=== PATIENT | female | born 1970 | race Caucasian/White ===

== ENCOUNTER 2016-08-11 22:02 | Emergency (ER) | payer OTHER ==
[~2016-08-11] VITALS: Ht 167.6 cm; Wt 86.3 kg
[~2016-08-11 22:02] MED LIST: CLON1TAB3 PO; OXYC1TAB PO; PRAM0.129 PO
[2016-08-11 22:07] VITALS: BP 92/61; PULSE 124; TEMP 36.9; O2SAT 96; Ht 167.6 cm; Wt 86.3 kg
[2016-08-11] MEDS ORDERED: PROCHLORPERAZINE 5 MG/ML 2 ML VIAL IV STA (22:31)
[2016-08-11] MEDS ORDERED: KETOROLAC TROMETHAMINE 30 MG/ML VIAL IV STA (22:31)
[2016-08-11] MEDS ORDERED: DiphenhydrAMINE HCL 50 MG/ML VIAL IV STA (22:31)
[2016-08-11] MEDS ORDERED: SODIUM CHLORIDE 0.9% 1000ML 1,000 ML IV ONE (22:45)
[2016-08-11 23:01] LABS: BASO % 0.5 %; BASO ABS # 0.04 K/uL (0-0.2); COMPLETE YES; EOS % 0.8 %; HEMATOCRIT 40.9 % (37-47); IG% 0.1 %; LYMPH % 35.7 %; LYMPH ABS # 2.84 K/uL (1.2-3.4); MEAN CELL VOLUME 92.3 fL (80-100); MEAN CORPUSCULAR HEMOGLOBIN 30.9 pg (25-34); MEAN CORPUSCULAR HGB CONC 33.5 g/dl (32-36); MEAN PLATELET VOLUME 10.6 fL (7.4-10.4); MONO % 9.3 %; NEUT % 53.6 %; PLATELET COUNT 338 K/uL (130-400); RED BLOOD COUNT 4.43 M/uL (4.2-5.4); WHITE BLOOD COUNT 7.96 K/uL (4.8-10.8)
[2016-08-11 23:16] LABS: BUN/CREATININE RATIO 7.9 (10-20); CALCIUM 8.8 mg/dl (8.5-10.1); CREATININE 0.76 mg/dl (0.60-1.20); POTASSIUM 3.4 mmol/L (3.5-5.1)
[2016-08-11 23:19] LABS: ALB/GLOB RATIO 1.1 (0.9-2)
[2016-08-11] MEDS ORDERED: OXYC1TAB3 PO (23:43)
--- NOTE | 2016-08-12 01:39 | EMERGENCY ROOM VISIT NOTE ---
History First contact with patient: 22:22 Chief Complaint: WEAKNESS Stated Complaint: MIGRAINE,NO SLEEP FOR 3 DAYS,WEAKNESS,NAUSEA Nursing Triage Summary: Patient presents with a c/c of inability to sleep that started Monday. Patient has a hsitory of this in the past and calls her psychiatrist, who triples her trazadone dose to 150 mg and this usually works. It has not worked this event. Patient also reports that she has a headache, no relief with fiorcet or motrin. Patient reports increased anxiety and depression over hte last week or so, with no known cause. Patient is oriented and awake, appears in minimal distress. She is slightly withdrawn on exam. History of Present Illness The patient is a 46 year old female who presents to the Emergency Room with complaints of headache and difficulty sleeping for the past 3-4 days. The patient has long-standing histories of both migraines and insomnia. The patient recently increased her trazodone dose the past 2 days, and this did not significantly relieve her symptoms. She states that her headache is primarily frontal and did not have relief with Fioricet and Motrin. The patient does have a history of anxiety and depression. She is not suicidal or homicidal and does not wish to speak with a psychiatrist. This is not the worst headache of her life. She feels that if she could get some sleep and some relief from her headache she will be doing very well. She rates her current discomfort an 8/ 10. No recent illness or fever. No neck pain or chest pain. The headache is typical to previous, and previous imaging has been normal. Review of Systems More than 10 systems were reviewed and otherwise negative with the exception of history of present illness. Past Medical/Surgical History Medical Problems: (1) Abdominal pain (2) Altered mental status (3) Altered mental status (4) Chronic back pain (5) Dizziness (6) Gastric Bypass (7) Hypotension (8) Hypotension (9) Hypotension (10) Insomnia (11) Kidney stone (12) Migraine (13) Narcotic drug use (14) Sleep deprivation (15) Sleep deprivation (16) UTI Family History Cancer Diabetes mellitus FHx: gallbladder disease Heart disease Hypertension Kidney disease Kidney stones Lung disease Social History Smoking Status: Never Smoker Alcohol Use: none Drug Use: none Marital Status: Housing Status: lives alone Occupation Status: disabled Current/Historical Medications Scheduled Amitriptyline Hcl (Elavil), 100 MG PO HS Tdblwovbfp-Adgkxqhxhhgxh-Jiecs (Fioricet), 1 CAP PO UD Clonazepam (Klonopin), 1 MG PO HS Duloxetine Hcl (Cymbalta), 60 MG PO DAILY Pramipexole (Mirapex), 75 MG PO HS Thyroid ([place] Thyroid), 180 MG PO DAILY Trazodone HCl (Trazodone HCl), 150 MG PO HS Scheduled PRN Cyclobenzaprine Hcl (Flexeril), 10 MG PO TID PRN for Muscle Spasms Oxycodone Ir (Roxicodone Ir), 1-2 TAB PO [id number] PRN for Severe Pain Promethazine Hcl (Phenergan), 25 MG PO BID PRN for Nausea Allergies Coded Allergies: Dihydroergotamine (Verified Allergy, Severe, PALPATATIONS-SWEATS, 08/11/16) Almotriptan (Verified Allergy, Unknown, 08/11/16) Frovatriptan (Verified Allergy, Unknown, 08/11/16) Pregabalin (Verified Allergy, Unknown, flu like feelings, 08/11/16) Sumatriptan (Verified Allergy, Unknown, 08/11/16) Topiramate (Verified Adverse Reaction, Unknown, flu like symptom, 08/11/16) pt/gmg Physical Exam Vital Signs Date Time Temp Pulse Resp B/P Pulse Ox O2 Delivery O2 Flow Rate FiO2 08/11/16 22:07 36.9 124 20 92/61 96 Room Air Physical Exam VITALS: Vitals are noted on the nurse's note and reviewed by myself. Vital signs stable. GENERAL: Well-developed, well-nourished, white female, who is in no acute distress and resting comfortably. Patient is cooperative with the examination. HEAD: Normocephalic atraumatic. NECK: Supple without nuchal rigidity. No lymphadenopathy. No thyromegaly. Cervical spine is nontender. HEART: Regular rate and rhythm without murmurs gallops or rubs. LUNGS: Clear to auscultation bilaterally without wheezes, rales or rhonchi. No retractions or accessory muscle use. ABDOMEN: Positive normal bowel sounds x 4. Soft, nontender, without masses or organomegaly. No guarding or rebound tenderness. MUSCULOSKELETAL: No muscle atrophy, erythema, or edema noted. Full range of motion without joint tenderness in all extremities. NEURO: Patient was alert and oriented to person place and time. CN II through XII grossly intact. No focal neurological deficits Medical Decision & Procedures Laboratory Results 08/11/16 22:40 Red Blood Count 4.43, Mean Corpuscular Volume 92.3, Mean Corpuscular Hemoglobin 30.9, Mean Corpuscular Hemoglobin Concent 33.5, Mean Platelet Volume 10.6, Neutrophils (%) (Auto) 53.6, Lymphocytes (%) (Auto) 35.7, Monocytes (%) (Auto) 9.3, Eosinophils (%) (Auto) 0.8, Basophils (%) (Auto) 0.5, Neutrophils # (Auto) 4.27, Lymphocytes # (Auto) 2.84, Monocytes # (Auto) 0.74, Eosinophils # (Auto) 0.06, Basophils # (Auto) 0.04 08/11/16 22:40 Test 08/11/16 22:40 08/11/16 23:50 White Blood Count 7.96 K/uL (4.8-10.8) Red Blood Count 4.43 M/uL (4.2-5.4) Hemoglobin 13.7 g/dL (12.0-16.0) Hematocrit 40.9 % (37-47) Mean Corpuscular Volume 92.3 fL (80-100) Mean Corpuscular Hemoglobin 30.9 pg (25-34) Mean Corpuscular Hemoglobin Concent 33.5 g/dl (32-36) Platelet Count 338 K/uL (130-400) Mean Platelet Volume 10.6 fL (7.4-10.4) Neutrophils (%) (Auto) 53.6 % Lymphocytes (%) (Auto) 35.7 % Monocytes (%) (Auto) 9.3 % Eosinophils (%) (Auto) 0.8 % Basophils (%) (Auto) 0.5 % Neutrophils # (Auto) 4.27 K/uL (1.4-6.5) Lymphocytes # (Auto) 2.84 K/uL (1.2-3.4) Monocytes # (Auto) 0.74 K/uL (0.11-0.59) Eosinophils # (Auto) 0.06 K/uL (0-0.5) Basophils # (Auto) 0.04 K/uL (0-0.2) RDW Standard Deviation 45.4 fL (36.4-46.3) RDW Coefficient of Variation 13.5 % (11.5-14.5) Immature Granulocyte % (Auto) 0.1 % Immature Granulocyte # (Auto) 0.01 K/uL (0.00-0.02) Anion Gap 9.0 mmol/L (3-11) Est Creatinine Clear Calc Drug Dose 100.1 ml/min Estimated GFR () 107.5 Estimated GFR (Non- 92.8 BUN/Creatinine Ratio 7.9 (10-20) Calcium Level 8.8 mg/dl (8.5-10.1) Total Bilirubin 0.3 mg/dl (0.2-1) Aspartate Amino Transf (AST/SGOT) 16 U/L (15-37) Alanine Aminotransferase (ALT/SGPT) 24 U/L (12-78) Alkaline Phosphatase 118 U/L (45-117) Total Protein 7.1 gm/dl (6.4-8.2) Albumin 3.7 gm/dl (3.4-5.0) Globulin 3.4 gm/dl (2.5-4.0) Albumin/Globulin Ratio 1.1 (0.9-2) Bedside Glucose 130 mg/dl (70-90) Medications Administered Medications (Trade) Dose Ordered Sig/[facility] Route Start Time Stop Time Status Last Admin Dose Admin Diphenhydramine HCl (Benadryl Inj) 50 mg NOW STAT IV 08/11/16 22:31 08/11/16 22:33 DC 08/11/16 22:46 50 MG Prochlorperazine Edisylate 10 mg 10 mg NOW STAT IV 08/11/16 22:31 08/11/16 22:33 DC 08/11/16 22:46 10 MG Sodium Chloride (Nss 1000ml) 1,000 ml @ 999 mls/hr Q1H1M ONCE IV 08/11/16 22:45 08/11/16 23:45 DC 08/11/16 22:46 999 MLS/HR Ketorolac Tromethamine (Toradol Inj) 30 mg NOW STAT IV 08/11/16 22:31 08/11/16 22:33 DC 08/11/16 22:45 30 MG ED Course Physical exam and history were performed. Nursing notes and EMR were reviewed. Patient appears to have difficulty sleeping and a migraine headache that have been ongoing for the past several days. The patient does not appear in significant distress on examination. This is not the worst headache of her life. She is without signs of meningitis or encephalitis. IV access was established and labs were obtained. The patient was hydrated with 1 L normal saline and given 30 mg IV Toradol, 10 mg IV Compazine, 50 mg IV Benadryl. The patient's blood work is as above and was reviewed. She does not have a significant elevated white blood cell count, anemia, bandemia, or significant electrolyte imbalance. She initially had some low blood sugar here, and was given orange juice. Rechecked bed side glucose was 130. The patient was monitored for some time here in the department, and was found to be sleeping quite comfortably on final reevaluation. I discussed the patient 's labs with her, and overall feel that she is stable for discharge home. The patient is to follow with her primary care physician in the next few days for a recheck of her condition. She was otherwise invited back to the ER with any new , worsening, or concerning symptoms. She was easily plan of care and voiced understanding. She was discharged home via taxi. The chart was completed utilizing [employer] Speech Voice Recognition Software. Grammatical errors, random word insertions, pronoun errors, and incomplete sentences are an occasional consequence of this system due to software limitations, ambient noise, and hardware issues. Any formal questions or concerns about the content, text, or information contained within the body of this dictation should be directly addressed to the provider for clarification. . Medical Decision The differential diagnosis includes, but is not limited to: acute intracranial bleed, meningitis, encephalitis, mass or mass effect, sinusitis, infection, tumor, headache, temporal arteritis and carbon monoxide exposure, and migraine. Impression Primary Impression: Migraine headache Additional Impression: Sleep deprivation Departure Information Referrals Don Espinosa Jr,D.O. (PCP) Patient Instructions My [facility] Problem Qualifiers Primary Impression: Migraine headache Migraine type: without aura
[2016-12-07] MEDS ORDERED: CLON2TAB PO (00:46)
[2016-12-07] MEDS ORDERED: RISP4TAB2 PO (00:49)
[2016-12-07] MEDS ORDERED: AMT50 PO (00:54)
[2016-12-07] MEDS ORDERED: DULO60CA44 PO (14:12)
[2016-12-07] MEDS ORDERED: PROM25TA9 PO (22:35)
[2016-12-07] MEDS ORDERED: CYCL10TA6 PO (23:46)
[2016-12-09] MEDS ORDERED: OXYC-609 PO (00:49)
[2016-12-09] MEDS ORDERED: MRP5 PO (00:49)
[2016-12-09] MEDS ORDERED: OXY/15 PO (00:49)
[2016-12-09] MEDS ORDERED: EST5 PO (00:52)
[2016-12-09] MEDS ORDERED: ERGO1CAP41 PO (00:52)
== END 2016-08-12 00:24 | disposition home or self-care (01) ==
LOC: C.EDB 22:03
DX: G43.909 Migraine, unspecified, not intractable, without status migrainosus (principal); Z72.820 Sleep deprivation; F32.9 Major depressive disorder, single episode, unspecified; F41.9 Anxiety disorder, unspecified; G47.00 Insomnia, unspecified; Z79.899 Other long term (current) drug therapy; Z83.3 Family history of diabetes mellitus; Z82.49 Family history of ischemic heart disease and other diseases of the circulatory system; Z84.1 Family history of disorders of kidney and ureter

== ENCOUNTER 2016-08-14 19:47 | Emergency (ER) | payer OTHER ==
[~2016-08-14] VITALS: Ht 167.6 cm; Wt 86.2 kg
[~2016-08-14 19:47] MED LIST changes: -OXYC1TAB PO; +OXYC1TAB3 PO
[2016-08-14 19:54] VITALS: Ht 167.6 cm; Wt 86.2 kg
[2016-08-14] MEDS ORDERED: PROCHLORPERAZINE 5 MG/ML 2 ML VIAL IM STA (20:16)
[2016-08-14] MEDS ORDERED: KETOROLAC TROMETHAMINE 60 MG/2 ML VIAL IM STA (20:16)
[2016-08-14] MEDS ORDERED: MoRPHine SULFATE 10 MG/ML CARP/VIAL IM STA (20:16)
--- NOTE | 2016-08-14 20:21 | EMERGENCY ROOM VISIT NOTE ---
ED Visit Note First contact with patient: 20:03 CHIEF COMPLAINT: Migraine headache HISTORY OF PRESENT ILLNESS: This 46-year-old female patient presented to the emergency department ambulatory with a gradual onset of a severe generalized headache that started 1 week ago. The patient states that she was seen here for the migraine last week. She states that she did have some relief when she left here, but her migraine returned the next day. The patient states the migraine is similar to their typical migraines. There has been associated photophobia, phonophobia, nausea and vomiting. The patient denies fever or chills recently, and there is no weakness or numbness of the extremities. There is no difficulty with speech or vision. No trauma to the head and no neck pain. The pain is severe, constant, and it is slowly increasing in severity. The patient rates the pain as throbbing and 8/10. The patient has taken Fioricet without relief. This is not the worst headache of the life and is similar to previous migraines. Previous imaging studies of the brain have been normal. The patient sees Dr. Tyler for her migraines and takes Cymbalta daily. REVIEW OF SYSTEMS: A review of systems was performed with positives and pertinent negatives listed in the history of present illness. All other systems were reviewed and are negative. ALLERGIES: See EMR MEDICATIONS: See med list PMH: Migraines, cholecystectomy, endometriosis, kidney stones, fibromyalgia, osteoarthritis SOCIAL HISTORY: The patient lives locally with her family. Nonsmoker, denies alcohol use. PHYSICAL EXAM: Vital Signs: Reviewed Nurse's notes, vital signs stable. GENERAL : This is a 46-year-old female, who appears in pain, but non toxic in appearance and in no acute distress. MENTAL STATUS: Alert, oriented, and coherent. HEENT: Normocephalic. PERRLA. EOMI. Nares patent without nuchal rigidity. Tympanic membranes pearly keys without erythema or effusion bilaterally. Mucous membranes moist. NECK: Supple, no nuchal rigidity, nontender, no lymphadenopathy. HEART: Regular rhythm and normal rate without murmurs, ectopy, gallops, or rubs. LUNGS: Clear to auscultation bilaterally without wheezes, rales or rhonchi. No dullness to percussion. No accessory muscle use. No retractions. SKIN: Normal. NEUROLOGICAL: Pupils are round, equal and react to light. The optic fundi are normal and the discs are flat. The patient moves all extremities well and the gait is normal. EMERGENCY DEPARTMENT COURSE: I examined the patient. The patient is on a no narcotic prescription treatment plan, as she does receive regular narcotic prescriptions from her primary care provider. The patient has been seen here before for migraines and she states that her symptoms today are similar to previous episodes. The patient was given 10 mg morphine IM, 10 mg Compazine IM , and 60 mg Toradol IM. The differential diagnosis includes acute intracranial bleed, meningitis, encephalitis, mass or mass effect, sinusitis, infection, tumor, headache, temporal arteritis and carbon monoxide exposure, and migraine. The patient was independently evaluated by Dr. Gastelum, ED attending physician, who agreed with my assessment and treatment plan. The patient was discharged home in stable condition in a taxi. DIAGNOSIS: Migraine headache Problem List Medical Problems: (1) Abdominal pain Status: Resolved (2) Altered mental status Status: Resolved (3) Altered mental status Status: Resolved (4) Chronic back pain Status: Chronic (5) Dizziness Status: Resolved (6) Gastric Bypass Status: Resolved (7) Hypotension Status: Resolved (8) Hypotension Status: Resolved (9) Hypotension Status: Resolved (10) Insomnia Status: Resolved (11) Kidney stone Status: Resolved (12) Migraine Status: Chronic (13) Narcotic drug use Status: Chronic (14) Sleep deprivation Status: Resolved (15) Sleep deprivation Status: Resolved (16) UTI Status: Chronic Current/Historical Medications Scheduled Amitriptyline Hcl (Elavil), 100 MG PO HS Qrmrvocbrh-Hnidobnjznzfs-Lqqlk (Fioricet), 1 CAP PO UD Clonazepam (Klonopin), 1 MG PO HS Duloxetine Hcl (Cymbalta), 60 MG PO DAILY Pramipexole (Mirapex), 75 MG PO HS Thyroid ([place] Thyroid), 180 MG PO DAILY Trazodone HCl (Trazodone HCl), 150 MG PO HS Scheduled PRN Cyclobenzaprine Hcl (Flexeril), 10 MG PO TID PRN for Muscle Spasms Oxycodone Ir (Roxicodone Ir), 1-2 TAB PO [id number] PRN for Severe Pain Promethazine Hcl (Phenergan), 25 MG PO BID PRN for Nausea Allergies Coded Allergies: Dihydroergotamine (Verified Allergy, Severe, PALPATATIONS-SWEATS, 08/11/16) Almotriptan (Verified Allergy, Unknown, 08/11/16) Frovatriptan (Verified Allergy, Unknown, 08/11/16) Pregabalin (Verified Allergy, Unknown, flu like feelings, 08/11/16) Sumatriptan (Verified Allergy, Unknown, 08/11/16) Topiramate (Verified Adverse Reaction, Unknown, flu like symptom, 08/11/16) pt/gmg Vital Signs Date Time Temp Pulse Resp B/P Pulse Ox O2 Delivery O2 Flow Rate FiO2 08/14/16 20:56 36.7 81 16 131/58 98 08/14/16 20:53 81 16 131/58 98 Room Air 08/14/16 19:54 36.7 86 16 139/55 98 Room Air Medications Administered Medications (Trade) Dose Ordered Sig/[facility] Route Start Time Stop Time Status Last Admin Dose Admin Morphine Sulfate (MoRPHine SULFATE INJ) 10 mg NOW STAT IM 08/14/16 20:16 08/14/16 20:18 DC 08/14/16 20:33 10 MG Prochlorperazine Edisylate (Compazine Inj) 10 mg NOW STAT IM 08/14/16 20:16 08/14/16 20:18 DC 08/14/16 20:32 10 MG Ketorolac Tromethamine (Toradol Inj) 60 mg NOW STAT IM 08/14/16 20:16 08/14/16 20:18 DC 08/14/16 20:33 60 MG Departure Information Impression Primary Impression: Migraine Dispostion Home / Self-Care Condition GOOD Referrals Don Espinosa Jr,D.O. (PCP) Patient Instructions My [facility] Additional Instructions You have been treated in the Emergency Department for a Headache. You have received pain medicine in the emergency department which impairs your ability to operate a vehicle. It is illegal for you to drive after receiving these medicines. You should schedule a follow-up appointment with your Primary Care Provider or established Neurologist for further evaluation and treatment of your Headache. Return to the Emergency Department if your current symptoms worsen despite treatment course outlined above, or if you develop any of the following symptoms : intractable pain despite aforementioned treatment course, visual disturbances , loss of vision, unilateral weakness or facial drooping, slurring of speech, loss of coordination, or loss of consciousness. Problem Qualifiers Primary Impression: Migraine Migraine type: unspecified Status migrainosus presence: without status migrainosus Intractability: not intractable Qualified Codes: G43.909 - Migraine, unspecified, not intractable, without status migrainosus
--- NOTE | 2016-08-14 20:47 | EMERGENCY ROOM VISIT NOTE ---
ED Visit Note First contact with patient: 20:03 Staff note: I have reviewed the Patients chart and have discussed this case with my PA. I generally agree with the ED note and findings.
[2016-08-14 20:56] VITALS: BP 131/58; PULSE 81; TEMP 36.7; O2SAT 98
[2016-12-07] MEDS ORDERED: CLON2TAB PO (00:46)
[2016-12-07] MEDS ORDERED: RISP4TAB2 PO (00:49)
[2016-12-07] MEDS ORDERED: AMT50 PO (00:54)
[2016-12-07] MEDS ORDERED: DULO60CA44 PO (14:12)
[2016-12-07] MEDS ORDERED: PROM25TA9 PO (22:35)
[2016-12-07] MEDS ORDERED: CYCL10TA6 PO (23:46)
[2016-12-09] MEDS ORDERED: OXYC-609 PO (00:49)
[2016-12-09] MEDS ORDERED: MRP5 PO (00:49)
[2016-12-09] MEDS ORDERED: OXY/15 PO (00:49)
[2016-12-09] MEDS ORDERED: EST5 PO (00:52)
[2016-12-09] MEDS ORDERED: ERGO1CAP41 PO (00:52)
== END 2016-08-14 21:20 | disposition home or self-care (01) ==
LOC: C.EDB 19:48 → C.EDD 21:20
DX: G43.909 Migraine, unspecified, not intractable, without status migrainosus (principal); M54.9 Dorsalgia, unspecified; G89.29 Other chronic pain; F19.90 Other psychoactive substance use, unspecified, uncomplicated; Z87.442 Personal history of urinary calculi; M19.90 Unspecified osteoarthritis, unspecified site; M79.7 Fibromyalgia; N39.0 Urinary tract infection, site not specified; Z79.899 Other long term (current) drug therapy

== ENCOUNTER → 2016-08-19 | Outpatient (CLI) | payer OTHER ==
[~2016-08-19] MED LIST changes: +AMT/50 PO; +AMT50 PO; +BUTA1CAP17 PO; +CLON2TAB PO; +CLON2TAB3 PO; +CYCL10TA6 PO; +CYCL10TA7 PO; +CYM60 PO; +DSY/150 PO; +DULO60CA44 PO; +ERGO1CAP41 PO; +EST5 PO; +METO1TAB55 PO; +MRP5 PO; +ONDA4TAB10 SL; +OXY/15 PO; +OXYC-609 PO; +PROM25TA16 PO; +PROM25TA9 PO; +RISP1TAB68 PO; +RISP4TAB2 PO; +RISP4TAB8 PO; +THYR180T PO
[2016-08-19 09:37] LABS: BASO % 0.3 %; BASO ABS # 0.02 K/uL (0-0.2); COMPLETE YES; EOS % 1.7 %; HEMATOCRIT 44.1 % (37-47); IG% 0.1 %; LYMPH % 23.7 %; LYMPH ABS # 1.64 K/uL (1.2-3.4); MEAN CELL VOLUME 91.5 fL (80-100); MEAN CORPUSCULAR HEMOGLOBIN 30.7 pg (25-34); MEAN CORPUSCULAR HGB CONC 33.6 g/dl (32-36); MEAN PLATELET VOLUME 10.4 fL (7.4-10.4); MONO % 4.6 %; NEUT % 69.6 %; PLATELET COUNT 358 K/uL (130-400); RED BLOOD COUNT 4.82 M/uL (4.2-5.4); WHITE BLOOD COUNT 6.92 K/uL (4.8-10.8)
[2016-08-19 09:51] LABS: ALT/SGPT 33 U/L (12-78); AST/SGOT 29 U/L (15-37); BLOOD UREA NITROGEN 9 mg/dl (7-18); BUN/CREATININE RATIO 13.1 (10-20); C-REACTIVE PROTEIN < 0.29 mg/dl (0-0.29); CARBON DIOXIDE 24 mmol/L (21-32); CHLORIDE 104 mmol/L (98-107); CREATININE 0.72 mg/dl (0.60-1.20); GLUCOSE 62 mg/dl (70-99); POTASSIUM 3.2 mmol/L (3.5-5.1); SODIUM 139 mmol/L (136-145)
--- NOTE | 2016-08-19 09:55 | DIAGNOSTIC IMAGING REPORT ---
L-SPINE MIN 4 VIEWS ROUTINE CLINICAL HISTORY: Low back pain. Degenerative disc disease. COMPARISON: None FINDINGS: There is grade I anterolisthesis of L5 on S1 due to bilateral L5 pars defects. There is marked disc space narrowing and osteophytosis at the L5-S1 level. Otherwise, mild multilevel degenerative disc disease is present. There is no fracture or suspicious lesion. Cholecystectomy clips are noted. IMPRESSION: 1. Grade I anterolisthesis of L5 on S1 due to bilateral L5 pars defects. 2. Marked disc space narrowing with osteophytosis at L5-S1. Otherwise, mild multilevel degenerative changes of the lumbar spine. 3. No acute fracture. Electronically signed by: Alan Whitt M.D. 08/19/2016 9:53 AM Dictated Date/Time: 08/19/2016 9:51 AM
[2016-08-19 09:56] LABS: ALKALINE PHOSPHATASE 145 U/L (45-117); FERRITIN 44.3 ng/ml (8.0-388.0); RHEUMATOID FACTOR < 10.0 U/mL (0-15)
[2016-08-19 10:05] LABS: CHOLESTEROL/HDL RATIO 1.7; THYROID STIMULATING HORMONE 1.1 uIu/ml (0.300-4.500)
--- NOTE | 2016-08-19 10:06 | DIAGNOSTIC IMAGING REPORT ---
SI JOINTS 3 OR MORE VIEWS CLINICAL HISTORY: Sacroiliac pain. Low back pain. COMPARISON STUDY: None. FINDINGS: Degenerative disc disease at L5-S1. The sacrum is intact. Bilateral sacroiliac joints are within normal limits. No erosions identified. IMPRESSION: Unremarkable bilateral sacroiliac joints. Electronically signed by: Marky Patel M.D. 08/19/2016 10:05 AM Dictated Date/Time: 08/19/2016 10:04 AM
[2016-08-19 10:10] LABS: BENZODIAZEPINE, URINE NEG (NEG); COCAINE,URINE NEG (NEG); PHENCYCLIDINE, URINE NEG (NEG)
[2016-08-19 12:18] LABS: LYME DISEASE AB IGG NEG (NEG); LYME DISEASE AB IGM NEG (NEG)
--- NOTE | 2016-08-23 11:46 | CODING QUERY MEDICAL NECESSITY ---
SUPPORTING DIAGNOSIS NEEDED Dr. Espinosa, A supporting diagnosis is required for the test/procedure performed on this patient in order for us to be reimbursed by the patient's insurance. Please provide a supporting diagnosis for the following test/procedure listed below next to the test name along with your signature. *If there is no additional diagnosis for this patient that would support the following test/procedure please document that below next to the test/procedure. Test(s)/Procedure(s) that require a supporting diagnosis: * ([id number]) URINE DRUG SCREEN DIAGNOSIS: * ([id number]) HLA B-27 DIAGNOSIS: DATE OF SERVICE: 08/19/16 Provider Signature: Date: Thank you Naveed Gilmore [facility] Information Management Once completed, please kindly fax back to [phone] For questions please call [phone]
[2016-08-23 15:28] LABS: HLA-B27** TC 528X NEGATIVE (NEGATIVE)
== END | disposition home or self-care (01) ==
LOC: C.LAB 08:08
DX: M19.90 Unspecified osteoarthritis, unspecified site (principal); E61.1 Iron deficiency; E55.9 Vitamin D deficiency, unspecified; E53.8 Deficiency of other specified B group vitamins; F32.89 Other specified depressive episodes

== ENCOUNTER 2016-09-16 17:43 | Emergency (ER) | payer OTHER ==
[~2016-09-16] VITALS: Ht 167.6 cm; Wt 83.5 kg
[~2016-09-16 17:43] MED LIST changes: -AMT/50 PO; -AMT50 PO; -BUTA1CAP17 PO; -CLON2TAB PO; -CLON2TAB3 PO; -CYCL10TA6 PO; -CYCL10TA7 PO; -CYM60 PO; -DSY/150 PO; -DULO60CA44 PO; -ERGO1CAP41 PO; -EST5 PO; -METO1TAB55 PO; -MRP5 PO; -ONDA4TAB10 SL; -OXY/15 PO; -OXYC-609 PO; -PROM25TA16 PO; -PROM25TA9 PO; -RISP1TAB68 PO; -RISP4TAB2 PO; -RISP4TAB8 PO; -THYR180T PO
[2016-09-16 17:46] VITALS: TEMP 36.9; Ht 167.6 cm; Wt 83.5 kg
[2016-09-16] MEDS ORDERED: RISP1TAB68 PO (18:06)
[2016-09-16] MEDS ORDERED: DiphenhydrAMINE HCL 50 MG/ML VIAL IV STA (18:21)
[2016-09-16] MEDS ORDERED: SODIUM CHLORIDE 0.9% 1000ML 1,000 ML IV STA (18:21)
[2016-09-16] MEDS ORDERED: PROCHLORPERAZINE 5 MG/ML 2 ML VIAL IV STA (18:21)
[2016-09-16 18:35] LABS: BASO % 0.3 %; BASO ABS # 0.02 K/uL (0-0.2); COMPLETE YES; HEMATOCRIT 40.2 % (37-47); IG% 0.1 %; LYMPH % 25.5 %; LYMPH ABS # 1.87 K/uL (1.2-3.4); MEAN CELL VOLUME 91.4 fL (80-100); MEAN CORPUSCULAR HEMOGLOBIN 30.5 pg (25-34); MEAN CORPUSCULAR HGB CONC 33.3 g/dl (32-36); MEAN PLATELET VOLUME 11.1 fL (7.4-10.4); MONO % 8.9 %; NEUT % 65.2 %; PLATELET COUNT 327 K/uL (130-400); WHITE BLOOD COUNT 7.34 K/uL (4.8-10.8)
[2016-09-16 18:41] LABS: BUN/CREATININE RATIO 11.7 (10-20); CALCIUM 8.6 mg/dl (8.5-10.1); CREATININE 0.7 mg/dl (0.60-1.20); POTASSIUM 3.8 mmol/L (3.5-5.1)
[2016-09-16 18:44] LABS: INR 0.9 (0.9-1.1); PROTHROMBIN TIME (PATIENT) 9.9 SECONDS (9.0-12.0)
[2016-09-16] MEDS ORDERED: OPTIRAY 320 IV PRN (18:45)
--- NOTE | 2016-09-16 19:21 | DIAGNOSTIC IMAGING REPORT ---
ADDENDUM . correlation made with an MRA dated 09/21/2012. 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 This may be secondary to changes/patient motion, and resolution. There is no evidence for an enlarging aneurysm. If present, they again are stable. Electronically signed by: Logan Johnson M.D. 09/16/2016 7:41 PM Dictated Date/Time: 09/16/2016 7:38 PM ORIGINAL REPORT HEAD CTA HISTORY: Headache mental status change TECHNIQUE: Multiaxial CT images of the head were performed both before and after the intravenous administration of contrast to evaluate the major cerebral vessels. Maximum intensity projection images were also obtained. COMPARISON: 04/11/2015 FINDINGS: There is no mass, hematoma, midline shift, or acute infarct. Visualized intracranial internal carotid arteries, distal vertebral arteries, and basilar artery are widely patent. There is no significant stenosis, occlusion, or aneurysm seen within the bilateral ACAs, MCAs, or talent development consultant. IMPRESSION: No significant stenosis, occlusion, or aneurysm within the [place]. No acute process of the brain Electronically signed by: Logan Johnson M.D. 09/16/2016 7:19 PM Dictated Date/Time: 09/16/2016 7:17 PM
[2016-09-16 19:45] VITALS: BP 132/81; PULSE 96; O2SAT 97
--- NOTE | 2016-09-16 22:48 | EMERGENCY ROOM VISIT NOTE ---
History Report prepared by Shaylee: Mann Aceves Under the Supervision of: Dr. Bay Manzo M.D. First contact with patient: 18:06 Chief Complaint: HEADACHE Stated Complaint: MIGRAINE,SENY BY URGENT CARE History of Present Illness The patient is a 46 year old female who presents to the Emergency Room with complaints of a persistent headache that started three nights ago. The headache is located behind the left eye. The headache is rated 7/10 in severity is described as an aching sensation. The patient has a history of migraines. Her migraines are normally behind the right eye, sharp in nature, and more severe. She is also less photophobic than she typically is with migraines. The patient notes that the left eye has been straining for a while. She experienced intermittent vomiting every day starting three nights ago but did not vomit yet today. The patient also has complaints of generalized weakness and notes that her blood pressure has been erratic for the past several weeks. She does state that she has a history of dysautonomia. She experiences intermittent difficulty focusing her vision bilaterally and is scheduled to see an Nuclear Unit Operator. She has had bilateral leg tingling that started three days ago. She denies any focal numbness or weakness in her extremities. She denies fevers or double vision. The patient was referred to the ED by [employer] [facility] today. She follows up with Dr. Tyler in Neurology and Dr. Espinosa for primary care. She was diagnosed with bilateral internal carotid aneurysms, worse on the right, and has not had any interventions. She is followed at [facility]. Source of History: patient Onset: three nights ago Position: head (left) Symptom Intensity: 7/10 Quality: ache Timing: other (persistent) Associated Symptoms: + nausea, + vomiting, + weakness (generalized), No fevers, No numbness Review of Systems See HPI for pertinent positives & negatives. A total of 10 systems reviewed and were otherwise negative. Past Medical & Surgical Medical Problems: (1) Abdominal pain (2) Altered mental status (3) Altered mental status (4) Chronic back pain (5) Dizziness (6) Gastric Bypass (7) Hypotension (8) Hypotension (9) Hypotension (10) Insomnia (11) Kidney stone (12) Migraine (13) Narcotic drug use (14) Sleep deprivation (15) Sleep deprivation (16) UTI Family History Cancer Diabetes mellitus FHx: gallbladder disease Heart disease Hypertension Kidney disease Kidney stones Lung disease Social History Smoking Status: Never Smoker Alcohol Use: none Drug Use: none Marital Status: Housing Status: lives alone Occupation Status: disabled Current/Historical Medications Scheduled Amitriptyline Hcl (Elavil), 150 MG PO HS Sepptdhkyy-Qmvudvzrghbdq-Rplrw (Fioricet), 1 CAP PO UD Clonazepam (Klonopin), 1 MG PO HS Duloxetine Hcl (Cymbalta), 60 MG PO DAILY Pramipexole (Mirapex), 0.25 MG PO HS Thyroid ([place] Thyroid), 180 MG PO DAILY Trazodone HCl (Trazodone HCl), 150 MG PO HS Scheduled PRN Cyclobenzaprine Hcl (Flexeril), 10 MG PO TID PRN for Muscle Spasms Oxycodone Ir (Roxicodone Ir), 1-2 TAB PO [id number] PRN for Severe Pain Promethazine Hcl (Phenergan), 25 MG PO BID PRN for Nausea Risperidone (Risperdal), 1 MG PO DAILY PRN for Sleep Allergies Coded Allergies: Dihydroergotamine (Verified Allergy, Severe, PALPATATIONS-SWEATS, 09/16/16) Almotriptan (Verified Allergy, Unknown, 09/16/16) Frovatriptan (Verified Allergy, Unknown, 09/16/16) Pregabalin (Verified Allergy, Unknown, flu like feelings, 09/16/16) Sumatriptan (Verified Allergy, Unknown, 09/16/16) Topiramate (Verified Adverse Reaction, Unknown, flu like symptom, 09/16/16) pt/gmg Physical Exam Vital Signs Date Time Temp Pulse Resp B/P Pulse Ox O2 Delivery O2 Flow Rate FiO2 09/16/16 19:45 96 18 132/81 97 09/16/16 17:46 36.9 115 18 165/76 97 Room Air Physical Exam Constitutional: Vital signs reviewed. Eyes: Pupils are equal round reactive to light. Conjunctiva are noninjected. ENT: Pharynx is clear without erythema or exudate. Mucous membranes are moist. Neck supple without meningeal signs. Respiratory: Clear to auscultation bilaterally. Breath sounds are equal bilaterally. Cardiovascular: Regular rate and rhythm. No rubs or gallops. GI: Soft, nondistended and nontender. Bowel sounds are present. Musculoskeletal: No peripheral edema. No lower extremity tenderness. Integumentary: No cyanosis. Neurological: The patient is awake and alert. Cranial nerves II-XII are intact. Motor is 5 out of 5 all extremities. Sensation is intact to light touch all extremities. Normal speech. No pronator drift. Visual epstein intact bilaterally by confrontation. Psychiatric: Normal affect. Medical Decision & Procedures ER Provider Diagnostic Interpretation: CT results as stated below per my review and radiologist interpretation. HEAD CTA HISTORY: Headache mental status change TECHNIQUE: Multiaxial CT images of the head were performed both before and after the intravenous administration of contrast to evaluate the major cerebral vessels. Maximum intensity projection images were also obtained. COMPARISON: 04/11/2015 FINDINGS: There is no mass, hematoma, midline shift, or acute infarct. Visualized intracranial internal carotid arteries, distal vertebral arteries, and basilar artery are widely patent. There is no significant stenosis, occlusion, or aneurysm seen within the bilateral ACAs, MCAs, or tractor engine mechanic. IMPRESSION: No significant stenosis, occlusion, or aneurysm within the [place]. No acute process of the brain Electronically signed by: Logan Johnson M.D. 09/16/2016 7:19 PM Dictated Date/Time: 09/16/2016 7:17 PM Laboratory Results 09/16/16 18:05 Red Blood Count 4.40, Mean Corpuscular Volume 91.4, Mean Corpuscular Hemoglobin 30.5, Mean Corpuscular Hemoglobin Concent 33.3, Mean Platelet Volume 11.1, Neutrophils (%) (Auto) 65.2, Lymphocytes (%) (Auto) 25.5, Monocytes (%) (Auto) 8.9, Eosinophils (%) (Auto) 0.0, Basophils (%) (Auto) 0.3, Neutrophils # (Auto) 4.79, Lymphocytes # (Auto) 1.87, Monocytes # (Auto) 0.65, Eosinophils # (Auto) 0.00, Basophils # (Auto) 0.02 09/16/16 18:05 Test 09/16/16 18:05 White Blood Count 7.34 K/uL (4.8-10.8) Red Blood Count 4.40 M/uL (4.2-5.4) Hemoglobin 13.4 g/dL (12.0-16.0) Hematocrit 40.2 % (37-47) Mean Corpuscular Volume 91.4 fL (80-100) Mean Corpuscular Hemoglobin 30.5 pg (25-34) Mean Corpuscular Hemoglobin Concent 33.3 g/dl (32-36) Platelet Count 327 K/uL (130-400) Mean Platelet Volume 11.1 fL (7.4-10.4) Neutrophils (%) (Auto) 65.2 % Lymphocytes (%) (Auto) 25.5 % Monocytes (%) (Auto) 8.9 % Eosinophils (%) (Auto) 0.0 % Basophils (%) (Auto) 0.3 % Neutrophils # (Auto) 4.79 K/uL (1.4-6.5) Lymphocytes # (Auto) 1.87 K/uL (1.2-3.4) Monocytes # (Auto) 0.65 K/uL (0.11-0.59) Eosinophils # (Auto) 0.00 K/uL (0-0.5) Basophils # (Auto) 0.02 K/uL (0-0.2) RDW Standard Deviation 44.5 fL (36.4-46.3) RDW Coefficient of Variation 13.3 % (11.5-14.5) Immature Granulocyte % (Auto) 0.1 % Immature Granulocyte # (Auto) 0.01 K/uL (0.00-0.02) Prothrombin Time 9.9 SECONDS (9.0-12.0) Prothromb Time International Ratio 0.9 (0.9-1.1) Activated Partial Thromboplast Time 25.9 SECONDS (21.0-31.0) Partial Thromboplastin Ratio 1.0 Anion Gap 5.0 mmol/L (3-11) Est Creatinine Clear Calc Drug Dose 107.0 ml/min Estimated GFR () 118.7 Estimated GFR (Non- 102.5 BUN/Creatinine Ratio 11.7 (10-20) Calcium Level 8.6 mg/dl (8.5-10.1) Laboratory results as reviewed by me. Medications Administered Medications (Trade) Dose Ordered Sig/[facility] Route Start Time Stop Time Status Last Admin Dose Admin Sodium Chloride (Nss 1000ml) 1,000 ml @ 999 mls/hr Q1H1M STAT IV 09/16/16 18:21 09/16/16 19:21 DC 09/16/16 18:48 999 MLS/HR Prochlorperazine Edisylate (Compazine Inj) 10 mg NOW STAT IV 09/16/16 18:21 09/16/16 18:24 DC 09/16/16 18:47 10 MG Diphenhydramine HCl (Benadryl Inj) 50 mg NOW STAT IV 09/16/16 18:21 09/16/16 18:24 DC 09/16/16 18:47 50 MG ED Course 180: The patient was evaluated in room B9. A complete history and physical exam was performed. 1820: Benadryl 50 mg IV, Compazine 10 mg IV, NSS 1000 ml @ 999 mls/hr. 1934: Headache is improved. She is much less sensitive to light now. Discussed test results with her. I recommended an LP to rule out SAH given we were unable to do an MRA. She understands my concerns and the risks of undiagnosed SAH, including and disability. She refuses the LP. She states that she has had them in the past and had a severe spinal headache afterwards requiring two blood patches. Medical Decision This is a 46-year-old female with a history of migraines presenting with a headache. Differential diagnosis includes migraine headache, tension headache, intracranial hemorrhage, subarachnoid hemorrhage, aneurysm, intracranial mass. I did perform a limited focused review of portions of the patient's old chart on the electronic medical record. The patient had an unremarkable CT Head on 2014. She also had a stable 3 mm aneurysm in the right internal carotid artery. She has another aneurysm on the left internal carotid. I did evaluate the patient as noted above. The patient is presenting with a headache. She states it is somewhat similar to her prior migraines but she normally gets migraines on the right side of her head and states that it is not as severe as a typical migraine. She does, however, state that she occasionally gets migraines on the left side. The headache also feels achy rather than sharp. The headache was gradual in onset. It is not the worst headache of her life and less severe than her typical migraines. She has no neurologic deficits. She is afebrile. IV access was established. I did treat her with IV Compazine, Benadryl and normal saline. I did order and review the patient's blood work as noted in the electronic medical record. Her white blood cell count is not elevated. Labs are unremarkable. I did wish to do an MRI/MRA of the brain but the patient states that she has such severe claustrophobia she may have assaulted attack the last time she tried to have an open one. She feels that she needs general anesthesia for an MRI. Because of this, I did order a CT angiogram of the brain with and without contrast. I did review the images myself as well as the radiology report as described above. There is no evidence of bleed. No evidence of aneurysm. I did reassess patient. The patient states she is feeling better. Her headache is significantly improved. I did discuss the test results with the patient. I did recommend lumbar puncture to rule out subarachnoid hemorrhage given her prior history of aneurysm. I did have a long discussion with her regarding subarachnoid hemorrhage and the potential risks of missed diagnosis including and permanent disability. She, however, declined a lumbar puncture as she had significant post spinal headache with her last one. She did feel well enough for discharge and will follow up closely with her doctor. She was given return instructions as outlined below. Impression Primary Impression: Headache Additional Impression: H/O aneurysm Scribe Attestation The scribe's documentation has been prepared under my direct and personally reviewed by me in its entirety. I confirm that the note above accurately reflects all work, treatment, procedures, and medical decision making performed by me. Departure Information Dispostion Home / Self-Care Referrals Don Espinosa Jr,D.O. (PCP) Forms HOME CARE DOCUMENTATION FORM, IMPORTANT VISIT INFORMATION Patient Instructions My [facility] Additional Instructions You are declining lumbar puncture and therefore we are not able to completely rule out a bleed to your brain. You have been examined and treated today on an emergency basis only. This is not a substitute for, or an effort to provide, complete comprehensive medical care. It is impossible to recognize and treat all injuries or illnesses in a single emergency department visit. It is therefore important that you follow up closely with your physician. Call as soon as possible for an appointment. Return for worsening symptoms or if you develop fever, numbness or weakness on one side of your body, difficulties with your speech or walking, or any other concerning symptoms. Problem Qualifiers Primary Impression: Headache Headache type: unspecified Headache chronicity pattern: acute headache Intractability: not intractable Qualified Codes: R51 - Headache
[2016-12-07] MEDS ORDERED: CLON2TAB PO (00:46)
[2016-12-07] MEDS ORDERED: RISP4TAB2 PO (00:49)
[2016-12-07] MEDS ORDERED: AMT50 PO (00:54)
[2016-12-07] MEDS ORDERED: DULO60CA44 PO (14:12)
[2016-12-07] MEDS ORDERED: PROM25TA9 PO (22:35)
[2016-12-07] MEDS ORDERED: CYCL10TA6 PO (23:46)
[2016-12-09] MEDS ORDERED: OXY/15 PO (00:49)
[2016-12-09] MEDS ORDERED: OXYC-609 PO (00:49)
[2016-12-09] MEDS ORDERED: MRP5 PO (00:49)
[2016-12-09] MEDS ORDERED: ERGO1CAP41 PO (00:52)
[2016-12-09] MEDS ORDERED: EST5 PO (00:52)
== END 2016-09-16 19:51 | disposition home or self-care (01) ==
LOC: C.EDB 17:44
DX: R51 Headache (principal); Z86.79 Personal history of other diseases of the circulatory system; Z98.84 Bariatric surgery status; Z80.9 Family history of malignant neoplasm, unspecified; Z83.3 Family history of diabetes mellitus; Z82.49 Family history of ischemic heart disease and other diseases of the circulatory system; Z83.6 Family history of other diseases of the respiratory system

== ENCOUNTER 2016-10-10 21:57 | Emergency (ER) | payer OTHER ==
[~2016-10-10] VITALS: Ht 167.6 cm; Wt 85.3 kg
[~2016-10-10 21:57] MED LIST changes: +RISP1TAB68 PO
[2016-10-10 22:04] VITALS: TEMP 36.8; Ht 167.6 cm; Wt 85.3 kg
[2016-10-10] MEDS ORDERED: PROCHLORPERAZINE 5 MG/ML 2 ML VIAL IM STA (22:23)
[2016-10-10] MEDS ORDERED: MoRPHine SULFATE 10 MG/ML CARP/VIAL IM STA (22:23)
[2016-10-10] MEDS ORDERED: KETOROLAC TROMETHAMINE 60 MG/2 ML VIAL IM STA (22:23)
--- NOTE | 2016-10-10 22:29 | EMERGENCY ROOM VISIT NOTE ---
History First contact with patient: 22:14 Chief Complaint: HEADACHE Stated Complaint: MIGRAINE,NAUSEA,PAIN History of Present Illness The patient is a 46 year old female who presents to the Emergency Room with complaints of a gradual onset of a severe generalized headache that started 2 days ago. The patient states that she was seen here for the migraine in the past. The patient states the migraine is similar to their typical migraines. There has been associated photophobia, phonophobia, nausea and vomiting. The patient denies fever or chills recently, and there is no weakness or numbness of the extremities. There is no difficulty with speech or vision. No trauma to the head and no neck pain. The pain is severe, constant, and it is slowly increasing in severity. The patient rates the pain as throbbing and 8/10. The patient has taken Fioricet without relief. This is not the worst headache of the life and is similar to previous migraines. Previous imaging studies of the brain have been normal. The patient sees Dr. Tyler for her migraines and takes Cymbalta daily. Review of Systems See HPI for pertinent positives & negatives. A total of 10 systems reviewed and were otherwise negative. Past Medical/Surgical History Medical Problems: (1) Abdominal pain (2) Altered mental status (3) Altered mental status (4) Chronic back pain (5) Dizziness (6) Gastric Bypass (7) Hypotension (8) Hypotension (9) Hypotension (10) Insomnia (11) Kidney stone (12) Migraine (13) Narcotic drug use (14) Sleep deprivation (15) Sleep deprivation (16) UTI Family History Cancer Diabetes mellitus FHx: gallbladder disease Heart disease Hypertension Kidney disease Kidney stones Lung disease Social History Smoking Status: Never Smoker Alcohol Use: none Drug Use: none Marital Status: Housing Status: lives alone Occupation Status: disabled Current/Historical Medications Scheduled Amitriptyline Hcl (Elavil), 150 MG PO HS Ihcneiexto-Ozksspfauowxe-Hltvc (Fioricet), 1 CAP PO UD Clonazepam (Klonopin), 1 MG PO HS Duloxetine Hcl (Cymbalta), 60 MG PO DAILY Pramipexole (Mirapex), 0.25 MG PO HS Thyroid ([place] Thyroid), 180 MG PO DAILY Trazodone HCl (Trazodone HCl), 150 MG PO HS Scheduled PRN Cyclobenzaprine Hcl (Flexeril), 10 MG PO TID PRN for Muscle Spasms Oxycodone Ir (Roxicodone Ir), 1-2 TAB PO [id number] PRN for Severe Pain Promethazine Hcl (Phenergan), 25 MG PO BID PRN for Nausea Risperidone (Risperdal), 1 MG PO DAILY PRN for Sleep Allergies Coded Allergies: Dihydroergotamine (Verified Allergy, Severe, PALPATATIONS-SWEATS, 09/16/16) Almotriptan (Verified Allergy, Unknown, 09/16/16) Frovatriptan (Verified Allergy, Unknown, 09/16/16) Pregabalin (Verified Allergy, Unknown, flu like feelings, 09/16/16) Sumatriptan (Verified Allergy, Unknown, 09/16/16) Topiramate (Verified Adverse Reaction, Unknown, flu like symptom, 09/16/16) pt/gmg Physical Exam Vital Signs Date Time Temp Pulse Resp B/P Pulse Ox O2 Delivery O2 Flow Rate FiO2 10/10/16 22:04 36.8 118 19 123/84 96 Room Air Physical Exam VITALS: Vitals are noted on the nurse's note and reviewed by myself. Vital signs stable. GENERAL: Pleasant female, in no acute distress, nondiaphoretic, well-developed well-nourished. SKIN: The skin was without rashes, erythema, edema, or bruising. There is no tenting of the skin. Capillary reflex less than 2 seconds. HEAD: Normocephalic atraumatic. EARS: External auditory canals clear, tympanic membranes pearly keys without erythema or effusion bilaterally. EYES: Pupils equal round and reactive to light and accommodation. Conjunctivae without injection, sclerae without icterus. Extraocular movements intact. NOSE: Patent, turbinates without inflammation or discharge. No sinus tenderness. MOUTH: Mucous membranes moist. Pharynx without erythema or exudate. Uvula midline. Airway patent. Tongue does not deviate. NECK: Supple without nuchal rigidity. No lymphadenopathy. No thyromegaly. Cervical spine is nontender. No JVD. HEART: Regular rate and rhythm without murmurs gallops or rubs. LUNGS: Clear to auscultation bilaterally without wheezes, rales or rhonchi. No dullness to percussion. No retractions or accessory muscle use. ABDOMEN: Positive bowel sounds x 4. Normal tympanic percussion. Soft, nontender, without masses or organomegaly. Paiz sign negative. No guarding or rebound tenderness. MUSCULOSKELETAL: No muscle atrophy, erythema, or edema noted. NEURO: Patient was alert and oriented to person place and time. Normal sensation to light and sharp touch. No focal neurological deficits. Cranial nerves II through XII grossly intact. No pronator drift. Cerebellar exam intact Medical Decision & Procedures ED Course Prior records/ancillary studies reviewed. Triage Nursing notes reviewed. The patient's history was concerning for headache. Differential diagnosis: Etiologies such as migraine headache, meningitis, sinusitis, CO exposure, ICH, SAH, infection, tumor, headache, sinus thrombosis, arterial dissection, as well as others were entertained. Physical examination findings: As above. Non-focal. ER treatment provided: morphine Compazine, Toradol On reassessment the patient felt better. Diagnostics interpreted by me: Deferred This appears to be consistent with migraine. Patient has a long-standing history of migraines and symptoms feel similar. She is neurovascularly and neurologically intact. She is well-known to this ER. She felt much better and requested to leave. She is discharged home with her son driving. She sees Dr. Tyler as well as to follow up in a few days or here in the ER sooner for severe pain, numbness, tingling, worsening signs or symptoms or as needed. By the evaluation outlined above emergent etiologies such as meningitis, sinusitis, CO exposure, ICH, SAH, infection, temporal arteritis, tumor, sinus thrombosis, arterial dissection, as well as others were deemed relatively unlikely. The pt informed about the findings as listed above. All questions were answered and pleased with the treatment. Return instructions were outlined and the patient was discharged in stable condition. Case reviewed with my attending Referral: The patient was referred back to their primary care physician for follow-up in 2 to 3 days for a recheck of the current condition. Medical Decision As above Impression Primary Impression: Migraine Departure Information Dispostion Home / Self-Care Condition GOOD Referrals Don Espinosa Jr,D.O. (PCP) Forms HOME CARE DOCUMENTATION FORM, IMPORTANT VISIT INFORMATION Patient Instructions Headaches Migraines and Cluster, My [facility] Additional Instructions DO NOT drive, drink alcohol, operate machinery, or perform dangerous activities today. You were given medications in the ER that can affect your ability to safely function or operate a vehicle. Rest today in a quiet, peaceful, dark environment and get a full 8-10 hrs of sleep tonight. Avoid loud noises, smoke/smoking, alcohol, bright lights, stress, or physical exertion today to minimize the chance the headache may return. Continue current medications. Acetaminophen(Tylenol) may be used for fever or pain. Use 1000mg every six hours as needed. Avoid using more than 3000mg in a 24 hour period. Return to the ER for passing out, worsening headache, vision problems, neck stiffness/pain, fevers, vomiting, worsening of your condition, or as needed. Follow up with your primary physician and/or a neurologist in 2-3 days for a recheck of your current condition. Problem Qualifiers Primary Impression: Migraine Migraine type: without aura Status migrainosus presence: without status migrainosus Intractability: not intractable Qualified Codes: G43.009 - Migraine without aura, not intractable, without status migrainosus
--- NOTE | 2016-10-10 22:37 | EMERGENCY ROOM VISIT NOTE ---
ED Visit Note First contact with patient: 22:14 I have seen and examined this patient with Sue Overton and generally agree with the treatment plan as discussed. Problem List Medical Problems: (1) Abdominal pain Status: Resolved (2) Altered mental status Status: Resolved (3) Altered mental status Status: Resolved (4) Chronic back pain Status: Chronic (5) Dizziness Status: Resolved (6) Gastric Bypass Status: Resolved (7) Hypotension Status: Resolved (8) Hypotension Status: Resolved (9) Hypotension Status: Resolved (10) Insomnia Status: Resolved (11) Kidney stone Status: Resolved (12) Migraine Status: Chronic (13) Narcotic drug use Status: Chronic (14) Sleep deprivation Status: Resolved (15) Sleep deprivation Status: Resolved (16) UTI Status: Chronic Current/Historical Medications Scheduled Amitriptyline Hcl (Elavil), 150 MG PO HS Dyeskcsfdg-Wfyrilotcbwgf-Mgwne (Fioricet), 1 CAP PO UD Clonazepam (Klonopin), 1 MG PO HS Duloxetine Hcl (Cymbalta), 60 MG PO DAILY Pramipexole (Mirapex), 0.25 MG PO HS Thyroid ([place] Thyroid), 180 MG PO DAILY Trazodone HCl (Trazodone HCl), 150 MG PO HS Scheduled PRN Cyclobenzaprine Hcl (Flexeril), 10 MG PO TID PRN for Muscle Spasms Oxycodone Ir (Roxicodone Ir), 1-2 TAB PO [id number] PRN for Severe Pain Promethazine Hcl (Phenergan), 25 MG PO BID PRN for Nausea Risperidone (Risperdal), 1 MG PO DAILY PRN for Sleep Allergies Coded Allergies: Dihydroergotamine (Verified Allergy, Severe, PALPATATIONS-SWEATS, 09/16/16) Almotriptan (Verified Allergy, Unknown, 09/16/16) Frovatriptan (Verified Allergy, Unknown, 09/16/16) Pregabalin (Verified Allergy, Unknown, flu like feelings, 09/16/16) Sumatriptan (Verified Allergy, Unknown, 09/16/16) Topiramate (Verified Adverse Reaction, Unknown, flu like symptom, 09/16/16) pt/gmg Vital Signs Date Time Temp Pulse Resp B/P Pulse Ox O2 Delivery O2 Flow Rate FiO2 10/10/16 22:04 36.8 118 19 123/84 96 Room Air Departure Information Impression Primary Impression: Migraine Dispostion Home / Self-Care Condition GOOD Referrals Don Espinosa Jr,D.O. (PCP) Forms HOME CARE DOCUMENTATION FORM, IMPORTANT VISIT INFORMATION Patient Instructions Headaches Migraines and Cluster, My [facility] Additional Instructions DO NOT drive, drink alcohol, operate machinery, or perform dangerous activities today. You were given medications in the ER that can affect your ability to safely function or operate a vehicle. Rest today in a quiet, peaceful, dark environment and get a full 8-10 hrs of sleep tonight. Avoid loud noises, smoke/smoking, alcohol, bright lights, stress, or physical exertion today to minimize the chance the headache may return. Continue current medications. Acetaminophen(Tylenol) may be used for fever or pain. Use 1000mg every six hours as needed. Avoid using more than 3000mg in a 24 hour period. Return to the ER for passing out, worsening headache, vision problems, neck stiffness/pain, fevers, vomiting, worsening of your condition, or as needed. Follow up with your primary physician and/or a neurologist in 2-3 days for a recheck of your current condition. Problem Qualifiers Primary Impression: Migraine Migraine type: without aura Status migrainosus presence: without status migrainosus Intractability: not intractable Qualified Codes: G43.009 - Migraine without aura, not intractable, without status migrainosus
[2016-10-10 23:01] VITALS: BP 122/73; PULSE 76; O2SAT 99
[2016-12-07] MEDS ORDERED: CLON2TAB PO (00:46)
[2016-12-07] MEDS ORDERED: RISP4TAB2 PO (00:49)
[2016-12-07] MEDS ORDERED: AMT50 PO (00:54)
[2016-12-07] MEDS ORDERED: DULO60CA44 PO (14:12)
[2016-12-07] MEDS ORDERED: PROM25TA9 PO (22:35)
[2016-12-07] MEDS ORDERED: CYCL10TA6 PO (23:46)
[2016-12-09] MEDS ORDERED: OXY/15 PO (00:49)
[2016-12-09] MEDS ORDERED: MRP5 PO (00:49)
[2016-12-09] MEDS ORDERED: OXYC-609 PO (00:49)
[2016-12-09] MEDS ORDERED: ERGO500011 PO (00:52)
[2016-12-09] MEDS ORDERED: EST5 PO (00:52)
== END 2016-10-10 23:01 | disposition home or self-care (01) ==
LOC: C.EDB 21:57 → C.EDC 23:01
DX: G43.009 Migraine without aura, not intractable, without status migrainosus (principal); Z95.1 Presence of aortocoronary bypass graft; Z87.442 Personal history of urinary calculi; Z87.440 Personal history of urinary (tract) infections; Z80.9 Family history of malignant neoplasm, unspecified; Z83.3 Family history of diabetes mellitus; Z82.49 Family history of ischemic heart disease and other diseases of the circulatory system; Z79.899 Other long term (current) drug therapy

== ENCOUNTER 2016-10-23 00:35 | Emergency (ER) | payer OTHER ==
[~2016-10-23] VITALS: Ht 167.6 cm; Wt 83.2 kg
[2016-10-23 00:45] VITALS: BP 108/72; PULSE 108; TEMP 36.6; Ht 167.6 cm; Wt 83.2 kg
[2016-10-23] MEDS ORDERED: MoRPHine SULFATE 10 MG/ML CARP/VIAL IM STA (01:05)
[2016-10-23] MEDS ORDERED: PROCHLORPERAZINE 5 MG/ML 2 ML VIAL IM STA (01:05)
[2016-10-23] MEDS ORDERED: KETOROLAC TROMETHAMINE 60 MG/2 ML VIAL IM STA (01:05)
--- NOTE | 2016-10-23 01:37 | EMERGENCY ROOM VISIT NOTE ---
ED Visit Note First contact with patient: 00:51 CHIEF COMPLAINT: Migraine headache HISTORY OF PRESENT ILLNESS: This 46-year-old female patient presented to the emergency department ambulatory with a gradual onset of a severe generalized headache that started yesterday. The patient states the migraine is similar to their typical migraines. There has been associated photophobia, phonophobia, nausea and vomiting. The patient denies fever or chills recently, and there is no weakness or numbness of the extremities. There is no difficulty with speech or vision. No recent trauma to the head and no neck pain. The pain is severe, constant, and it is slowly increasing in severity. The patient rates the pain as throbbing and 7/10. The patient has taken Excedrin, ibuprofen, Phenergan and Fioricet without relief. The patient was seen at [facility] yesterday and given Toradol with only mild relief of her headache. This is not the worst headache of the life and is similar to previous migraines. Previous imaging studies of the brain have been normal. She sees Dr. Tyler and states that she does have a follow-up appointment scheduled in one week. REVIEW OF SYSTEMS: A review of systems was performed with positives and pertinent negatives listed in the history of present illness. All other systems were reviewed and are negative. ALLERGIES: See EMR MEDICATIONS: See med list PMH: See problem list SOCIAL HISTORY: Patient lives locally with family. Nonsmoker, denies alcohol use. PHYSICAL EXAM: Vital Signs: Reviewed Nurse's notes, vital signs stable. GENERAL : This is a 46-year-old female, who appears in pain, but non toxic in appearance and in no acute distress. MENTAL STATUS: Alert, oriented, and coherent. HEENT: Normocephalic. PERRLA. EOMI. Nares patent without nuchal rigidity. Tympanic membranes pearly keys without erythema or effusion bilaterally. Mucous membranes moist. NECK: Supple, no nuchal rigidity, nontender, no lymphadenopathy. HEART: Regular rhythm and normal rate without murmurs, ectopy, gallops, or rubs. LUNGS: Clear to auscultation bilaterally without wheezes, rales or rhonchi. No dullness to percussion. No accessory muscle use. No retractions. SKIN: Normal. NEUROLOGICAL: Pupils are round, equal and react to light. The optic fundi are normal and the discs are flat. The patient moves all extremities well and the gait is normal. EMERGENCY DEPARTMENT COURSE: I examined the patient. The patient is on a 2 narcotic injection per month treatment plan for their migraines. The patient was given 10 mg morphine IM, 10 mg Compazine IM, and 60 mg Toradol IM per their usual protocol. The differential diagnosis includes acute intracranial bleed, meningitis, encephalitis, mass or mass effect, sinusitis, infection, tumor, headache, temporal arteritis and carbon monoxide exposure, and migraine. The patient was discharged home in stable condition with a friend driving. The patient was independently evaluated by Dr. Barahona, ED attending physician, who agreed with my assessment and treatment plan. DIAGNOSIS: Migraine headache Problem List Medical Problems: (1) Abdominal pain Status: Resolved (2) Altered mental status Status: Resolved (3) Altered mental status Status: Resolved (4) Chronic back pain Status: Chronic (5) Dizziness Status: Resolved (6) Gastric Bypass Status: Resolved (7) Hypotension Status: Resolved (8) Hypotension Status: Resolved (9) Hypotension Status: Resolved (10) Insomnia Status: Resolved (11) Kidney stone Status: Resolved (12) Migraine Status: Chronic (13) Narcotic drug use Status: Chronic (14) Sleep deprivation Status: Resolved (15) Sleep deprivation Status: Resolved (16) UTI Status: Chronic Current/Historical Medications Scheduled Amitriptyline Hcl (Elavil), 150 MG PO HS Zyillqgqdo-Lokzcpstseajf-Xlpez (Fioricet), 1 CAP PO UD Clonazepam (Klonopin), 1 MG PO HS Duloxetine Hcl (Cymbalta), 60 MG PO DAILY Pramipexole (Mirapex), 0.25 MG PO HS Thyroid ([place] Thyroid), 180 MG PO DAILY Trazodone HCl (Trazodone HCl), 150 MG PO HS Scheduled PRN Cyclobenzaprine Hcl (Flexeril), 10 MG PO TID PRN for Muscle Spasms Oxycodone Ir (Roxicodone Ir), 1-2 TAB PO [id number] PRN for Severe Pain Promethazine Hcl (Phenergan), 25 MG PO BID PRN for Nausea Risperidone (Risperdal), 1 MG PO DAILY PRN for Sleep Allergies Coded Allergies: Dihydroergotamine (Verified Allergy, Severe, PALPATATIONS-SWEATS, 09/16/16) Almotriptan (Verified Allergy, Unknown, 09/16/16) Frovatriptan (Verified Allergy, Unknown, 09/16/16) Pregabalin (Verified Allergy, Unknown, flu like feelings, 09/16/16) Sumatriptan (Verified Allergy, Unknown, 09/16/16) Topiramate (Verified Adverse Reaction, Unknown, flu like symptom, 09/16/16) pt/gmg Vital Signs Date Time Temp Pulse Resp B/P Pulse Ox O2 Delivery O2 Flow Rate FiO2 10/23/16 00:45 36.6 108 18 108/72 96 Room Air Medications Administered Medications (Trade) Dose Ordered Sig/[facility] Route Start Time Stop Time Status Last Admin Dose Admin Morphine Sulfate (MoRPHine SULFATE INJ) 10 mg NOW STAT IM 10/23/16 01:05 10/23/16 01:06 DC 10/23/16 01:21 10 MG Prochlorperazine Edisylate (Compazine Inj) 10 mg NOW STAT IM 10/23/16 01:05 10/23/16 01:06 DC 10/23/16 01:21 10 MG Ketorolac Tromethamine (Toradol Inj) 60 mg NOW STAT IM 10/23/16 01:05 10/23/16 01:06 DC 10/23/16 01:21 60 MG Departure Information Impression Primary Impression: Migraine Dispostion Home / Self-Care Condition GOOD Referrals Dno Espinosa,Jr,D.O. (PCP) Patient Instructions My [facility] [address] Additional Instructions You have been treated in the Emergency Department for a Headache. You have received pain medicine in the emergency department which impairs your ability to operate a vehicle. It is illegal for you to drive after receiving these medicines. You should schedule a follow-up appointment with your Primary Care Provider or established Neurologist for further evaluation and treatment of your Headache. Return to the Emergency Department if your current symptoms worsen despite treatment course outlined above, or if you develop any of the following symptoms : intractable pain despite aforementioned treatment course, visual disturbances , loss of vision, unilateral weakness or facial drooping, slurring of speech, loss of coordination, or loss of consciousness. Problem Qualifiers Primary Impression: Migraine Migraine type: unspecified Status migrainosus presence: without status migrainosus Intractability: not intractable Qualified Codes: G43.909 - Migraine, unspecified, not intractable, without status migrainosus
--- NOTE | 2016-10-23 01:38 | EMERGENCY ROOM VISIT NOTE ---
ED Visit Note First contact with patient: 00:51 I saw this patient in conjunction with Caty Call PA-C. I agree with her decision making and treatment plan.
[2016-10-23 01:40] VITALS: O2SAT 97
[2016-12-07] MEDS ORDERED: CLON2TAB PO (00:46)
[2016-12-07] MEDS ORDERED: RISP4TAB2 PO (00:49)
[2016-12-07] MEDS ORDERED: AMT50 PO (00:54)
[2016-12-07] MEDS ORDERED: DULO60CA44 PO (14:12)
[2016-12-07] MEDS ORDERED: PROM25TA9 PO (22:35)
[2016-12-07] MEDS ORDERED: CYCL10TA6 PO (23:46)
[2016-12-09] MEDS ORDERED: OXYC-609 PO (00:49)
[2016-12-09] MEDS ORDERED: OXY/15 PO (00:49)
[2016-12-09] MEDS ORDERED: MRP5 PO (00:49)
[2016-12-09] MEDS ORDERED: EST5 PO (00:52)
[2016-12-09] MEDS ORDERED: ERGO500011 PO (00:52)
== END 2016-10-23 01:40 | disposition home or self-care (01) ==
LOC: C.EDB 00:36 → C.EDC 01:40
DX: G43.909 Migraine, unspecified, not intractable, without status migrainosus (principal); G89.29 Other chronic pain; Z98.84 Bariatric surgery status; Z87.440 Personal history of urinary (tract) infections; Z87.442 Personal history of urinary calculi; Z79.899 Other long term (current) drug therapy; Z88.8 Allergy status to other drugs, medicaments and biological substances

== ENCOUNTER → 2016-11-14 | Outpatient (CLI) | payer OTHER ==
[~2016-11-14] MED LIST changes: +AMT/50 PO; +AMT50 PO; +BUTA1CAP17 PO; +CLON2TAB PO; +CLON2TAB3 PO; +CYCL10TA6 PO; +CYCL10TA7 PO; +CYM60 PO; +DSY/150 PO; +DULO60CA44 PO; +ERGO500011 PO; +EST5 PO; +METO1TAB55 PO; +MRP5 PO; +ONDA4TAB10 SL; +OXY/15 PO; +OXYC-609 PO; +PROM25TA16 PO; +PROM25TA9 PO; +RISP4TAB2 PO; +RISP4TAB8 PO; +THYR180T PO
[2016-11-14 13:20] LABS: FERRITIN 180.3 ng/ml (8.0-388.0)
--- NOTE | 2016-11-18 12:57 | CODING QUERY MEDICAL NECESSITY ---
CQSUPPORTING DIAGNOSIS NEEDED A supporting diagnosis is required for the test/procedure performed on this patient in order for us to be reimbursed by the patient's insurance. Please provide a supporting diagnosis for the following test/procedure listed below next to the test name along with your signature. *If there is no additional diagnosis for this patient that would support the following test/procedure please document that below next to the test/procedure. Test(s)/Procedure(s) that require a supporting diagnosis: DOS VITAMIN B12 Provider Signature: Date: Thank you Ginette Brown [facility] Information Management Once completed, please kindly fax back to [phone] For questions please call [phone]
== END | disposition home or self-care (01) ==
LOC: C.LAB 11:43
DX: E61.1 Iron deficiency (principal); E55.9 Vitamin D deficiency, unspecified; E53.8 Deficiency of other specified B group vitamins

== ENCOUNTER 2016-12-02 23:23 | Emergency (ER) | payer OTHER ==
[~2016-12-02] VITALS: Ht 167.6 cm; Wt 86.8 kg
[~2016-12-02 23:23] MED LIST changes: -AMT/50 PO; -AMT50 PO; -BUTA1CAP17 PO; -CLON2TAB PO; -CLON2TAB3 PO; -CYCL10TA6 PO; -CYCL10TA7 PO; -CYM60 PO; -DSY/150 PO; -DULO60CA44 PO; -ERGO500011 PO; -EST5 PO; -METO1TAB55 PO; -MRP5 PO; -ONDA4TAB10 SL; -OXY/15 PO; -OXYC-609 PO; -PROM25TA16 PO; -PROM25TA9 PO; -RISP4TAB2 PO; -RISP4TAB8 PO; -THYR180T PO
[2016-12-02 23:28] VITALS: TEMP 36.5; Ht 167.6 cm; Wt 86.8 kg
[2016-12-03] MEDS ORDERED: DiphenhydrAMINE HCL 50 MG/ML VIAL IM STA (00:07)
[2016-12-03] MEDS ORDERED: PROCHLORPERAZINE 5 MG/ML 2 ML VIAL IM STA (00:07)
[2016-12-03 00:50] VITALS: BP 113/74; PULSE 75; O2SAT 97
--- NOTE | 2016-12-03 02:04 | EMERGENCY ROOM VISIT NOTE ---
History Report prepared by Shaylee: Esme Carrillo Under the Supervision of: Dr. Bay Manzo M.D. First contact with patient: 00:00 Chief Complaint: HEADACHE Stated Complaint: MIGRAINE History of Present Illness The patient is a 46 year old female who presents to the Emergency Room with complaints of persistent headache starting at 1700 today. She has a history of migraines and her current headache is like her typical migraine. The pain is on the right side of her head and behind her eye. She describes her pain as stabbing. The pain is worsened by light and sound. She took Toradol, Fioricet, Excedrin, and magnesium to no significant relief. She reports nausea. She denies any fever, vomiting, numbness, or weakness. She denies any fall or injury to her head. She is drowsy because she is tired. She is in good health otherwise. Source of History: patient Onset: 1700 Position: head Quality: ache Timing: other (persistent) Modifying Factors (Worsening): other (light, sound) Associated Symptoms: + nausea, No fevers, No vomiting, No weakness, No numbness Review of Systems See HPI for pertinent positives & negatives. A total of 10 systems reviewed and were otherwise negative. Past Medical & Surgical Medical Problems: (1) Abdominal pain (2) Altered mental status (3) Altered mental status (4) Chronic back pain (5) Dizziness (6) Gastric Bypass (7) Hypotension (8) Hypotension (9) Hypotension (10) Insomnia (11) Kidney stone (12) Migraine (13) Narcotic drug use (14) Sleep deprivation (15) Sleep deprivation (16) UTI Family History Cancer Diabetes mellitus FHx: gallbladder disease Heart disease Hypertension Kidney disease Kidney stones Lung disease Social History Smoking Status: Never Smoker Alcohol Use: none Drug Use: none Marital Status: Housing Status: lives alone Occupation Status: disabled Current/Historical Medications Scheduled Amitriptyline Hcl (Elavil), 150 MG PO HS Clonazepam (Klonopin), 2 MG PO HS Duloxetine Hcl (Cymbalta), 60 MG PO DAILY Ergocalciferol (Vitamin D 03394 Unit), 50,000 UNIT PO WK Estradiol (Estradiol), 0.5 MG PO DAILY Pramipexole Dihydrochloride (Pramipexole Dihydrochlori), 1-2 TABS PO HS Risperidone (Risperdal), 4 MG PO HS Thyroid ([place] Thyroid), 180 MG PO DAILY Scheduled PRN Azuukjxmlx-Wyqowcgucnajw-Ycxgn (Fioricet), 1 CAP PO UD PRN for Migraine Cyclobenzaprine Hcl (Flexeril), 10 MG PO TID PRN for Muscle Spasms Oxycodone HCl (Oxycodone HCl), 5 MG PO DAILY PRN for Severe Pain Oxycodone Hcl (Oxycodone Hcl), 0.5-1 TAB PO Q4 PRN for Severe Pain Promethazine Hcl (Phenergan), 25 MG PO BID PRN for Nausea Trazodone HCl (Trazodone HCl), 150 MG PO HS PRN for Sleep Allergies Coded Allergies: Dihydroergotamine (Verified Allergy, Severe, PALPATATIONS-SWEATS, 09/16/16) Almotriptan (Verified Allergy, Unknown, 09/16/16) Frovatriptan (Verified Allergy, Unknown, 09/16/16) Pregabalin (Verified Allergy, Unknown, flu like feelings, 09/16/16) Sumatriptan (Verified Allergy, Unknown, 09/16/16) Topiramate (Verified Adverse Reaction, Unknown, flu like symptom, 09/16/16) pt/gmg Physical Exam Vital Signs Date Time Temp Pulse Resp B/P (MAP) Pulse Ox O2 Delivery O2 Flow Rate FiO2 12/03/16 00:50 75 16 113/74 97 12/02/16 23:28 36.5 98 18 114/77 95 Room Air Physical Exam Constitutional: Vital signs reviewed. Eyes: Pupils are equal round reactive to light. Conjunctiva are noninjected. ENT: Pharynx is clear without erythema or exudate. Mucous membranes are moist. Neck supple without meningeal signs. Respiratory: Clear to auscultation bilaterally. Breath sounds are equal bilaterally. Cardiovascular: Regular rate and rhythm. No rubs or gallops. GI: Soft, nondistended and nontender. Bowel sounds are present. Musculoskeletal: No peripheral edema. No lower extremity tenderness. Integumentary: No cyanosis. Neurological: The patient is awake and alert. Cranial nerves II-XII are intact. Motor is 5 out of 5 all extremities. Sensation is intact to light touch all extremities. Normal speech. No pronator drift. Psychiatric: Normal affect. Medical Decision & Procedures Medications Administered Medications (Trade) Dose Ordered Sig/Kaiser Route Start Time Stop Time Status Last Admin Dose Admin Prochlorperazine Edisylate (Compazine Inj) 10 mg NOW STAT IM 12/03/16 00:07 12/03/16 00:09 DC 12/03/16 00:18 10 MG Diphenhydramine HCl (Benadryl Inj) 50 mg ONE STAT IM 12/03/16 00:07 12/03/16 00:09 DC 12/03/16 00:18 50 MG ED Course 0003: The patient was evaluated in room C11B. A complete history and physical exam was performed. 0007: Benadryl Inj 50 mg IM, Compazine Inj 10 mg IM. 0038: I reevaluated the patient. She is feeling better. She would like to go home and sleep. I discussed the results and treatment plan with her. She verbalized understanding and agreement. She will be discharged home. Medical Decision This is a 46-year-old female presents with a migraine headache. I did perform a limited focused review of portions of the patient's old chart on the electronic medical record. The patient was here October 23 for migraine. Medication Reconciliation: I attest that I have personally reviewed the patient' s current medication list. Blood Pressure Screening: Patient was found to have normal blood pressure on screening and does not require follow-up. I did evaluate the patient as noted above. The patient is here frequently for migraine headaches. She is presenting today with a headache consistent with her prior migraines. She is neurologically intact and afebrile. I have no reason to suspect an acute hemorrhage or meningitis. I did treat the patient with IM Benadryl and Compazine. I did reassess the patient. She did state she felt better and wished to go home so she can go to sleep. She was advised follow with her neurologist and regular physician. She was discharged in good condition and given return instructions as outlined below. Impression Primary Impression: Migraine without aura Scribe Attestation The scribe's documentation has been prepared under my direct and personally reviewed by me in its entirety. I confirm that the note above accurately reflects all work, treatment, procedures, and medical decision making performed by me. Departure Information Dispostion Home / Self-Care Referrals Don Espinosa Jr,D.O. (PCP) Forms HOME CARE DOCUMENTATION FORM, IMPORTANT VISIT INFORMATION Patient Instructions ED Headache Migraine, My [facility] Additional Instructions You have been examined and treated today on an emergency basis only. This is not a substitute for, or an effort to provide, complete comprehensive medical care. It is impossible to recognize and treat all injuries or illnesses in a single emergency department visit. It is therefore important that you follow up closely with your physician. Call as soon as possible for an appointment. Return for worsening symptoms or if you develop fever, numbness or weakness on one side of your body, difficulties with your speech or walking, or any other concerning symptoms. Problem Qualifiers Primary Impression: Migraine without aura Status migrainosus presence: without status migrainosus Intractability: not intractable Qualified Codes: G43.009 - Migraine without aura, not intractable , without status migrainosus
[2016-12-07] MEDS ORDERED: CLON2TAB PO (00:46)
[2016-12-07] MEDS ORDERED: RISP4TAB2 PO (00:49)
[2016-12-07] MEDS ORDERED: AMT50 PO (00:54)
[2016-12-07] MEDS ORDERED: DULO60CA44 PO (14:12)
[2016-12-07] MEDS ORDERED: PROM25TA9 PO (22:35)
[2016-12-07] MEDS ORDERED: CYCL10TA6 PO (23:46)
[2016-12-09] MEDS ORDERED: OXYC-609 PO (00:49)
[2016-12-09] MEDS ORDERED: MRP5 PO (00:49)
[2016-12-09] MEDS ORDERED: OXY/15 PO (00:49)
[2016-12-09] MEDS ORDERED: EST5 PO (00:52)
[2016-12-09] MEDS ORDERED: ERGO500011 PO (00:52)
== END 2016-12-03 00:50 | disposition home or self-care (01) ==
LOC: C.EDB 23:23 → C.EDC 12-03 00:50
DX: G43.909 Migraine, unspecified, not intractable, without status migrainosus (principal); Z98.84 Bariatric surgery status; Z79.899 Other long term (current) drug therapy; R11.0 Nausea

== ENCOUNTER 2016-12-09 00:53 | Emergency (ER) | payer OTHER ==
[~2016-12-09] VITALS: Ht 167.6 cm; Wt 82.2 kg
[~2016-12-09 00:53] MED LIST changes: +AMT50 PO; -CLON1TAB3 PO; +CLON2TAB PO; +CYCL10TA6 PO; +DULO60CA44 PO; +ERGO500011 PO; +EST5 PO; +MRP5 PO; +OXY/15 PO; +OXYC-609 PO; -OXYC1TAB3 PO; -PRAM0.129 PO; +PROM25TA9 PO; -RISP1TAB68 PO; +RISP4TAB2 PO
[2016-12-09 00:59] VITALS: TEMP 36.6; Ht 167.6 cm; Wt 82.2 kg
[2016-12-09] MEDS ORDERED: ONDANSETRON 4MG OD TAB PO ONE (01:30)
--- NOTE | 2016-12-09 03:17 | EMERGENCY ROOM VISIT NOTE ---
History Report prepared by Isabellibmanuela: Catracho Bill Under the Supervision of: Dr. Levy Tenorio D.O. First contact with patient: 01:20 Chief Complaint: HEAD INJURY (MINOR) Stated Complaint: CONCUSSION SEEMS WORSE TODAY,VOMITING,NECK PAIN History of Present Illness The patient is a 46 year old female who presents to the Emergency Room with complaints of constant head pain beginning yesterday. She was seen in the ED yesterday for similar symptoms and was diagnosed with a concussion. She was prescribed Phenergan. The patient states that she began vomiting today as well. She states that the pain in her head has worsened and she also complains of neck pain. Nothing has improved her symptoms. Source of History: patient Onset: Yesterday Position: head Timing: constant Modifying Factors (Relieving): other (none) Associated Symptoms: + neck pain, + vomiting Review of Systems See HPI for pertinent positives and negatives. A total of ten systems were reviewed and were otherwise negative. Past Medical & Surgical Medical Problems: (1) Abdominal pain (2) Altered mental status (3) Altered mental status (4) Chronic back pain (5) Dizziness (6) Gastric Bypass (7) Hypotension (8) Hypotension (9) Hypotension (10) Insomnia (11) Kidney stone (12) Migraine (13) Narcotic drug use (14) Sleep deprivation (15) Sleep deprivation (16) UTI Family History Cancer Diabetes mellitus FHx: gallbladder disease Heart disease Hypertension Kidney disease Kidney stones Lung disease Social History Smoking Status: Never Smoker Alcohol Use: none Drug Use: none Marital Status: Housing Status: lives alone Occupation Status: disabled Current/Historical Medications Scheduled Amitriptyline Hcl (Elavil), 150 MG PO HS Clonazepam (Klonopin), 2 MG PO HS Duloxetine Hcl (Cymbalta), 60 MG PO DAILY Ergocalciferol (Vitamin D 12680 Unit), 50,000 UNIT PO WK Estradiol (Estradiol), 0.5 MG PO DAILY Pramipexole Dihydrochloride (Pramipexole Dihydrochlori), 1-2 TABS PO HS Risperidone (Risperdal), 4 MG PO HS Thyroid ([place] Thyroid), 180 MG PO DAILY Scheduled PRN Ihjmqkskqg-Ozoqlztlbsevt-Qowpc (Fioricet), 1 CAP PO UD PRN for Migraine Cyclobenzaprine Hcl (Flexeril), 10 MG PO TID PRN for Muscle Spasms Oxycodone HCl (Oxycodone HCl), 5 MG PO DAILY PRN for Severe Pain Oxycodone Hcl (Oxycodone Hcl), 0.5-1 TAB PO Q4 PRN for Severe Pain Promethazine Hcl (Phenergan), 25 MG PO BID PRN for Nausea Trazodone HCl (Trazodone HCl), 150 MG PO HS PRN for Sleep Allergies Coded Allergies: Dihydroergotamine (Verified Allergy, Severe, PALPATATIONS-SWEATS, 09/16/16) Almotriptan (Verified Allergy, Unknown, 09/16/16) Frovatriptan (Verified Allergy, Unknown, 09/16/16) Pregabalin (Verified Allergy, Unknown, flu like feelings, 09/16/16) Sumatriptan (Verified Allergy, Unknown, 09/16/16) Topiramate (Verified Adverse Reaction, Unknown, flu like symptom, 09/16/16) pt/gmg Physical Exam Vital Signs Date Time Temp Pulse Resp B/P (MAP) Pulse Ox O2 Delivery O2 Flow Rate FiO2 12/09/16 02:15 72 18 103/61 98 Room Air 12/09/16 00:59 36.6 107 20 101/69 96 Room Air Physical Exam GENERAL: Awake, alert, well-appearing, in no distress HENT: Normocephalic, atraumatic. Oropharynx unremarkable. EYES: Normal conjunctiva. Sclera non-icteric. NECK: Supple. No nuchal rigidity. FROM. No JVD. Mild right sided perispinal tenderness. RESPIRATORY: Clear to auscultation. CARDIAC: Regular rate, normal rhythm. Extremities warm and well perfused. Pulses equal. ABDOMEN: Soft, non-distended. No tenderness to palpation. No rebound or guarding. No masses. RECTAL: Deferred. MUSCULOSKELETAL: Chest examination reveals no tenderness. The back is symmetrical on inspection without obvious abnormality. There is no CVA tenderness to palpation. No joint edema. LOWER EXTREMITIES: Calves are equal size bilaterally and non-tender. No edema. No discoloration. NEURO: Normal sensorium. No sensory or motor deficits noted. GCS 15. Speech is slow. SKIN: No rash or jaundice noted. Medical Decision & Procedures ER Provider Diagnostic Interpretation: CT results per statrad and my review. CT HEAD: Comparison with head CT dated 04/11/15. No ICH, mass effect, or edema. No evidence of acute cortical stroke. No midline shift or hydrocephalus. Visualized sinuses and mastoid air cells are clear. No acute calvarial fracture. CT C-SPINE: Multilevel spine degenerative changes. No acute or healing fracture or malalignment. No critical central canal stenosis or apical pneumothorax. Medications Administered Medications (Trade) Dose Ordered Sig/[facility] Route Start Time Stop Time Status Last Admin Dose Admin Ondansetron HCl (Zofran Odt) 4 mg ONE ONCE PO 12/09/16 01:30 12/09/16 01:31 DC 12/09/16 01:38 4 MG ED Course 0121: The patient was evaluated in room A11B. A complete history and physical exam was performed. 0130: Ordered Zofran Odt 4 mg PO. 0320: I reevaluated the patient. Discussed results and discharge instructions: she verbalized understanding and agreement. The patient is ready for discharge. Medical Decision Differential diagnoses include but are not limited to; concussion, ICH, cervical spine injury, and post-concussion syndrome. Repeat examination the patient at 3:22 AM resting no distress GCS of 15 nonfocal neurologically. I discussed the evaluation with the patient has suspect that she has a normal CT brain and normal CT cervical spine that she is experiencing postconcussion syndrome. Impression Primary Impression: Post concussive syndrome Scribe Attestation The scribe's documentation has been prepared under my direction and personally reviewed by me in its entirety. I confirm that the note above accurately reflects all work, treatment, procedures, and medical decision making performed by me. Departure Information Dispostion Home / Self-Care Referrals Don Espinosa Jr,D.O. (PCP) Patient Instructions ED Concussion, My [facility]
[2016-12-09 03:36] VITALS: BP 109/83; PULSE 81; O2SAT 97
--- NOTE | 2016-12-09 07:31 | DIAGNOSTIC IMAGING REPORT ---
CT OF THE HEAD WITHOUT CONTRAST CLINICAL HISTORY: Concussion. Worsening symptoms. COMPARISON STUDY: Head CT T. December 07 2016. TECHNIQUE: Helical axial images of the head were obtained without IV contrast. Automated exposure control was utilized for the study. FINDINGS: No acute intracranial hemorrhage, midline shift or mass effect is present. Ventricular system is normal. Basilar cisterns are patent. There are no extra-axial collections. There is a cavum septum pellucidum. There are no findings to suggest acute dural sinus thrombosis or acute territorial infarct. There is no calvarial fracture. IMPRESSION: 1. No acute intracranial findings. 2. No calvarial fracture. Electronically signed by: Alan Whitt M.D. 12/09/2016 7:30 AM Dictated Date/Time: 12/09/2016 7:28 AM
--- NOTE | 2016-12-09 07:33 | DIAGNOSTIC IMAGING REPORT ---
CT SCAN OF THE CERVICAL SPINE CLINICAL HISTORY: Fall several days ago. Neck pain. COMPARISON STUDY: Radiographs of the cervical spine dated 07/27/2015. TECHNIQUE: CT scan of the cervical spine is performed from the skull base to the upper thoracic spine. Images are reviewed in the axial, sagittal, and coronal planes. IV contrast was not administered for this examination. CT DOSE: 987.97 mGy.cm FINDINGS: Skeletal structures: The skeletal structures are well mineralized. There is no evidence of fracture or subluxation involving the cervical spine. Vertebral body height and alignment are maintained. There is straightening of the cervical lordosis with reversal centered at C2-C3. The odontoid process and lateral masses are intact. The atlantoaxial articulation is preserved noting productive degenerative change. The spinous processes appear intact. Anterior osteophytes are seen from C3 through T1. There is mild multilevel cervical spondylosis. Uncovertebral and facet arthropathy are seen at several levels. Intervertebral discs: There is moderate degenerative disc space narrowing seen at C4-C5, C5-C6, and C6-C7. The remaining disc spaces appear maintained. Central canal: Posterior disc osteophyte complexes at C4-C5, C5-C6, and C6-C7 likely contribute to acquired compromise of the central canal. Soft tissues: The prevertebral and paraspinous soft tissues are within normal limits. Calvarium: The visualized calvarium at the skull base appears intact. Brain parenchyma: Partially visualized brain parenchyma the skull base is within normal limits. Sinuses and mastoids: There is mild mucosal thickening in the right sphenoid sinus. The remaining visualized paranasal sinuses are clear. The mastoid air cells are well pneumatized. Lung apices: Clear as visualized. IMPRESSION: 1. There is no evidence of fracture or subluxation involving the cervical spine. 2. Mild multilevel cervical spondylosis, similar in appearance to the 07/27/2015 radiographic study. Electronically signed by: Jero Mejía M.D. 12/09/2016 7:32 AM Dictated Date/Time: 12/09/2016 7:28 AM
[2016-12-09] MEDS ORDERED: AMT/50 PO (21:02)
[2016-12-09] MEDS ORDERED: RISP4TAB8 PO (21:02)
[2016-12-09] MEDS ORDERED: CYM60 PO (21:02)
[2016-12-09] MEDS ORDERED: CLON2TAB3 PO (21:02)
[2016-12-09] MEDS ORDERED: PROM25TA16 PO (21:06)
[2016-12-09] MEDS ORDERED: CYCL10TA7 PO (21:07)
[2016-12-09] MEDS ORDERED: ONDA4TAB10 SL (21:42)
[2016-12-09] MEDS ORDERED: METO1TAB55 PO (21:42)
[2016-12-09] MEDS ORDERED: BUTA1CAP17 PO (22:06)
[2016-12-09] MEDS ORDERED: THYR180T PO (23:17)
[2016-12-09] MEDS ORDERED: DSY/150 PO (23:45)
== END 2016-12-09 03:33 | disposition home or self-care (01) ==
LOC: C.EDB 00:56 → C.EDA 03:33
DX: F07.81 Postconcussional syndrome (principal); G89.29 Other chronic pain; M54.9 Dorsalgia, unspecified; Z98.84 Bariatric surgery status; I95.9 Hypotension, unspecified; G47.00 Insomnia, unspecified; Z83.3 Family history of diabetes mellitus; Z82.49 Family history of ischemic heart disease and other diseases of the circulatory system; Z84.1 Family history of disorders of kidney and ureter; S06.0X0A Concussion without loss of consciousness, initial encounter; X58.XXXA Exposure to other specified factors, initial encounter; Z87.440 Personal history of urinary (tract) infections

== ENCOUNTER 2016-12-09 20:36 | Emergency (ER) | payer OTHER ==
[~2016-12-09] VITALS: Ht 167.6 cm; Wt 83.5 kg
[2016-12-09 20:44] VITALS: BP 118/73; PULSE 95; TEMP 36.8; O2SAT 96; Ht 167.6 cm; Wt 83.5 kg
[2016-12-09] MEDS ORDERED: CYM60 PO (21:02)
[2016-12-09] MEDS ORDERED: RISP4TAB8 PO (21:02)
[2016-12-09] MEDS ORDERED: AMT/50 PO (21:02)
[2016-12-09] MEDS ORDERED: CLON2TAB3 PO (21:02)
[2016-12-09] MEDS ORDERED: PROM25TA16 PO (21:06)
[2016-12-09] MEDS ORDERED: CYCL10TA7 PO (21:07)
[2016-12-09] MEDS ORDERED: METOCLOPRAMIDE HCL 10 MG TAB PO STA (21:38)
[2016-12-09] MEDS ORDERED: ACETAMINOPHEN 500 MG TAB PO STA (21:38)
[2016-12-09] MEDS ORDERED: METO1TAB55 PO (21:42)
[2016-12-09] MEDS ORDERED: ONDA4TAB10 SL (21:42)
[2016-12-09] MEDS ORDERED: EMPTY 8 DRAM VIAL ONE (21:46)
--- NOTE | 2016-12-09 21:46 | EMERGENCY ROOM VISIT NOTE ---
ED Visit Note First contact with patient: 21:20 Patient seen by me last night for postconcussion symptoms. Patient returns today with similar. Patient was seen by the physician automobile mechanic assistant I agree with the evaluation and plan for disposition. Patient is nonfocal and smiling when I have spoken to the patient at bedside Problem List Medical Problems: (1) Abdominal pain Status: Resolved (2) Altered mental status Status: Resolved (3) Altered mental status Status: Resolved (4) Chronic back pain Status: Chronic (5) Dizziness Status: Resolved (6) Gastric Bypass Status: Resolved (7) Hypotension Status: Resolved (8) Hypotension Status: Resolved (9) Hypotension Status: Resolved (10) Insomnia Status: Resolved (11) Kidney stone Status: Resolved (12) Migraine Status: Chronic (13) Narcotic drug use Status: Chronic (14) Sleep deprivation Status: Resolved (15) Sleep deprivation Status: Resolved (16) UTI Status: Chronic Current/Historical Medications Scheduled Amitriptyline HCl (Amitriptyline HCl), 150 MG PO HS Clonazepam (Klonopin), 2 MG PO HS Duloxetine HCl (Duloxetine HCl), 60 MG PO DAILY Ergocalciferol (Vitamin D 26232 Unit), 50,000 INTER.UNIT PO WK Estradiol (Estradiol), 0.5 MG PO DAILY Metoclopramide Hcl (Reglan), 10 MG PO Q6 Ondasetron Odt (Zofran Odt), 4 MG SL Q6H Pramipexole Dihydrochloride (Pramipexole Dihydrochlori), 0.5-1 MG PO HS Risperidone (Risperdal), 4 MG PO HS Thyroid ([place] Thyroid), 180 MG PO DAILY Scheduled PRN Fzceuhkhrq-Xcvavjlpesjdo-Opvrd (Fioricet), 1 CAP PO DAILY PRN for Migraine Cyclobenzaprine HCl (Cyclobenzaprine HCl), 10 MG PO TID PRN for Muscle Spasm Oxycodone HCl (Oxycodone HCl), 5 MG PO DAILY PRN for Severe Pain Oxycodone Hcl (Oxycodone Hcl), 7.5-15 MG PO Q4H PRN for Severe Pain Promethazine HCl (Promethazine HCl), 25 MG PO BID PRN for Nausea or Vomiting Trazodone HCl (Trazodone HCl), 150 MG PO HS PRN for Sleep Allergies Coded Allergies: Dihydroergotamine (Verified Allergy, Severe, PALPATATIONS-SWEATS, 09/16/16) Almotriptan (Verified Allergy, Unknown, 09/16/16) Frovatriptan (Verified Allergy, Unknown, 09/16/16) Pregabalin (Verified Allergy, Unknown, flu like feelings, 09/16/16) Sumatriptan (Verified Allergy, Unknown, 09/16/16) Topiramate (Verified Adverse Reaction, Unknown, flu like symptom, 09/16/16) pt/gmg Vital Signs Date Time Temp Pulse Resp B/P (MAP) Pulse Ox O2 Delivery O2 Flow Rate FiO2 12/09/16 20:44 36.8 95 18 118/73 96 Room Air Departure Information Impression Primary Impression: Concussion Prescriptions Ondasetron Odt (ZOFRAN ODT) 4 Mg Tab 4 MG SL Q6H, #10 TAB Prov: Haily Overton .SUSHMA 12/09/16 Metoclopramide Hcl (REGLAN) 10 Mg Tab 10 MG PO Q6, #10 TAB Prov: Haily Overton .SUSHMA 12/09/16 Forms HOME CARE DOCUMENTATION FORM, IMPORTANT VISIT INFORMATION Patient Instructions Concussion [place], Concussion [place], [facility] Additional Instructions DO NOT drive, drink alcohol, operate machinery, or perform dangerous activities today. You were given medications in the ER that can affect your ability to safely function or operate a vehicle. Light activity. No strenuous activity until symptoms resolve. If you began to get a headache then stop your activity and did not resume until symptom-free. Read head injury handout and return for any symptoms. Tylenol 1000 mg as needed for pain (Maximum 3000 mg Tylenol in 24 hr period). Avoid alcohol and contact sports/activities for one week and follow up with family doctor prior to returning to these activities if still symptomatic. Ice and elevate head. Reglan(metoclopramide) tablets 10mg: Take one every six hours as needed for nausea. Avoid alcohol, operating machinery or dangerous equipment, working on ladders or roofs, DRIVING, or situations where being under the influence may be dangerous. Zofran(odansetron) tablets 4mg: Take one and allow it to dissolve in your mouth every four to six hours as needed for nausea or vomiting. If your symptoms persist more than a week then follow up with the concussion clinic. Call [phone]. Return to ER sooner for headache, fevers, confusion, worsening signs or symptoms or as needed.
[2016-12-09] MEDS ORDERED: BUTA1CAP17 PO (22:06)
[2016-12-09] MEDS ORDERED: THYR180T PO (23:17)
[2016-12-09] MEDS ORDERED: DSY/150 PO (23:45)
--- NOTE | 2016-12-10 04:13 | EMERGENCY ROOM VISIT NOTE ---
History First contact with patient: 21:20 Chief Complaint: HEAD INJURY (MINOR) Stated Complaint: DEHYDRATION, POST CONCUSSION SYN,WEAK,VOMITING History of Present Illness The patient is a 46 year old female who presents to the Emergency Room with complaints of ongoing headache with nausea for the past 3 days after head injury. Patient states she was doing a lot of activity day with cleaning and walking the dog. She started to become symptomatic then. She tried the Phenergan with no relief of symptoms. Patient denies new headache injury, neck pain, chest pain, dyspnea, loss of vision, tinnitus, vomiting, diarrhea, fever, chills, cold symptoms. Headache currently 4 out of 10 throughout the head. Movement makes it worse nothing makes it better. No numbness or weakness. Review of Systems See HPI for pertinent positives & negatives. A total of 10 systems reviewed and were otherwise negative. Past Medical/Surgical History Medical Problems: (1) Abdominal pain (2) Altered mental status (3) Altered mental status (4) Chronic back pain (5) Dizziness (6) Gastric Bypass (7) Hypotension (8) Hypotension (9) Hypotension (10) Insomnia (11) Kidney stone (12) Migraine (13) Narcotic drug use (14) Sleep deprivation (15) Sleep deprivation (16) UTI Family History Cancer Diabetes mellitus FHx: gallbladder disease Heart disease Hypertension Kidney disease Kidney stones Lung disease Social History Smoking Status: Never Smoker Alcohol Use: none Drug Use: none Marital Status: Housing Status: lives alone Occupation Status: disabled Current/Historical Medications Scheduled Amitriptyline HCl (Amitriptyline HCl), 150 MG PO HS Clonazepam (Klonopin), 2 MG PO HS Duloxetine HCl (Duloxetine HCl), 60 MG PO DAILY Ergocalciferol (Vitamin D 74382 Unit), 50,000 INTER.UNIT PO WK Estradiol (Estradiol), 0.5 MG PO DAILY Metoclopramide Hcl (Reglan), 10 MG PO Q6 Ondasetron Odt (Zofran Odt), 4 MG SL Q6H Pramipexole Dihydrochloride (Pramipexole Dihydrochlori), 0.5-1 MG PO HS Risperidone (Risperdal), 4 MG PO HS Thyroid ([place] Thyroid), 180 MG PO DAILY Scheduled PRN Vlpihzywtr-Udoclprqyseio-Gazbd (Fioricet), 1 CAP PO DAILY PRN for Migraine Cyclobenzaprine HCl (Cyclobenzaprine HCl), 10 MG PO TID PRN for Muscle Spasm Oxycodone HCl (Oxycodone HCl), 5 MG PO DAILY PRN for Severe Pain Oxycodone Hcl (Oxycodone Hcl), 7.5-15 MG PO Q4H PRN for Severe Pain Promethazine HCl (Promethazine HCl), 25 MG PO BID PRN for Nausea or Vomiting Trazodone HCl (Trazodone HCl), 150 MG PO HS PRN for Sleep Allergies Coded Allergies: Dihydroergotamine (Verified Allergy, Severe, PALPATATIONS-SWEATS, 09/16/16) Almotriptan (Verified Allergy, Unknown, 09/16/16) Frovatriptan (Verified Allergy, Unknown, 09/16/16) Pregabalin (Verified Allergy, Unknown, flu like feelings, 09/16/16) Sumatriptan (Verified Allergy, Unknown, 09/16/16) Topiramate (Verified Adverse Reaction, Unknown, flu like symptom, 09/16/16) pt/gmg Physical Exam Vital Signs Date Time Temp Pulse Resp B/P (MAP) Pulse Ox O2 Delivery O2 Flow Rate FiO2 12/09/16 20:44 36.8 95 18 118/73 96 Room Air Pain Rating (0-10): 7.0 Physical Exam VITALS: Vitals are noted on the nurse's note and reviewed by myself. Vital signs stable. GENERAL: Pleasant female, in no acute distress, nondiaphoretic, well-developed well-nourished. SKIN: The skin was without rashes, erythema, edema, or bruising. There is no tenting of the skin. Capillary reflex less than 2 seconds. HEAD: Normocephalic atraumatic. EARS: External auditory canals clear, tympanic membranes pearly keys without erythema or effusion bilaterally. EYES: Pupils equal round and reactive to light and accommodation. Conjunctivae without injection, sclerae without icterus. Extraocular movements intact. NOSE: Patent, turbinates without inflammation or discharge. No sinus tenderness. MOUTH: Mucous membranes moist. Pharynx without erythema or exudate. Uvula midline. Airway patent. Tongue does not deviate. NECK: Supple without nuchal rigidity. No lymphadenopathy. No thyromegaly. Cervical spine is nontender. No JVD. HEART: Regular rate and rhythm without murmurs gallops or rubs. LUNGS: Clear to auscultation bilaterally without wheezes, rales or rhonchi. No dullness to percussion. No retractions or accessory muscle use. ABDOMEN: Positive bowel sounds x 4. Normal tympanic percussion. Soft, nontender, without masses or organomegaly. Paiz sign negative. No guarding or rebound tenderness. MUSCULOSKELETAL: No muscle atrophy, erythema, or edema noted. NEURO: Patient was alert and oriented to person place and time. Normal sensation to light and sharp touch. No focal neurological deficits. Cranial nerves II-12 grossly intact. No pronator drift. Cerebellar exam intact. Medical Decision & Procedures Medications Administered Medications (Trade) Dose Ordered Sig/[facility]aiser Route Start Time Stop Time Status Last Admin Dose Admin Acetaminophen (Tylenol Tab) 1,000 mg NOW STAT PO 12/09/16 21:38 12/09/16 21:40 DC 12/09/16 21:58 1,000 MG Diphenhydramine HCl (Benadryl Cap) 25 mg NOW ONCE PO 12/09/16 21:45 12/09/16 21:46 DC 12/09/16 21:58 25 MG Metoclopramide HCl (Reglan Tab) 40 mg NOW STAT PO 12/09/16 21:38 12/09/16 21:40 DC 12/09/16 21:58 40 MG ED Course Prior records/ancillary studies reviewed. Triage Nursing notes reviewed. The patient's history was concerning for traumatic head injury Differential diagnosis: Etiologies such as concussion, contusion, fracture, subdural hematoma, epidural hematoma, intraparenchymal hemorrhage, as well as other traumatic pathologies were entertained. Physical examination findings: As above. ER treatment provided: P.o. Tylenol Home pack Reglan and Zofran On reassessment the patient felt better. Diagnostics interpreted by me: Imaging studies: Prior CT images were reviewed It appears the patient has a concussion. I discussed the risks and the benefits of CT scanning. Clinically the patient is doing well and does not appear to have a significant underlying injury. The pt felt comfortable with conservative observation with the understanding if the clinical picture change that imaging may be necessary at a later time. I gave my usual and customary discussion regarding this issue. She was counseled on head injury signs and symptoms and verbalized understanding this. She was given information on the concussion clinic care in [facility]. She is advised to return to the ER immediately for worsening headache, fevers, confusion, worsening signs or symptoms or as needed. Patient was neurovascularly and neurologically intact. She is well appearing. By the evaluation outlined above emergent etiologies such as fracture, subdural hematoma, epidural hematoma, intraparenchymal hemorrhage, as well as others were deemed relatively unlikely. The pt informed about the findings as listed above. All questions were answered and pleased with the treatment. Return instructions were outlined and the patient was discharged in stable condition. Outpatient Prescription Management: Zofran, Reglan Referral: The patient was referred back to their primary care physician and concussion clinic for follow-up in 2 to 3 days for a recheck of the current condition. Case reviewed with my attending Medical Decision As above Impression Primary Impression: Concussion Departure Information Dispostion Home / Self-Care Condition GOOD Prescriptions Ondasetron Odt (ZOFRAN ODT) 4 Mg Tab 4 MG SL Q6H, #10 TAB Prov: Haily Overton .SUSHMA 12/09/16 Metoclopramide Hcl (REGLAN) 10 Mg Tab 10 MG PO Q6, #10 TAB Prov: Haily Overton .SUSHMA 12/09/16 Forms HOME CARE DOCUMENTATION FORM, IMPORTANT VISIT INFORMATION Patient Instructions Concussion [place], Concussion [place], [facility] Additional Instructions DO NOT drive, drink alcohol, operate machinery, or perform dangerous activities today. You were given medications in the ER that can affect your ability to safely function or operate a vehicle. Light activity. No strenuous activity until symptoms resolve. If you began to get a headache then stop your activity and did not resume until symptom-free. Read head injury handout and return for any symptoms. Tylenol 1000 mg as needed for pain (Maximum 3000 mg Tylenol in 24 hr period). Avoid alcohol and contact sports/activities for one week and follow up with family doctor prior to returning to these activities if still symptomatic. Ice and elevate head. Reglan(metoclopramide) tablets 10mg: Take one every six hours as needed for nausea. Avoid alcohol, operating machinery or dangerous equipment, working on ladders or roofs, DRIVING, or situations where being under the influence may be dangerous. Zofran(odansetron) tablets 4mg: Take one and allow it to dissolve in your mouth every four to six hours as needed for nausea or vomiting. If your symptoms persist more than a week then follow up with the concussion clinic. Call [phone]. Return to ER sooner for headache, fevers, confusion, worsening signs or symptoms or as needed. Problem Qualifiers Primary Impression: Concussion Encounter type: initial encounter Loss of consciousness presence/duration: without LOC Qualified Codes: S06.0X0A - Concussion without loss of consciousness, initial encounter
== END 2016-12-09 22:02 | disposition home or self-care (01) ==
LOC: C.EDB 20:37 → C.EDD 22:02
DX: S06.0X0A Concussion without loss of consciousness, initial encounter (principal); X58.XXXA Exposure to other specified factors, initial encounter; Z98.84 Bariatric surgery status; Z87.440 Personal history of urinary (tract) infections; Z83.3 Family history of diabetes mellitus; Z82.49 Family history of ischemic heart disease and other diseases of the circulatory system; Z84.1 Family history of disorders of kidney and ureter

== ENCOUNTER 2017-02-07 00:46 | Emergency (ER) | payer OTHER ==
[~2017-02-07] VITALS: Ht 167.6 cm; Wt 86.5 kg
[~2017-02-07 00:46] MED LIST changes: +AMT/50 PO; -AMT50 PO; +BUTA1CAP17 PO; -CLON2TAB PO; +CLON2TAB3 PO; -CYCL10TA6 PO; +CYCL10TA7 PO; +CYM60 PO; +DSY/150 PO; -DULO60CA44 PO; +ERGO1CAP41 PO; -ERGO500011 PO; +METO1TAB55 PO; +ONDA4TAB10 SL; +PROM25TA16 PO; -PROM25TA9 PO; -RISP4TAB2 PO; +RISP4TAB8 PO; +THYR180T PO
[2017-02-07 00:50] VITALS: TEMP 36.5; Ht 167.6 cm; Wt 86.5 kg
[2017-02-07] MEDS ORDERED: DiphenhydrAMINE HCL 50 MG/ML VIAL IM STA (01:11)
[2017-02-07] MEDS ORDERED: PROCHLORPERAZINE 5 MG/ML 2 ML VIAL IM STA (01:11)
[2017-02-07] MEDS ORDERED: KETOROLAC TROMETHAMINE 60 MG/2 ML VIAL IM STA (01:11)
[2017-02-07 01:50] VITALS: BP 134/78; PULSE 86; O2SAT 98
--- NOTE | 2017-02-07 04:57 | EMERGENCY ROOM VISIT NOTE ---
ED Visit Note First contact with patient: 01:00 CHIEF COMPLAINT: Migraine headache HISTORY OF PRESENT ILLNESS: This 46-year-old patient presented to the emergency department with a gradual onset of a severe generalized headache that started yesterday. The patient states the migraine is similar to their typical migraines. There has been associated photophobia, phonophobia, nausea and vomiting. The patient denies fever or chills recently, and there is no weakness or numbness of the extremities. There is no difficulty with speech or vision. No trauma to the head and no neck pain. The pain is severe, constant, and it is slowly increasing in severity. The patient rates the pain as dull and 7/10. The patient has taken phenergan at home without relief. This is not the worst headache of the life and is similar to previous migraines. Previous imaging studies of the brain have been normal. REVIEW OF SYSTEMS: A review of systems was performed with positives and pertinent negatives listed in the history of present illness. All other systems were reviewed and are negative. ALLERGIES: See EMR MEDICATIONS: See EMR PMH: Chronic migraines SOCIAL HISTORY: See EMR PHYSICAL EXAM: Vital Signs: Reviewed Nurse's notes, vital signs stable. GENERAL: White female, who appears in pain, but non toxic in appearance and in no acute distress. MENTAL STATUS: Alert, oriented, and coherent. HEENT: Normocephalic. PERRLA. EOMI. Nares patent without nuchal rigidity. Tympanic membranes pearly keys without erythema or effusion bilaterally. Mucous membranes moist. NECK: Supple, no nuchal rigidity, nontender, no lymphadenopathy. HEART: Regular rhythm and normal rate without murmurs, ectopy, gallops, or rubs. LUNGS: Clear to auscultation bilaterally without wheezes, rales or rhonchi. No dullness to percussion. No accessory muscle use. No retractions. SKIN: Normal. NEUROLOGICAL: Pupils are round, equal and react to light. The optic fundi are normal and the discs are flat. The patient moves all extremities well and the gait is normal. EMERGENCY DEPARTMENT COURSE: I examined the patient. The patient is on a no prescription treatment plan at this facility. She has been seen somewhat regularly over the years for migraine headaches. She evidently follows with Dr. Tyler for neurology. The patient was given 60 mg IM Toradol, 59 g IM Benadryl, and milligrams IM Compazine as this has evidently helped her in the past. The patient was discharged home under the care of her son who is acting as the haul driver. The differential diagnosis includes acute intracranial bleed, meningitis, encephalitis, mass or mass effect, sinusitis, infection, tumor, headache, temporal arteritis and carbon monoxide exposure, and migraine. The patient was discharged home in stable condition with [] driving. Problem List Medical Problems: (1) Abdominal pain Status: Resolved (2) Altered mental status Status: Resolved (3) Altered mental status Status: Resolved (4) Chronic back pain Status: Chronic (5) Dizziness Status: Resolved (6) Gastric Bypass Status: Resolved (7) Hypotension Status: Resolved (8) Hypotension Status: Resolved (9) Hypotension Status: Resolved (10) Insomnia Status: Resolved (11) Kidney stone Status: Resolved (12) Migraine Status: Chronic (13) Narcotic drug use Status: Chronic (14) Sleep deprivation Status: Resolved (15) Sleep deprivation Status: Resolved (16) UTI Status: Chronic Current/Historical Medications Scheduled Amitriptyline HCl (Amitriptyline HCl), 150 MG PO HS Clonazepam (Klonopin), 2 MG PO HS Duloxetine HCl (Duloxetine HCl), 60 MG PO DAILY Ergocalciferol (Vitamin D 39604 Unit), 50,000 INTER.UNIT PO WK Estradiol (Estradiol), 0.5 MG PO DAILY Pramipexole Dihydrochloride (Pramipexole Dihydrochlori), 0.5-1 MG PO HS Risperidone (Risperdal), 4 MG PO HS Thyroid ([place] Thyroid), 180 MG PO DAILY Scheduled PRN Qtrjblyast-Hgwmbuurjneqd-Wylck (Fioricet), 1 CAP PO DAILY PRN for Migraine Cyclobenzaprine HCl (Cyclobenzaprine HCl), 10 MG PO TID PRN for Muscle Spasm Oxycodone HCl (Oxycodone HCl), 5 MG PO DAILY PRN for Severe Pain Oxycodone Hcl (Oxycodone Hcl), 7.5-15 MG PO Q4H PRN for Severe Pain Promethazine HCl (Promethazine HCl), 25 MG PO BID PRN for Nausea or Vomiting Trazodone HCl (Trazodone HCl), 150 MG PO HS PRN for Sleep Allergies Coded Allergies: Dihydroergotamine (Verified Allergy, Severe, PALPATATIONS-SWEATS, 02/07/17) Almotriptan (Verified Allergy, Unknown, 02/07/17) Frovatriptan (Verified Allergy, Unknown, 02/07/17) Pregabalin (Verified Allergy, Unknown, flu like feelings, 02/07/17) Sumatriptan (Verified Allergy, Unknown, 02/07/17) Topiramate (Verified Adverse Reaction, Unknown, flu like symptom, 02/07/17) pt/gmg Vital Signs Date Time Temp Pulse Resp B/P (MAP) Pulse Ox O2 Delivery O2 Flow Rate FiO2 02/07/17 01:50 86 20 134/78 98 02/07/17 00:50 36.5 117 18 113/66 97 Room Air Medications Administered Medications (Trade) Dose Ordered Sig/[facility] Route Start Time Stop Time Status Last Admin Dose Admin Diphenhydramine HCl (Benadryl Inj) 50 mg NOW STAT IM 02/07/17 01:11 02/07/17 01:12 DC 02/07/17 01:22 50 MG Prochlorperazine Edisylate (Compazine Inj) 10 mg NOW STAT IM 02/07/17 01:11 02/07/17 01:12 DC 02/07/17 01:21 10 MG Ketorolac Tromethamine (Toradol Inj) 60 mg NOW STAT IM 02/07/17 01:11 02/07/17 01:12 DC 02/07/17 01:22 60 MG Departure Information Impression Primary Impression: Migraine Dispostion Home / Self-Care Condition GOOD Referrals No Doctor, Assigned Forms HOME CARE DOCUMENTATION FORM, IMPORTANT VISIT INFORMATION Patient Instructions [facility] Additional Instructions You were seen and evaluated today on an emergency basis only. This is not a substitute for, or an effort to provide, complete comprehensive medical care. It is not possible to recognize and treat all injuries or illnesses in a single emergency department visit. For this reason it is recommended that you followup with your primary care physician or neurologist this week for ongoing care and evaluation. DO NOT drive, drink alcohol, operate machinery, or perform dangerous activities today. You were given medications in the ER that can affect your ability to safely function or operate a vehicle. Rest today in a quiet, peaceful, dark environment and get a full 8-10 hrs of sleep tonight. Avoid loud noises, smoke/smoking, alcohol, bright lights, stress, or physical exertion today to minimize the chance the headache may return. Continue current medications. Ibuprofen(Motrin, Advil) may be used for fever or pain. Use 600mg every six hours as needed. Take with food. Avoid using more than 2400mg in a 24 hour period. Do not use 2400mg per day for more than three consecutive days without physician direction. Prolonged inappropriate use can lead to stomach upset or ulcers. (AND/OR) Acetaminophen(Tylenol) may be used for fever or pain. Use 1000mg every six hours as needed. Avoid using more than 4000mg in a 24 hour period. Return to the ER for passing out, worsening headache, vision problems, neck stiffness/pain, fevers, vomiting, worsening of your condition, or as needed.
== END 2017-02-07 01:50 | disposition home or self-care (01) ==
LOC: C.EDB 00:47
DX: G43.909 Migraine, unspecified, not intractable, without status migrainosus (principal); G89.29 Other chronic pain; Z87.440 Personal history of urinary (tract) infections; Z87.442 Personal history of urinary calculi; Z98.84 Bariatric surgery status; Z79.899 Other long term (current) drug therapy

== ENCOUNTER 2017-02-08 01:34 | Emergency (ER) | payer OTHER ==
[~2017-02-08] VITALS: Ht 167.6 cm; Wt 86.4 kg
[~2017-02-08 01:34] MED LIST changes: -METO1TAB55 PO; -ONDA4TAB10 SL
[2017-02-08 01:36] VITALS: TEMP 36.5; Ht 167.6 cm; Wt 86.4 kg
[2017-02-08] MEDS ORDERED: PROCHLORPERAZINE 5 MG/ML 2 ML VIAL IV STA (01:48)
[2017-02-08] MEDS ORDERED: KETOROLAC TROMETHAMINE 30 MG/ML VIAL IV STA (01:48)
[2017-02-08] MEDS ORDERED: SODIUM CHLORIDE 0.9% 1000ML 1,000 ML IV STA (01:48)
[2017-02-08] MEDS ORDERED: DiphenhydrAMINE HCL 50 MG/ML VIAL IV STA (01:48)
--- NOTE | 2017-02-08 01:53 | EMERGENCY ROOM VISIT NOTE ---
History Report prepared by Shaylee: Benitez Rene Under the Supervision of: Dr. Jero Robertson M.D. First contact with patient: 01:43 Chief Complaint: HEADACHE Stated Complaint: MIGRAINE,VOMITING History of Present Illness The patient is a 46 year old female who presents to the Emergency Room with complaints of a worsening right-sided headache that began three days ago. She rates her pain an 8/10 in severity. She has a history of migraine headaches. She states that her pain feels like a typical migraine. She is also experiencing nausea and vomiting.The patient was here in the ED yesterday with the same symptoms. She received IM Benadryl, Compazine, and Toradol. However, her symptoms have worsened today, much more than they were yesterday. She denies any falls, fevers, or anything different than yesterday. She took a Fioricet earlier this evening before she came in to the ED. Source of History: patient Onset: 3 days ago Position: head (right-sided) Symptom Intensity: 8/10 Quality: ache Timing: worsening Associated Symptoms: + nausea, + vomiting, No fevers Review of Systems See HPI for pertinent positives & negatives. A total of 10 systems reviewed and were otherwise negative. Past Medical & Surgical Medical Problems: (1) Abdominal pain (2) Altered mental status (3) Altered mental status (4) Chronic back pain (5) Dizziness (6) Gastric Bypass (7) Hypotension (8) Hypotension (9) Hypotension (10) Insomnia (11) Kidney stone (12) Migraine (13) Narcotic drug use (14) Sleep deprivation (15) Sleep deprivation (16) UTI Family History Cancer Diabetes mellitus FHx: gallbladder disease Heart disease Hypertension Kidney disease Kidney stones Lung disease Social History Smoking Status: Never Smoker Alcohol Use: none Drug Use: none Marital Status: Housing Status: lives alone Occupation Status: disabled Current/Historical Medications Scheduled Amitriptyline HCl (Amitriptyline HCl), 150 MG PO HS Clonazepam (Klonopin), 2 MG PO HS Duloxetine HCl (Duloxetine HCl), 60 MG PO DAILY Ergocalciferol (Vitamin D 45733 Unit), 50,000 INTER.UNIT PO WK Estradiol (Estradiol), 0.5 MG PO DAILY Pramipexole Dihydrochloride (Pramipexole Dihydrochlori), 0.5-1 MG PO HS Risperidone (Risperdal), 4 MG PO HS Thyroid ([place] Thyroid), 180 MG PO DAILY Scheduled PRN Sxqwvjnnjo-Wshkjywyaguth-Qbjtz (Fioricet), 1 CAP PO DAILY PRN for Migraine Cyclobenzaprine HCl (Cyclobenzaprine HCl), 10 MG PO TID PRN for Muscle Spasm Oxycodone HCl (Oxycodone HCl), 5 MG PO DAILY PRN for Severe Pain Oxycodone Hcl (Oxycodone Hcl), 7.5-15 MG PO Q4H PRN for Severe Pain Promethazine HCl (Promethazine HCl), 25 MG PO BID PRN for Nausea or Vomiting Trazodone HCl (Trazodone HCl), 150 MG PO HS PRN for Sleep Allergies Coded Allergies: Dihydroergotamine (Verified Allergy, Severe, PALPATATIONS-SWEATS, 02/08/17) Almotriptan (Verified Allergy, Unknown, 02/08/17) Frovatriptan (Verified Allergy, Unknown, 02/08/17) Pregabalin (Verified Allergy, Unknown, flu like feelings, 02/08/17) Sumatriptan (Verified Allergy, Unknown, 02/08/17) Topiramate (Verified Adverse Reaction, Unknown, flu like symptom, 02/08/17) pt/gmg Physical Exam Vital Signs Date Time Temp Pulse Resp B/P (MAP) Pulse Ox O2 Delivery O2 Flow Rate FiO2 02/08/17 03:54 72 18 132/99 98 02/08/17 03:15 85 18 127/90 98 02/08/17 01:36 36.5 116 18 100/67 98 Room Air Physical Exam GENERAL: Patient is in no acute distress. HEENT: No acute trauma, normocephalic atraumatic, mucous membranes moist, no nasal congestion, no scleral icterus. Pupils equal and reactive to light. NECK: No stridor, no adenopathy, no meningismus, trachea is midline. LUNGS: Clear to auscultation bilaterally, no wheeze, no rhonchi, breath sounds equal. HEART: Without murmurs gallops or rubs, regular rate and rhythm. ABDOMEN: Soft, nontender, bowel sounds positive, no hernias, no peritonitis. EXTREMITIES: No cyanosis or edema, full range of motion of all the joints without pain or difficulty, no signs for acute trauma. NEUROLOGIC: Oriented x 3, no acute motor or sensory deficits, no focal weakness. No cerebellar deficits. SKIN: No rash, no jaundice, no diaphoresis Medical Decision & Procedures Medications Administered Medications (Trade) Dose Ordered Sig/[facility] Route Start Time Stop Time Status Last Admin Dose Admin Sodium Chloride 1,000 ml @ 999 mls/hr Q1H1M STAT IV 02/08/17 01:48 02/08/17 02:48 DC 02/08/17 02:10 999 MLS/HR Prochlorperazine Edisylate (Compazine Inj) 10 mg NOW STAT IV 02/08/17 01:48 02/08/17 01:50 DC 02/08/17 02:11 10 MG Ketorolac Tromethamine (Toradol Inj) 30 mg NOW STAT IV 02/08/17 01:48 02/08/17 01:50 DC 02/08/17 02:10 30 MG Diphenhydramine HCl (Benadryl Inj) 50 mg NOW STAT IV 02/08/17 01:48 02/08/17 01:50 DC 02/08/17 02:11 50 MG Morphine Sulfate (MoRPHine SULFATE INJ) 6 mg NOW STAT IV 02/08/17 03:08 02/08/17 03:09 DC 02/08/17 03:13 6 MG ED Course 0143: The patient was evaluated in room A11. A complete history and physical exam was performed. 0148: Ordered Benadryl Inj 50 mg IV, Toradol Inj 30 mg IV, Compazine Inj 10 mg IV, Sodium Chloride 1000 ml @ 999 mls/hr IV 0306: Upon reassessment, the patient's headache is better, but still present. We are going to try some more pain medication. 0308: Ordered Morphine Sulfate 6 mg IV 0346: The patient is doing much better. 0352: Reevaluated the patient. Discussed results and discharge instructions: She verbalized understanding and agreement. The patient is ready for discharge. Medical Decision Differential diagnosis includes but is not limited to migraine headache, tension headache, meningitis, intracranial bleeding, dehydration, and head trauma. The patient presents with a headache that she describes as a migraine. She has had migraines that have felt like this in the past. The headache is one-sided. There has been no head trauma or fever. There is no meningismus. On exam, there are no focal neurologic deficits. Patient received IV saline, IV Compazine, IV Toradol and IV Benadryl. Her headache was improved but still present. She was given IV morphine. The patient's headache does sound migrainous. She is being discharged home with outpatient follow up. If worsening, she can return. Medication Reconcilliation Current Medication List: was personally reviewed by me Blood Pressure Screening Patient's blood pressure: Normal blood pressure Blood pressure disposition: Did not require urgent referral Impression Primary Impression: Headache Scribe Attestation The scribe's documentation has been prepared under my direction and personally reviewed by me in its entirety. I confirm that the note above accurately reflects all work, treatment, procedures, and medical decision making performed by me. Departure Information Dispostion Home / Self-Care Referrals Don Espinosa Jr,D.O. (PCP) Forms HOME CARE DOCUMENTATION FORM, IMPORTANT VISIT INFORMATION Patient Instructions My [facility] Additional Instructions rest sleep fluids return if worsening
[2017-02-08] MEDS ORDERED: MoRPHine SULFATE 10 MG/ML CARP/VIAL IV STA (03:08)
[2017-02-08 03:54] VITALS: BP 132/99; PULSE 72; O2SAT 98
== END 2017-02-08 03:55 | disposition home or self-care (01) ==
LOC: C.EDB 01:34 → C.EDA 03:55
DX: R51 Headache (principal); I10 Essential (primary) hypertension; Z83.3 Family history of diabetes mellitus; Z82.49 Family history of ischemic heart disease and other diseases of the circulatory system

== ENCOUNTER 2017-03-20 23:49 | Emergency (ER) | payer OTHER ==
[~2017-03-20] VITALS: Ht 167.6 cm; Wt 86.3 kg
[2017-03-21] VITALS: TEMP 36.8; Ht 167.6 cm; Wt 86.3 kg
[2017-03-21] MEDS ORDERED: KETOROLAC TROMETHAMINE 60 MG/2 ML VIAL IM STA (00:07)
[2017-03-21] MEDS ORDERED: DiphenhydrAMINE HCL 50 MG/ML VIAL IM STA (00:07)
[2017-03-21] MEDS ORDERED: PROCHLORPERAZINE 5 MG/ML 2 ML VIAL IM STA (00:07)
--- NOTE | 2017-03-21 00:34 | EMERGENCY ROOM VISIT NOTE ---
History First contact with patient: 00:03 Chief Complaint: HEADACHE Stated Complaint: MIGRAINE, VOMITING, NAUSEA History of Present Illness The patient is a 47 year old female who presents to the Emergency Room with complaints of headache for the past day described as throbbing, ranging in severity 8 / 10 throughout the temporal region similar to prior with nausea and vomiting. Patient went to urgent care and got a shot of Toradol with no improvement of symptoms. This was earlier today. Patient follows with Dr. Tyler. Headache was slow in onset. Patient denies numbness, tingling, weakness, vision problems, balance problems, chest pain, dyspnea or any other medical complaints. Her son is driving. Review of Systems See HPI for pertinent positives & negatives. A total of 10 systems reviewed and were otherwise negative. Past Medical/Surgical History Medical Problems: (1) Abdominal pain (2) Altered mental status (3) Altered mental status (4) Chronic back pain (5) Dizziness (6) Gastric Bypass (7) Hypotension (8) Hypotension (9) Hypotension (10) Insomnia (11) Kidney stone (12) Migraine (13) Narcotic drug use (14) Sleep deprivation (15) Sleep deprivation (16) UTI Family History Cancer Diabetes mellitus FHx: gallbladder disease Heart disease Hypertension Kidney disease Kidney stones Lung disease Social History Smoking Status: Never Smoker Alcohol Use: none Drug Use: none Marital Status: Housing Status: lives alone Occupation Status: disabled Current/Historical Medications Scheduled Amitriptyline HCl (Amitriptyline HCl), 150 MG PO HS Clonazepam (Klonopin), 2 MG PO HS Duloxetine HCl (Duloxetine HCl), 60 MG PO DAILY Ergocalciferol (Vitamin D 59041 Unit), 50,000 INTER.UNIT PO WK Estradiol (Estradiol), 0.5 MG PO DAILY Pramipexole Dihydrochloride (Pramipexole Dihydrochlori), 0.5-1 MG PO HS Risperidone (Risperdal), 4 MG PO HS Thyroid ([place] Thyroid), 180 MG PO DAILY Scheduled PRN Dbtivvmiot-Pstbiymxevbsw-Wavjn (Fioricet), 1 CAP PO DAILY PRN for Migraine Cyclobenzaprine HCl (Cyclobenzaprine HCl), 10 MG PO TID PRN for Muscle Spasm Oxycodone HCl (Oxycodone HCl), 5-30 MG PO DAILY PRN for Severe Pain Promethazine HCl (Promethazine HCl), 25 MG PO BID PRN for Nausea or Vomiting Physical Exam Vital Signs Date Time Temp Pulse Resp B/P (MAP) Pulse Ox O2 Delivery O2 Flow Rate FiO2 03/21/17 00:00 36.8 92 18 108/73 97 Room Air Physical Exam VITALS: Vitals are noted on the nurse's note and reviewed by myself. Vital signs stable. GENERAL: White female, in no acute distress, nondiaphoretic, well-developed well -nourished. SKIN: The skin was without rashes, erythema, edema, or bruising. There is no tenting of the skin. Capillary reflex less than 2 seconds. HEAD: Normocephalic atraumatic. EARS: External auditory canals clear, tympanic membranes pearly keys without erythema or effusion bilaterally. EYES: Pupils equal round and reactive to light and accommodation. Conjunctivae without injection, sclerae without icterus. Extraocular movements intact. NOSE: Patent, turbinates without inflammation or discharge. No sinus tenderness. MOUTH: Mucous membranes moist. Pharynx without erythema or exudate. Uvula midline. Airway patent. Tongue does not deviate. NECK: Supple without nuchal rigidity. No lymphadenopathy. No thyromegaly. Cervical spine is nontender. No JVD. No meningeal signs HEART: Regular rate and rhythm without murmurs gallops or rubs. LUNGS: Clear to auscultation bilaterally without wheezes, rales or rhonchi. No dullness to percussion. No retractions or accessory muscle use. ABDOMEN: Positive bowel sounds x 4. Normal tympanic percussion. Soft, nontender, without masses or organomegaly. Paiz sign negative. No guarding or rebound tenderness. MUSCULOSKELETAL: No muscle atrophy, erythema, or edema noted. NEURO: Patient was alert and oriented to person place and time. Normal sensation to light and sharp touch. No focal neurological deficits. Cranial nerves II through XII. No prior drift. Cerebellar exam intact. Medical Decision & Procedures Medications Administered Medications (Trade) Dose Ordered Sig/[facility]aiser Route Start Time Stop Time Status Last Admin Dose Admin Ketorolac Tromethamine (Toradol Inj) 60 mg NOW STAT IM 03/21/17 00:07 03/21/17 00:09 DC 03/21/17 00:16 60 MG Prochlorperazine Edisylate (Compazine Inj) 10 mg NOW STAT IM 03/21/17 00:07 03/21/17 00:09 DC 03/21/17 00:15 10 MG Diphenhydramine HCl (Benadryl Inj) 50 mg NOW STAT IM 03/21/17 00:07 03/21/17 00:09 DC 03/21/17 00:15 50 MG ED Course Prior records/ancillary studies reviewed. Triage Nursing notes reviewed. The patient's history was concerning for headache. Differential diagnosis: Etiologies such as migraine headache, meningitis, sinusitis, CO exposure, ICH, SAH, infection, tumor, headache, sinus thrombosis, arterial dissection, as well as others were entertained. Physical examination findings: As above. Non-focal. ER treatment provided: Toradol, Compazine, Benadryl IM On reassessment the patient felt better. Diagnostics interpreted by me: Deferred This appears to be consistent with migraine. Patient has a long-standing history of migraines and is well-known to this ER for frequent migraine visits. Patient was neurovascularly and neurologically intact. She is well- appearing. She has appointment within the month with her neurologist and is advised to keep this. She is advised to return to the ER immediately for headache, fevers, confusion, worsening signs or symptoms or as needed. By the evaluation outlined above emergent etiologies such as meningitis, sinusitis, CO exposure, ICH, SAH, infection, temporal arteritis, tumor, sinus thrombosis, arterial dissection, as well as others were deemed relatively unlikely. The pt informed about the findings as listed above. All questions were answered and pleased with the treatment. Return instructions were outlined and the patient was discharged in stable condition. Referral: The patient was referred back to their primary care physician for follow-up in 2 to 3 days for a recheck of the current condition. Medical Decision As above Medication Reconcilliation Current Medication List: was personally reviewed by me Blood Pressure Screening Patient's blood pressure: Normal blood pressure Impression Primary Impression: Migraine Departure Information Dispostion Home / Self-Care Condition GOOD Referrals Don Espinosa Jr,D.O. (PCP) Forms HOME CARE DOCUMENTATION FORM, IMPORTANT VISIT INFORMATION Patient Instructions My [facility] Additional Instructions DO NOT drive, drink alcohol, operate machinery, or perform dangerous activities today. You were given medications in the ER that can affect your ability to safely function or operate a vehicle. Rest today in a quiet, peaceful, dark environment and get a full 8-10 hrs of sleep tonight. Avoid loud noises, smoke/smoking, alcohol, bright lights, stress, or physical exertion today to minimize the chance the headache may return. Continue current medications. Ibuprofen(Motrin, Advil) may be used for fever or pain. Use 600mg every six hours as needed. Take with food. Avoid using more than 2400mg in a 24 hour period. Do not use 2400mg per day for more than three consecutive days without physician direction. Prolonged inappropriate use can lead to stomach upset or ulcers. (AND/OR) Acetaminophen(Tylenol) may be used for fever or pain. Use 1000mg every six hours as needed. Avoid using more than 3000mg in a 24 hour period. Return to the ER for passing out, worsening headache, vision problems, neck stiffness/pain, fevers, vomiting, worsening of your condition, or as needed. Follow up with your primary physician and/or a neurologist in 2-3 days for a recheck of your current condition. Problem Qualifiers Primary Impression: Migraine Migraine type: without aura Status migrainosus presence: without status migrainosus Intractability: not intractable Qualified Codes: G43.009 - Migraine without aura, not intractable, without status migrainosus
[2017-03-21 00:41] VITALS: BP 115/84; PULSE 80; O2SAT 99
== END 2017-03-21 00:42 | disposition home or self-care (01) ==
LOC: C.EDB 23:50
DX: G43.909 Migraine, unspecified, not intractable, without status migrainosus (principal); G89.29 Other chronic pain; Z98.84 Bariatric surgery status; Z87.440 Personal history of urinary (tract) infections; Z79.899 Other long term (current) drug therapy; Z80.9 Family history of malignant neoplasm, unspecified; Z83.3 Family history of diabetes mellitus; Z83.79 Family history of other diseases of the digestive system; Z82.49 Family history of ischemic heart disease and other diseases of the circulatory system; Z84.1 Family history of disorders of kidney and ureter

== ENCOUNTER 2017-03-21 04:41 | Emergency (ER) | payer OTHER ==
[~2017-03-21] VITALS: Ht 167.6 cm; Wt 87.4 kg
[2017-03-21 04:45] VITALS: TEMP 36.4; Ht 167.6 cm; Wt 87.4 kg
[2017-03-21] MEDS ORDERED: DiphenhydrAMINE HCL 50 MG/ML VIAL IV STA ×2 (04:59→06:05)
[2017-03-21] MEDS ORDERED: METOCLOPRAMIDE HCL INJ 5 MG/ML 2 ML VIAL IV STA (04:59)
[2017-03-21] MEDS ORDERED: SODIUM CHLORIDE 0.9% 1000ML 1,000 ML IV STA (04:59)
[2017-03-21] MEDS ORDERED: DEXAMETHASONE SOD INJ 10 MG/ML VIAL IV ONE (05:00)
[2017-03-21] MEDS ORDERED: MAGNESIUM SULFATE 1GM / D5W 1 GM BAG IV STA (06:05)
[2017-03-21] MEDS ORDERED: PROMETHAZINE HCL INJ 25 MG in SODIUM CHLORIDE 0.9% 50ML 50 ML IV STA (06:05)
--- NOTE | 2017-03-21 06:41 | EMERGENCY ROOM VISIT NOTE ---
History First contact with patient: 04:51 Chief Complaint: HEADACHE Stated Complaint: MIGRAINE,VOMITING History of Present Illness The patient is a 47 year old female who presents to the Emergency Room with complaints of headache for the past day described as throbbing, ranging in severity 8 / 10 throughout the temporal region similar to prior with nausea and vomiting. Patient was seen here earlier and felt better and then woke up from her sleep and the headache came back. Patient follows with Dr. Tyler. Headache was slow in onset. Patient denies numbness, tingling, weakness, vision problems , balance problems, chest pain, dyspnea or any other medical complaints. Her son is driving. Review of Systems See HPI for pertinent positives & negatives. A total of 10 systems reviewed and were otherwise negative. Past Medical/Surgical History Medical Problems: (1) Abdominal pain (2) Altered mental status (3) Altered mental status (4) Chronic back pain (5) Dizziness (6) Gastric Bypass (7) Hypotension (8) Hypotension (9) Hypotension (10) Insomnia (11) Kidney stone (12) Migraine (13) Narcotic drug use (14) Sleep deprivation (15) Sleep deprivation (16) UTI Family History Cancer Diabetes mellitus FHx: gallbladder disease Heart disease Hypertension Kidney disease Kidney stones Lung disease Social History Smoking Status: Never Smoker Alcohol Use: none Drug Use: none Marital Status: Housing Status: lives alone Occupation Status: disabled Current/Historical Medications Scheduled Amitriptyline HCl (Amitriptyline HCl), 150 MG PO HS Clonazepam (Klonopin), 2 MG PO HS Duloxetine HCl (Duloxetine HCl), 60 MG PO DAILY Ergocalciferol (Vitamin D 98236 Unit), 50,000 INTER.UNIT PO WK Estradiol (Estradiol), 0.5 MG PO DAILY Pramipexole Dihydrochloride (Pramipexole Dihydrochlori), 0.5-1 MG PO HS Risperidone (Risperdal), 4 MG PO HS Thyroid ([place] Thyroid), 180 MG PO DAILY Scheduled PRN Mwrcqdgqzb-Hufyhbdosjolp-Jjdsa (Fioricet), 1 CAP PO DAILY PRN for Migraine Cyclobenzaprine HCl (Cyclobenzaprine HCl), 10 MG PO TID PRN for Muscle Spasm Oxycodone HCl (Oxycodone HCl), 5-30 MG PO DAILY PRN for Severe Pain Promethazine HCl (Promethazine HCl), 25 MG PO BID PRN for Nausea or Vomiting Physical Exam Vital Signs Date Time Temp Pulse Resp B/P (MAP) Pulse Ox O2 Delivery O2 Flow Rate FiO2 03/21/17 06:20 70 20 112/74 100 Room Air 03/21/17 04:45 36.4 106 16 117/87 97 Room Air Physical Exam VITALS: Vitals are noted on the nurse's note and reviewed by myself. Vital signs stable. GENERAL: Pleasant female, in no acute distress, nondiaphoretic, well-developed well-nourished. SKIN: The skin was without rashes, erythema, edema, or bruising. There is no tenting of the skin. Capillary reflex less than 2 seconds. HEAD: Normocephalic atraumatic. EARS: External auditory canals clear, tympanic membranes pearly keys without erythema or effusion bilaterally. EYES: Pupils equal round and reactive to light and accommodation. Conjunctivae without injection, sclerae without icterus. Extraocular movements intact. NOSE: Patent, turbinates without inflammation or discharge. No sinus tenderness. MOUTH: Mucous membranes moist. Pharynx without erythema or exudate. Uvula midline. Airway patent. Tongue does not deviate. NECK: Supple without nuchal rigidity. No lymphadenopathy. No thyromegaly. Cervical spine is nontender. No JVD. HEART: Regular rate and rhythm without murmurs gallops or rubs. LUNGS: Clear to auscultation bilaterally without wheezes, rales or rhonchi. No dullness to percussion. No retractions or accessory muscle use. ABDOMEN: Positive bowel sounds x 4. Normal tympanic percussion. Soft, nontender, without masses or organomegaly. Paiz sign negative. No guarding or rebound tenderness. MUSCULOSKELETAL: No muscle atrophy, erythema, or edema noted. NEURO: Patient was alert and oriented to person place and time. Normal sensation to light and sharp touch. No focal neurological deficits. Cranial nerves II through XII grossly intact. No pronator drift. Cerebellar exam intact Medical Decision & Procedures Medications Administered Medications (Trade) Dose Ordered Sig/[facility] Route Start Time Stop Time Status Last Admin Dose Admin Dexamethasone Sodium Phosphate (Decadron Inj) 10 mg NOW ONCE IV 03/21/17 05:00 03/21/17 05:01 DC 03/21/17 05:21 10 MG Metoclopramide HCl (Reglan Inj) 10 mg NOW STAT IV 03/21/17 04:59 03/21/17 05:01 DC 03/21/17 05:21 10 MG Diphenhydramine HCl (Benadryl Inj) 25 mg NOW STAT IV 03/21/17 04:59 03/21/17 05:01 DC 03/21/17 05:22 25 MG Sodium Chloride 1,000 ml @ 999 mls/hr Q1H1M STAT IV 03/21/17 04:59 03/21/17 05:59 DC 03/21/17 05:22 999 MLS/HR Promethazine HCl 25 mg/Sodium Chloride 51 ml @ 204 mls/hr NOW STAT IV 03/21/17 06:05 03/21/17 06:19 DC 03/21/17 06:12 204 MLS/HR Magnesium Sulfate (Magnesium Sulfate) 1 gm NOW STAT IV 03/21/17 06:05 03/21/17 06:06 DC 03/21/17 06:19 1 GM Diphenhydramine HCl (Benadryl Inj) 12.5 mg NOW STAT IV 03/21/17 06:05 03/21/17 06:06 DC 03/21/17 06:19 12.5 MG ED Course Prior records/ancillary studies reviewed. Triage Nursing notes reviewed. The patient's history was concerning for headache. Differential diagnosis: Etiologies such as migraine headache, meningitis, sinusitis, CO exposure, ICH, SAH, infection, tumor, headache, sinus thrombosis, arterial dissection, as well as others were entertained. Physical examination findings: As above. Non-focal. ER treatment provided: Decadron, Reglan, Benadryl, IV fluids, Mg, Phenergan On reassessment the patient felt better. Diagnostics interpreted by me: Deferred This appears to be consistent with migraine. Patient has a long-standing history of migraines and is well-known to this ER for frequent migraine visits. Patient still had a headache after the initial round of medications and was given additional round of Phenergan and magnesium and felt much better. Patient was neurovascularly and neurologically intact. She is well-appearing. She has appointment within the month with her neurologist and is advised to keep this. She is advised to return to the ER immediately for headache, fevers , confusion, worsening signs or symptoms or as needed. By the evaluation outlined above emergent etiologies such as meningitis, sinusitis, CO exposure, ICH, SAH, infection, temporal arteritis, tumor, sinus thrombosis, arterial dissection, as well as others were deemed relatively unlikely. The pt informed about the findings as listed above. All questions were answered and pleased with the treatment. Return instructions were outlined and the patient was discharged in stable condition. Referral: The patient was referred back to their primary care physician for follow-up in 2 to 3 days for a recheck of the current condition. Case reviewed with my attending Medical Decision as above Medication Reconcilliation Current Medication List: was personally reviewed by me Blood Pressure Screening Patient's blood pressure: Normal blood pressure Impression Primary Impression: Migraine Departure Information Dispostion Home / Self-Care Condition GOOD Referrals Don Espinosa Jr,D.O. (PCP) Patient Instructions My [facility] Additional Instructions DO NOT drive, drink alcohol, operate machinery, or perform dangerous activities today. You were given medications in the ER that can affect your ability to safely function or operate a vehicle. Rest today in a quiet, peaceful, dark environment and get a full 8-10 hrs of sleep tonight. Avoid loud noises, smoke/smoking, alcohol, bright lights, stress, or physical exertion today to minimize the chance the headache may return. Continue current medications. Ibuprofen(Motrin, Advil) may be used for fever or pain. Use 600mg every six hours as needed. Take with food. Avoid using more than 2400mg in a 24 hour period. Do not use 2400mg per day for more than three consecutive days without physician direction. Prolonged inappropriate use can lead to stomach upset or ulcers. (AND/OR) Acetaminophen(Tylenol) may be used for fever or pain. Use 1000mg every six hours as needed. Avoid using more than 3000mg in a 24 hour period. Return to the ER for passing out, worsening headache, vision problems, neck stiffness/pain, fevers, vomiting, worsening of your condition, or as needed. Follow up with your primary physician and/or a neurologist in 2-3 days for a recheck of your current condition. Problem Qualifiers Primary Impression: Migraine Migraine type: without aura Status migrainosus presence: without status migrainosus Intractability: not intractable Qualified Codes: G43.009 - Migraine without aura, not intractable, without status migrainosus
[2017-03-21 06:48] VITALS: BP 111/77; PULSE 75; O2SAT 98
== END 2017-03-21 07:27 | disposition home or self-care (01) ==
LOC: C.EDB 04:42 → C.EDA 07:27
DX: G43.009 Migraine without aura, not intractable, without status migrainosus (principal); M54.9 Dorsalgia, unspecified; G89.29 Other chronic pain; Z95.1 Presence of aortocoronary bypass graft; Z87.442 Personal history of urinary calculi; Z87.440 Personal history of urinary (tract) infections; G47.00 Insomnia, unspecified; Z80.9 Family history of malignant neoplasm, unspecified; Z83.3 Family history of diabetes mellitus; Z82.49 Family history of ischemic heart disease and other diseases of the circulatory system; Z84.1 Family history of disorders of kidney and ureter; Z79.899 Other long term (current) drug therapy

== ENCOUNTER 2017-03-21 19:59 | Emergency (ER) | payer OTHER ==
[~2017-03-21] VITALS: Ht 167.6 cm; Wt 86.5 kg
[2017-03-21 20:14] VITALS: TEMP 36.9; Ht 167.6 cm; Wt 86.5 kg
[2017-03-21] MEDS ORDERED: DiphenhydrAMINE HCL 50 MG/ML VIAL IV STA (20:37)
[2017-03-21] MEDS ORDERED: KETOROLAC TROMETHAMINE 30 MG/ML VIAL IV STA (20:37)
[2017-03-21] MEDS ORDERED: PROCHLORPERAZINE 5 MG/ML 2 ML VIAL IV STA (20:37)
[2017-03-21] MEDS ORDERED: SODIUM CHLORIDE 0.9% 1000ML 1,000 ML IV STA (20:37)
[2017-03-21] MEDS ORDERED: DEXAMETHASONE SOD INJ 4 MG/ML VIAL IV STA (21:59)
[2017-03-21] MEDS ORDERED: PROMETHAZINE HCL INJ 12.5 MG in SODIUM CHLORIDE 0.9% 50ML 50 ML IV STA (21:59)
[2017-03-21] MEDS ORDERED: MAGNESIUM SULFATE 1GM / D5W 1 GM BAG IV STA (21:59)
--- NOTE | 2017-03-21 22:55 | EMERGENCY ROOM VISIT NOTE ---
History First contact with patient: 20:18 Chief Complaint: HEADACHE Stated Complaint: CONTINUED INTENSE MIGRAINE VOMITING, REFERRED History of Present Illness The patient is a 47 year old female who presents to the Emergency Room with complaints of a continued migraine headache. The patient states that she has had a headache for the past 3 days. She was seen here 2 times yesterday and states that when she was last discharged, she felt better, but when she woke up her headache had returned. She called her primary care provider on-call and they recommended that she go to an urgent care. She went to the urgent care and they sent her here for treatment. She reports this headache is no different than her typical. She has associated nausea and vomiting. She's been taking Phenergan and oxycodone at home without relief. She has a history of migraines and states this feels exactly like previous migraines she has had. She rates her discomfort a 7/10. This is not the worst headache of her life. She denies any recent illness, fevers/chills, numbness, weakness, blurred vision or slurred speech. Review of Systems A complete 10 point review of systems was reviewed with the patient with pertinent positives and negatives as per history of present illness. All else were negative. Past Medical/Surgical History Medical Problems: (1) Abdominal pain (2) Altered mental status (3) Altered mental status (4) Chronic back pain (5) Dizziness (6) Gastric Bypass (7) Hypotension (8) Hypotension (9) Hypotension (10) Insomnia (11) Kidney stone (12) Migraine (13) Narcotic drug use (14) Sleep deprivation (15) Sleep deprivation (16) UTI Family History Cancer Diabetes mellitus FHx: gallbladder disease Heart disease Hypertension Kidney disease Kidney stones Lung disease Social History Smoking Status: Never Smoker Alcohol Use: none Drug Use: none Marital Status: Housing Status: lives alone Occupation Status: disabled Current/Historical Medications Scheduled Amitriptyline HCl (Amitriptyline HCl), 150 MG PO HS Clonazepam (Klonopin), 2 MG PO HS Duloxetine HCl (Duloxetine HCl), 60 MG PO DAILY Ergocalciferol (Vitamin D 20702 Unit), 50,000 INTER.UNIT PO WK Estradiol (Estradiol), 0.5 MG PO DAILY Pramipexole Dihydrochloride (Pramipexole Dihydrochlori), 0.5-1 MG PO HS Risperidone (Risperdal), 4 MG PO HS Thyroid ([place]ard Thyroid), 180 MG PO DAILY Scheduled PRN Gzpcjwlbhf-Dmjtfiumtpuwn-Nrnhp (Fioricet), 1 CAP PO DAILY PRN for Migraine Cyclobenzaprine HCl (Cyclobenzaprine HCl), 10 MG PO TID PRN for Muscle Spasm Oxycodone HCl (Oxycodone HCl), 5-30 MG PO DAILY PRN for Severe Pain Promethazine HCl (Promethazine HCl), 25 MG PO BID PRN for Nausea or Vomiting Physical Exam Vital Signs Date Time Temp Pulse Resp B/P (MAP) Pulse Ox O2 Delivery O2 Flow Rate FiO2 03/21/17 23:47 60 18 123/71 97 03/21/17 23:41 60 18 123/71 97 Room Air 03/21/17 22:28 50 17 147/78 98 Room Air 03/21/17 21:00 56 17 140/88 96 Room Air 03/21/17 20:14 36.9 103 18 136/84 98 Room Air Physical Exam VITALS: Vitals are noted on the nurse's note and reviewed by myself. Vital signs stable. GENERAL: This is a 47-year-old female, in no acute distress, nondiaphoretic, well-developed well-nourished. SKIN: The skin was without rashes. HEAD: Normocephalic atraumatic. EARS: External auditory canals clear, tympanic membranes pearly keys without erythema or effusion bilaterally. EYES: Pupils equal round and reactive to light and accommodation. Conjunctivae without injection, sclerae without icterus. Extraocular movements intact. MOUTH: Mucous membranes moist. Tonsils are not enlarged. Pharynx without erythema or exudate. NECK: Supple without nuchal rigidity. No lymphadenopathy. HEART: Regular rate and rhythm without murmurs gallops or rubs. LUNGS: Clear to auscultation bilaterally without wheezes, rales or rhonchi. ABDOMEN: Soft, nontender. MUSCULOSKELETAL: Strength 5/5 throughout. NEURO: Patient was alert and oriented to person place and time. Normal sensation to light and sharp touch. No focal neurological deficits. Medical Decision & Procedures Medications Administered Medications (Trade) Dose Ordered Sig/[facility]aiser Route Start Time Stop Time Status Last Admin Dose Admin Sodium Chloride 1,000 ml @ 999 mls/hr Q1H1M STAT IV 03/21/17 20:37 03/21/17 21:37 DC 03/21/17 20:55 999 MLS/HR Prochlorperazine Edisylate (Compazine Inj) 10 mg NOW STAT IV 03/21/17 20:37 03/21/17 20:38 DC 03/21/17 20:56 10 MG Ketorolac Tromethamine (Toradol Inj) 30 mg NOW STAT IV 03/21/17 20:37 03/21/17 20:38 DC 03/21/17 20:56 30 MG Diphenhydramine HCl (Benadryl Inj) 25 mg NOW STAT IV 03/21/17 20:37 03/21/17 20:38 DC 03/21/17 20:56 25 MG Promethazine HCl 12.5 mg/Sodium Chloride 50.5 ml @ 204 mls/hr NOW STAT IV 03/21/17 21:59 03/21/17 22:13 DC 03/21/17 22:33 204 MLS/HR Magnesium Sulfate (Magnesium Sulfate) 1 gm NOW STAT IV 03/21/17 21:59 03/21/17 22:02 DC 03/21/17 22:33 1 GM Dexamethasone Sodium Phosphate (Decadron Inj) 10 mg NOW STAT IV 03/21/17 21:59 03/21/17 22:02 DC 03/21/17 22:33 10 MG ED Course The patient was evaluated as above. Labs were drawn and IV access was obtained. Patient was medicated with Compazine, Toradol, Benadryl and IV fluids. Patient was reevaluated and reported she had some relief, but did have some residual pain. Patient was then ordered Phenergan, Decadron and magnesium. Patient was reevaluated and stated she had relief and wanted to be discharged home. Discharge instructions were reviewed with the patient. The patient verbalized understanding of my assessment and treatment plan and was discharged home in good condition. Medical Decision The differential diagnosis includes acute intracranial bleed, meningitis, encephalitis, mass or mass effect, sinusitis, infection, tumor, headache, temporal arteritis and carbon monoxide exposure, and migraine. The patient is a 47-year-old female who presents today complaining of a migraine headache. Patient states this is her typical headache and there is nothing different about this headache. Options of care were discussed with the patient including further workup versus treatment for this headache. The patient feels strongly that this is her typical migraine headache and does not want any further workup performed. Patient was given multiple medications and did report significant relief. There is no evidence of meningitis or encephalitis on examination. She was encouraged to continue her own medications at home and follow-up with her primary care provider and neurologist. Based on the patient's presentation and work up, I feel the patient is stable for outpatient treatment. The patient was educated to return to the emergency department for any worsening of their current condition or new/concerning symptoms. She will follow up with her PCP and neurologist. Medication Reconcilliation Current Medication List: was personally reviewed by me Blood Pressure Screening Patient's blood pressure: Elevated blood pressure Blood pressure disposition: Elevated BP felt to be situational Impression Primary Impression: Headache Departure Information Dispostion Home / Self-Care Condition GOOD Referrals Don Espinosa Jr,D.O. (PCP) Patient Instructions My [facility] Additional Instructions You have been treated in the Emergency Department for a Headache. You have received pain medicine in the emergency department which impairs your ability to operate a vehicle. It is illegal for you to drive after receiving these medicines. Continue your medications at home for your headaches. You should relax in a quiet, dark place for the rest of the day. Avoid any possible triggers including: cigarette smoke, caffeine, nicotine, chocolate, wine, beer, loud noises or music, or bright lights. You should schedule a follow-up appointment in 2-3 days with your Primary Care Provider or established Neurologist for further evaluation and treatment of your Headache. Return to the Emergency Department if your current symptoms worsen despite treatment course outlined above, or if you develop any of the following symptoms : intractable pain despite aforementioned treatment course, visual disturbances , loss of vision, unilateral weakness or facial drooping, slurring of speech, loss of coordination, or loss of consciousness.
[2017-03-21 23:47] VITALS: BP 123/71; PULSE 60; O2SAT 97
== END 2017-03-21 23:48 | disposition home or self-care (01) ==
LOC: C.EDB 20:00 → C.EDA 23:48
DX: R51 Headache (principal); I95.9 Hypotension, unspecified; G47.00 Insomnia, unspecified; Z87.442 Personal history of urinary calculi; Z87.440 Personal history of urinary (tract) infections; Z80.9 Family history of malignant neoplasm, unspecified; Z83.3 Family history of diabetes mellitus; Z83.79 Family history of other diseases of the digestive system; Z84.1 Family history of disorders of kidney and ureter; Z83.6 Family history of other diseases of the respiratory system; Z79.899 Other long term (current) drug therapy; G43.009 Migraine without aura, not intractable, without status migrainosus; M54.9 Dorsalgia, unspecified; G89.29 Other chronic pain; Z82.49 Family history of ischemic heart disease and other diseases of the circulatory system; Z95.1 Presence of aortocoronary bypass graft

== ENCOUNTER 2017-04-16 01:57 | Emergency (ER) | payer OTHER ==
[~2017-04-16] VITALS: Ht 167.6 cm; Wt 87.7 kg
[~2017-04-16 01:57] MED LIST changes: -DSY/150 PO; -OXY/15 PO
[2017-04-16 02:02] VITALS: Ht 167.6 cm; Wt 87.7 kg
[2017-04-16] MEDS ORDERED: METOCLOPRAMIDE HCL INJ 5 MG/ML 2 ML VIAL IM STA (02:18)
[2017-04-16] MEDS ORDERED: KETOROLAC TROMETHAMINE 60 MG/2 ML VIAL IM STA (02:18)
[2017-04-16] MEDS ORDERED: DiphenhydrAMINE HCL 50 MG/ML VIAL IM STA (02:18)
[2017-04-16] MEDS ORDERED: PROMETHAZINE HCL INJ 25 MG/ML 1 ML VIAL IM STA (03:17)
--- NOTE | 2017-04-16 03:30 | EMERGENCY ROOM VISIT NOTE ---
History First contact with patient: 02:11 Chief Complaint: HEADACHE Stated Complaint: MIGRAINE,DIZZINESS History of Present Illness The patient is a 47 year old female who presents to the Emergency Room with complaints of complaints of headache for the past day described as throbbing, ranging in severity 8 / 10 throughout the temporal region similar to prior with nausea and vomiting. Patient was seen here earlier and felt better and then woke up from her sleep and the headache came back. Patient follows with Dr. Tyler. Headache was slow in onset. Patient denies numbness, tingling, weakness, vision problems, balance problems, chest pain, dyspnea or any other medical complaints. Her son is driving. Review of Systems See HPI for pertinent positives & negatives. A total of 10 systems reviewed and were otherwise negative. Past Medical/Surgical History Medical Problems: (1) Abdominal pain (2) Altered mental status (3) Altered mental status (4) Chronic back pain (5) Dizziness (6) Gastric Bypass (7) Hypotension (8) Hypotension (9) Hypotension (10) Insomnia (11) Kidney stone (12) Migraine (13) Narcotic drug use (14) Sleep deprivation (15) Sleep deprivation (16) UTI Family History Cancer Diabetes mellitus FHx: gallbladder disease Heart disease Hypertension Kidney disease Kidney stones Lung disease Social History Smoking Status: Never Smoker Alcohol Use: none Drug Use: none Marital Status: Housing Status: lives alone Occupation Status: disabled Current/Historical Medications Scheduled Amitriptyline HCl (Amitriptyline HCl), 150 MG PO HS Clonazepam (Klonopin), 2 MG PO HS Duloxetine HCl (Duloxetine HCl), 60 MG PO DAILY Ergocalciferol (Vitamin D 16203 Unit), 50,000 INTER.UNIT PO WK Estradiol (Estradiol), 0.5 MG PO DAILY Pramipexole Dihydrochloride (Pramipexole Dihydrochlori), 0.5-1 MG PO HS Risperidone (Risperdal), 4 MG PO HS Thyroid ([place] Thyroid), 180 MG PO DAILY Scheduled PRN Zwaajgjemz-Vtlmjaebpxwqr-Fjrva (Fioricet), 1 CAP PO DAILY PRN for Migraine Cyclobenzaprine HCl (Cyclobenzaprine HCl), 10 MG PO TID PRN for Muscle Spasm Oxycodone HCl (Oxycodone HCl), 5-30 MG PO DAILY PRN for Severe Pain Promethazine HCl (Promethazine HCl), 25 MG PO BID PRN for Nausea or Vomiting Physical Exam Vital Signs Date Time Temp Pulse Resp B/P (MAP) Pulse Ox O2 Delivery O2 Flow Rate FiO2 04/16/17 02:02 36.3 104 18 104/73 96 Room Air Physical Exam VITALS: Vitals are noted on the nurse's note and reviewed by myself. Vital signs stable. GENERAL: Pleasant female, in no acute distress, nondiaphoretic, well-developed well-nourished. SKIN: The skin was without rashes, erythema, edema, or bruising. There is no tenting of the skin. Capillary reflex less than 2 seconds. HEAD: Normocephalic atraumatic. EARS: External auditory canals clear, tympanic membranes pearly keys without erythema or effusion bilaterally. EYES: Pupils equal round and reactive to light and accommodation. Conjunctivae without injection, sclerae without icterus. Extraocular movements intact. NOSE: Patent, turbinates without inflammation or discharge. No sinus tenderness. MOUTH: Mucous membranes moist. Pharynx without erythema or exudate. Uvula midline. Airway patent. Tongue does not deviate. NECK: Supple without nuchal rigidity. No lymphadenopathy. No thyromegaly. Cervical spine is nontender. No JVD. HEART: Regular rate and rhythm without murmurs gallops or rubs. LUNGS: Clear to auscultation bilaterally without wheezes, rales or rhonchi. No dullness to percussion. No retractions or accessory muscle use. ABDOMEN: Positive bowel sounds x 4. Normal tympanic percussion. Soft, nontender, without masses or organomegaly. Paiz sign negative. No guarding or rebound tenderness. MUSCULOSKELETAL: No muscle atrophy, erythema, or edema noted. NEURO: Patient was alert and oriented to person place and time. Normal sensation to light and sharp touch. No focal neurological deficits. Cranial nerves II through XII grossly intact. No pronator drift. Cerebellar exam intact. Medical Decision & Procedures Medications Administered Medications (Trade) Dose Ordered Sig/Kaiser Route Start Time Stop Time Status Last Admin Dose Admin Ketorolac Tromethamine (Toradol Inj) 60 mg NOW STAT IM 04/16/17 02:18 04/16/17 02:20 DC 04/16/17 02:36 60 MG Metoclopramide HCl (Reglan Inj) 10 mg NOW STAT IM 04/16/17 02:18 04/16/17 02:20 DC 04/16/17 02:35 10 MG Diphenhydramine HCl (Benadryl Inj) 50 mg NOW STAT IM 04/16/17 02:18 04/16/17 02:20 DC 04/16/17 02:35 50 MG ED Course Prior records/ancillary studies reviewed. Triage Nursing notes reviewed. The patient's history was concerning for headache. Differential diagnosis: Etiologies such as migraine headache, meningitis, sinusitis, CO exposure, ICH, SAH, infection, tumor, headache, sinus thrombosis, arterial dissection, as well as others were entertained. Physical examination findings: As above. Non-focal. ER treatment provided: Reglan, Benadryl, toradol, Phenergan On reassessment the patient felt better. Diagnostics interpreted by me: Deferred This appears to be consistent with migraine. Patient has a long-standing history of migraines and is well-known to this ER for frequent migraine visits. Patient still had a headache after the initial round of medications and was given additional round of Phenergan and felt much better. Patient was neurovascularly and neurologically intact. She is well-appearing. She has appointment within the month with her neurologist and is advised to keep this. She is advised to return to the ER immediately for headache, fevers, confusion, worsening signs or symptoms or as needed. By the evaluation outlined above emergent etiologies such as meningitis, sinusitis, CO exposure, ICH, SAH, infection, temporal arteritis, tumor, sinus thrombosis, arterial dissection, as well as others were deemed relatively unlikely. The pt informed about the findings as listed above. All questions were answered and pleased with the treatment. Return instructions were outlined and the patient was discharged in stable condition. Referral: The patient was referred back to their primary care physician for follow-up in 2 to 3 days for a recheck of the current condition. Case reviewed with my attending Medical Decision As above Medication Reconcilliation Current Medication List: was personally reviewed by me Blood Pressure Screening Patient's blood pressure: Normal blood pressure Impression Primary Impression: Migraine Departure Information Dispostion Home / Self-Care Condition GOOD Referrals Don Espinosa Jr,D.O. (PCP) Forms HOME CARE DOCUMENTATION FORM, IMPORTANT VISIT INFORMATION Patient Instructions My [facility] Additional Instructions DO NOT drive, drink alcohol, operate machinery, or perform dangerous activities today. You were given medications in the ER that can affect your ability to safely function or operate a vehicle. Rest today in a quiet, peaceful, dark environment and get a full 8-10 hrs of sleep tonight. Avoid loud noises, smoke/smoking, alcohol, bright lights, stress, or physical exertion today to minimize the chance the headache may return. Continue current medications. Ibuprofen(Motrin, Advil) may be used for fever or pain. Use 600mg every six hours as needed. Take with food. Avoid using more than 2400mg in a 24 hour period. Do not use 2400mg per day for more than three consecutive days without physician direction. Prolonged inappropriate use can lead to stomach upset or ulcers. (AND/OR) Acetaminophen(Tylenol) may be used for fever or pain. Use 1000mg every six hours as needed. Avoid using more than 3000mg in a 24 hour period. Return to the ER for passing out, worsening headache, vision problems, neck stiffness/pain, fevers, vomiting, worsening of your condition, or as needed. Follow up with your primary physician and/or a neurologist in 2-3 days for a recheck of your current condition. Problem Qualifiers Primary Impression: Migraine Migraine type: without aura Status migrainosus presence: with status migrainosus Intractability: not intractable Qualified Codes: G43.001 - Migraine without aura, not intractable, with status migrainosus
[2017-04-16 03:54] VITALS: BP 104/73; PULSE 104; TEMP 36.3; O2SAT 96
== END 2017-04-16 03:30 | disposition home or self-care (01) ==
LOC: C.EDB 01:59
DX: G43.001 Migraine without aura, not intractable, with status migrainosus (principal); Z87.442 Personal history of urinary calculi; Z87.440 Personal history of urinary (tract) infections; Z98.84 Bariatric surgery status; Z83.3 Family history of diabetes mellitus; Z82.49 Family history of ischemic heart disease and other diseases of the circulatory system; Z84.1 Family history of disorders of kidney and ureter

== ENCOUNTER → 2017-05-11 | Outpatient (CLI) | payer OTHER ==
[~2017-05-11] MED LIST changes: -ERGO1CAP41 PO; +ERGO500011 PO
[2017-05-11 16:15] LABS: ALT/SGPT 41 U/L (12-78); AST/SGOT 15 U/L (15-37); BLOOD UREA NITROGEN 7 mg/dl (7-18); BUN/CREATININE RATIO 11.1 (10-20); CALCIUM 9.1 mg/dl (8.5-10.1); CARBON DIOXIDE 27 mmol/L (21-32); CHLORIDE 104 mmol/L (98-107); CREATININE 0.59 mg/dl (0.60-1.20); GLUCOSE 82 mg/dl (70-99); POTASSIUM 3.6 mmol/L (3.5-5.1); SODIUM 138 mmol/L (136-145)
[2017-05-11 16:18] LABS: ALKALINE PHOSPHATASE 168 U/L (45-117); FERRITIN 98.2 ng/ml (8.0-388.0)
== END | disposition home or self-care (01) ==
LOC: C.LAB 14:37
DX: E61.1 Iron deficiency (principal); E55.9 Vitamin D deficiency, unspecified; E53.8 Deficiency of other specified B group vitamins; K75.81 Nonalcoholic steatohepatitis (NASH); K90.9 Intestinal malabsorption, unspecified

== ENCOUNTER 2017-07-15 00:12 | Emergency (ER) | payer OTHER ==
[~2017-07-15] VITALS: Ht 167.6 cm; Wt 92.5 kg
[~2017-07-15 00:12] MED LIST changes: +METH4PAK
[2017-07-15 00:22] VITALS: Ht 167.6 cm; Wt 92.5 kg
[2017-07-15] MEDS ORDERED: ATR25 PO (00:47)
[2017-07-15] MEDS ORDERED: RSP1 PO (00:47)
[2017-07-15] MEDS ORDERED: OXY/15 PO (00:47)
[2017-07-15] MEDS ORDERED: ACETAMINOPHEN 500 MG TAB PO STA (00:53)
[2017-07-15] MEDS ORDERED: LIDODERM (LIDOCAINE) PATCH 5% TD STA (00:53)
[2017-07-15] MEDS ORDERED: KETOROLAC TROMETHAMINE 60 MG/2 ML VIAL IM STA (00:53)
[2017-07-15] MEDS ORDERED: LORAZEPAM 1 MG TAB SL STA (00:53)
--- NOTE | 2017-07-15 03:08 | EMERGENCY ROOM VISIT NOTE ---
History Report prepared by Shaylee: Esme Carrillo Under the Supervision of: Dr. Ibis Vick D.O. First contact with patient: 00:39 Chief Complaint: BACK INJURY Stated Complaint: BACK PAIN/INJURY History of Present Illness The patient is a 47 year old female who presents to the Emergency Room with complaints of persistent back pain starting 5 days ago. The patient was lifting a 40 lb bag when the pain started. She normally does not do heavy lifting. She reports mid right back pain and stiffness. The pain does not radiate elsewhere. The pain worsens with twisting and bending. She has been using Lidoderm, heating pads, ibuprofen, and Flexeril to no significant relief. She reports some incontinence right after the injury. She denies any hip pain, leg pain, new or worsening numbness or tingling, groin numbness or tingling, fever, chills , abdominal pain, nausea, or vomiting. The patient has a history of low back pain with tingling down her left leg. She used to follow with pain management. She denies any previous back surgery. Source of History: patient Onset: 5 days ago Position: back Quality: other (pain) Timing: other (persistent) Modifying Factors (Worsening): movement Associated Symptoms: No fevers, No chills, No nausea, No vomiting, No abdominal pain, No numbness Note: Pt reports incontinence. Pt denies hip pain, leg pain. Review of Systems See HPI for pertinent positives & negatives. A total of 10 systems reviewed and were otherwise negative. Past Medical & Surgical Medical Problems: (1) Abdominal pain (2) Altered mental status (3) Altered mental status (4) Chronic back pain (5) Dizziness (6) Gastric Bypass (7) Hypotension (8) Hypotension (9) Hypotension (10) Insomnia (11) Kidney stone (12) Migraine (13) Narcotic drug use (14) Sleep deprivation (15) Sleep deprivation (16) UTI Family History Cancer Diabetes mellitus FHx: gallbladder disease Heart disease Hypertension Kidney disease Kidney stones Lung disease Social History Smoking Status: Never Smoker Alcohol Use: none Drug Use: none Marital Status: Housing Status: lives alone Occupation Status: disabled Current/Historical Medications Scheduled Amitriptyline HCl (Amitriptyline HCl), 150 MG PO HS Clonazepam (Klonopin), 2 MG PO HS Duloxetine HCl (Duloxetine HCl), 60 MG PO DAILY Ergocalciferol (Vitamin D 98850 Unit), 50,000 INTER.UNIT PO WK Estradiol (Estradiol), 0.5 MG PO DAILY Hydroxyzine HCl (Hydroxyzine HCl), 25 MG PO BID Methylprednisolone (Medrol Dosepak), UD Oxycodone Hcl (Oxycodone Hcl), 15 MG PO DAILY Pramipexole Dihydrochloride (Pramipexole Dihydrochlori), 0.5-1 MG PO HS Risperidone (Risperidone), 1 MG PO HS Thyroid ([place] Thyroid), 180 MG PO DAILY Scheduled PRN Oqlcraketr-Cuqzrdaumitnr-Wrjbp (Fioricet), 1 CAP PO DAILY PRN for Migraine Cyclobenzaprine HCl (Cyclobenzaprine HCl), 10 MG PO TID PRN for Muscle Spasm Promethazine HCl (Promethazine HCl), 25 MG PO BID PRN for Nausea or Vomiting Allergies Coded Allergies: Dihydroergotamine (Verified Allergy, Severe, PALPATATIONS-SWEATS, 03/21/17) Almotriptan (Verified Allergy, Unknown, 03/21/17) Frovatriptan (Verified Allergy, Unknown, 03/21/17) Pregabalin (Verified Allergy, Unknown, flu like feelings, 03/21/17) Sumatriptan (Verified Allergy, Unknown, 03/21/17) Topiramate (Verified Adverse Reaction, Unknown, flu like symptom, 03/21/17) pt/gmg Physical Exam Vital Signs Date Time Temp Pulse Resp B/P (MAP) Pulse Ox O2 Delivery O2 Flow Rate FiO2 07/15/17 03:14 36.3 101 18 109/77 96 07/15/17 00:22 36.7 132 18 124/79 95 Room Air Physical Exam GENERAL: alert, well appearing, well nourished, no distress, non-toxic EYE EXAM: normal conjunctiva, PERRL and EOM's grossly intact OROPHARYNX: no exudate, no erythema, lips, buccal mucosa, and tongue normal and mucous membranes are moist NECK: supple, no nuchal rigidity, no adenopathy, non-tender LUNGS: Clear to auscultation. Normal chest wall mechanics HEART: no murmurs, S1 normal and S2 normal ABDOMEN: abdomen soft, non-tender, normo-active bowel sounds, no masses, no rebound or guarding. BACK: Back is symmetrical on inspection and there is no deformity, no midline tenderness, no CVA tenderness. SKIN: no rashes and no bruising UPPER EXTREMITIES: upper extremities are grossly normal. LOWER EXTREMITIES: No pitting edema. 2/4 patellar reflexes bilaterally. NEURO EXAM: Normal sensorium, cranial nerves II-XII grossly intact, normal speech, no gross weakness of arms, no gross weakness of legs. Steady gait. Sensory intact. Medical Decision & Procedures Medications Administered Medications (Trade) Dose Ordered Sig/Kaiser Route Start Time Stop Time Status Last Admin Dose Admin Lorazepam (Ativan Tab) 1 mg NOW STAT SL 07/15/17 00:53 07/15/17 00:56 DC 07/15/17 01:06 1 MG Lidocaine (Lidoderm Patch 5%) 1 patch NOW STAT TD 07/15/17 00:53 07/15/17 00:56 DC 07/15/17 01:06 1 PATCH Ketorolac Tromethamine (Toradol Inj) 60 mg NOW STAT IM 07/15/17 00:53 07/15/17 00:56 DC 07/15/17 01:07 60 MG Acetaminophen (Tylenol Tab) 1,000 mg NOW STAT PO 07/15/17 00:53 07/15/17 00:56 DC 07/15/17 01:07 1,000 MG ED Course 0041: The patient was evaluated in room B5. A complete history and physical exam was performed. 0053: Acetaminophen 1000 mg PO, Toradol Inj 60 mg IM, Lidocaine 1 patch TD, Lorazepam 1 mg SL. 0300: Patient notified nursing staff that she did not want to wait any longer for MRI. As she was about to leave MRI staff showed up and she decided to attempt to MRI, however was unable to perform this despite Ativan due to her significant claustrophobia history. Patient had been informed prior to MRI being ordered that we would not be able to perform deep sedation for her to have a closed MRI. Patient well-appearing here, only concerning symptom was the possible incontinence of the onset of pain, no other findings or symptoms to suggest cauda equina, no other risk for epidural abscess or hematoma. Patient aware of my concerns given her description of her pain and history, she would like to go home and follow-up as an outpatient and pursue an outpatient MRI and an open machine. The patient is leaving against medical advice. Medical Decision Differential diagnosis: Etiologies such as musculoskeletal, disc herniation, fracture, aortic disease, metastatic disease, cord compression, discitis, infection, renal colic, gastrointestinal, acute exacerbation of chronic back pain, sciatica, cauda equina, as well as others were entertained. Discussed possible differential diagnosis with patient. Patient aware findings and possible long-term disability and permanent loss of function. No fevers, doubt occult infection, no other symptoms to suggest pathology, doubt vascular pathology. Discussed with patient she is welcome to return the emergency room at any time, discussed need for follow-up as soon as possible, and need for imaging given symptoms. Patient with no episodes of incontinence here, and bleeding around the room with a steady gait, well appearing, no obvious neuro deficits on bedside exam. Medication Reconcilliation Current Medication List: was personally reviewed by me Blood Pressure Screening Patient's blood pressure: Normal blood pressure Blood pressure disposition: Did not require urgent referral Impression Primary Impression: Lumbar back pain Scribe Attestation The scribe's documentation has been prepared under my direction and personally reviewed by me in its entirety. I confirm that the note above accurately reflects all work, treatment, procedures, and medical decision making performed by me. Departure Information Dispostion Against Medical Advice Referrals Don Espinosa Jr,D.O. (PCP) Patient Instructions My [facility] Additional Instructions You're welcome to return to the emergency room at any time. Please follow up with your family doctor or your Back Specialist to schedule an outpatient MRI. You may continue using Tylenol, ibuprofen, Lidoderm patches, and the Flexeril as needed. Please avoid any strenuous activity or heavy lifting. Without the MRI we cannot know for sure the extent of any potential damage or injury in your back. Please try to schedule this as soon as possible.
[2017-07-15 03:14] VITALS: BP 109/77; PULSE 101; TEMP 36.3; O2SAT 96
== END 2017-07-15 03:15 | disposition left against medical advice (07) ==
LOC: C.EDB 00:15
DX: M54.5 Low back pain (principal); X50.0XXA Overexertion from strenuous movement or load, initial encounter; Y92.9 Unspecified place or not applicable; I95.9 Hypotension, unspecified; Z98.84 Bariatric surgery status; G47.00 Insomnia, unspecified; G43.909 Migraine, unspecified, not intractable, without status migrainosus; Z87.440 Personal history of urinary (tract) infections; G89.29 Other chronic pain; Z80.9 Family history of malignant neoplasm, unspecified; Z83.3 Family history of diabetes mellitus; Z83.79 Family history of other diseases of the digestive system; Z82.49 Family history of ischemic heart disease and other diseases of the circulatory system; Z84.1 Family history of disorders of kidney and ureter; Z83.6 Family history of other diseases of the respiratory system; Z79.899 Other long term (current) drug therapy

== ENCOUNTER → 2017-10-02 | Outpatient (CLI) | payer OTHER ==
[~2017-10-02] MED LIST changes: +ATR25 PO; +CLON1TAB3 PO; +OXY/15 PO; -OXYC-609 PO; +OXYC1CAP5 PO; -RISP4TAB8 PO; +RSP1 PO
[2017-10-02 12:18] LABS: BASO % 0.5 %; BASO ABS # 0.02 K/uL (0-0.2); EOS % 4.3 %; EOS ABS # 0.18 K/uL (0-0.5); HEMATOCRIT 40.3 % (37-47); HEMOGLOBIN 13.3 g/dL (12.0-16.0); LYMPH ABS # 1.64 K/uL (1.2-3.4); MEAN CELL VOLUME 94.6 fL (80-100); MEAN CORPUSCULAR HEMOGLOBIN 31.2 pg (25-34); MEAN PLATELET VOLUME 10.2 fL (7.4-10.4); MONO ABS # 0.21 K/uL (0.11-0.59); NEUT % 51.2 %; NEUT ABS # 2.15 K/uL (1.4-6.5); PLATELET COUNT 348 K/uL (130-400); RED CELL DISTRIBUTION WIDTH CV 13.3 % (11.5-14.5)
[2017-10-02 15:56] LABS: BLOOD UREA NITROGEN 13 mg/dl (7-18); CALCIUM 8.5 mg/dl (8.5-10.1); CARBON DIOXIDE 27 mmol/L (21-32); CREATININE 0.59 mg/dl (0.60-1.20); GLUCOSE 85 mg/dl (70-99); SODIUM 136 mmol/L (136-145)
[2017-10-02 16:07] LABS: CHOLESTEROL 170 mg/dl (0-200); LDL CHOLESTEROL CALCULATED 61 mg/dl; TRANSFERRIN 286 mg/dl (200-360)
== END | disposition home or self-care (01) ==
LOC: C.LAB1850 10:56
DX: E55.9 Vitamin D deficiency, unspecified (principal); E61.1 Iron deficiency; E78.5 Hyperlipidemia, unspecified; R10.9 Unspecified abdominal pain

== ENCOUNTER 2017-10-10 22:23 | Emergency (ER) | payer OTHER ==
[~2017-10-10] VITALS: Ht 165.1 cm; Wt 93.4 kg
[~2017-10-10 22:23] MED LIST changes: -CLON1TAB3 PO; -OXYC1CAP5 PO
[2017-10-10 22:29] VITALS: TEMP 36.7; Ht 165.1 cm; Wt 93.4 kg
[2017-10-10] MEDS ORDERED: DiphenhydrAMINE HCL 50 MG/ML VIAL IV STA (22:43)
[2017-10-10] MEDS ORDERED: METOCLOPRAMIDE HCL INJ 5 MG/ML 2 ML VIAL IV STA (22:43)
[2017-10-10] MEDS ORDERED: CLON1TAB3 PO (23:31)
[2017-10-10] MEDS ORDERED: OXYC1CAP5 PO (23:31)
[2017-10-10 23:47] VITALS: BP 159/92; PULSE 70; O2SAT 95
--- NOTE | 2017-10-10 23:59 | EMERGENCY ROOM VISIT NOTE ---
History First contact with patient: 22:38 Chief Complaint: HEADACHE Stated Complaint: MIGRAINE, NAUSEA, VOMITING History of Present Illness The patient is a 47 year old female who presents to the Emergency Room with complaints of headache for the past day described as throbbing, ranging in severity 8 / 10 throughout the temporal region similar to prior with nausea and vomiting. Nothing makes it better or worse. This is not the worst headache of her life. Patient was seen at and given Toradol w/o relief. Patient follows with Dr. Tyler. Headache was slow in onset. Patient denies numbness, tingling, weakness, vision problems, balance problems, chest pain, dyspnea or any other medical complaints. Her son is driving. Review of Systems An 10 system review of systems was completed with positives and pertinent negatives listed in the HPI. Past Medical/Surgical History Medical Problems: (1) Abdominal pain (2) Altered mental status (3) Altered mental status (4) Chronic back pain (5) Dizziness (6) Gastric Bypass (7) Hypotension (8) Hypotension (9) Hypotension (10) Insomnia (11) Kidney stone (12) Migraine (13) Narcotic drug use (14) Sleep deprivation (15) Sleep deprivation (16) UTI Family History Cancer Diabetes mellitus FHx: gallbladder disease Heart disease Hypertension Kidney disease Kidney stones Lung disease Social History Smoking Status: Never Smoker Alcohol Use: none Drug Use: none Marital Status: Housing Status: lives alone Occupation Status: disabled Current/Historical Medications Scheduled Amitriptyline HCl (Amitriptyline HCl), 150 MG PO HS Clonazepam (Klonopin), 1 MG PO HS Duloxetine HCl (Duloxetine HCl), 60 MG PO DAILY Ergocalciferol (Vitamin D 36884 Unit), 50,000 INTER.UNIT PO WK Estradiol (Estradiol), 0.5 MG PO DAILY Pramipexole Dihydrochloride (Pramipexole Dihydrochlori), 0.5-1 MG PO HS Risperidone (Risperidone), 1 MG PO HS Thyroid ([place] Thyroid), 180 MG PO DAILY Scheduled PRN Siuqcsvqpa-Phijnfoyraryq-Eupho (Fioricet), 1 CAP PO DAILY PRN for Migraine Cyclobenzaprine HCl (Cyclobenzaprine HCl), 10 MG PO TID PRN for Muscle Spasm Hydroxyzine HCl (Hydroxyzine HCl), 25 MG PO TID PRN for PRN Oxycodone Hcl (Oxycodone Hcl), 5 MG PO BID PRN for Pain Promethazine HCl (Promethazine HCl), 25 MG PO BID PRN for Nausea or Vomiting Physical Exam Vital Signs Date Time Temp Pulse Resp B/P (MAP) Pulse Ox O2 Delivery O2 Flow Rate FiO2 10/10/17 23:47 70 18 159/92 95 10/10/17 22:29 36.7 83 18 137/94 95 Room Air Physical Exam VITALS: Vitals are noted on the nurse's note and reviewed by myself. Vital signs stable. GENERAL: Pleasant female, in no acute distress, nondiaphoretic, well-developed well-nourished. SKIN: The skin was without rashes, erythema, edema, or bruising. There is no tenting of the skin. Capillary reflex less than 2 seconds. HEAD: Normocephalic atraumatic. EARS: External auditory canals clear, tympanic membranes pearly keys without erythema or effusion bilaterally. EYES: Pupils equal round and reactive to light and accommodation. Conjunctivae without injection, sclerae without icterus. Extraocular movements intact. NOSE: Patent, turbinates without inflammation or discharge. No sinus tenderness. MOUTH: Mucous membranes moist. Pharynx without erythema or exudate. Uvula midline. Airway patent. Tongue does not deviate. NECK: Supple without nuchal rigidity. No lymphadenopathy. No thyromegaly. Cervical spine is nontender. No JVD. HEART: Regular rate and rhythm without murmurs gallops or rubs. LUNGS: Clear to auscultation bilaterally without wheezes, rales or rhonchi. No dullness to percussion. No retractions or accessory muscle use. ABDOMEN: Positive bowel sounds x 4. Normal tympanic percussion. Soft, nontender, without masses or organomegaly. Paiz sign negative. No guarding or rebound tenderness. MUSCULOSKELETAL: No muscle atrophy, erythema, or edema noted. NEURO: Patient was alert and oriented to person place and time. Normal sensation to light and sharp touch. No focal neurological deficits. Cranial nerves II through XII grossly intact. No pronator drift. Cerebellar exam intact. Medical Decision & Procedures Medications Administered Medications (Trade) Dose Ordered Sig/Kaiser Route Start Time Stop Time Status Last Admin Dose Admin Metoclopramide HCl (Reglan Inj) 10 mg NOW STAT IV 4/10/18 22:43 10/10/17 22:44 DC 10/10/17 22:52 10 MG Diphenhydramine HCl (Benadryl Inj) 25 mg NOW STAT IV 10/10/17 22:43 10/10/17 22:44 DC 10/10/17 22:51 25 MG ED Course Prior records/ancillary studies reviewed. Triage Nursing notes reviewed. The patient's history was concerning for headache. Differential diagnosis: Etiologies such as migraine headache, meningitis, sinusitis, CO exposure, ICH, SAH, infection, tumor, headache, sinus thrombosis, arterial dissection, as well as others were entertained. Physical examination findings: As above. Non-focal. ER treatment provided: Reglan, Benadryl On reassessment the patient felt better. Diagnostics interpreted by me: Deferred This appears to be consistent with migraine. Patient has a long-standing history of migraines and is well-known to this ER for frequent migraine visits. Patient felt much better. Patient was neurovascularly and neurologically intact. She is well-appearing. She has appointment within the month with her neurologist and is advised to keep this. She is advised to return to the ER immediately for headache, fevers, confusion, worsening signs or symptoms or as needed. By the evaluation outlined above emergent etiologies such as meningitis , sinusitis, CO exposure, ICH, SAH, infection, temporal arteritis, tumor, sinus thrombosis, arterial dissection, as well as others were deemed relatively unlikely. The pt informed about the findings as listed above. All questions were answered and pleased with the treatment. Return instructions were outlined and the patient was discharged in stable condition. Referral: The patient was referred back to their primary care physician for follow-up in 2 to 3 days for a recheck of the current condition. Case reviewed with my attending Medical Decision as above Medication Reconcilliation Current Medication List: was personally reviewed by me Blood Pressure Screening Patient's blood pressure: Normal blood pressure Impression Primary Impression: Migraine Departure Information Dispostion Home / Self-Care Condition GOOD Referrals Don Espinosa Jr,D.O. (PCP) Forms HOME CARE DOCUMENTATION FORM, IMPORTANT VISIT INFORMATION Patient Instructions My [facility] Additional Instructions DO NOT drive, drink alcohol, operate machinery, or perform dangerous activities today. You were given medications in the ER that can affect your ability to safely function or operate a vehicle. Rest today in a quiet, peaceful, dark environment and get a full 8-10 hrs of sleep tonight. Avoid loud noises, smoke/smoking, alcohol, bright lights, stress, or physical exertion today to minimize the chance the headache may return. Continue current medications. Ibuprofen(Motrin, Advil) may be used for fever or pain. Use 600mg every six hours as needed. Take with food. Avoid using more than 2400mg in a 24 hour period. Do not use 2400mg per day for more than three consecutive days without physician direction. Prolonged inappropriate use can lead to stomach upset or ulcers. (AND/OR) Acetaminophen(Tylenol) may be used for fever or pain. Use 1000mg every six hours as needed. Avoid using more than 3000mg in a 24 hour period. Return to the ER for passing out, worsening headache, vision problems, neck stiffness/pain, fevers, vomiting, worsening of your condition, or as needed. Follow up with your primary physician and/or a neurologist in 2-3 days for a recheck of your current condition. Problem Qualifiers Primary Impression: Migraine Migraine type: without aura Status migrainosus presence: without status migrainosus Intractability: not intractable Qualified Codes: G43.009 - Migraine without aura, not intractable, without status migrainosus
== END 2017-10-10 23:48 | disposition home or self-care (01) ==
LOC: C.EDB 22:24 → C.EDC 23:48
DX: G43.009 Migraine without aura, not intractable, without status migrainosus (principal); I95.9 Hypotension, unspecified; G47.00 Insomnia, unspecified; Z87.442 Personal history of urinary calculi; Z79.899 Other long term (current) drug therapy

== ENCOUNTER 2017-10-23 22:18 | Emergency (ER) | payer OTHER ==
[~2017-10-23] VITALS: Ht 167.6 cm; Wt 92.3 kg
[~2017-10-23 22:18] MED LIST changes: -CLON2TAB3 PO; -METH4PAK; -OXY/15 PO
[2017-10-23 22:20] VITALS: TEMP 36.5; Ht 167.6 cm; Wt 92.3 kg
[2017-10-23] MEDS ORDERED: KETOROLAC TROMETHAMINE 30 MG/ML VIAL IV STA (22:55)
[2017-10-23 22:59] VITALS: O2SAT 97
[2017-10-23] MEDS ORDERED: SODIUM CHLORIDE 0.9% 1000ML 1,000 ML IV ONE (23:00)
[2017-10-23 23:05] LABS: BASO % 0.4 %; BASO ABS # 0.03 K/uL (0-0.2); EOS % 3.9 %; EOS ABS # 0.27 K/uL (0-0.5); HEMATOCRIT 39.8 % (37-47); HEMOGLOBIN 12.9 g/dL (12.0-16.0); LYMPH % 40.2 %; MEAN CELL VOLUME 94.1 fL (80-100); MEAN CORPUSCULAR HEMOGLOBIN 30.5 pg (25-34); MEAN CORPUSCULAR HGB CONC 32.4 g/dl (32-36); MEAN PLATELET VOLUME 9.9 fL (7.4-10.4); MONO % 7.9 %; MONO ABS # 0.55 K/uL (0.11-0.59); NEUT % 47.6 %; NEUT ABS # 3.32 K/uL (1.4-6.5); PLATELET COUNT 334 K/uL (130-400); RED CELL DISTRIBUTION WIDTH CV 13.4 % (11.5-14.5); WHITE BLOOD COUNT 6.97 K/uL (4.8-10.8)
[2017-10-23] MEDS ORDERED: THY/120 PO (23:09)
[2017-10-23] MEDS ORDERED: RISP3TAB12 PO (23:09)
[2017-10-23] MEDS ORDERED: THY/30 PO (23:09)
[2017-10-23 23:30] LABS: ALBUMIN 3.3 gm/dl (3.4-5.0); CALCIUM 8.7 mg/dl (8.5-10.1); CREATININE 0.76 mg/dl (0.60-1.20); POTASSIUM 3.8 mmol/L (3.5-5.1); TOTAL PROTEIN 6.3 gm/dl (6.4-8.2)
[2017-10-23] MEDS ORDERED: CLON1TAB3 PO (23:31)
[2017-10-23] MEDS ORDERED: OXYC1CAP5 PO (23:31)
[2017-10-24 01:45] VITALS: BP 127/57; PULSE 84; O2SAT 97
--- NOTE | 2017-10-24 06:18 | DIAGNOSTIC IMAGING REPORT ---
CHEST ONE VIEW PORTABLE CLINICAL HISTORY: chest heaviness dyspnea COMPARISON STUDY: 04/10/2015 FINDINGS: The bones soft tissues and hemidiaphragms are normal. The cardiomediastinal silhouette is normal. The lungs are clear. The pulmonary vasculature is normal. IMPRESSION: Negative chest. The above report was generated using voice recognition software. It may contain grammatical, syntax or spelling errors. Electronically signed by: Logan Johnson M.D. 10/24/2017 6:17 AM Dictated Date/Time: 10/24/2017 6:16 AM
--- NOTE | 2017-10-24 07:01 | EMERGENCY ROOM VISIT NOTE ---
History First contact with patient: 22:45 Chief Complaint: CHEST PAIN Stated Complaint: HEADACHE, CHEST PAIN, WEAK Nursing Triage Summary: had flashing head pain that subsided but turned into chest pain History of Present Illness The patient is a 47 year old female who presents to the Emergency Room with complaints of chest heaviness that began about 2 hours ago. The patient states that she was laying down in her bed to get ready for sleep when she a visual aura/flashing in her left eye. She does have a history of migraine headaches, and report this has occurred in the past but was slightly different from normal. She did not have head pain immediately afterwards, and went downstairs in her house, where family mentioned that she appeared unwell. The patient is not having significant lightheadedness or dizziness. She does not have difficulty breathing or palpitations. No abdominal pain. No numbness or paresthesias. She did not take anything [id number] for her symptoms. Her visual acuity is unchanged. No recent fever, chills, or URI symptoms. She rates her current discomfort a 4/10, and is more of a weakness than a pain. Review of Systems More than 10 systems were reviewed and otherwise negative with the exception of history of present illness. Past Medical/Surgical History Medical Problems: (1) Abdominal pain (2) Altered mental status (3) Altered mental status (4) Chronic back pain (5) Dizziness (6) Gastric Bypass (7) Hypotension (8) Hypotension (9) Hypotension (10) Insomnia (11) Kidney stone (12) Migraine (13) Narcotic drug use (14) Sleep deprivation (15) Sleep deprivation (16) UTI Family History Cancer Diabetes mellitus FHx: gallbladder disease Heart disease Hypertension Kidney disease Kidney stones Lung disease Social History Smoking Status: Never Smoker Alcohol Use: none Drug Use: none Marital Status: Housing Status: lives alone Occupation Status: disabled Current/Historical Medications Scheduled Amitriptyline HCl (Amitriptyline HCl), 150 MG PO HS Clonazepam (Klonopin), 1 MG PO HS Duloxetine HCl (Duloxetine HCl), 60 MG PO DAILY Ergocalciferol (Vitamin D 88907 Unit), 50,000 INTER.UNIT PO WK Estradiol (Estradiol), 0.5 MG PO DAILY Pramipexole Dihydrochloride (Pramipexole Dihydrochlori), 1.5 MG PO HS Risperidone (Risperdal), 1.5 MG PO HS Thyroid ([place] Thyroid), 120 MG PO DAILY Thyroid ([place] Thyroid), 30 MG PO DAILY Scheduled PRN Inqoruveuj-Pyqzhseqoumvv-Lgtua (Fioricet), 1 CAP PO DAILY PRN for Migraine Cyclobenzaprine HCl (Cyclobenzaprine HCl), 10 MG PO TID PRN for Muscle Spasm Hydroxyzine HCl (Hydroxyzine HCl), 25 MG PO TID PRN for PRN Oxycodone Hcl (Oxycodone Hcl), 5 MG PO BID PRN for Pain Promethazine HCl (Promethazine HCl), 25 MG PO BID PRN for Nausea or Vomiting Physical Exam Vital Signs Date Time Temp Pulse Resp B/P (MAP) Pulse Ox O2 Delivery O2 Flow Rate FiO2 10/24/17 01:45 84 14 127/57 97 10/24/17 00:44 80 16 127/81 97 Room Air 10/23/17 23:57 99 16 135/81 98 Room Air 10/23/17 23:02 94 10/23/17 22:59 97 Room Air 10/23/17 22:50 97 18 93/71 97 Room Air 10/23/17 22:35 98 Room Air 10/23/17 22:20 36.5 112 16 119/69 99 Room Air Physical Exam VITALS: Vitals are noted on the nurse's note and reviewed by myself. Vital signs with mild tachycardia GENERAL: Well-developed, well-nourished, white female, who is in no acute distress and resting comfortably. Patient is cooperative with the examination. HEAD: Normocephalic atraumatic. EARS: External ear normal. External auditory canals clear, tympanic membranes pearly keys without erythema or effusion bilaterally. EYES: Pupils equal round and reactive to light and accommodation. Conjunctivae without injection, sclerae without icterus. Extraocular movements intact. Funduscopic exam without evidence of retinal detachment. NOSE: Patent, turbinates without inflammation or discharge. MOUTH: Mucous membranes moist. Tonsils are not enlarged. Pharynx without erythema, blood, or exudate. Uvula midline. Airway patent. NECK: Supple without nuchal rigidity. No lymphadenopathy. No thyromegaly. Cervical spine is nontender. HEART: Regular rate and rhythm without murmurs gallops or rubs. LUNGS: Clear to auscultation bilaterally without wheezes, rales or rhonchi. No retractions or accessory muscle use. MUSCULOSKELETAL: No muscle atrophy, erythema, or edema noted. Full range of motion in all extremities NEURO: Patient was alert and oriented to person place and time. CN II through XII grossly intact Medical Decision & Procedures ER Provider Diagnostic Interpretation: CHEST ONE VIEW PORTABLE CLINICAL HISTORY: chest heaviness dyspnea COMPARISON STUDY: 04/10/2015 FINDINGS: The bones soft tissues and hemidiaphragms are normal. The cardiomediastinal silhouette is normal. The lungs are clear. The pulmonary vasculature is normal. IMPRESSION: Negative chest. Laboratory Results 10/23/17 22:30 Red Blood Count 4.23, Mean Corpuscular Volume 94.1, Mean Corpuscular Hemoglobin 30.5, Mean Corpuscular Hemoglobin Concent 32.4, Mean Platelet Volume 9.9, Neutrophils (%) (Auto) 47.6, Lymphocytes (%) (Auto) 40.2, Monocytes (%) (Auto) 7.9, Eosinophils (%) (Auto) 3.9, Basophils (%) (Auto) 0.4, Neutrophils # (Auto) 3.32, Lymphocytes # (Auto) 2.80, Monocytes # (Auto) 0.55, Eosinophils # (Auto) 0.27, Basophils # (Auto) 0.03 10/23/17 22:30 Test 10/23/17 22:30 10/23/17 22:45 10/23/17 23:03 10/24/17 00:42 White Blood Count 6.97 K/uL (4.8-10.8) Red Blood Count 4.23 M/uL (4.2-5.4) Hemoglobin 12.9 g/dL (12.0-16.0) Hematocrit 39.8 % (37-47) Mean Corpuscular Volume 94.1 fL (80-100) Mean Corpuscular Hemoglobin 30.5 pg (25-34) Mean Corpuscular Hemoglobin Concent 32.4 g/dl (32-36) Platelet Count 334 K/uL (130-400) Mean Platelet Volume 9.9 fL (7.4-10.4) Neutrophils (%) (Auto) 47.6 % Lymphocytes (%) (Auto) 40.2 % Monocytes (%) (Auto) 7.9 % Eosinophils (%) (Auto) 3.9 % Basophils (%) (Auto) 0.4 % Neutrophils # (Auto) 3.32 K/uL (1.4-6.5) Lymphocytes # (Auto) 2.80 K/uL (1.2-3.4) Monocytes # (Auto) 0.55 K/uL (0.11-0.59) Eosinophils # (Auto) 0.27 K/uL (0-0.5) Basophils # (Auto) 0.03 K/uL (0-0.2) RDW Standard Deviation 46.0 fL (36.4-46.3) RDW Coefficient of Variation 13.4 % (11.5-14.5) Immature Granulocyte % (Auto) 0.0 % Immature Granulocyte # (Auto) 0.00 K/uL (0.00-0.02) Anion Gap 7.0 mmol/L (3-11) Est Creatinine Clear Calc Drug Dose 102.5 ml/min Estimated GFR () 106.8 Estimated GFR (Non- 92.1 BUN/Creatinine Ratio 10.7 (10-20) Calcium Level 8.7 mg/dl (8.5-10.1) Total Bilirubin 0.1 mg/dl (0.2-1) Aspartate Amino Transf (AST/SGOT) 18 U/L (15-37) Alanine Aminotransferase (ALT/SGPT) 78 U/L (12-78) Alkaline Phosphatase 195 U/L (45-117) Total Protein 6.3 gm/dl (6.4-8.2) Albumin 3.3 gm/dl (3.4-5.0) Globulin 3.0 gm/dl (2.5-4.0) Albumin/Globulin Ratio 1.1 (0.9-2) Lipase 166 U/L (73-393) Urine Color YELLOW Urine Appearance CLEAR (CLEAR) Urine pH 5.0 (4.5-7.5) Urine Specific [place] 1.016 (1.000-1.030) Urine Protein NEG (NEG) Urine Glucose (UA) NEG (NEG) Urine Ketones NEG (NEG) Urine Occult Blood NEG (NEG) Urine Nitrite NEG (NEG) Urine Bilirubin NEG (NEG) Urine Urobilinogen NEG (NEG) Urine Leukocyte Esterase NEG (NEG) Bedside D-Dimer 228 ng/mlFEU (0-450) Bedside Troponin I < 0.030 ng/ml (0-0.045) Test 10/24/17 00:43 Bedside Glucose 86 mg/dl (70-90) Medications Administered Medications (Trade) Dose Ordered Sig/[facility] Route Start Time Stop Time Status Last Admin Dose Admin Ketorolac Tromethamine (Toradol Inj) 30 mg NOW STAT IV 10/23/17 22:55 10/23/17 22:57 DC 10/23/17 23:06 30 MG Sodium Chloride 1,000 ml @ 999 mls/hr Q1H1M ONCE IV 10/23/17 23:00 10/24/17 00:00 DC 10/23/17 23:06 999 MLS/HR ED Course Physical exam and history were performed. Nursing notes, EMR, and Medication List were personally reviewed. Patient appears to have reports of chest heaviness and weakness that began spontaneously tonight. On examination the patient appears well without obvious neurologic deficit. She is describing a heaviness in her chest. EKG was performed and was normal sinus rhythm without acute ST elevation. The patient was placed on the surveillance monitor. IV access was established and labs were obtained. She was hydrated with normal saline and given IV Toradol for comfort. Chest x-ray was performed. The patient's blood work is as above and was reviewed. She does not have a significantly elevated white blood cell count or gross anemia. Lipase and transaminases are not diagnostic. Troponin 2 is negative. D-dimer is negative. The patient's chest x-ray was reviewed by myself and radiology showing no acute process. It is notable that the patient's blood sugar was in the 40s on labs. Upon receiving the critical call from the lab I did reevaluate the patient who was comfortably watching TV in her room. The patient was given apple juice by mouth , and was able to tolerate this well. The patient did have subsequent repeat fingerstick blood sugars in the 110s and in the 80s. Further history was gathered by the patient, and she does have multiple episodes of hypoglycemia in the past. Evidently this is to the extent that she uses a home glucometer before she drives her car and leaves the house. The patient did not think to do this today with her symptoms, and retrospectively feels this is likely the cause of her discomfort and weakness. The patient was monitored for several hours here in the department and did not have any recurrence of her symptoms. She felt much better under our care, and I believe that her symptoms are likely related to a hypoglycemic episode. Patient overall seems well for discharge home and will need to follow with her primary care physician for further care and management. She was otherwise invited back to the ER with any new, worsening, or concerning symptoms. The chart was completed utilizing [employer] Speech Voice Recognition Software. Grammatical errors, random word insertions, pronoun errors, and incomplete sentences are an occasional consequence of this system due to software limitations, ambient noise, and hardware issues. Any formal questions or concerns about the content, text, or information contained within the body of this dictation should be directly addressed to the provider for clarification. . Medical Decision Differential diagnosis: Etiologies such as metabolic, infection, hypo/hyperglycemia, electrolyte abnormalities, cardiac sources, intracerebral event, toxicologic, neurologic, as well as others were entertained. Impression Primary Impression: Low blood sugar Additional Impression: Discomfort in chest Departure Information Dispostion Home / Self-Care Condition GOOD Forms Call Back Authorization, HOME CARE DOCUMENTATION FORM, IMPORTANT VISIT INFORMATION Patient Instructions My [facility] Additional Instructions You were seen and evaluated today on an emergency basis only. This is not a substitute for, or an effort to provide, complete comprehensive medical care. It is not possible to recognize and treat all injuries or illnesses in a single emergency department visit. For this reason it is recommended that you followup with your primary care physician this week for ongoing care and evaluation. Please discussed your hypoglycemia episodes with your primary care physician. Continue to monitor this at home. You are welcome to return to the emergency department anytime with new, worsening, or concerning symptoms. Problem Qualifiers
== END 2017-10-24 01:45 | disposition home or self-care (01) ==
LOC: C.EDB 22:19 → C.EDA 10-24 01:45
DX: E16.2 Hypoglycemia, unspecified (principal); R07.89 Other chest pain; M54.9 Dorsalgia, unspecified; G89.29 Other chronic pain; G47.00 Insomnia, unspecified; Z98.84 Bariatric surgery status; Z87.442 Personal history of urinary calculi; Z79.890 Hormone replacement therapy; Z79.899 Other long term (current) drug therapy

== ENCOUNTER 2017-10-26 15:41 | Emergency (ER) | payer OTHER ==
[~2017-10-26] VITALS: Ht 167.6 cm; Wt 93.0 kg
[~2017-10-26 15:41] MED LIST changes: +CLON1TAB3 PO; +OXYC1CAP5 PO; +RISP3TAB12 PO; -RSP1 PO; +THY/120 PO; +THY/30 PO; -THYR180T PO
[2017-10-26 15:47] VITALS: TEMP 36.9; Ht 167.6 cm; Wt 93.0 kg
[2017-10-26] MEDS ORDERED: MAGNESIUM SULFATE 1GM / D5W 100 ML IV STA (17:12)
[2017-10-26] MEDS ORDERED: PROCHLORPERAZINE 5 MG/ML 2 ML VIAL IV STA (17:12)
[2017-10-26] MEDS ORDERED: SODIUM CHLORIDE 0.9% 1000ML 1,000 ML IV STA (17:12)
[2017-10-26] MEDS ORDERED: DiphenhydrAMINE HCL 50 MG/ML VIAL IV STA (17:12)
--- NOTE | 2017-10-26 17:19 | EMERGENCY ROOM VISIT NOTE ---
History Report prepared by Shaylee: Lane Mcrae Under the Supervision of: Dr. Vik Espinal M.D. First contact with patient: 17:00 Chief Complaint: HEADACHE Stated Complaint: SEVERE MIGRAINE, VOMITING, VISUAL CHANGES History of Present Illness The patient is a 47 year old white female with a past medical history of migraines who presents to the ED with a cc of a worsening right sided headache beginning five days ago. She rates her discomfort as a 9/10 in severity. She reports the pain is located on the right side behind her right eye. The patient states she was recently in the ED for a headache a couple of days ago and reports she was discharged home. She reports her headache worsened over the last couple of days. The patient states she has taken Phenergan, Toradol, Ibuprofen, Excedrin, and Clonazepam for her symptoms without any relief. Positive nausea, vomiting, dizziness, weakness, confused. Negative SOB, heavy lifting, blood thinner use, fevers, chills, cough, falls, injury, abdominal pain. Source of History: patient Onset: five days ago Position: head, ear (right) Symptom Intensity: 9/10 Timing: worsening Modifying Factors (Relieving): ibuprofen, other (Phenergan, Toradol, Clonazepam) Associated Symptoms: + nausea, + vomiting, + weakness, No fevers, No chills , No cough, No SOB, No abdominal pain Note: Associated symptoms: confused, dizziness Review of Systems See HPI for pertinent positives and negatives. A total of ten systems were reviewed and were otherwise negative. Past Medical & Surgical Medical Problems: (1) Abdominal pain (2) Altered mental status (3) Altered mental status (4) Chronic back pain (5) Dizziness (6) Gastric Bypass (7) Hypotension (8) Hypotension (9) Hypotension (10) Insomnia (11) Kidney stone (12) Migraine (13) Narcotic drug use (14) Sleep deprivation (15) Sleep deprivation (16) UTI Family History Cancer Diabetes mellitus FHx: gallbladder disease Heart disease Hypertension Kidney disease Kidney stones Lung disease Social History Smoking Status: Never Smoker Alcohol Use: none Drug Use: none Marital Status: Housing Status: lives alone Occupation Status: disabled Current/Historical Medications Scheduled Amitriptyline HCl (Amitriptyline HCl), 150 MG PO HS Clonazepam (Klonopin), 1 MG PO HS Duloxetine HCl (Duloxetine HCl), 60 MG PO DAILY Ergocalciferol (Vitamin D 35465 Unit), 50,000 INTER.UNIT PO WK Estradiol (Estradiol), 0.5 MG PO DAILY Ketorolac Tromethamine (Toradol), 10 MG PO DAILY Pramipexole Dihydrochloride (Pramipexole Dihydrochlori), 1.5 MG PO HS Risperidone (Risperdal), 1.5 MG PO HS Thyroid ([place] Thyroid), 120 MG PO DAILY Thyroid ([place] Thyroid), 30 MG PO DAILY Scheduled PRN Qxelwcemld-Tytxdzwoyhqlc-Damuz (Fioricet), 1 CAP PO DAILY PRN for Migraine Cyclobenzaprine HCl (Cyclobenzaprine HCl), 10 MG PO TID PRN for Muscle Spasm Hydroxyzine HCl (Hydroxyzine HCl), 25 MG PO TID PRN for PRN Oxycodone Hcl (Oxycodone Hcl), 5 MG PO BID PRN for Pain Promethazine HCl (Promethazine HCl), 25 MG PO BID PRN for Nausea or Vomiting Allergies Coded Allergies: Dihydroergotamine (Verified Allergy, Severe, PALPATATIONS-SWEATS, 10/26/17) Almotriptan (Verified Allergy, Unknown, 10/26/17) Frovatriptan (Verified Allergy, Unknown, 10/26/17) Pregabalin (Verified Allergy, Unknown, flu like feelings, 10/26/17) Sumatriptan (Verified Allergy, Unknown, 10/26/17) Topiramate (Verified Adverse Reaction, Unknown, flu like symptom, 10/26/17) pt/gmg Physical Exam Vital Signs Date Time Temp Pulse Resp B/P (MAP) Pulse Ox O2 Delivery O2 Flow Rate FiO2 10/26/17 19:51 71 16 100/58 99 10/26/17 17:51 83 10/26/17 17:48 84 20 126/75 98 Room Air 10/26/17 17:46 98 Room Air 10/26/17 15:47 36.9 95 18 131/87 98 Room Air Physical Exam GENERAL: Awake, alert, well-appearing, NAD HENT: Normocephalic, atraumatic. EYES: Normal conjunctiva. Sclera non-icteric. PERRL. No anisocoria. NECK: Supple. No nuchal rigidity. FROM. RESPIRATORY: CTAB, no rhonchi, wheezing, crackles CARDIAC: RRR, no MRG ABDOMEN: Soft, NTND, BS+ MSK: No chest wall TTP, no LE edema NEURO: CN 2-12 intact, 5/5 upper and lower extremity strength, no dysmetria, no drift, good finger to nose, good heel to finnegan, no sensory deficits. Finger count grossly normal. SKIN: No rash or jaundice noted. Medical Decision & Procedures ER Provider Diagnostic Interpretation: Radiology results as stated below per my review and radiologist interpretation: ANGIOGRAPHY HEAD COMBO HISTORY: Pain. Mental status change. TECHNIQUE: Multiaxial CT images of the head were performed both before and after the intravenous administration of contrast to evaluate the major cerebral vessels. Maximum intensity projection images were also obtained. A dose lowering technique was utilized adhering to the principles of ALARA. COMPARISON: None. FINDINGS: There is no mass, hematoma, midline shift, or acute infarct. Visualized intracranial internal carotid arteries, distal vertebral arteries, and basilar artery are widely patent. 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 IMPRESSION: No significant stenosis, occlusion, or aneurysm within the [place]. Negative CT of the brain The above report was generated using voice recognition software. It may contain grammatical, syntax or spelling errors. Electronically signed by: Logan Johnson M.D. 10/26/2017 7:22 PM Dictated Date/Time: 10/26/2017 7:21 PM Laboratory Results 10/26/17 17:25 Red Blood Count 4.32, Mean Corpuscular Volume 92.4, Mean Corpuscular Hemoglobin 30.6, Mean Corpuscular Hemoglobin Concent 33.1, Mean Platelet Volume 10.3, Neutrophils (%) (Auto) 46.7, Lymphocytes (%) (Auto) 42.1, Monocytes (%) (Auto) 4.9, Eosinophils (%) (Auto) 5.4, Basophils (%) (Auto) 0.7, Neutrophils # (Auto) 2.57, Lymphocytes # (Auto) 2.32, Monocytes # (Auto) 0.27, Eosinophils # (Auto) 0.30, Basophils # (Auto) 0.04 10/26/17 17:25 Test 10/26/17 17:25 10/26/17 17:45 White Blood Count 5.51 K/uL (4.8-10.8) Red Blood Count 4.32 M/uL (4.2-5.4) Hemoglobin 13.2 g/dL (12.0-16.0) Hematocrit 39.9 % (37-47) Mean Corpuscular Volume 92.4 fL (80-100) Mean Corpuscular Hemoglobin 30.6 pg (25-34) Mean Corpuscular Hemoglobin Concent 33.1 g/dl (32-36) Platelet Count 340 K/uL (130-400) Mean Platelet Volume 10.3 fL (7.4-10.4) Neutrophils (%) (Auto) 46.7 % Lymphocytes (%) (Auto) 42.1 % Monocytes (%) (Auto) 4.9 % Eosinophils (%) (Auto) 5.4 % Basophils (%) (Auto) 0.7 % Neutrophils # (Auto) 2.57 K/uL (1.4-6.5) Lymphocytes # (Auto) 2.32 K/uL (1.2-3.4) Monocytes # (Auto) 0.27 K/uL (0.11-0.59) Eosinophils # (Auto) 0.30 K/uL (0-0.5) Basophils # (Auto) 0.04 K/uL (0-0.2) RDW Standard Deviation 44.9 fL (36.4-46.3) RDW Coefficient of Variation 13.3 % (11.5-14.5) Immature Granulocyte % (Auto) 0.2 % Immature Granulocyte # (Auto) 0.01 K/uL (0.00-0.02) Prothrombin Time 9.4 SECONDS (9.0-12.0) Prothromb Time International Ratio 0.9 (0.9-1.1) Activated Partial Thromboplast Time 24.5 SECONDS (21.0-31.0) Partial Thromboplastin Ratio 0.9 Anion Gap 4.0 mmol/L (3-11) Est Creatinine Clear Calc Drug Dose 114.9 ml/min Estimated GFR () 119.0 Estimated GFR (Non- 102.7 BUN/Creatinine Ratio 20.1 (10-20) Calcium Level 8.4 mg/dl (8.5-10.1) Urine Color YELLOW Urine Appearance CLEAR (CLEAR) Urine pH 6.0 (4.5-7.5) Urine Specific Woody 1.007 (1.000-1.030) Urine Protein NEG (NEG) Urine Glucose (UA) NEG (NEG) Urine Ketones NEG (NEG) Urine Occult Blood NEG (NEG) Urine Nitrite NEG (NEG) Urine Bilirubin NEG (NEG) Urine Urobilinogen NEG (NEG) Urine Leukocyte Esterase TRACE (NEG) Urine WBC (Auto) 1-5 /hpf (0-5) Urine RBC (Auto) 5-10 /hpf (0-4) Urine Hyaline Casts (Auto) 1-5 /lpf (0-5) Urine Epithelial Cells (Auto) 20-30 /lpf (0-5) Urine Bacteria (Auto) 1+ (NEG) Urine Test NEG (NEG) Laboratory results reviewed by me Medications Administered Medications (Trade) Dose Ordered Sig/[facility] Route Start Time Stop Time Status Last Admin Dose Admin Prochlorperazine Edisylate (Compazine Inj) 10 mg NOW STAT IV 10/26/17 17:12 10/26/17 17:14 DC 10/26/17 17:37 10 MG Sodium Chloride 1,000 ml @ 999 mls/hr Q1H1M STAT IV 10/26/17 17:12 10/26/17 18:12 DC 10/26/17 17:37 999 MLS/HR Diphenhydramine HCl (Benadryl Inj) 50 mg NOW STAT IV 10/26/17 17:12 10/26/17 17:14 DC 10/26/17 17:37 50 MG Magnesium Sulfate 100 ml @ 100 mls/hr NOW STAT IV 10/26/17 17:12 10/26/17 18:11 DC 10/26/17 17:37 100 MLS/HR ED Course 1707: The patient was evaluated in room A12B. A complete history and physical exam was performed. 1901: I reevaluated the patient and she is relieved of symptoms. 1936: I reevaluated the patient. Discussed results and discharge instructions: She verbalized understanding and agreement. The patient is ready for discharge. Medical Decision Nursing notes reviewed. Ancillary studies and prior records reviewed. The patient is a 47 year old white female with a past medical history of migraines who presents to the ED with a cc of a worsening right sided headache beginning five days ago. The patient's presentation and history were concerning for etiologies such as migraine headache, meningitis, sinusitis, CO exposure, ICH, SAH, infection, tumor, headache, sinus thrombosis, arterial dissection, as well as others were entertained. Patient was seen and evaluated the bedside. Patient was complaining of a very bad headache. This been ongoing for 4 days. Patient denies any recent heavy lifting or strenuous activity. Patient does equate that this is a very very bad headache. The patient does not take any blood thinning medications. Patient does report some sort of history of aneurysms. She does see a neurosurgeon at [place]. Patient states that she has taken oghs-cav-wrexkrz type treatment in addition to things like Fioricet but without much relief. Patient denies any numbness tingling or weakness. Patient on exam has a nonfocal neurologic exam. No anisocoria noted. 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 Patient did have blood work completed and was given medications for symptom control. The patient also did have a CT of the brain performed. Patient blood work is fairly unremarkable. The patient's CTA did not show any acute change. I did discuss these findings with the patient. Upon reassessment the patient was feeling remarkably well and improved. Did discuss the possibility something like a subarachnoid but given the fact that there is no change on her CTA and the patient has had complete resolution after 4 day history of headache this is probably less likely. Patient was deemed suitable for outpatient follow-up and treatment at this time. Patient was told return if she any worsening symptoms. Patient was given strict follow-up, discharge, and return precautions. All questions were answered. Patient was deemed suitable for outpatient follow-up at this time. Patient agreed with the plan of care and was safely discharged home. Medication Reconcilliation Current Medication List: was personally reviewed by me Blood Pressure Screening Patient's blood pressure: Normal blood pressure Impression Primary Impression: Headache Additional Impression: Migraine Scribe Attestation The scribe's documentation has been prepared under my direction and personally reviewed by me in its entirety. I confirm that the note above accurately reflects all work, treatment, procedures, and medical decision making performed by me. Departure Information Dispostion Home / Self-Care Referrals No Doctor, Assigned (PCP) Patient Instructions Headache Pain, My [facility] Additional Instructions Please return to the emergency department if you have worsening or recurrent symptoms not amenable to at-home treatment. Please call for a follow-up appointment with her primary care physician. Please take your medications as prescribed. If you have other concerns and/or complaints please feel free to also call your primary care physician's office or return the ED for further evaluation, management, and treatment. You may take 800 mg Ibuprofen every 6 hours as needed for pain/fever with food unless told by your physician not to take NSAIDs. You may take tylenol 1000 mg every 6 hours as needed for pain/fever unless told by your physician to not take it or have liver problems. You may take motrin and tylenol separately or at the same time. Take your medications as prescribed. You have been examined and treated today on an emergency basis only. This is not a substitute for, or an effort to provide, complete comprehensive medical care. It is impossible to recognize and treat all injuries or illnesses in a single emergency department visit. It is therefore important that you follow up closely with [facility], your PCP, and/or your specialist(s). Call as soon as possible for an appointment. Thank you for your time and consideration. I look forward to speaking with you again soon. Please don't hesitate to call us if you have any questions. Problem Qualifiers Primary Impression: Headache Headache type: unspecified Headache chronicity pattern: acute headache Intractability: not intractable Qualified Codes: R51 - Headache Additional Impression: Migraine Migraine type: without aura Status migrainosus presence: without status migrainosus Intractability: not intractable Qualified Codes: G43.009 - Migraine without aura, not intractable, without status migrainosus
[2017-10-26 17:46] VITALS: O2SAT 98
[2017-10-26 17:56] LABS: INR 0.9 (0.9-1.1); PTT PATIENT 24.5 SECONDS (21.0-31.0)
[2017-10-26] MEDS ORDERED: KETO10TA PO (17:57)
[2017-10-26 18:03] LABS: CALCIUM 8.4 mg/dl (8.5-10.1); CREATININE 0.68 mg/dl (0.60-1.20); POTASSIUM 3.6 mmol/L (3.5-5.1)
[2017-10-26] MEDS ORDERED: OPTIRAY 320 IV PRN (18:30)
--- NOTE | 2017-10-26 19:24 | DIAGNOSTIC IMAGING REPORT ---
ANGIOGRAPHY HEAD COMBO HISTORY: Pain. Mental status change. TECHNIQUE: Multiaxial CT images of the head were performed both before and after the intravenous administration of contrast to evaluate the major cerebral vessels. Maximum intensity projection images were also obtained. A dose lowering technique was utilized adhering to the principles of ALARA. COMPARISON: None. FINDINGS: There is no mass, hematoma, midline shift, or acute infarct. Visualized intracranial internal carotid arteries, distal vertebral arteries, and basilar artery are widely patent. 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 IMPRESSION: No significant stenosis, occlusion, or aneurysm within the [place]. Negative CT of the brain The above report was generated using voice recognition software. It may contain grammatical, syntax or spelling errors. Electronically signed by: Logan Johnson M.D. 10/26/2017 7:22 PM Dictated Date/Time: 10/26/2017 7:21 PM
[2017-10-26 19:41] LABS: BASO % 0.7 %; BASO ABS # 0.04 K/uL (0-0.2); EOS % 5.4 %; HEMATOCRIT 39.9 % (37-47); HEMOGLOBIN 13.2 g/dL (12.0-16.0); IG# 0.01 K/uL (0.00-0.02); LYMPH % 42.1 %; LYMPH ABS # 2.32 K/uL (1.2-3.4); MEAN CELL VOLUME 92.4 fL (80-100); MEAN CORPUSCULAR HEMOGLOBIN 30.6 pg (25-34); MEAN CORPUSCULAR HGB CONC 33.1 g/dl (32-36); MEAN PLATELET VOLUME 10.3 fL (7.4-10.4); MONO % 4.9 %; MONO ABS # 0.27 K/uL (0.11-0.59); NEUT % 46.7 %; NEUT ABS # 2.57 K/uL (1.4-6.5); PLATELET COUNT 340 K/uL (130-400); RED CELL DISTRIBUTION WIDTH CV 13.3 % (11.5-14.5); RED CELL DISTRIBUTION WIDTH SD 44.9 fL (36.4-46.3); WHITE BLOOD COUNT 5.51 K/uL (4.8-10.8)
[2017-10-26 19:51] VITALS: BP 100/58; PULSE 71; O2SAT 99
== END 2017-10-26 20:02 | disposition home or self-care (01) ==
LOC: C.EDB 15:42 → C.EDA 20:02
DX: G43.009 Migraine without aura, not intractable, without status migrainosus (principal); I95.9 Hypotension, unspecified; Z79.890 Hormone replacement therapy; Z79.899 Other long term (current) drug therapy; Z88.8 Allergy status to other drugs, medicaments and biological substances

== ENCOUNTER 2018-02-11 23:39 | Emergency (ER) | payer OTHER ==
[~2018-02-11 23:39] MED LIST changes: -CLON1TAB3 PO; +CLON1TAB4 PO; +KETO10TA PO
[2018-02-11 23:51] VITALS: BP 119/84; PULSE 104; TEMP 36.5; O2SAT 97
--- NOTE | 2018-02-12 00:41 | EMERGENCY ROOM VISIT NOTE ---
History First contact with patient: 23:49 Chief Complaint: FOOT PAIN Stated Complaint: FELL AND HURT RIGHT FOOT History of Present Illness The patient is a 47 year old female who presents to the Emergency Room with complaints of right ankle/foot pain after twisting her ankle while getting up to go to the bathroom. The patient reports a childhood history of frequent ankle sprains and weakness of the ankles. Patient denies any other injuries from this incident, and rates her discomfort a 6 out of 10 with weightbearing. She denies any pain radiating into the heel or foot. She denies any paresthesias or numbness of the right foot or toes. Review of Systems 10 system review was performed and was negative except for pertinent positives and negatives as indicated in history of present illness Past Medical/Surgical History Medical Problems: (1) Abdominal pain (2) Altered mental status (3) Altered mental status (4) Chronic back pain (5) Dizziness (6) Gastric Bypass (7) Hypotension (8) Hypotension (9) Hypotension (10) Insomnia (11) Kidney stone (12) Migraine (13) Narcotic drug use (14) Sleep deprivation (15) Sleep deprivation (16) UTI Family History Cancer Diabetes mellitus FHx: gallbladder disease Heart disease Hypertension Kidney disease Kidney stones Lung disease Social History Smoking Status: Never Smoker Alcohol Use: none Drug Use: none Marital Status: Housing Status: lives alone Occupation Status: disabled Current/Historical Medications Scheduled Amitriptyline HCl (Amitriptyline HCl), 150 MG PO HS Clonazepam (Klonopin), 1 MG PO HS Duloxetine HCl (Duloxetine HCl), 60 MG PO DAILY Ergocalciferol (Vitamin D 42223 Unit), 50,000 INTER.UNIT PO WK Estradiol (Estradiol), 0.5 MG PO DAILY Pramipexole Dihydrochloride (Pramipexole Dihydrochlori), 1.5 MG PO HS Risperidone (Risperdal), 1.5 MG PO HS Thyroid ([place] Thyroid), 120 MG PO DAILY Thyroid ([place] Thyroid), 30 MG PO DAILY Scheduled PRN Ruhastqyqu-Dfgmttyitvakj-Qggvv (Fioricet), 1 CAP PO DAILY PRN for Migraine Cyclobenzaprine HCl (Cyclobenzaprine HCl), 10 MG PO TID PRN for Muscle Spasm Hydroxyzine HCl (Hydroxyzine HCl), 25 MG PO TID PRN for PRN Ketorolac Tromethamine (Toradol), 10 MG PO DAILY PRN for Pain Oxycodone Hcl (Oxycodone Hcl), 5 MG PO BID PRN for Pain Promethazine HCl (Promethazine HCl), 25 MG PO BID PRN for Nausea or Vomiting Physical Exam Vital Signs Date Time Temp Pulse Resp B/P (MAP) Pulse Ox O2 Delivery O2 Flow Rate FiO2 02/11/18 23:51 36.5 104 18 119/84 97 Room Air Physical Exam CONSTITUTIONAL: Healthy and well nourished. Alert and oriented X 3 with positive affect. HEENT: Normocephalic, atraumatic. Pupils equal, round and reactive. NECK: Full active range of motion without discomfort. MUSCULOSKELETAL: Examination shows edema and ecchymosis over the posterior lateral foot. She is tender at the tip of the lateral malleolus. No focal tenderness over the medial malleolus or deltoid ligament. Negative anterior draw. No focal tenderness across the dorsal midfoot, metatarsals, phalanges, calcaneus or Achilles tendon. Pedal pulses are intact. INTEGUMENTARY: No rash or other significant dermatologic conditions noted. NEUROLOGIC: Right foot and toes are sensory intact. Medical Decision & Procedures ER Provider Diagnostic Interpretation: My interpretation of right ankle x-rays does not show any acute fractures, dislocation or ankle mortise asymmetry. Patient does have calcification over the dorsal midfoot. Radiologist report is pending at the time of dictation. ED Course Patient history and physical exam were performed. Nurse's notes were reviewed. Vital signs were reviewed and normal. The patient refused any analgesics on initial exam. X-rays of the right ankle were normal. The patient was encouraged to intermittently apply ice and elevate the foot/ankle for swelling and pain. Ibuprofen and Tylenol if needed for additional pain relief. Crutches were dispensed. She reports that her daughter has an ankle support at home. Additional written and verbal instructions for ankle sprain care were provided. She was instructed to follow-up with orthopedics if symptoms are not improving within the next week. The patient was happy with plan of care, voiced understanding of all discharge instructions, and rated her discomfort a 3 out of 10 at the conclusion of my exam. Medical Decision Medication Reconcilliation Current Medication List: was personally reviewed by me Blood Pressure Screening Patient's blood pressure: Normal blood pressure Impression Primary Impression: Right ankle sprain Departure Information Dispostion Home / Self-Care Forms HOME CARE DOCUMENTATION FORM, IMPORTANT VISIT INFORMATION Patient Instructions My [facility] Additional Instructions Intermittently apply ice and elevate the ankle for swelling and pain. Perform range of motion exercises of the ankle to prevent stiffness. Recommend no weight on foot for 3 days, using crutches. After 3 days, and continuing to use crutches, slowly apply weight as tolerated - NO LIMPING. Ibuprofen or Tylenol as needed for pain. Follow-up with orthopedics if symptoms are not improving within the next 7 days. Problem Qualifiers Primary Impression: Right ankle sprain Encounter type: initial encounter Involved ligament of ankle: unspecified ligament Qualified Codes: S93.401A - Sprain of unspecified ligament of right ankle, initial encounter
--- NOTE | 2018-02-12 07:22 | DIAGNOSTIC IMAGING REPORT ---
RIGHT ANKLE 3 VIEWS CLINICAL HISTORY: Right ankle injury. FINDINGS: 3 views of the right ankle are obtained. No prior studies are available for comparison at the time of dictation. The skeletal structures are well mineralized. No fracture is seen at the ankle joint. There is an avulsion fracture identified along the dorsal aspect of the tarsal bones, likely arising from the navicular. The ankle mortise is intact. There is no joint effusion. Soft tissue edema is present around the ankle and along the dorsum of the foot. A large plantar calcaneal enthesophyte is observed. IMPRESSION: 1. No fracture is identified at the ankle joint. 2. There is an avulsion fracture along the dorsal aspect of the navicular with overlying soft tissue edema. Electronically signed by: Jero Mejía M.D. 02/12/2018 7:21 AM Dictated Date/Time: 02/12/2018 7:19 AM
== END 2018-02-12 00:36 | disposition home or self-care (01) ==
LOC: C.EDB 23:42 → C.EDA 02-12 00:36
DX: S93.401A Sprain of unspecified ligament of right ankle, initial encounter (principal); X50.1XXA Overexertion from prolonged static or awkward postures, initial encounter

== ENCOUNTER → 2018-02-13 | Outpatient (CLI) | payer OTHER ==
[2018-02-13 13:14] LABS: BASO % 0.4 %; BASO ABS # 0.03 K/uL (0-0.2); EOS % 2.6 %; EOS ABS # 0.21 K/uL (0-0.5); HEMATOCRIT 39.6 % (37-47); HEMOGLOBIN 13.1 g/dL (12.0-16.0); IG# 0.01 K/uL (0.00-0.02); LYMPH % 28.4 %; MEAN CELL VOLUME 96.8 fL (80-100); MEAN CORPUSCULAR HGB CONC 33.1 g/dl (32-36); MEAN PLATELET VOLUME 10.7 fL (7.4-10.4); MONO % 5.3 %; MONO ABS # 0.43 K/uL (0.11-0.59); NEUT % 63.2 %; NEUT ABS # 5.13 K/uL (1.4-6.5); PLATELET COUNT 316 K/uL (130-400); RED CELL DISTRIBUTION WIDTH CV 13.3 % (11.5-14.5); RED CELL DISTRIBUTION WIDTH SD 47.3 fL (36.4-46.3); WHITE BLOOD COUNT 8.11 K/uL (4.8-10.8)
== END | disposition home or self-care (01) ==
LOC: C.LAB1850 12:26
DX: D50.9 Iron deficiency anemia, unspecified (principal); E55.9 Vitamin D deficiency, unspecified; E53.9 Vitamin B deficiency, unspecified; E03.9 Hypothyroidism, unspecified

== ENCOUNTER 2018-11-13 18:40 | Inpatient (IN) ==
[2018-11-13] MEDS ORDERED: BENZTROPINE MESYLATE 1 MG/ML 2 ML AMP IV STA ×2 (19:06→19:55)
[2018-11-13] MEDS ORDERED: SODIUM CHLORIDE 0.9% 1000ML 1,000 ML IV ONE (20:33)
[2018-11-13] MEDS ORDERED: LORazepam 1 MG/2 ML VIAL IV STA (21:06)
[2018-11-13 21:16] LABS: Albumin Level 3.6 gm/dl (3.4-5.0); Calcium 8.8 mg/dl (8.5-10.1); Creatinine Clr Calc Pharmacy 113.6 ml/min; Est GFR (African American) 122.5; Est GFR (Non-African American) 105.7; Potassium 3.5 mmol/L (3.5-5.1)
[2018-11-13 21:19] LABS: Albumin Globulin Ratio 1.2 (0.9-2); Bilirubin,Total 0.4 mg/dl (0.2-1); Globulin 2.9 gm/dl (2.5-4.0); Total Protein 6.5 gm/dl (6.4-8.2)
--- NOTE | 2018-11-13 22:12 | CT Scan Report ---
CT head/brain wo con CT DOSE: 537.48 mGy.cm HISTORY: Mental status change Pt c/o seizure TECHNIQUE: Multiaxial CT images of the head were performed without the use of intravenous contrast. A dose lowering technique was utilized adhering to the principles of ALARA. Comparison: 07/13/2018 Findings: The paranasal sinuses and mastoid air cells are clear. The calvarium and skull base are int act. The ventricles and sulci are within normal limits. There is no mass, hematoma, midline shift, or acute infarct. Impression: No acute intracranial abnormality. The above report was generated using voice recognition software. It may contain grammatical, syntax or spelling errors. Electronically signed by: Logan Johnson M.D. 11/13/2018 10:11 PM
[2018-11-13 22:13] LABS: Hematocrit (blood only) 36.6 % (37-47); Mean Corpuscular Hgb Conc 35.5 g/dL (32-36); Mean Corpuscular Volume 89.1 fL (80-100); Mean Platelet Volume 10.5 fL (7.4-10.4); Platelet Count 234 K/uL (130-400); RDW Coefficient of Variation 13.2 % (11.5-14.5); RDW Standard Deviation 43.1 fL (36.4-46.3); Red Blood Count 4.11 M/uL (4.2-5.4); White Blood Count 8.71 K/uL (4.8-10.8)
[2018-11-13 22:16] LABS: Basophils # (auto) 0.03 K/uL (0-0.2); Basophils % (auto) 0.3 %; Immature Granulocytes # (auto) 0.03 K/uL (0.00-0.02); Immature Granulocytes % (auto) 0.3 %; Lymphocytes # (auto) 1.16 K/uL (1.2-3.4); Lymphocytes % (auto) 13.3 %; Monocytes # (auto) 0.72 K/uL (0.11-0.59); Monocytes % (auto) 8.3 %; Neutrophils # (auto) 6.77 K/uL (1.4-6.5); Neutrophils % (auto) 77.8 %
--- NOTE | 2018-11-14 | Emergency Department Note ---
Entered by Margie Das acting as a scribe for History of Present Illness General Chief complaint: Seizure Stated complaint: SEIZURE Time Seen by Provider: 11/13/18 18:54 Source: patient Mode of arrival: EMS Limitations: no limitations History of Present Illness Onset (ago): hour(s) 2 Location: head Radiation: non-radiation Pain Consistency: + constant Relieved By: + none Exacerbated By: + other (recent changes to medications) Associated symptoms: + denies other symptoms Treatments prior to arrival: none The patient is a 48 year old female who presents to the ED with complaints of a possible seizure. She was brought to the ED via EMS. She states her legs felt heavy while she was walking today. Her Mother reports she came over to visit her earlier today and "wasn't really coherent". Around 1714, she walked back over to her Mother's house and looked "flushed" and wasn't acting like her normal self. Mom states she asked the patient a question, when she "zoned out and wasn't able to answer". They took her into a bedroom where the patient "had convulsions over a bed", so EMS was called. The patient states she has never experienced a similar episode in the past. The patient does follow with Dr. Tyler of [facility] for a history of migraine headaches and prior aneurysm's. Her daughter states she has been sleep deprived for the past 3 days and has been acting "incoherently recently". A note from her recent neurology visit shows that Her psychiatrist decreased the Elavil to 100 mg at night, decreased her Kep pra to 250 mg at night and stopped the Benztropine altogether at her November 04 appointment. The patient states she remembers having strange reactions when her Benztropine was stopped in the past. Home Medications Home Medications Medication Instructions Recorded Confirmed Type amitriptyline 100 mg PO HS 05/24/18 11/13/18 History hudcdwjbez-uqkoixchqndfa-shyt 1 tab PO DAILY PRN 05/24/18 11/13/18 History cyanocobalamin (vitamin B-12) 1,000 mcg SUBCUT UD 05/24/18 11/13/18 History cyclobenzaprine 10 mg PO TID PRN 05/24/18 11/13/18 History duloxetine 60 mg PO QAM 05/24/18 11/13/18 History ergocalciferol (vitamin D2) 50,000 unit PO 2XWK 05/24/18 11/13/18 History estradiol 1 mg PO QAM 05/24/18 11/13/18 History glucagon (human recombinant) 1 kit SUBCUT UD PRN 05/24/18 11/13/18 History [Glucagon Emergency Kit (human)] hydroxyzine HCl 25 mg PO TID PRN 05/24/18 11/13/18 History midodrine 2.5 - 5 mg PO DAILY PRN 05/24/18 11/13/18 History pramipexole 1 mg PO HS 05/24/18 10/07/18 History progesterone micronized 200 mg PO QAM 05/24/18 11/14/18 History propranolol 20 mg PO HS 05/24/18 11/13/18 History cannabidiol (CBD) extract 10 mg PO BID PRN 07/13/18 11/13/18 History oxycodone 5 mg PO BID 07/13/18 11/13/18 History Medical Marjiana 0 mg PO DIRECTED 07/23/18 11/13/18 History acetaminophen [Tylenol Extra 500 mg PO Q6H PRN 08/06/18 11/13/18 History Strength] ibuprofen 400 mg PO QID PRN 08/06/18 11/13/18 History lorazepam [Ativan] 1 mg PO BID 09/13/18 11/13/18 History lorazepam [Ativan] 2 mg PO HS 09/13/18 11/13/18 History thyroid (pork) [[place] Thyroid] 30 mg PO DAILY 09/13/18 11/13/18 History thyroid (pork) [[place] Thyroid] 120 mg PO DAILY 09/13/18 11/13/18 History benztropine 1 mg PO BID 10/07/18 11/13/18 History levetiracetam 500 mg PO HS 11/13/18 11/13/18 History Ajovy SC MONTHLY 11/14/18 History amphetamine sulfate 10 mg PO BID 11/14/18 11/14/18 History jyibrnbbbj-qyhvaoegprdwl-mbiq 11/14/18 History divalproex 500 mg PO HS #30 tab 11/14/18 Rx metoprolol succinate PO DAILY 11/14/18 History promethazine PO BID PRN 11/14/18 History Allergies Allergy/AdvReac Type Severity Reaction Status Date / Time dihydroergotamine Allergy Severe PALPATATION Verified 11/13/18 19:55 S-SWEATS almotriptan Allergy Unknown coronary Verified 11/13/18 19:55 vaso spasms frovatriptan Allergy Unknown coronary Verified 11/13/18 19:55 vaso spasms pregabalin Allergy Unknown flu like Verified 11/13/18 19:55 feelings sumatriptan Allergy Unknown Unknown Verified 11/13/18 19:55 topiramate AdvReac Unknown flu like Verified 11/13/18 19:55 symptom Past Med/Surg History Medical History Degenerative disc disease Concussion (Acute) H/O aneurysm (Acute) Hypotension (Resolved) Insomnia (Resolved) Migraine headache (Acute) Major depression with psychotic features PTSD (post-traumatic stress disorder) Dizziness (Acute) Orthostatic hypotension (Acute) Kidney stones Surgical History History of tonsillectomy H/O gastric bypass Hx of lithotripsy S/P cholecystectomy Family History Mother Rheumatoid arthritis Heart disease Father , Father age 39 of a brain tumor. Brain tumor Other Cancer Diabetes Gallbladder disease Hypertension Lung disease Pneumonia Social History Preferred Language: Kyrgyz Communication Ability: Effective Visual Impairment: No Limitations Hearing Ability: Normal Beliefs That Will Affect Care: None marital status: Current Living Situation: Other Current Living Situation Comment: Daughter and Son current occupational status: disabled Other Information That Helps Us Care for You: No Feels Safe at Home: Yes Smoking Status: Never smoker Do You Dip or Chew Tobacco: No Second Hand Exposure: No Tobacco Cessation Education Requested by Patient: No Hx Alcohol Use: No Hx Substance Use: No Review of Systems See HPI for pertinent positives & negatives. and A total of 10 systems reviewed and were otherwise negative Physical Exam Vital Signs Vital Signs - 24 hr 11/14/18 00:31 11/14/18 01:01 Pulse Rate 66 82 Pulse Rate from SpO2 Sensor 66 81 Respiratory Rate 22 20 Blood Pressure 118/64 113/54 L Blood Pressure Mean 82 73 Pulse Oximetry 98 98 Oxygen Delivery Method Room Air Room Air GENERAL: Awake, alert, well-appearing, in no distress HENT: Normocephalic, atraumatic. Oropharynx unremarkable. EYES: PERRL. Normal conjunctiva. Sclera non-icteric. NECK: Inspection normal. Non-tender. Supple. No nuchal rigidity. FROM. No masses. RESPIRATORY: Clear to auscultation. No wheezes. No rales. Normal respiratory effort. CARDIAC: Normal rate. Normal rhythm. No murmurs. No rubs. Extremities warm and well perfused. Pulses equal. No JVD. GI: Soft, non-distended. No tenderness to palpation. No rebound or guarding. No masses. RECTAL: Deferred. MUSCULOSKELETAL: Atraumatic. Chest examination reveals no tenderness. The back is symmetrical on inspection without obvious abnormality. There is no CVA tenderness to palpation. No joint edema. LOWER EXTREMITIES: Calves are equal size bilaterally and non-tender. No edema. No discoloration. NEURO: Normal sensorium. No sensory or motor deficits noted. SKIN: No rash or jaundice noted. Course 1855: The patient was evaluated in room C2 and a complete history and physical were performed. 1945: I discussed the patients case with Dr. Tyler, [facility]. He states the patients psychiatrist, Dr. Fischer, was actually the one who made the recent changes to her medications. 1949: I reevaluated the patient. I discussed my conversation with Dr. Tyler and her discharge instructions and she verbalized complete understanding and agreement. 2104: Nursing informed me the patient is requesting a CT scan. I will come speak with her. 2109: I reevaluated the patient. She states she is still having symptoms and would like a CT scan. I will place orders. 2305: Nursing informed me the patient is having seizure symptoms again. 0: I discussed the patients case with Dr. Almeida, [facility]. The patient will be further evaluated. Consultations Consultation #1: I discussed the patients case with Dr. Tyler, [facility]. He states the patients psychiatrist, Dr. Fischer, was actually the one who made the recent changes to her medications. Time: 19:46 Consultation #2: I discussed the patients case with Dr. Almeida, [facility]. The patient will be further evaluated. Time: 23:30 Administered Medications Duloxetine HCl (Cymbalta) [facility] [place] Stop: 12/14/18 08:59 Last Admin: 11/14/18 08:59 Dose: 60 mg Documented by: [id number] Ergocalciferol (Vitamin D2) 50,000 units PO SuWe@0900 KACY Stop: 12/14/18 08:59 Last Admin: 11/14/18 08:59 Dose: 50,000 units Documented by: [id number] Estradiol (Estrace) 1 mg PO QAM [facility] Stop: 12/14/18 08:59 Last Admin: 11/14/18 08:59 Dose: 1 mg Documented by: [id number] Lorazepam (Ativan) 2 mg in 4 mls @ 4 mls/min IV UD PRN PRN Reason: Breakthrough Seizures Stop: 12/14/18 05:09 Last Admin: 11/14/18 22:11 Dose: 4 mls/min Documented by: [id number] Miscellaneous (Order Awaiting Action) 1 ea N/A QS [facility] Stop: 12/14/18 07:59 Last Admin: 11/14/18 23:05 Dose: Not Given Documented by: [id number] Admin: 11/14/18 17:05 Dose: Not Given Documented by: [id number] Admin: 11/14/18 07:15 Dose: Not Given Documented by: [id number] Propranolol HCl (Inderal) 20 mg PO HS [facility] Stop: 12/14/18 20:59 Last Admin: 11/14/18 21:18 Dose: 20 mg Documented by: [id number] Thyroid ([place] Thyroid) 150 mg PO DAILY [facility] Stop: 12/14/18 08:59 Last Admin: 11/14/18 08:59 Dose: 150 mg Documented by: [id number] Discontinued Medications Benztropine Mesylate (Cogentin) 1 mg IV NOW STA Stop: 11/13/18 19:07 Last Admin: 11/13/18 19:23 Dose: 1 mg Documented by: [id number] Benztropine Mesylate (Cogentin) 1 mg IV NOW STA Stop: 11/13/18 19:56 Last Admin: 11/13/18 21:16 Dose: 1 mg Documented by: [id number] Levetiracetam 500 mg/ Dextrose 105 mls @ 420 mls/hr IV NOW STA Stop: 11/13/18 20:09 Last Infusion: 11/13/18 22:27 Dose: 0 mls/hr Documented by: [id number] Infusion: 11/13/18 21:09 Dose: 0 mls/hr Documented by: [id number] Admin: 11/13/18 21:00 Dose: 420 mls/hr Documented by: [id number] Sodium Chloride (Nss 1000ml) 1,000 mls @ 999 mls/hr IV .Q1H1M ONE Stop: 11/13/18 21:33 Last Infusion: 11/13/18 22:17 Dose: 0 mls/hr Documented by: [id number] Admin: 11/13/18 21:16 Dose: 999 mls/hr Documented by: [id number] Lorazepam (Ativan) 1 mg in 2 mls @ 2 mls/min IV NOW STA Stop: 11/13/18 21:07 Last Admin: 11/13/18 21:16 Dose: 2 mls/min Documented by: [id number] Pramipexole Dihydrochloride (Mirapex) 0.125 mg PO ONE ONE Stop: 11/14/18 22:01 Last Admin: 11/14/18 21:55 Dose: 0.125 mg Documented by: [id number] Medical Decision Making Differential Diagnosis Differential diagnosis includes etiologies such as infection, hypoglycemia, electrolyte abnormalities, cardiac sources, intracerebral event, trauma, toxicologic, neurologic, as well as others were entertained. Medical Records Attestation: I reviewed the patient's medical records. Home Medications Current Medication List: was personally reviewed by me Laboratory Data Attestation: I reviewed the patient's lab results. Result diagrams: 11/14/18 06:16 11/14/18 06:16 Lab Results 11/13/18 11/13/18 11/14/18 Range/Units 20:32 20:32 00:55 WBC 8.71 (4.8-10.8) K/uL RBC 4.11 L (4.2-5.4) M/uL Hgb 13.0 (12.0-16.0) g/dL Hct 36.6 L (37-47) % MCV 89.1 (80-100) fL MCH 31.6 (25-34) pg MCHC 35.5 (32-36) g/dL RDW Std Deviation 43.1 (36.4-46.3) fL RDW Coeff of Ruth 13.2 (11.5-14.5) % Plt Count 234 (130-400) K/uL MPV 10.5 H (7.4-10.4) fL Immature Gran % (Auto) 0.3 % Neut % (Auto) 77.8 % Lymph % (Auto) 13.3 % [place] % (Auto) 8.3 % Eos % (Auto) 0.0 % Baso % (Auto) 0.3 % Immature Gran # (Auto) 0.03 H (0.00-0.02) K/uL Neut # (Auto) 6.77 H (1.4-6.5) K/uL Lymph # (Auto) 1.16 L (1.2-3.4) K/uL [place] # (Auto) 0.72 H (0.11-0.59) K/uL Eos # (Auto) 0.00 (0-0.5) K/uL Baso # (Auto) 0.03 (0-0.2) K/uL Sodium 139 (136-145) mmol/L Potassium 3.5 (3.5-5.1) mmol/L Chloride 107 (98-107) mmol/L Carbon Dioxide 24 (21-32) mmol/L Anion Gap 8.0 (3-11) BUN 4 L (7-18) mg/dl Creatinine 0.61 (0.6-1.2) mg/dl Est Cr Clr Drug Dosing 113.6 ml/min Est GFR ( Amer) 122.5 Est GFR (Non-Af Amer) 105.7 BUN/Creatinine Ratio 6.0 L (10-20) Glucose 90 (70-99) mg/dl Calcium 8.8 (8.5-10.1) mg/dl Total Bilirubin 0.4 (0.2-1) mg/dl AST 28 (15-37) U/L ALT 97 H (12-78) U/L Alkaline Phosphatase 211 H (45-117) U/L Total Creatine Kinase 251 H (26-192) U/L Total Protein 6.5 (6.4-8.2) gm/dl Albumin 3.6 (3.4-5.0) gm/dl Globulin 2.9 (2.5-4.0) gm/dl Albumin/Globulin Ratio 1.2 (0.9-2) Urine Color Yellow Urine Appearance Cloudy A (Clear) Urine pH 7.5 (4.5-7.5) Ur Specific Grant 1.017 (1.000-1.030) Urine Protein Negative (Negative) Urine Glucose (UA) Negative (Negative) Urine Ketones 3+ H (Negative) Urine Blood Negative (Negative) Urine Nitrite Negative (Negative) Urine Bilirubin Negative (Negative) Urine Urobilinogen Negative (Negative) Ur Leukocyte Esterase 1+ H (Negative) Urine WBC (Auto) 1-5 (0-5) /hpf Urine RBC (Auto) 0-4 (0-4) /hpf U Hyaline Cast (Auto) 1-5 (0-5) /lpf U Epithel Cells (Auto) >30 H (0-5) /lpf Urine Bacteria (Auto) 1+ H (Negative) Urine Opiates Screen (Neg) Ur Methadone, Qual (Neg) Urine Barbiturates (Neg) Ur Phencyclidine (PCP) (Neg) U Amphetamin/Meth Scrn (Neg) MDMA (Ecstasy) Screen (Neg) U Benzodiazepines Scrn (Neg) Ur Cocaine Metabolite (Neg) U Marijuana (THC) Screen (Neg) 11/14/18 Range/Units 00:55 WBC (4.8-10.8) K/uL RBC (4.2-5.4) M/uL Hgb (12.0-16.0) g/dL Hct (37-47) % MCV (80-100) fL MCH (25-34) pg MCHC (32-36) g/dL RDW Std Deviation (36.4-46.3) fL RDW Coeff of Ruth (11.5-14.5) % Plt Count (130-400) K/uL MPV (7.4-10.4) fL Immature Gran % (Auto) % Neut % (Auto) % Lymph % (Auto) % [place] % (Auto) % Eos % (Auto) % Baso % (Auto) % Immature Gran # (Auto) (0.00-0.02) K/uL Neut # (Auto) (1.4-6.5) K/uL Lymph # (Auto) (1.2-3.4) K/uL [place] # (Auto) (0.11-0.59) K/uL Eos # (Auto) (0-0.5) K/uL Baso # (Auto) (0-0.2) K/uL Sodium (136-145) mmol/L Potassium (3.5-5.1) mmol/L Chloride (98-107) mmol/L Carbon Dioxide (21-32) mmol/L Anion Gap (3-11) BUN (7-18) mg/dl Creatinine (0.6-1.2) mg/dl Est Cr Clr Drug Dosing ml/min Est GFR ( Amer) Est GFR (Non-Af Amer) BUN/Creatinine Ratio (10-20) Glucose (70-99) mg/dl Calcium (8.5-10.1) mg/dl Total Bilirubin (0.2-1) mg/dl AST (15-37) U/L ALT (12-78) U/L Alkaline Phosphatase (45-117) U/L Total Creatine Kinase (26-192) U/L Total Protein (6.4-8.2) gm/dl Albumin (3.4-5.0) gm/dl Globulin (2.5-4.0) gm/dl Albumin/Globulin Ratio (0.9-2) Urine Color Urine Appearance (Clear) Urine pH (4.5-7.5) Ur Specific [place] (1.000-1.030) Urine Protein (Negative) Urine Glucose (UA) (Negative) Urine Ketones (Negative) Urine Blood (Negative) Urine Nitrite (Negative) Urine Bilirubin (Negative) Urine Urobilinogen (Negative) Ur Leukocyte Esterase (Negative) Urine WBC (Auto) (0-5) /hpf Urine RBC (Auto) (0-4) /hpf U Hyaline Cast (Auto) (0-5) /lpf U Epithel Cells (Auto) (0-5) /lpf Urine Bacteria (Auto) (Negative) Urine Opiates Screen Neg (Neg) Ur Methadone, Qual Neg (Neg) Urine Barbiturates Pos H (Neg) Ur Phencyclidine (PCP) Neg (Neg) U Amphetamin/Meth Scrn Neg (Neg) MDMA (Ecstasy) Screen Neg (Neg) U Benzodiazepines Scrn Neg (Neg) Ur Cocaine Metabolite Neg (Neg) U Marijuana (THC) Screen Pos H (Neg) Imaging Data Radiologist's Impression: Radiology results as stated below per my review and the radiologist's interpretation: CT head/brain wo con CT DOSE: 537.48 mGy.cm HISTORY: Mental status change Pt c/o seizure TECHNIQUE: Multiaxial CT images of the head were performed without the use of intravenous contrast. A dose lowering technique was utilized adhering to the principles of ALARA. Comparison: 07/13/2018 Findings: The paranasal sinuses and mastoid air cells are clear. The calvarium and skull base are intact. The ventricles and sulci are within normal limits. There is no mass, hematoma, midline shift, or acute infarct. Impression: No acute intracranial abnormality. The above report was generated using voice recognition software. It may contain grammatical, syntax or spelling errors. Electronically signed by: Logan Johnson M.D. 11/13/2018 10:11 PM ECG Data Attestation: I personally reviewed and interpreted this ECG as follows: Indication: weakness Rate (beats per minute): 77 Rhythm: normal sinus Findings: no ST depression and no ST elevation Blood Pressure Blood Pressure Findings: Normal blood pressure Blood Pressure Disposition: did not require urgent referral MDM Narrative This is a 48-year-old female who presents the emergency department with chorionic movements. After a large amount of questioning with both the patient and her mother I discovered that the patient's Cogentin as well as her Keppra were recently decreased by her psychiatrist. I suspect that this is why the patient is having chorionic movements. For this reason she was given 1 mg of Cogentin with an additional dose approximately 30 minutes later. Repeat assessment revealed immediate improvement in her symptoms. While in the emergency department the patient kept having spells where she appeared in fugue state unable to speak. Because she was having multiple episodes of this the patient's family refused to take her home. She was given 1 mg of Ativan x2. I did discuss the case with the hospitalist who agreed to admit the patient. Patient and family were in agreement with the treatment plan. Impression & Plan Seizure Discharge Plan Visit Data *Final* Discharge Date/Time: 11/14/18 01:55 Chief Complaint: Seizure Stated Complaint: SEIZURE ED Provider: Kody Cummings Discharge Problem: Seizure Patient Disposition: Admitted As Inpatient Condition: Good Discharge Instructions Interventions: ED Discharge Assessment Last Done: 11/14/18 01:55 The scribe's documentation has been prepared under my direction and personally reviewed by me in its entirety. I confirm that the note above accurately reflects all work, treatment, procedures, and medical decision making performed by me.
[2018-11-14 01:15] LABS: Appearance Urine Cloudy (Clear); Bacteria Urine Automated 1+ (Negative); Bilirubin Urine Negative (Negative); Blood Urine Negative (Negative); Color Urine Yellow; Epithelial Cell Urine Auto >30 /lpf (0-5); Glucose Urine UA Negative (Negative); Leukocyte Esterase Urine 1+ (Negative); Nitrite Urine Negative (Negative); Protein Urine Negative (Negative); RBC Urine Automated 0-4 /hpf (0-4); Specific Gravity Urine 1.017 (1.000-1.030); Urobilinogen Urine Negative (Negative); pH Urine 7.5 (4.5-7.5)
[2018-11-14 01:18] LABS: Ketones Urine 3+ (Negative)
[2018-11-14 01:31] LABS: Amphetamines+Metham, Urine Neg (Neg); Barbiturates, Urine Pos (Neg); Benzodiazepine, Urine Neg (Neg); Cocaine, Urine Neg (Neg); MDMA (Ecstacy), Urine Neg (Neg); Methadone, Urine Neg (Neg); Opiate, Urine Neg (Neg); Phencyclidine, Urine Neg (Neg)
--- NOTE | 2018-11-14 01:48 | History & Physical Report ---
Date of Service November 14, 2018 Assessment & Plan (1) Seizure: 48-year-old female was admitted on 14 Nov 2018 for suspected seizure activity. Seizure activity: Apparently no history of the same. Does follow with neurology and psychiatry, though those notes are not acutely available. Reported convulsive-like activity at home around 5:45 PM on day prior to admission and again in the ED. - On arrival, afebrile, rather normal heart rates + blood pressure + room SpO2. CBC and electrolytes okay. Negative troponin. EKG is normal sinus rhythm, rate 77. CK elevated at 251. CT head non-con showed no acute findings. - In ED, Keppra level sent. She was treated with 1 L normal saline, 1 mg of Ativan, 500 mg of Keppra (though unclear if she received the full dose), and 2 mg of Cogentin. - Will hold the great majority of her home medications on admit overnight. Will keep duloxetine in AM. Ativan prn for seizure-like activity. Await neurology input on what meds to restart. Will check Depakote level (was on 500 mg PO q PM, not on her med list) as well. - Some concern about a paradoxical reaction to keppra, so no further acute dosing given at time of admit. Transaminitis: Mild elevations in ALT and alk phos on routine ED labs. No abdominal symptoms, N/V. Provided IVF, recommend monitoring. Ongoing medical issues: - Chronic migraine headaches, depression, PTSD, insomnia, dizziness, fibromyalgia: Held majority of home meds acutely. Concerns about polypharmacy. - Degenerative disc disease: Held home scheduled oxycodone. Will cover with home Tylenol and prn morphine here. - Hypothyroidism: Continue home armour thyroid. - Iron deficiency anemia: Admit hemoglobin was 13.0. Code status: Full code. Diet: Regular. DVT prophy: SCDs. PT/OT: Deferred. Disbo: Admit to med telemetry. (2) Transaminitis: (3) Migraine headache: (4) Depression: (5) Insomnia: (6) Dizziness: (7) Fibromyalgia: (8) Degenerative disc disease: (9) Hypothyroidism: (10) Iron deficiency anemia: History of Present Illness Primary Care Provider: Don Espinosa Jr, DO 48-year-old female was brought to the emergency department by EMS after concerns for seizure-like activity. - The patient herself is presently awake, alert, oriented x3, but seems to get confused quite easily. She does not recall the events of this evening. Therefore the majority of the history comes from the patient's daughter and mother, both in the room. - Per daughter, patient is followed by psychiatry (Dr. Fischer) and neurology (Dr. Tyler). Daughter is also been concerned with recent periods where her mother will seem to "zone out", stare at the wall, and generally seemed more "incoherent". Apparently on November 01 her psychiatrist changed her medications which apparently significantly improved these symptoms. However, over the past three days the patient has not seemed to sleep very much. - On the evening of admission, the patient apparently looked flushed, was not acting like her normal self, and had a witnessed fall onto a bed with subsequent "convulsions". EMS was called. - Per the ED staff, patient also had an episode that appeared like a general convulsion. She was started on Keppra, but her daughter says at that same time the patient once again began to stare into space and seems less coherent. Apparently the Keppra was then stopped and these disorientation symptoms resolved quickly. Daughter says this happened once before with dosing with Keppra. - On this history and physical, patient is presently awake, alert, oriented to person + place + time + reason she is here. However, she does not really recall the events of this evening. She seems like she is a bit confused in general about what has been going on recently. She admits that it is entirely possible she has not been taking her medicines but is not sure why. She denies any current pain, headache, or any stated focal concerns. --- Past medical history includes chronic migraine headaches, depression, PTSD, insomnia, dizziness, fibromyalgia, kidney stones, degenerative disc disease, hypothyroidism, iron deficiency anemia. --- Past surgical history includes gastric bypass, cholecystectomy, lithotripsy, shoulder arthroscopy, mammary reduction. --- Social history includes denying tobacco and alcohol use. Lives at home with daughter and son. Allergies Allergy/AdvReac Type Severity Reaction Status Date / Time dihydroergotamine Allergy Severe PALPATATION Verified 11/13/18 19:55 S-SWEATS almotriptan Allergy Unknown coronary Verified 11/13/18 19:55 vaso spasms frovatriptan Allergy Unknown coronary Verified 11/13/18 19:55 vaso spasms pregabalin Allergy Unknown flu like Verified 11/13/18 19:55 feelings sumatriptan Allergy Unknown Unknown Verified 11/13/18 19:55 topiramate AdvReac Unknown flu like Verified 11/13/18 19:55 symptom Home Medications Home Medications Medication Instructions Recorded Confirmed Type amitriptyline 100 mg PO HS 05/24/18 11/13/18 History [id number]-[id number] 1 tab PO DAILY PRN 05/24/18 11/13/18 History cyanocobalamin (vitamin B-12) 1,000 mcg SUBCUT UD 05/24/18 11/13/18 History cyclobenzaprine 10 mg PO TID PRN 05/24/18 11/13/18 History duloxetine 60 mg PO QAM 05/24/18 11/13/18 History ergocalciferol (vitamin D2) 50,000 unit PO 2XWK 05/24/18 11/13/18 History estradiol 1 mg PO QAM 05/24/18 11/13/18 History glucagon (human recombinant) 1 kit SUBCUT UD PRN 05/24/18 11/13/18 History [Glucagon Emergency Kit (human)] hydroxyzine HCl 25 mg PO TID PRN 05/24/18 11/13/18 History midodrine 2.5 - 5 mg PO DAILY PRN 05/24/18 11/13/18 History pramipexole 1 mg PO HS 05/24/18 10/07/18 History progesterone micronized 200 mg PO QAM 05/24/18 11/14/18 History propranolol 20 mg PO HS 05/24/18 11/13/18 History cannabidiol (CBD) extract 10 mg PO BID PRN 07/13/18 11/13/18 History oxycodone 5 mg PO BID 07/13/18 11/13/18 History Medical Marjiana 0 mg PO DIRECTED 07/23/18 11/13/18 History acetaminophen [Tylenol Extra 500 mg PO Q6H PRN 08/06/18 11/13/18 History Strength] ibuprofen 400 mg PO QID PRN 08/06/18 11/13/18 History lorazepam [Ativan] 1 mg PO BID 09/13/18 11/13/18 History lorazepam [Ativan] 2 mg PO HS 09/13/18 11/13/18 History thyroid (pork) [Coldiron Thyroid] 30 mg PO DAILY 09/13/18 11/13/18 History thyroid (pork) [Coldiron Thyroid] 120 mg PO DAILY 09/13/18 11/13/18 History benztropine 1 mg PO BID 10/07/18 11/13/18 History levetiracetam 500 mg PO HS 11/13/18 11/13/18 History Ajovy SC MONTHLY 11/14/18 History amphetamine sulfate 10 mg PO BID 11/14/18 11/14/18 History [id number]-zddcioabzmebq-[id number] 11/14/18 History divalproex 500 mg PO HS #30 tab 11/14/18 Rx metoprolol succinate PO DAILY 11/14/18 History promethazine PO BID PRN 11/14/18 History Past Med/Surg History Medical History Degenerative disc disease Concussion (Acute) H/O aneurysm (Acute) Hypotension (Resolved) Insomnia (Resolved) Migraine headache (Acute) Major depression with psychotic features PTSD (post-traumatic stress disorder) Dizziness (Acute) Orthostatic hypotension (Acute) Kidney stones Surgical History History of tonsillectomy H/O gastric bypass Hx of lithotripsy S/P cholecystectomy Family History Mother Rheumatoid arthritis Heart disease Father , Father age 39 of a brain tumor. Brain tumor Other Cancer Diabetes Gallbladder disease Hypertension Lung disease Pneumonia Social History Preferred Language: Indonesian Communication Ability: Effective Visual Impairment: No Limitations Hearing Ability: Normal Beliefs That Will Affect Care: None marital status: Current Living Situation: Other Current Living Situation Comment: Daughter and Son current occupational status: disabled Other Information That Helps Us Care for You: No Feels Safe at Home: Yes Smoking Status: Never smoker Do You Dip or Chew Tobacco: No Second Hand Exposure: No Tobacco Cessation Education Requested by Patient: No Hx Alcohol Use: No Hx Substance Use: No Review of Systems Review of Systems: Unable to obtain ROS due to patient's present confusion. Physical Exam Physical Exam: GENERAL: Awake, alert, well-appearing, in no acute physical distress. HENT: Normocephalic, atraumatic. Oropharynx unremarkable. EYES: Normal conjunctiva. Sclera non-icteric. Bilateral pupils PERRL, 4 to 3 mm without photophobia. NECK: Inspection normal. Supple and full ROM. No nuchal rigidity. CARDIAC: +S1S2 RRR, no murmurs. RESPIRATORY: Clear to auscultation. No wheezes or rales. Normal respiratory effort. GI: +BS, soft, non-distended. No tenderness to palpation. No rebound or guarding. EXTREMITIES: No pedal edema or calf tenderness. Moving all extremities naturally and easily. NEURO: CN II through XII (IX not checked) intact. Normal bilateral violin mechanic strength and plantar extension strength. Moves arms and legs easily and against resistance. Results & Data Vital Signs (Past 12 Hours) Vital Signs Temp Pulse Pulse Resp BP BP Pulse Ox 11/14/18 00:31 66 22 118/64 98 11/14/18 00:01 76 19 116/62 98 11/13/18 23:31 79 20 111/58 L 100 11/13/18 21:30 77 15 120/71 100 11/13/18 21:03 83 30 H 115/75 100 11/13/18 21:00 75 13 132/66 100 11/13/18 20:33 81 19 112/99 100 11/13/18 19:30 74 22 123/72 11/13/18 19:27 76 26 H 117/76 100 11/13/18 18:51 36.8 C 83 18 116/89 100 Laboratory Results 11/14/18 11/14/18 11/14/18 Range/Units 00:55 00:55 00:55 WBC (4.8-10.8) K/uL RBC (4.2-5.4) M/uL Hgb (12.0-16.0) g/dL Hct (37-47) % MCV (80-100) fL MCH (25-34) pg MCHC (32-36) g/dL RDW Std Deviation (36.4-46.3) fL RDW Coeff of Ruth (11.5-14.5) % Plt Count (130-400) K/uL MPV (7.4-10.4) fL Immature Gran % (Auto) % Neut % (Auto) % Lymph % (Auto) % Brown % (Auto) % Eos % (Auto) % Baso % (Auto) % Immature Gran # (Auto) (0.00-0.02) K/uL Neut # (Auto) (1.4-6.5) K/uL Lymph # (Auto) (1.2-3.4) K/uL Brown # (Auto) (0.11-0.59) K/uL Eos # (Auto) (0-0.5) K/uL Baso # (Auto) (0-0.2) K/uL Sodium (136-145) mmol/L Potassium (3.5-5.1) mmol/L Chloride (98-107) mmol/L Carbon Dioxide (21-32) mmol/L Anion Gap (3-11) BUN (7-18) mg/dl Creatinine (0.6-1.2) mg/dl Est Cr Clr Drug Dosing ml/min Est GFR ( Amer) Est GFR (Non-Af Amer) BUN/Creatinine Ratio (10-20) Glucose (70-99) mg/dl Calcium (8.5-10.1) mg/dl Total Bilirubin (0.2-1) mg/dl AST (15-37) U/L ALT (12-78) U/L Alkaline Phosphatase (45-117) U/L Total Creatine Kinase (26-192) U/L Total Protein (6.4-8.2) gm/dl Albumin (3.4-5.0) gm/dl Globulin (2.5-4.0) gm/dl Albumin/Globulin Ratio (0.9-2) Urine Color Yellow Urine Appearance Cloudy A (Clear) Urine pH 7.5 (4.5-7.5) Ur Specific Talmo 1.017 (1.000-1.030) Urine Protein Negative (Negative) Urine Glucose (UA) Negative (Negative) Urine Ketones 3+ H (Negative) Urine Blood Negative (Negative) Urine Nitrite Negative (Negative) Urine Bilirubin Negative (Negative) Urine Urobilinogen Negative (Negative) Ur Leukocyte Esterase 1+ H (Negative) Urine WBC (Auto) 1-5 (0-5) /hpf Urine RBC (Auto) 0-4 (0-4) /hpf U Hyaline Cast (Auto) 1-5 (0-5) /lpf U Epithel Cells (Auto) >30 H (0-5) /lpf Urine Bacteria (Auto) 1+ H (Negative) Urine Butalbital Pending Urine Opiates Screen Neg (Neg) Ur Methadone, Qual Neg (Neg) Urine Barbiturates Pos H (Neg) Levetiracetam Ur Phencyclidine (PCP) Neg (Neg) U Amphetamin/Meth Scrn Neg (Neg) MDMA (Ecstasy) Screen Neg (Neg) Urine Amobarbital Pending Urine Pentobarbital Pending Urine Phenobarbital Pending Urine Secobarbital Pending U Benzodiazepines Scrn Neg (Neg) Ur Cocaine Metabolite Neg (Neg) U Marijuana (THC) Screen Pos H (Neg) U Marijuana THC Carboxy Pending 11/13/18 11/13/18 11/13/18 Range/Units 20:32 20:32 20:04 WBC 8.71 (4.8-10.8) K/uL RBC 4.11 L (4.2-5.4) M/uL Hgb 13.0 (12.0-16.0) g/dL Hct 36.6 L (37-47) % MCV 89.1 (80-100) fL MCH 31.6 (25-34) pg MCHC 35.5 (32-36) g/dL RDW Std Deviation 43.1 (36.4-46.3) fL RDW Coeff of Ruth 13.2 (11.5-14.5) % Plt Count 234 (130-400) K/uL MPV 10.5 H (7.4-10.4) fL Immature Gran % (Auto) 0.3 % Neut % (Auto) 77.8 % Lymph % (Auto) 13.3 % Brown % (Auto) 8.3 % Eos % (Auto) 0.0 % Baso % (Auto) 0.3 % Immature Gran # (Auto) 0.03 H (0.00-0.02) K/uL Neut # (Auto) 6.77 H (1.4-6.5) K/uL Lymph # (Auto) 1.16 L (1.2-3.4) K/uL Brown # (Auto) 0.72 H (0.11-0.59) K/uL Eos # (Auto) 0.00 (0-0.5) K/uL Baso # (Auto) 0.03 (0-0.2) K/uL Sodium 139 (136-145) mmol/L Potassium 3.5 (3.5-5.1) mmol/L Chloride 107 (98-107) mmol/L Carbon Dioxide 24 (21-32) mmol/L Anion Gap 8.0 (3-11) BUN 4 L (7-18) mg/dl Creatinine 0.61 (0.6-1.2) mg/dl Est Cr Clr Drug Dosing 113.6 ml/min Est GFR ( Amer) 122.5 Est GFR (Non-Af Amer) 105.7 BUN/Creatinine Ratio 6.0 L (10-20) Glucose 90 (70-99) mg/dl Calcium 8.8 (8.5-10.1) mg/dl Total Bilirubin 0.4 (0.2-1) mg/dl AST 28 (15-37) U/L ALT 97 H (12-78) U/L Alkaline Phosphatase 211 H (45-117) U/L Total Creatine Kinase 251 H (26-192) U/L Total Protein 6.5 (6.4-8.2) gm/dl Albumin 3.6 (3.4-5.0) gm/dl Globulin 2.9 (2.5-4.0) gm/dl Albumin/Globulin Ratio 1.2 (0.9-2) Urine Color Urine Appearance (Clear) Urine pH (4.5-7.5) Ur Specific Talmo (1.000-1.030) Urine Protein (Negative) Urine Glucose (UA) (Negative) Urine Ketones (Negative) Urine Blood (Negative) Urine Nitrite (Negative) Urine Bilirubin (Negative) Urine Urobilinogen (Negative) Ur Leukocyte Esterase (Negative) Urine WBC (Auto) (0-5) /hpf Urine RBC (Auto) (0-4) /hpf U Hyaline Cast (Auto) (0-5) /lpf U Epithel Cells (Auto) (0-5) /lpf Urine Bacteria (Auto) (Negative) Urine Butalbital Urine Opiates Screen (Neg) Ur Methadone, Qual (Neg) Urine Barbiturates (Neg) Levetiracetam Pending Ur Phencyclidine (PCP) (Neg) U Amphetamin/Meth Scrn (Neg) MDMA (Ecstasy) Screen (Neg) Urine Amobarbital Urine Pentobarbital Urine Phenobarbital Urine Secobarbital U Benzodiazepines Scrn (Neg) Ur Cocaine Metabolite (Neg) U Marijuana (THC) Screen (Neg) U Marijuana THC Carboxy Medications Administered Discontinued Medications Benztropine Mesylate (Cogentin) 1 mg IV NOW STA Stop: 11/13/18 19:07 Last Admin: 11/13/18 19:23 Dose: 1 mg Documented by: [id number] Benztropine Mesylate (Cogentin) 1 mg IV NOW STA Stop: 11/13/18 19:56 Last Admin: 11/13/18 21:16 Dose: 1 mg Documented by: [id number] Levetiracetam 500 mg/ Dextrose 105 mls @ 420 mls/hr IV NOW STA Stop: 11/13/18 20:09 Last Infusion: 11/13/18 22:27 Dose: 0 mls/hr Documented by: [id number] Infusion: 11/13/18 21:09 Dose: 0 mls/hr Documented by: [id number] Admin: 11/13/18 21:00 Dose: 420 mls/hr Documented by: [id number] Sodium Chloride (Nss 1000ml) 1,000 mls @ 999 mls/hr IV .Q1H1M ONE Stop: 11/13/18 21:33 Last Infusion: 11/13/18 22:17 Dose: 0 mls/hr Documented by: [id number] Admin: 11/13/18 21:16 Dose: 999 mls/hr Documented by: [id number] Lorazepam (Ativan) 1 mg in 2 mls @ 2 mls/min IV NOW STA Stop: 11/13/18 21:07 Last Admin: 11/13/18 21:16 Dose: 2 mls/min Documented by: [id number] Code Status & VTE Plan Code Status Full code VTE Prophylaxis Plan VTE Prophylaxis will be ordered: Yes Supervising Physician Co-Signing Physician Notes Attending addendum: I have physically seen this patient, have supervised the medical residents activities, and agree with the H&P unless as otherwise noted. Assessment and Plan: Seizure activity- Patient and family reports symptoms began after recent medication adjustments by psychiatry. She has received IV Ativan, Keppra and Cogentin in the ED, and is stable to this time. We will hold on any further medications tonight, other than have available Ativan IV she has seizure activity recur. We will consult neurology Dr. Tyler seen in the morning. She does of note, appears to have had a paradoxical reaction to Keppra, which should be noted and likely not be continued. Remainder of orders and notations as noted. Resident Activity Tracking Resident Involvement: Resident Care Provided Care Provided: Adult Hospital Medicine (1) Migraine headache Intractability: not intractable Migraine type: without aura Status migrainosus presence: without status migrainosus Qualified Code(s): G43.009 - Migraine without aura, not intractable, without status migrainosus
[2018-11-14] MEDS ORDERED: ACETAMINOPHEN 500 MG TAB PO PRN (05:10)
[2018-11-14] MEDS ORDERED: LORazepam 2 MG/4 ML VIAL IV PRN (05:10)
[2018-11-14] MEDS ORDERED: MoRPHine SULFATE 4 MG/ML 1 ML CARP\\VIAL IV PRN (05:10)
[2018-11-14 08:20] LABS: Hematocrit (blood only) 35.5 % (37-47); Hemoglobin 12.1 g/dL (12.0-16.0); Mean Corpuscular Hgb Conc 34.1 g/dL (32-36); Mean Corpuscular Volume 92.2 fL (80-100); Mean Platelet Volume 10.9 fL (7.4-10.4); Platelet Count 261 K/uL (130-400); RDW Coefficient of Variation 13.6 % (11.5-14.5); Red Blood Count 3.85 M/uL (4.2-5.4); White Blood Count 9.02 K/uL (4.8-10.8)
[2018-11-14 08:56] LABS: Albumin Level 3.1 gm/dl (3.4-5.0); BUN Creatinine Ratio 13.2 (10-20); Calcium 8.2 mg/dl (8.5-10.1); Creatinine Clr Calc Pharmacy 137.3 ml/min; Est GFR (African American) 129.1; Est GFR (Non-African American) 111.4; Potassium 3.4 mmol/L (3.5-5.1)
[2018-11-14 08:59] LABS: Albumin Globulin Ratio 1.1 (0.9-2); Bilirubin,Total 0.5 mg/dl (0.2-1); Globulin 2.8 gm/dl (2.5-4.0); Total Protein 5.9 gm/dl (6.4-8.2)
[2018-11-14] MEDS: ARMOUR THYROID 30 MG TAB PO SCH (08:59)
[2018-11-14] MEDS: DULOXETINE HCL 60 MG CAP PO SCH (08:59)
[2018-11-14] MEDS: ESTRADIOL 1 MG TAB PO SCH (08:59)
[2018-11-14] MEDS ORDERED: ERGOCALCIFEROL 50,000 UNITS CAP PO SCH (09:00)
[2018-11-14] MEDS ORDERED: ARMOUR THYROID 30 MG TAB PO SCH (09:00)
--- NOTE | 2018-11-14 09:10 | Neurology Consultation ---
Date of Consultation November 14, 2018 Assessment & Plan (1) Seizure: Has a history of seizure-like activity twice yesterday which could represent a generalized tonic-clonic seizure. I am not convinced she has seizures and we have evaluated her for these kinds of episodes multiple times in the past always with normal testing including EEGs. Certainly, psychiatric acting medication could lower her seizure threshold but medications like valproic acid and levetiracetam would hinder seizures. If she was not taking her Ativan correctly (because of confusion or other psychiatric issues) she may have had benzodiazepine withdrawal seizures. Currently she is doing well neurologically. She had recent MRI and EEG several weeks ago which were unremarkable. Her neurologic examination today is unusual. She has multiple abnormal movements which are not consistent or of a significant neurologic pattern and she has giveaway weakness in her left lower extremity without obvious objective neurologic deficit. I do not believe she has any true focal or abnormal objective neurologic deficits. She does not have meningeal signs or significant encephalopathy today. (2) Altered mental status: Her altered mental status could be medication related but also may be psychiatric in origin. She does not appear to be encephalopathic this morning. (3) Migraine headache: Patient has a longstanding history of intermittent severe comma refractory migraine headaches which have been about the same over the last year. She has tried and failed multiple medications as listed in the HPI. (4) Depression: Patient has multiple psychiatric issues, followed by Psychiatry (Dr. Fischer), including major depressive disorder with psychotic features, generalized anxiety disorder, ADHD, bulimia nervosa, severe insomnia, and posttraumatic stress disorder. If she has multiple days of insomnia she will get more psychotic features. Her mood is reasonable today. (5) Insomnia: This has been a longstanding problem refractory to multiple different medications. It is closely linked to her psychiatric disorder. Recommendations: 1. Discontinue levetiracetam 2. Change valproic acid to Depakote ER to 500 mg once daily in the evening (24 hour tablet). We can follow her this can be titrated as an outpatient. 3. Discontinue benztropine 4. Continue Ativan at her usual doses. 5. We could consider an MRI of her cervical spine because of neck pain and abnormal involuntary movements (which were neurologically bizarre), brisk ref lexes (although symmetrical) and left lower extremity weakness (although not consistent). Could also consider an MRI of the brain because of new onset seizures even know the an MRI was normal several weeks ago. I am not sure how an EEG will help us at this time 6. I would defer all other psychiatric medication changes to her psychiatrist, Dr. Fischer. I spoke with Dr. Pritchett today regarding the case and there is no need to put in a formal psychiatric consultation. Overall, I spent a total of 150 minutes with this case including review of records, review of films, review of all medications via her local pharmacy comma direct evaluation the patient at bedside, and discussion of the case with the patient at bedside, clinical staff, Dr. Livingston Psychiatry, and Dr. Hermosillo, including differential diagnosis and treatment options. History of Present Illness Reason for Consultation: Patient is a 48-year-old was asked to see at the request of Dr. Almeida, for neurologic consultation regarding new onset seizures Requesting Physician: Dr. Almeida Attending Physician: Jose Hermosillo, DO History of Present Illness I 1st started seeing this patient in 1990 for migraine headaches that been occurring since her teen years. Over the years I have seen her regularly and have tried multiple medications both to prevent headaches from occurring and the treatment when they came without much success. She has been very refractory over time. In addition, she has had problems with weight and bulimia nervosa and is post gastric bypass in 2003. Her weight maximum was 312 and her weight minimum post gastric bypass was 130. She has been about the same with weight over the last several years. Patient has had a longstanding history of psychiatric issues and was seeing Dr. Guevara for many years for major depressive disorder with psychotic features, generalized anxiety disorder, ADHD, bulimia nervosa, and posttraumatic stress disorder. One of her biggest problems was insomnia and he and I were working together on this problem several years ago. She still has significant psychiatric issues and is followed by Dr. Fischer. He has been handling her psychiatric medications including benzodiazepines. She also has been getting medications from Dr. Espinosa. In 2001 she was admitted to the hospital for confusion which turned out to be topiramate and Ativan related. Over the last 6 months she has had episodic confusion and cognitive issues as well. In early July of this year she apparently fell and hit her head in the middle of the night creating a goose egg on her forehead that she does not remember. She was evaluated in our office and was neurologically stable. CT scan of the head was unremarkable. CT angiography revealed tiny distal carotid aneurysms which were the same size and distribution as was found in 2013. She continued to have abnormal involuntary twitches and jerks as well as intermittent cognitive issues, memory lapses and confusion. An MRI of the brain and EEG were normal in October of 2018. Sometime this spring she was initiated on Depakote 500 mg at bedtime as well as benztropine 1 mg twice daily by Dr. Fischer. In addition Dr. Espinosa initiated Keppra 500 mg at bedtime. I saw this patient November 07, 2018. Her mood was doing fairly well and her mentation was unremarkable that day. She was continuing to have 8-12 migraine headache days per month. We talked about initiating Ajovy monthly to prevent migraines. This has the advantage of not giving her any significant side effects and will not interfere with any of her other medications or medical problems. She has not had her 1st shot yet. Patient came to the emergency room yesterday after having episodes of incoherence and abnormal walking (she says her legs are heavy). She had been sleep deprived for several days. When this happened she can have mental status changes. She seemed flushed and zoned out by family members around 5:15 p.m. yesterday. At 5:45 a.m. she had a generalized jerking episode and unresponsiveness. She was brought to the emergency room. Patient arrived at the emergency room at 1851 with a temperature 36.8, pulse 83 and regular, respiratory rate 18, blood pressure 116/89, and O2 saturation 100%. Her neurologic examination was described as nonfocal and she had no encephalopathy or meningeal signs. CT scan of the head was unremarkable. CBC showed mild anemia. Chem profile showed a CK of 251 and some mildly elevated liver enzymes. She had a drug screen positive for barbiturates (she takes Fioricet for headaches) and marijuana (she uses medical marijuana for her symptoms). Patient was about to be discharged from the emergency room when she had another shaking episode with unresponsiveness. She was brought in to the hospital. There is a reports no seizures overnight. She feels she is back to baseline today and feeling better with no pain or confusion. She feels that her left lower extremity is heavy and she is weak at the ankle. She has been taking her Ativan and did not skip doses. In the past, she has tried and failed multiple medications for psychiatric and neurologic/migraine conditions including Remeron, fluoxetine, indomethacin, doxepin, propranolol, sertraline, Periactin, paroxetine, nortriptyline, amitriptyline, does dip remain, valproic acid, metoprolol, verapamil, topiramate, levetiracetam, lamotrigine, Lyrica, and gabapentin. She also has tried and failed zolmitriptan, Toradol, am urging, tramadol, Cafergot, Midrin, sumatriptan, Sansert, and nonsteroidal anti-inflammatory agents. She is on low doses of narcotics given to her prior primary care physician for pain control. Allergies Allergy/AdvReac Type Severity Reaction Status Date / Time dihydroergotamine Allergy Severe PALPATATION Verified 11/13/18 19:55 S-SWEATS almotriptan Allergy Unknown coronary Verified 11/13/18 19:55 vaso spasms frovatriptan Allergy Unknown coronary Verified 11/13/18 19:55 vaso spasms pregabalin Allergy Unknown flu like Verified 11/13/18 19:55 feelings sumatriptan Allergy Unknown Unknown Verified 11/13/18 19:55 topiramate AdvReac Unknown flu like Verified 11/13/18 19:55 symptom Home Medications Home Medications Medication Instructions Recorded Confirmed Type amitriptyline 100 mg PO HS 05/24/18 11/13/18 History ynyqureibs-sottigxhdilbo-xgqe 1 tab PO DAILY PRN 05/24/18 11/13/18 History cyanocobalamin (vitamin B-12) 1,000 mcg SUBCUT UD 05/24/18 11/13/18 History cyclobenzaprine 10 mg PO TID PRN 05/24/18 11/13/18 History duloxetine 60 mg PO QAM 05/24/18 11/13/18 History ergocalciferol (vitamin D2) 50,000 unit PO 2XWK 05/24/18 11/13/18 History estradiol 1 mg PO QAM 05/24/18 11/13/18 History glucagon (human recombinant) 1 kit SUBCUT UD PRN 05/24/18 11/13/18 History [Glucagon Emergency Kit (human)] hydroxyzine HCl 25 mg PO TID PRN 05/24/18 11/13/18 History midodrine 2.5 - 5 mg PO DAILY PRN 05/24/18 11/13/18 History pramipexole 1.5 mg PO HS 05/24/18 11/13/18 History progesterone micronized 100 mg PO QAM 05/24/18 11/13/18 History propranolol 20 mg PO HS 05/24/18 11/13/18 History cannabidiol (CBD) extract 10 mg PO BID PRN 07/13/18 11/13/18 History oxycodone 5 mg PO BID 07/13/18 11/13/18 History Medical Marjiana 0 mg PO DIRECTED 07/23/18 11/13/18 History acetaminophen [Tylenol Extra 500 mg PO Q6H PRN 08/06/18 11/13/18 History Strength] ibuprofen 400 mg PO QID PRN 08/06/18 11/13/18 History lorazepam [Ativan] 1 mg PO BID 09/13/18 11/13/18 History lorazepam [Ativan] 2 mg PO HS 09/13/18 11/13/18 History thyroid (pork) [[place] Thyroid] 30 mg PO DAILY 09/13/18 11/13/18 History thyroid (pork) [[place] Thyroid] 120 mg PO DAILY 09/13/18 11/13/18 History benztropine 1 mg PO BID 10/07/18 11/13/18 History levetiracetam 500 mg PO HS 11/13/18 11/13/18 History Patient History Medical History Degenerative disc disease Concussion (Acute) H/O aneurysm (Acute) Hypotension (Resolved) Insomnia (Resolved) Migraine headache (Acute) Major depression with psychotic features PTSD (post-traumatic stress disorder) Dizziness (Acute) Orthostatic hypotension (Acute) Kidney stones Surgical History History of tonsillectomy H/O gastric bypass Hx of lithotripsy S/P cholecystectomy Family History Mother Rheumatoid arthritis Heart disease Father , Father age 39 of a brain tumor. Brain tumor Other Cancer Diabetes Gallbladder disease Hypertension Lung disease Pneumonia Social History Preferred Language: [place] Communication Ability: Effective Visual Impairment: No Limitations Hearing Ability: Normal Beliefs That Will Affect Care: None marital status: Current Living Situation: Other Current Living Situation Comment: Daughter and Son current occupational status: disabled Other Information That Helps Us Care for You: No Feels Safe at Home: Yes Smoking Status: Never smoker Do You Dip or Chew Tobacco: No Second Hand Exposure: No Tobacco Cessation Education Requested by Patient: No Hx Alcohol Use: No Hx Substance Use: No Review of Systems Constitutional: + fatigue, + insomnia and + daytime sleepiness; no fever, no weakness and no anorexia Eyes: no diplopia, no eye pain and no worsening vision Ear, Nose, Mouth, Throat: no ear pain, no tinnitus, no hearing loss and no dysphagia Respiratory: no cough and no dyspnea Cardiovascular: no chest pain, no dyspnea and no palpitations Gastrointestinal: no abdominal pain, no nausea and no vomiting Genitourinary: no dysuria, no urinary frequency and no urinary incontinence Musculoskeletal: + back pain and + neck pain; no radicular pain, no myalgia, no muscle weakness and no muscle atrophy Integumentary: no rash and no lesions Neurologic: + gait abnormality, + localized weakness, + abnormal movements, + seizure-like activity, + confusion and + memory loss; no falls, no generalized weakness, no tingling, no numbness, no tremor(s), no dizziness, no headache(s), no abnormal speech and no behavioral changes Psychiatric: + depression, + abnormal sleep pattern, + anxiety, + difficulty concentrating and + confusion; no hallucinations Endocrine: + fatigue; no flushing Hematologic / Lymphatic: no easy bleeding and no easy bruising Allergy / Immunological: no urticaria Physical Exam Physical Exam: The patient is right-handed. The patient is awake, alert, and attentive. Speech is normal without any aphasia or dysarthria. Mentation and thought processes are intact, with full orientation and normal fund of knowledge. Attention and concentration are normal. Mood and affect are normal and appropriate. General appearance and grooming are normal. Long-term memory is somewhat intact although she does miss some things and short-term memory is poor for recent events. The discs are sharp with positive venous pulsations bilaterally. There are no exudates, hemorrhages, or blood vessel changes seen. Pupils are 4 mm bilaterally and reactive to light. Extraocular eye muscles are intact without nystagmus. Visual acuity and visual epstein seem normal grossly to confrontation. There are no deficits to sensation in the face in all 3 distributions of the fifth cranial nerve bilaterally. Corneal reflexes are positive bilaterally. Facial strength and symmetry was normal bilaterally. Hearing seems intact grossly to voice and finger rub bilaterally. Palate moves well without asymmetry. There is normal sternocleidomastoid and trapezius (shoulder shrug) strength bilaterally. Tongue is midline with good strength bilaterally. Neck has a full range of motion without discomfort. There are no cervical bruits bilaterally. There are no cranial or ocular bruits. Heart is without murmur. There is a regular rhythm and rate. Cervical, thoracic, and lumbar spine are nontender to palpation. Gait is abnormal and somewhat bizarre, as it is not consistent. She limps favoring her left leg but has some abnormal irregular, inconsistent movements of her limbs and she tries to walk. Stance is reasonable eyes open or closed. With outstretched arms there is no drift. There are no resting, postural, or action tremors. There is no ataxia with finger to nose testing. There is good facility in the hands. No other abnormal involuntary movements are noted. Patient does have unusual movements of her limbs when attempting to examine her and will and walk. When she is sitting in bed shadowing she does not have any of these abnormal movements. Motor strength is 5/5 diffusely in the arms bilaterally including deltoids, biceps, triceps, brachioradialis, wrist flexors and extensors, purchasing administrator, and intrinsic hand muscles. Motor strength is difficult to assess because of some irregular effort and giveaway weakness but I believe that it is 5/5 diffusely in the legs bilaterally including hip flexors, quadriceps, hamstrings, gastrocnemius, tibialis posterior, and Peroneii muscles bilaterally. She may be mildly weak with the tibialis anterior on the left. Toe extensors are normal and there is good bulk in the extensor digitorum brevis muscles bilaterally. The limbs have good tone without rigidity or spasticity. There is no atrophy noted in the muscles. Muscle bulk is normal, there is no tenderness to palpation, no myotonia to percussion, and no fasciculations seen. Sensory examination is intact to touch and pin throughout all 4 limbs diffusely. Reflexes are 2/4 in the biceps, triceps, brachioradialis, quadriceps, and Achilles tendons bilaterally. There were no asymmetric reflexes. Toes are downgoing with plantar stimulation bilaterally. Peripheral pulses are present and of normal quality distally in all 4 limbs. There is no peripheral edema noted in the limbs. Results & Data Vital Signs (Past 12 Hours) Vital Signs Temp Pulse Pulse Pulse Resp BP BP 11/14/18 07:34 77 11/14/18 07:32 37.1 C 78 18 147/71 H 11/14/18 05:10 37.2 C 70 16 102/66 11/14/18 02:00 36.8 C 95 H 16 106/72 11/14/18 01:31 83 15 108/55 L 11/14/18 01:01 82 20 113/54 L 11/14/18 00:31 66 22 118/64 11/14/18 00:01 76 19 116/62 11/13/18 23:31 79 20 11/13/18 21:30 77 15 120/71 BP Pulse Ox 11/14/18 07:34 11/14/18 07:32 98 11/14/18 05:10 100 11/14/18 02:00 93 11/14/18 01:31 98 11/14/18 01:01 98 11/14/18 00:31 98 11/14/18 00:01 98 11/13/18 23:31 111/58 L 100 11/13/18 21:30 100 (1) Migraine headache Intractability: not intractable Migraine type: without aura Status migrainosus presence: without status migrainosus Qualified Code(s): G43.009 - Migraine without aura, not intractable, without status migrainosus
--- NOTE | 2018-11-14 15:24 | Discharge Summary ---
Date of Service November 14, 2018 Admission HPI Per Admitting Provider 48-year-old female was brought to the emergency department by EMS after concerns for seizure-like activity. - The patient herself is presently awake, alert, oriented x3, but seems to get confused quite easily. She does not recall the events of this evening. Therefore the majority of the history comes from the patient's daughter and mother, both in the room. - Per daughter, patient is followed by psychiatry (Dr. Fischer) and neurology (Dr. Tyler). Daughter is also been concerned with recent periods where her mother will seem to "zone out", stare at the wall, and generally seemed more "incoherent". Apparently on November 01 her psychiatrist changed her medications which apparently significantly improved these symptoms. However, over the past three days the patient has not seemed to sleep very much. - On the evening of admission, the patient apparently looked flushed, was not acting like her normal self, and had a witnessed fall onto a bed with subsequent "convulsions". EMS was called. - Per the ED staff, patient also had an episode that appeared like a general convulsion. She was started on Keppra, but her daughter says at that same time the patient once again began to stare into space and seems less coherent. Apparently the Keppra was then stopped and these disorientation symptoms resolved quickly. Daughter says this happened once before with dosing with Keppra. - On this history and physical, patient is presently awake, alert, oriented to person + place + time + reason she is here. However, she does not really recall the events of this evening. She seems like she is a bit confused in general about what has been going on recently. She admits that it is entirely possible she has not been taking her medicines but is not sure why. She denies any current pain, headache, or any stated focal concerns. --- Past medical history includes chronic migraine headaches, depression, PTSD, insomnia, dizziness, fibromyalgia, kidney stones, degenerative disc disease, hypothyroidism, iron deficiency anemia. --- Past surgical history includes gastric bypass, cholecystectomy, lithotripsy, shoulder arthroscopy, mammary reduction. --- Social history includes denying tobacco and alcohol use. Lives at home with daughter and son. Principal Diagnosis Possible seizure Discharge Exam Constitutional WD/WN, vitals as above Eyes PERRL, conjunctivae normal, anicteric sclerae ENMT external ear and nose normal, oropharynx normal Neck trachea midline, no thyromegaly Respiratory normal respiratory effort, lungs clear to auscultation Cardiovascular RRR, no murmur, no edema Gastrointestinal (Abdomen) normal bowel sounds, soft, nontender, no hepatosplenomegaly Musculoskeletal no cyanosis or clubbing, extremities motor strength 5/5 Skin no rashes, warm and dry Neurologic patellar DTR's 2+ bilat, sensation intact and PERRL, EOMI, accommodation nl, no face palsy, no dysarthria Psychiatric Orientation: alert and oriented x 3 Affect: + anxious affect Mood: + anxious mood Lymphatic no cervical or axillary lymphadenopathy Discharge Data Allergies Allergy/AdvReac Type Severity Reaction Status Date / Time dihydroergotamine Allergy Severe PALPATATION Verified 11/13/18 19:55 S-SWEATS almotriptan Allergy Unknown coronary Verified 11/13/18 19:55 vaso spasms frovatriptan Allergy Unknown coronary Verified 11/13/18 19:55 vaso spasms pregabalin Allergy Unknown flu like Verified 11/13/18 19:55 feelings sumatriptan Allergy Unknown Unknown Verified 11/13/18 19:55 topiramate AdvReac Unknown flu like Verified 11/13/18 19:55 symptom Consultations 11/13/18 23:32 ED Decision to Admit Stat 11/14/18 05:10 Consult Neurology Routine Ordered Studies 11/13/18 21:06 CT head/brain wo con Stat Hospital Course (1) Seizure: not felt to be true seizure activity EEG performed at the hospital, completely normal, not even signs of slowing CT head normal cannot tolerate MRI brain long discussion with Dr. Tyler, he felt that perhaps some of her symptoms were due to the Keppra recommended stopping Keppra will start on Depakote 500mg in the evening stop Benztropine as well (2) Transaminitis: mild, can follow up outpatient (3) Migraine headache: long standing issue, has followed with Dr. Tyler since 1991 no headaches while admitted now getting Ajovy once a month, has helped (4) Depression: follows with psychiatry close follow up in early December scheduled continue on Amitriptyline, Duloxetine also with Anxiety, takes Ativan 1mg morning and afternoon, 2mg bedtime she reports she is trying to taper down (5) Insomnia: Ativan at bedtime (6) Dizziness: resolved on day 2 of admission ambulating independently no medical reason, certainly polypharmacy could have been playing a role (7) Fibromyalgia: (8) Degenerative disc disease: (9) Hypothyroidism: (10) Iron deficiency anemia: Total Time Total Time Spent Total Time Spent (In Minutes): 40 minutes Total Time Includes: Examination of the Patient, Discharge Planning, Medication Reconciliation and Communication With Other Providers (Dr. Tyler) Discharge Plan Discharge Items Patient Disposition: Home - Self-Care Reason For Visit: SEIZURE-LIKE ACTIVITY Discharge Diagnosis: Convulsions, unlikely seizures Hallucinations most likely due to medications Condition: Good Discharge Goals: Improve function and Increase independence Activity: Resume your previous activity Non-emergency contact: Primary Care Provider and Psychiatrist Call non-emergency contact if: you have any medication questions, your symptoms worsen and you have a fever Follow-up/Referrals: Don Espinosa Jr, DO [Primary Care Provider] - (Please, follow up with Dr. Espinosa. *A nurse will contact you with the appointment information. *If you have any questions, call the office at [phone].) Diet: Regular Addtl Provider Instructions: Medications: - DIVALPROEX (Depakote): 500mg extended release, once in the evening STOP - KEPPRA and BENZTROPINE per orders from Dr. Tyler In summary, Dr. Tyler reviewed your symptoms and presentation and labs and imaging he feels that this is highly unlikely to be seizures you had imaging and EEG as outpatient, never had evidence of seizures EEG here in the hospital was normal he is concerned about too many medications stop the Keppra, stop the Benztropine certainly some of these symptoms could be a side effect of Keppra and could take time to wear off will start on Divalproex 500mg at bedtime, script sent to pharmacy Dr. Tyler recommends close follow up with Dr. Espinosa in one week to discuss events and medications also, recommends follow up with psychiatrist as scheduled in December Dr. Tyler would like to see you in one month in the neurology clinic Please go over your medication list and make sure you have everything organized in a way that makes sense. Please ask your daughter or mother to go over medications and make sure they are accurate Many of these medications need to be taken consistently to work Prescriptions: New divalproex 500 mg tablet,delayed release (DR/EC) 500 mg PO HS Qty: 30 RF: 1 Continued oxycodone 5 mg tablet 5 mg PO BID RF: 0 cannabidiol (CBD) extract 100 mg/mL Solution 10 mg PO BID PRN (Reason: Unknown) RF: 0 lorazepam [Ativan] 2 mg tablet 2 mg PO HS RF: 0 lorazepam [Ativan] 2 mg tablet 1 mg PO BID RF: 0 thyroid (pork) [[place] Thyroid] 30 mg tablet 30 mg PO DAILY RF: 0 thyroid (pork) [[place] Thyroid] 120 mg tablet 120 mg PO DAILY RF: 0 Ajovy 225 mg/1.5 mL SC MONTHLY RF: 0 qzkjzmyzjz-dmxmrbkqqovpd-qhme 50-325-40 mg Tablet RF: 0 promethazine 25 mg Tablet PO BID PRN (Reason: Nausea And Vomiting) RF: 0 metoprolol succinate 25 mg Tablet Extended Release 24 Hr PO DAILY RF: 0 amphetamine sulfate 10 mg Tablet 10 mg PO BID RF: 0 cyclobenzaprine 10 mg tablet 10 mg PO TID PRN (Reason: Muscle Spasm) RF: 0 amitriptyline 50 mg tablet 100 mg PO HS RF: 0 zixklzumht-lzaknwhhhwdzr-jpry 50-325-40 mg tablet 1 tab PO DAILY PRN (Reason: Headache) RF: 0 pramipexole 0.5 mg tablet 1 mg PO HS RF: 0 cyanocobalamin (vitamin B-12) 1,000 mcg/mL solution 1,000 mcg subcut UD RF: 0 Glucagon Emergency Kit (human) 1 mg Recon Soln 1 kit subcut UD PRN (Reason: Hypoglycemia) RF: 0 hydroxyzine HCl 25 mg tablet 25 mg PO TID PRN (Reason: Anxiety) RF: 0 midodrine 2.5 mg Tablet 2.5 - 5 mg PO DAILY PRN (Reason: Hypotension) RF: 0 estradiol 0.5 mg tablet 1 mg PO QAM RF: 0 ergocalciferol (vitamin D2) 50,000 unit Capsule 50,000 unit PO 2XWK RF: 0 propranolol 20 mg tablet 20 mg PO HS RF: 0 duloxetine 60 mg capsule,delayed release(DR/EC) 60 mg PO QAM RF: 0 progesterone micronized 100 mg Capsule 200 mg PO QAM RF: 0 Medical Marjiana PO DIRECTED RF: 0 acetaminophen [Tylenol Extra Strength] 500 mg Tablet 500 mg PO Q6H PRN (Reason: Pain) RF: 0 ibuprofen 200 mg Tablet 400 mg PO QID PRN (Reason: Pain) RF: 0 Discontinued benztropine 1 mg tablet 1 mg PO BID RF: 0 levetiracetam 500 mg tablet 500 mg PO HS RF: 0 Stand-Alone Forms: [facility] Discharge Orders: Discharge Order (Routine); Ordered 11/15/18 Ordered By: Jose Hermosillo Admission Data Admit Date/Time: 11/14/18 01:29 Attending Provider: Jose Hermosillo Admit Provider: Meño Anderson Primary Care Provider: Don Espinosa Jr Other Providers: Bertrand Tyler III Service: Telemetry Medical Other Interventions: Discharge Summary Assessment (RN) Last Done: 11/15/18 10:34 DC Date/Time DO NOT enter until pt leaves facility: 11/15/18 13:56
[2018-11-14] MEDS ORDERED: PROPRANOLOL HCL 20 MG TAB PO SCH (21:00)
[2018-11-14] MEDS ORDERED: PRAMIPEXOLE DIHYDROCHLO 0.25 MG TAB PO ONE (22:00)
[2018-11-15 06:57] LABS: Hematocrit (blood only) 37.5 % (37-47); Hemoglobin 12.5 g/dL (12.0-16.0); Mean Corpuscular Hgb Conc 33.3 g/dL (32-36); Mean Corpuscular Volume 93.3 fL (80-100); Mean Platelet Volume 10.6 fL (7.4-10.4); Platelet Count 231 K/uL (130-400); RDW Coefficient of Variation 13.6 % (11.5-14.5); RDW Standard Deviation 46.5 fL (36.4-46.3); Red Blood Count 4.02 M/uL (4.2-5.4); White Blood Count 5.62 K/uL (4.8-10.8)
[2018-11-15 07:29] LABS: Albumin Level 3.2 gm/dl (3.4-5.0); BUN Creatinine Ratio 11.5 (10-20); Calcium 8.5 mg/dl (8.5-10.1); Creatinine Clr Calc Pharmacy 156.2 ml/min; Est GFR (African American) 134.4; Potassium 3.7 mmol/L (3.5-5.1)
[2018-11-15 07:34] LABS: Bilirubin,Total 0.5 mg/dl (0.2-1); Globulin 3.1 gm/dl (2.5-4.0); Total Protein 6.3 gm/dl (6.4-8.2)
--- NOTE | 2018-11-15 08:08 | XRay Report ---
XR ankle LT min 3V routine CLINICAL HISTORY: swelling, pain edema COMPARISON: None. DISCUSSION: 3 mm avulsion from the tip of the distal fibula and/or lateral talus felt to be old. It i s well-corticated. Very slight prominence of the ankle mortise. Subtalar joint is intact. Heel spur is present. Mild gen eralized soft tissue edema IMPRESSION: 1. Mild soft tissue edema. 2. Slight widening ankle mortise. 3. Small avulsion inferior to the distal fibula felt to be old as it is well-corticated. The above report was generated using voice recognition software. It may contain grammatical, syntax or spelling errors. Electronically signed by: Logan Johnson M.D. 11/15/2018 8:06 AM
[2018-11-15] MEDS: ARMOUR THYROID 30 MG TAB PO SCH (08:50)
[2018-11-15] MEDS: DULOXETINE HCL 60 MG CAP PO SCH (08:50)
[2018-11-15] MEDS: ESTRADIOL 1 MG TAB PO SCH (08:50)
--- NOTE | 2018-11-15 08:56 | Procedure Note ---
EEG Procedure Note Date of Service November 15, 2018 Start / End Times Start Time: 0812 End Time: [address] Hermosillo History 48-year-old with multiple unresponsive episodes, seizures versus pseudoseizures Home Medication List Home Medications Medication Instructions Recorded Confirmed Type amitriptyline 100 mg PO HS 05/24/18 11/13/18 History aofvtpkzcs-xelgwbydfkyql-xlie 1 tab PO DAILY PRN 05/24/18 11/13/18 History cyanocobalamin (vitamin B-12) 1,000 mcg SUBCUT UD 05/24/18 11/13/18 History cyclobenzaprine 10 mg PO TID PRN 05/24/18 11/13/18 History duloxetine 60 mg PO QAM 05/24/18 11/13/18 History ergocalciferol (vitamin D2) 50,000 unit PO 2XWK 05/24/18 11/13/18 History estradiol 1 mg PO QAM 05/24/18 11/13/18 History glucagon (human recombinant) 1 kit SUBCUT UD PRN 05/24/18 11/13/18 History [Glucagon Emergency Kit (human)] hydroxyzine HCl 25 mg PO TID PRN 05/24/18 11/13/18 History midodrine 2.5 - 5 mg PO DAILY PRN 05/24/18 11/13/18 History pramipexole 1 mg PO HS 05/24/18 10/07/18 History progesterone micronized 200 mg PO QAM 05/24/18 11/14/18 History propranolol 20 mg PO HS 05/24/18 11/13/18 History cannabidiol (CBD) extract 10 mg PO BID PRN 07/13/18 11/13/18 History oxycodone 5 mg PO BID 07/13/18 11/13/18 History Medical Marjiana 0 mg PO DIRECTED 07/23/18 11/13/18 History acetaminophen [Tylenol Extra 500 mg PO Q6H PRN 08/06/18 11/13/18 History Strength] ibuprofen 400 mg PO QID PRN 08/06/18 11/13/18 History lorazepam [Ativan] 1 mg PO BID 09/13/18 11/13/18 History lorazepam [Ativan] 2 mg PO HS 09/13/18 11/13/18 History thyroid (pork) [[place] Thyroid] 30 mg PO DAILY 09/13/18 11/13/18 History thyroid (pork) [[place] Thyroid] 120 mg PO DAILY 09/13/18 11/13/18 History benztropine 1 mg PO BID 10/07/18 11/13/18 History levetiracetam 500 mg PO HS 11/13/18 11/13/18 History Ajovy SC MONTHLY 11/14/18 History amphetamine sulfate 10 mg PO BID 11/14/18 11/14/18 History nzzarvhtjp-yidnzndhttypy-ewip 11/14/18 History divalproex 500 mg PO HS #30 tab 11/14/18 Rx metoprolol succinate PO DAILY 11/14/18 History promethazine PO BID PRN 11/14/18 History Inpatient Medication List Duloxetine HCl (Cymbalta) [facility] Stop: 12/14/18 08:59 Last Admin: 11/15/18 08:50 Dose: 60 mg Documented by: [id number] Admin: 11/14/18 08:59 Dose: 60 mg Documented by: [id number] Ergocalciferol (Vitamin D2) 50,000 units PO [id number] [facility] Stop: 12/14/18 08:59 Last Admin: 11/14/18 08:59 Dose: 50,000 units Documented by: [id number] Estradiol (Estrace) 1 mg [facility] Stop: 12/14/18 08:59 Last Admin: 11/15/18 08:50 Dose: 1 mg Documented by: [id number] Admin: 11/14/18 08:59 Dose: 1 mg Documented by: [id number] Lorazepam (Ativan) 2 mg in 4 mls @ 4 mls/min IV UD PRN PRN Reason: Breakthrough Seizures Stop: 12/14/18 05:09 Last Admin: 11/14/18 22:11 Dose: 4 mls/min Documented by: [id number] Miscellaneous (Order Awaiting Action) 1 ea N/A QS [facility] Stop: 12/14/18 07:59 Last Admin: 11/15/18 04:42 Dose: Not Given Documented by: [id number] Admin: 11/14/18 23:05 Dose: Not Given Documented by: [id number] Admin: 11/14/18 17:05 Dose: Not Given Documented by: [id number] Admin: 11/14/18 07:15 Dose: Not Given Documented by: [id number] Propranolol HCl (Inderal) 20 mg PO HS KACY Stop: 12/14/18 20:59 Last Admin: 11/14/18 21:18 Dose: 20 mg Documented by: [id number] Thyroid ([place] Thyroid) 150 mg PO DAILY KACY Stop: 12/14/18 08:59 Last Admin: 11/15/18 08:50 Dose: 150 mg Documented by: [id number] Admin: 11/14/18 08:59 Dose: 150 mg Documented by: [id number] Discontinued Medications Benztropine Mesylate (Cogentin) 1 mg IV NOW STA Stop: 11/13/18 19:07 Last Admin: 11/13/18 19:23 Dose: 1 mg Documented by: [id number] Benztropine Mesylate (Cogentin) 1 mg IV NOW STA Stop: 11/13/18 19:56 Last Admin: 11/13/18 21:16 Dose: 1 mg Documented by: [id number] Levetiracetam 500 mg/ Dextrose 105 mls @ 420 mls/hr IV NOW STA Stop: 11/13/18 20:09 Last Infusion: 11/13/18 22:27 Dose: 0 mls/hr Documented by: [id number] Infusion: 11/13/18 21:09 Dose: 0 mls/hr Documented by: [id number] Admin: 11/13/18 21:00 Dose: 420 mls/hr Documented by: [id number] Sodium Chloride (Nss 1000ml) 1,000 mls @ 999 mls/hr IV .Q1H1M ONE Stop: 11/13/18 21:33 Last Infusion: 11/13/18 22:17 Dose: 0 mls/hr Documented by: [id number] Admin: 11/13/18 21:16 Dose: 999 mls/hr Documented by: [id number] Lorazepam (Ativan) 1 mg in 2 mls @ 2 mls/min IV NOW STA Stop: 11/13/18 21:07 Last Admin: 11/13/18 21:16 Dose: 2 mls/min Documented by: [id number] Pramipexole Dihydrochloride (Mirapex) 0.125 mg PO ONE ONE Stop: 11/14/18 22:01 Last Admin: 11/14/18 21:55 Dose: 0.125 mg Documented by: [id number] Description This is a 21 electrode EEG with a single channel dedicated to limited EKG. The electrodes were placed in accordance with the International 10-20 system. Interpretation The predominant background activity consists of a somewhat irregular 9 Hz activity, of up to 40 mV in amplitude,seen symmetrically distributed over the posterior head regions bilaterally. This activity attenuates nicely with eye- opening and other alerting procedures. Photic stimulation was performed and elicited some driving response at a few mid flash frequencies, but no change in the background activity and no abnormal responses were seen. Hyperventilation was not performed. A minimal amount of muscle and movement artifact activity contaminated the recording and did not hinder interpretation to any significant degree. Throughout the waking portion of the recording, no focal abnormalities, abnormal slow activity, or potentially epileptogenic discharges are seen. The patient entered the drowsy state and brief periods of stage II sleep with no further activation. In summary, this EEG was normal during wakefulness and sleep. No focal abnormalities, potentially epileptogenic discharges, or abnormal slow activity was seen. Clinical Correlation The abscence of potentially epileptogenic activity does not exclude a seizure disorder, since interictally, EEGs can be normal. Clinical correlation is required.
--- NOTE | 2018-11-15 09:17 | Neurology Progress Note ---
Date of Service November 15, 2018 Assessment & Plan (1) Seizure: Has a history of seizure-like activity November 13, which could represent a generalized seizure. Apparently she had several episodes witnessed by family. In addition, she apparently had some blank out spells yesterday in the hospital witnessed by family (not by nursing staff), that she does not remember. I am not convinced she has true seizures and we have evaluated her for these kinds of episodes multiple times in the past always with normal testing including EEGs. 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 This morning, an EEG was unremarkable as described above. Certainly, psychiatric acting medication could lower her seizure threshold but medications like valproic acid and levetiracetam would hinder seizures. However, she has had reactions to levetiracetam in the past. Benztropine can give unusual reactions also. If she was not taking her Ativan correctly (because of confusion or other psychiatric issues) she may have had benzodiazepine withdrawal seizures prior to admission. She is back on her usual doses of benzodiazepine since hospitalized. Currently she is doing well neurologically. MRI and EEG in October of 2018 were also unremarkable. Her neurologic examination today is improved compared to yesterday. She is not having any of the abnormal/strange movements and her motor strength is much improved in the left lower extremity. Therefore, she has no focal neurologic deficits, meningeal signs, or encephalopathy this morning. (2) Altered mental status: Her altered mental status that was noted on admission, could be medication related but also may be psychiatric in origin. She is not encephalopathic this morning. (3) Migraine headache: Patient has a longstanding history of intermittent severe, refractory migraine headaches which have been about the same over the last year. She has tried and failed multiple medications as listed in the Consultation HPI. (4) Depression: Patient has multiple psychiatric issues, followed by Psychiatry (Dr. Fischer), including major depressive disorder with psychotic features, generalized anxiety disorder, ADHD, bulimia nervosa, severe insomnia, and posttraumatic stress disorder. If she has multiple days of insomnia she will get more psychotic features. Her mood is reasonable today. (5) Insomnia: This has been a longstanding problem refractory to multiple different medications. It is closely linked to her psychiatric disorder. Recommendations: 1. Keep off levetiracetam. 2. Continue Depakote ER to 500 mg once daily in the evening (24 hour tablet). I can follow her, and this can be titrated as an outpatient, if needed. 3. Keep of benztropine 4. Continue Ativan at her usual doses. 5. I see no need for additional neurologic testing at this time. 6. Follow-up with her psychiatrist, Dr. Fischer. Overall, I spent a total of 35 with this case including review of records, direct evaluation the patient at bedside, and discussion of the case with the patient at bedside, clinical staff, and Dr. Hermosillo, including differential diagnosis and treatment options. Subjective Patient is feeling better this morning. She slept well last night. She had been given some Ativan prior to bedtime which helped. Blood pressure is 96/64. CBC and Chem profile were unremarkable. Alk-phos is improved at 169. Patient has had no further spells or seizures over the last 24 hours. EEG was obtained this morning and was normal during wakefulness, drowsiness and brief periods of stage 2 sleep. There were no potentially epileptogenic discharges and no abnormal slow activity. She did not have any abnormal spells or events during the EEG however. She has no complaint of pain, or dizziness. Her left leg feels better. Physical Exam Physical Exam: She is awake and alert. Speech is without aphasia or dysarthria. Mood and affect are normal appropriate. Thought processes are intact with good memory. She has common focused. She is pleasant and cooperative. Extraocular eye muscles are intact without nystagmus. There is no facial droop. Stance sitting up in bed is normal. With outstretched arms there is no drift and there is no resting, postural, or action tremor. There is no ataxia to ypwogs-vw-mxei testing. Strength is symmetrical in the limbs. She has improved strength distally in the right lower extremity. She has some bruising of varying colors around the lateral aspect of the foot and ankle. This looks a couple of days old to me. Results & Data Vital Signs (Past 12 Hours) Vital Signs Temp Pulse Resp BP Pulse Ox 11/15/18 07:27 36.6 C 55 L 18 96/64 L 95 11/15/18 04:00 36.7 C 65 20 100/62 97 11/14/18 23:53 36.4 C L 80 20 114/76 99 (1) Migraine headache Intractability: not intractable Migraine type: without aura Status migrainosus presence: without status migrainosus Qualified Code(s): G43.009 - Migraine without aura, not intractable, without status migrainosus
[2018-11-15] MEDS ORDERED: LORazepam 1 MG TAB PO STA (11:10)
[2018-11-16 13:26] LABS: Amobarbital, Urine Conf NEGATIVE NG/ML (CUTOFF=100); Butalbital, Urine 364 NG/ML (CUTOFF=100); Marijuana Quant, GCMS Urine 175 NG/ML (CUTOFF=5); Phenobarbital, Urine NEGATIVE NG/ML (CUTOFF=100); Secobarbital, Urine Conf NEGATIVE NG/ML (CUTOFF=100)
== END 2018-11-15 13:56 | disposition home or self-care (01) | DRG 101 ==
LOC: ED 18:40 → 2N 11-14 01:29 → SUATTDRO 11-14 01:29 → 2N 11-14 01:55
DX: R56.9 Unspecified convulsions; G43.909 Migraine, unspecified, not intractable, without status migrainosus; F32.9 Major depressive disorder, single episode, unspecified; Z98.84 Bariatric surgery status; Z88.8 Allergy status to other drugs, medicaments and biological substances; Z79.890 Hormone replacement therapy; Z79.899 Other long term (current) drug therapy; R74.0 Nonspecific elevation of levels of transaminase and lactic acid dehydrogenase [LDH]; F90.9 Attention-deficit hyperactivity disorder, unspecified type; F41.1 Generalized anxiety disorder; G47.00 Insomnia, unspecified; M79.7 Fibromyalgia; D50.9 Iron deficiency anemia, unspecified; Z79.891 Long term (current) use of opiate analgesic; E03.9 Hypothyroidism, unspecified; F43.10 Post-traumatic stress disorder, unspecified

== ENCOUNTER 2020-10-21 13:41 | Inpatient (IN) ==
--- NOTE | 2020-10-21 14:04 | Emergency Department Note ---
Impression & Plan Mood disorder, Delusions, Paranoid ED Provider Note NAME: CHRISTOPHER ORTIZ AGE: 50 SEX: F : 1970 ARRIVES VIA: Walk-In INFORMANT: Patient ED PROVIDER(S): Tyree Gastelum DO CHIEF COMPLAINT: Mood disorder HPI: Patient is a 50-year-old female who presents to ER for auditory hallucinations. She denies any suicidal and homicidal ideations. These have been present for the past two weeks. They are intermittently telling her various different things. Sometimes they will put her down and call her in a "whore." She notes that she does not feel like she wants to hurt herself now. She denies any visual hallucinations. She has not had any recent thoughts of wanting to hurt herself. She was referred in by her PCP. She has been taking her medications. She does also feel little paranoid and feels like her house is bugged and people are trying to get her marijuana that she has medically. She has not smoked this in over a month. ROS: See above HPI for pertinent positives & negatives. A total of 10 systems reviewed and were otherwise negative. PAST MEDICAL HISTORY:See Below PAST SURGICAL HISTORY:See Below FAMILY HISTORY:See Below SOCIAL HISTORY:See Below HOME MEDICATIONS:See Below ALLERGIES:See Below VITALS:See Below PHYSICAL EXAMINATION: GENERAL: Sitting up in bed, alert, well appearing, well nourished, no distress, non-toxic EYE EXAM: normal conjunctiva. PERRL and EOM's grossly intact. OROPHARYNX: no exudate, no erythema, lips, buccal mucosa, and tongue normal and mucous membranes are moist NECK: supple, no nuchal rigidity, no adenopathy, non-tender LUNGS: Clear to auscultation. Normal chest wall mechanics HEART: no murmurs, S1 normal and S2 normal ABDOMEN: abdomen soft, non-tender, normo-active bowel sounds, no masses, no rebound or guarding. UPPER EXTREMITIES: upper extremities are grossly normal. LOWER EXTREMITIES: No pitting edema. NEURO EXAM: Normal sensorium, cranial nerves II-XII grossly intact, normal speech, no gross weakness of arms, no gross weakness of legs. PSYCH: Denies any suicidal homicidal ideations. No visual hallucinations. Admits to some intermittent auditory hallucinations. MEDICAL DECISION MAKING: Patient is a 50-year-old female who presents the ER for auditory hallucinations. She is also paranoid having some delusions. She denies any suicidal homicidal ideations. Labs were obtained and showed no leukocytosis or anemia. BMP with mild hyponatremia at 134. LFTs bilirubin was unremarkable. TSH was slightly low. UA was clean. Acetaminophen and salicylates were negative. Alcohol was negative. Patient would like to come in. Bed search will be performed. Patient was signed out to Dr. Cummings at change of shift. Observation Status: Indication: Medical stability Patient with a family history of heart disease, was seen first at 1350 hrs and was necessary in order to determine medical stability and avoid unnecessary admission. Upon reevaluation, 4.5 hours of observation revealed that the patien t should be placed in a psychiatric facility. Disposition date and time 10/21/2020 at 18:05 PM patient was signed out to Dr. Cummings. Triage Nursing notes reviewed. Limited review of prior medical records performed Vital Signs: reviewed and remarkable for no significant abnormalities Differential diagnosis: Mood disorder, infection, hypoglycemia, electrolyte abnormalities, cardiac sources, intracerebral event, toxicologic, trauma, neurologic, as well as other pathologies. ER treatment provided: See below Diagnostics interpreted by me: ECG: none Laboratory studies: As stated above and show below. Imaging studies: See below Consultation(s): none Procedures: none Critical Care: None Past Med/Surg History Medical History Concussion Convulsion, non-epileptic Degenerative disc disease Depression Dizziness Fibromyalgia H/O aneurysm History of ovarian cyst Hx of uterine prolapse vaginal owens Hypothyroidism Insomnia Iron deficiency anemia Kidney stones Major depression with psychotic features Migraine without aura Orthostatic hypotension PTSD (post-traumatic stress disorder) Sensorineural hearing loss (SNHL) of both ears Surgical History H/O gastric bypass H/O laparoscopy diagnostic x2 History of colonoscopy History of cryosurgery cervix History of salpingo-oophorectomy left History of tonsillectomy History of tooth extraction Hx of lithotripsy S/P cholecystectomy Surgical history of tubal ligation Family History Mother Rheumatoid arthritis Heart disease Father , Father age 39 of a brain tumor. Brain tumor Uncle Thyroid disorder maternal uncle Grandmother No problems noted. Unknown No problems noted. Grandmother (Paternal) Colon cancer Scoliosis Aunt Colon cancer paternal aunt Grandmother (Maternal) Heart disease Family/Other Lung disease Hypertension Diabetes Denies family history of Ovarian cancer Breast cancer Social History Smoking Status: Never smoker Second Hand Exposure: No; Hx Alcohol Use: No Hx Substance Use: No Preferred Language: Yoruba Communication Ability: Effective Visual Impairment: No Limitations Hearing Ability: Normal Beliefs That Will Affect Care: None marital status: Current Living Situation: Other Current Living Situation Comment: Daughter and Son current occupational status: disabled Feels Safe at Home: Yes Assistive Devices: Walker Allergies Allergies Allergy/AdvReac Type Severity Reaction Status Date / Time ergotamine Allergy Unknown Unknown Verified 01/16/20 15:36 sumatriptan Allergy Unknown Unknown Verified 01/16/20 15:36 almotriptan AdvReac Severe coronary Verified 01/16/20 15:36 vaso spasms benztropine AdvReac Severe nausea and Verified 01/16/20 15:36 vomiting, grand narendra convulsion dihydroergotamine AdvReac Severe PALPATATION Verified 01/16/20 15:36 S-SWEATS frovatriptan AdvReac Severe coronary Verified 01/16/20 15:36 vaso spasms levetiracetam [From [facility]] AdvReac Severe grand mal Verified 01/16/20 15:36 convulsion and lack of speech & confusion. pregabalin AdvReac Intermediate flu like Verified 01/16/20 15:36 feelings topiramate AdvReac Intermediate flu like Verified 01/16/20 15:36 symptom Home Meds Home Medications Medication Instructions Recorded Confirmed metoprolol tartrate 25 mg tablet 25 mg PO DAILY 11/12/19 10/21/20 pramipexole 0.5 mg tablet 1 mg PO HS tab 11/12/19 10/21/20 amitriptyline 50 mg tablet 100 mg PO HS tab 01/16/20 10/21/20 hydroxychloroquine 200 mg tablet 200 mg PO BID 01/16/20 10/21/20 lorazepam 2 mg tablet 2 mg PO TID tab 01/16/20 10/21/20 oxycodone 5 mg tablet 5 mg PO BID PRN tab MDD 2 tabs 01/16/20 10/21/20 aripiprazole [Abilify] 5 mg PO DAILY 10/21/20 10/21/20 celecoxib [Celebrex] 50 mg PO BID 10/21/20 10/21/20 duloxetine [Cymbalta] 30 mg PO HS 10/21/20 10/21/20 risperidone [Risperdal] 2 mg PO BID 10/21/20 10/21/20 Previous Rx's Medication Instructions Recorded estradiol 1 mg tablet 1 mg PO DAILY #90 tab 08/26/19 Results & Data (ED) Vital Signs Vital Signs - 24 hr 10/21/20 13:43 Temperature 36.3 C L Temperature Source Temporal Artery Scan Pulse Rate 96 H Respiratory Rate 16 Respiratory Effort / Characteristics Non-Labored Respiratory Depth Normal Pulse Oximetry 100 Oxygen Delivery Method Room Air Sepsis Recent Fever Within 48 Hours No Sepsis New/Unexplained Change in Mental Status No Sepsis Action Taken by Nursing No Action Required Laboratory Data Result diagrams: 10/21/20 14:27 10/21/20 14:27 Lab Results 10/21/20 10/21/20 10/21/20 Range/Units 14:27 14:27 14:27 WBC 4.87 (4.8-10.8) K/uL RBC 4.43 (4.2-5.4) M/uL Hgb 14.3 (12.0-16.0) g/dL Hct 41.1 (37-47) % MCV 92.8 (80-100) fL MCH 32.3 (25-34) pg MCHC 34.8 (32-36) g/dL RDW Std Deviation 43.9 (36.4-46.3) fL RDW Coeff of Ruth 12.9 (11.5-14.5) % Plt Count 260 (130-400) K/uL MPV 11.5 H (7.4-10.4) fL Immature Gran % (Auto) 0.0 % Neut % (Auto) 77.9 % Lymph % (Auto) 16.4 % Mckean % (Auto) 5.5 % Eos % (Auto) 0.0 % Baso % (Auto) 0.2 % Neut # (Auto) 3.79 (1.4-6.5) K/uL Lymph # (Auto) 0.80 L (1.2-3.4) K/uL Mckean # (Auto) 0.27 (0.11-0.59) K/uL Eos # (Auto) 0.00 (0-0.5) K/uL Baso # (Auto) 0.01 (0-0.2) K/uL Immature Gran # (Auto) 0.00 (0.00-0.02) K/uL Sodium 134 L (136-145) mmol/L Potassium 3.8 (3.5-5.1) mmol/L Chloride 102 (98-107) mmol/L Carbon Dioxide 25 (21-32) mmol/L Anion Gap 7.0 (3-11) BUN 7 (7-18) mg/dl Creatinine 0.68 (0.6-1.2) mg/dl Est Cr Clr Drug Dosing 107.8 ml/min Est GFR ( Amer) 116.6 Est GFR (Non-Af Amer) 100.6 BUN/Creatinine Ratio 10.2 (10-20) Glucose 110 H (70-99) mg/dl Calcium 9.1 (8.5-10.1) mg/dl Total Bilirubin 0.4 (0.2-1) mg/dl AST 22 (15-37) U/L ALT 32 (12-78) U/L Alkaline Phosphatase 139 H (45-117) U/L Total Protein 7.1 (6.4-8.2) gm/dl Albumin 3.9 (3.4-5.0) gm/dl Globulin 3.2 (2.5-4.0) gm/dl Albumin/Globulin Ratio 1.2 (0.9-2) TSH 0.040 L (0.300-4.500) uIu/ml Free T4 1.62 H (0.8-1.6) ng/dl Urine Color Urine Appearance (Clear) Urine pH (4.5-7.5) Ur Specific [place] (1.000-1.030) Urine Protein (Negative) Urine Glucose (UA) (Negative) Urine Ketones (Negative) Urine Blood (Negative) Urine Nitrite (Negative) Urine Bilirubin (Negative) Urine Urobilinogen (Negative) Ur Leukocyte Esterase (Negative) Salicylates 6.0 (2.8-20) mg/dl Acetaminophen 4 L (10-30) ug/ml Ethyl Alcohol mg/dL (0-3) mg/dl 04/21/21 04/21/21 Range/Units 14:27 Unknown WBC (4.8-10.8) K/uL RBC (4.2-5.4) M/uL Hgb (12.0-16.0) g/dL Hct (37-47) % MCV (80-100) fL MCH (25-34) pg MCHC (32-36) g/dL RDW Std Deviation (36.4-46.3) fL RDW Coeff of Ruth (11.5-14.5) % Plt Count (130-400) K/uL MPV (7.4-10.4) fL Immature Gran % (Auto) % Neut % (Auto) % Lymph % (Auto) % [place]ke[place] % (Auto) % Eos % (Auto) % Baso % (Auto) % Neut # (Auto) (1.4-6.5) K/uL Lymph # (Auto) (1.2-3.4) K/uL [place] # (Auto) (0.11-0.59) K/uL Eos # (Auto) (0-0.5) K/uL Baso # (Auto) (0-0.2) K/uL Immature Gran # (Auto) (0.00-0.02) K/uL Sodium (136-145) mmol/L Potassium (3.5-5.1) mmol/L Chloride (98-107) mmol/L Carbon Dioxide (21-32) mmol/L Anion Gap (3-11) BUN (7-18) mg/dl Creatinine (0.6-1.2) mg/dl Est Cr Clr Drug Dosing ml/min Est GFR ( Amer) Est GFR (Non-Af Amer) BUN/Creatinine Ratio (10-20) Glucose (70-99) mg/dl Calcium (8.5-10.1) mg/dl Total Bilirubin (0.2-1) mg/dl AST (15-37) U/L ALT (12-78) U/L Alkaline Phosphatase (45-117) U/L Total Protein (6.4-8.2) gm/dl Albumin (3.4-5.0) gm/dl Globulin (2.5-4.0) gm/dl Albumin/Globulin Ratio (0.9-2) TSH (0.300-4.500) uIu/ml Free T4 (0.8-1.6) ng/dl Urine Color Yellow Urine Appearance Clear (Clear) Urine pH 6.5 (4.5-7.5) Ur Specific [place] 1.012 (1.000-1.030) Urine Protein Negative (Negative) Urine Glucose (UA) Negative (Negative) Urine Ketones 2+ H (Negative) Urine Blood Negative (Negative) Urine Nitrite Negative (Negative) Urine Bilirubin Negative (Negative) Urine Urobilinogen Negative (Negative) Ur Leukocyte Esterase Negative (Negative) Salicylates (2.8-20) mg/dl Acetaminophen (10-30) ug/ml Ethyl Alcohol mg/dL < 3.0 (0-3) mg/dl Discharge Plan Visit Data Chief Complaint: Mental Health Evaluation Stated Complaint: MENTAL HEALTH EVALUATION ED Provider: Kody Cummings Discharge Problem: Mood disorder, Delusions, Paranoid Forms Stand Alone Forms: [facility], Suicide Prevention Resources Prescriptions Prescriptions: No Action estradiol 1 mg tablet 1 mg PO DAILY Qty: 90 RF: 3 metoprolol tartrate 25 mg tablet 25 mg PO DAILY RF: 0 hydroxychloroquine 200 mg tablet 200 mg PO BID RF: 0 pramipexole 0.5 mg tablet 1 mg PO HS RF: 0 lorazepam [Ativan] 2 mg tablet 2 mg PO TID RF: 0 oxycodone 5 mg tablet 5 mg PO BID MDD 2 tabs PRN (Reason: Pain) RF: 0 amitriptyline 50 mg tablet 100 mg PO HS RF: 0 duloxetine [Cymbalta] 30 mg Capsule,Delayed Release(Dr/Ec) 30 mg PO HS RF: 0 risperidone [Risperdal] 2 mg Tablet 2 mg PO BID RF: 0 aripiprazole [Abilify] 5 mg Tablet 5 mg PO DAILY RF: 0 celecoxib [Celebrex] 50 mg Capsule 50 mg PO BID RF: 0
[2020-10-21 14:53] LABS: Basophils # (auto) 0.01 K/uL (0-0.2); Basophils % (auto) 0.2 %; Hematocrit (blood only) 41.1 % (37-47); Hemoglobin 14.3 g/dL (12.0-16.0); Lymphocytes % (auto) 16.4 %; Mean Corpuscular Hemoglobin 32.3 pg (25-34); Mean Corpuscular Hgb Conc 34.8 g/dL (32-36); Mean Corpuscular Volume 92.8 fL (80-100); Mean Platelet Volume 11.5 fL (7.4-10.4); Monocytes # (auto) 0.27 K/uL (0.11-0.59); Monocytes % (auto) 5.5 %; Neutrophils # (auto) 3.79 K/uL (1.4-6.5); Neutrophils % (auto) 77.9 %; Platelet Count 260 K/uL (130-400); RDW Coefficient of Variation 12.9 % (11.5-14.5); RDW Standard Deviation 43.9 fL (36.4-46.3); Red Blood Count 4.43 M/uL (4.2-5.4); White Blood Count 4.87 K/uL (4.8-10.8)
[2020-10-21 15:13] LABS: Albumin Level 3.9 gm/dl (3.4-5.0); BUN Creatinine Ratio 10.2 (10-20); Calcium 9.1 mg/dl (8.5-10.1); Creatinine Clr Calc Pharmacy 107.8 ml/min; Est GFR (African American) 116.6; Est GFR (Non-African American) 100.6; Potassium 3.8 mmol/L (3.5-5.1)
[2020-10-21 15:23] LABS: Albumin Globulin Ratio 1.2 (0.9-2); Bilirubin,Total 0.4 mg/dl (0.2-1); Globulin 3.2 gm/dl (2.5-4.0); Thyroid Stimulating Hormone 0.04 uIu/ml (0.300-4.500); Total Protein 7.1 gm/dl (6.4-8.2)
[2020-10-21 15:36] LABS: T4 Free Thyroxine 1.62 ng/dl (0.8-1.6)
[2020-10-21 17:55] LABS: Appearance Urine Clear (Clear); Bilirubin Urine Negative (Negative); Blood Urine Negative (Negative); Color Urine Yellow; Glucose Urine UA Negative (Negative); Ketones Urine 2+ (Negative); Leukocyte Esterase Urine Negative (Negative); Nitrite Urine Negative (Negative); Protein Urine Negative (Negative); Specific Gravity Urine 1.012 (1.000-1.030); Urobilinogen Urine Negative (Negative); pH Urine 6.5 (4.5-7.5)
[2020-10-21] MEDS ORDERED: LORazepam 1 MG TAB PO PRN (18:05)
--- NOTE | 2020-10-21 18:08 | Emergency Department Note ---
ED Visit Note Received patient in sign out, H&P verified by me. Patient admitted to [address] .
[2020-10-21 18:42] LABS: Amphetamines+Metham, Urine Neg (Neg); Barbiturates, Urine Neg (Neg); Benzodiazepine, Urine Neg (Neg); Cocaine, Urine Neg (Neg); MDMA (Ecstacy), Urine Neg (Neg); Methadone, Urine Neg (Neg); Opiate, Urine Neg (Neg); Phencyclidine, Urine Neg (Neg)
[2020-10-21 19:07] LABS: Influenza A virus by PCR Negative (Neg); Influenza B virus by PCR Negative (Neg); RSV by PCR Negative (Neg); SARS CoV2 RNA(COVID-19) InHosp NEGATIVE (Negative)
[2020-10-21] MEDS: CELECOXIB 100 MG CAP PO SCH ×2 (20:36→20:49)
[2020-10-21] MEDS ORDERED: MAGNESIUM HYDROXIDE SUSP 30 ML UDC PO PRN (20:44)
[2020-10-21] MEDS ORDERED: SODIUM CHLORIDE 0.65% NA SOLN 45 ML (OCEAN) PRN (20:44)
[2020-10-21] MEDS ORDERED: ALUMINUM/MAGNESIUM SUSP 30 ML UDC PO PRN (20:44)
[2020-10-21] MEDS ORDERED: hydrOXYzine HCl 25 MG TAB PO PRN ×2 (20:44)
[2020-10-21] MEDS ORDERED: BISMUTH SUBSALICYLATE LIQD 236 ML PO PRN (20:44)
[2020-10-21] MEDS ORDERED: oxyCODONE HCL IR 5 MG TAB (IMMEDIATE RELEASE) PO PRN (20:45)
[2020-10-21] MEDS ORDERED: AMITRIPTYLINE HCL 100 MG TAB PO SCH (21:00)
[2020-10-21] MEDS ORDERED: DULoxetine HCL 30 MG CAP PO SCH (21:00)
[2020-10-21] MEDS ORDERED: risperiDONE 2 MG TABLET PO SCH (21:00)
[2020-10-21] MEDS ORDERED: PRAMIPEXOLE DIHYDROCHLO 0.5 MG TAB PO SCH (21:00)
[2020-10-21] MEDS: PRAMIPEXOLE DIHYDROCHLO 0.5 MG TAB PO SCH ×2 (21:58→21:59)
[2020-10-21] MEDS: HYDROXYCHLOROQUINE SULFATE 200 MG TAB PO SCH (21:58)
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
[2020-10-22 08:48] LABS: T4 Free Thyroxine 1.52 ng/dl (0.8-1.6); Thyroid Stimulating Hormone 0.045 uIu/ml (0.300-4.500)
[2020-10-22] MEDS: estradioL 1 MG TAB PO SCH (08:49)
[2020-10-22] MEDS: risperiDONE 2 MG TABLET PO SCH ×2 (08:50→21:19)
[2020-10-22] MEDS: HYDROXYCHLOROQUINE SULFATE 200 MG TAB PO SCH ×2 (08:50→21:19)
[2020-10-22] MEDS: METOPROLOL TARTRATE 25 MG TAB PO SCH (08:51)
[2020-10-22] MEDS: LEVOTHYROXINE SODIUM 137 MCG TABLET PO SCH (08:51)
[2020-10-22] MEDS ORDERED: ARIPiprazole 5 MG TAB PO SCH (09:00)
[2020-10-22] MEDS: DULoxetine HCL 60 MG CAP PO SCH (11:07)
[2020-10-22] MEDS: LORazepam 1 MG TAB PO PRN ×2 (13:20→21:20)
[2020-10-22] MEDS: PRAMIPEXOLE DIHYDROCHLO 0.5 MG TAB PO SCH (21:19)
[2020-10-22] MEDS: AMITRIPTYLINE HCL 100 MG TAB PO SCH (21:19)
[2020-10-22] MEDS ORDERED: DULoxetine HCL 30 MG CAP PO SCH (22:00)
[2020-10-22] MEDS ORDERED: DIVALPROEX EXTENDED RELEASE 500 MG TAB PO SCH (22:00)
[2020-10-23] MEDS: METOPROLOL TARTRATE 25 MG TAB PO SCH (09:40)
[2020-10-23] MEDS: risperiDONE 2 MG TABLET PO SCH ×2 (09:40→21:17)
[2020-10-23] MEDS: LEVOTHYROXINE SODIUM 137 MCG TABLET PO SCH (09:40)
[2020-10-23] MEDS: HYDROXYCHLOROQUINE SULFATE 200 MG TAB PO SCH ×2 (09:40→21:17)
[2020-10-23] MEDS: estradioL 1 MG TAB PO SCH (09:40)
[2020-10-23] MEDS: DULoxetine HCL 60 MG CAP PO SCH (09:40)
[2020-10-23] MEDS: LORazepam 1 MG TAB PO PRN ×3 (09:41→21:19)
--- NOTE | 2020-10-23 15:07 | Psychiatric Progress Note ---
Date of Service October 23, 2020 Impression / Recommendations Impression 50-year-old female with a history of depression with psychosis, anxiety, insomnia, PTSD, PNES, and multiple other neurological problems as well as chronic pain who is on numerous medications and presents with worsening mood, anxiety, psychotic symptoms, and does not feel safe at home. We will need to gather additional information given polypharmacy with multiple outpatient clinicians. Inpatient treatment is medically necessary given the severity of symptoms and inability to care for herself as an outpatient. The clinical picture is complicated by several variables. These include apparent less than full adherence with her medications on an outpatient basis; a history of head injury. While her report that she has had at least 1 grand mall seizures seems to be suspected, and while in a neurology evaluation included an opinion that she has had a nonepileptic seizure, she does carry a diagnosis of migraine headaches, and it is possible that the underlying problem may include complex partial seizures. There is also the fairly recent onset of paranoia and perceptual disturbances. She is also taking Suboxone and treatment for an opioid dependence. Her valproic acid level at admission was in the martinez btherapeutic range (32) and the dose of this medication will need to be increased and monitored further. She is also taking 2 second-generation antipsychotic medications; namely aripiprazole and risperidone. We will discontinue aripiprazole and titrate the dose of risperidone. (1) Psychosis: 10/22 - Based on patient's reports, initial diagnosis MDD with psychosis, although cannot rule out schizoaffective disorder or component of delirium. Auditory hallucinations, paranoia, and delusions of persecution, does not feel safe at home. Reality testing, limit excessive stimuli -D/c Abilify to limit polypharmacy and drug drug interactions, as it was just started and she does not feel it has been helpful, and continue risperidone 2mg bid, just increased yesterday. Would benefit from psychotherapy, explore options for outpatient treatment. It is unclear if her medication reconciliation was performed properly, multiple errors noted this morning, will need to get outpatient records to confirm at 7 doses. -Fasting labs from this morning were WNLs. -Family meeting with supports 10/23 -The patient reports that she is tolerating risperidone 2 mg twice a day without difficulty. She understands that the plan will most likely involve titrating the dose of this medication. -At times, the patient comes close to having what appears to be insight into her presenting psychotic symptoms. For example, she refers to herself as having "paranoia." However, when asked to explain her paranoia, she tells us that "paranoia" is the word that her family members are using and, in fact, she does truly believe that she is being monitored, followed, and persecuted as described above. -A neurologic work-up to date has been largely noncontributory. However, it is entirely possible that the patient is experiencing complex partial seizures with auditory and visual hallucinations. -Given that the patient's Depakote level is in the subtherapeutic range, and her dose of Depakote is limited to 500 mg at bedtime, we will increase the dose to the more standard 1500 mg a day beginning , and will follow up with a repeat serum valproic acid level on Monday. (2) Depression: 10/22 - Continue duloxetine 90mg daily and amitriptyline 100mg HS. Continue Depakote, which she thinks is for seizures, and check level today. Get records from outpatient psychiatrist -The patient does understand that duloxetine has been prescribed both for depression and for chronic pain. However, she feels that the "extra 30 mg" above her previous 60 mg dose has not had any favorable effect. Also, a possible side effect of duloxetine is seizures. We will does not then confirm that the patient actually has seizures, there are certain presentations that suggest a somewhat atypical seizure disorder, such as complex partial seizures. The patient agreed to a lower dose of duloxetine, and so the dose will be tapered from 90 mg a day to a dose of 60 mg a day. She was advised of the potential for cessation effects and agreed to report these if they occur. (3) Hypothyroidism: 10/22 - Continue home dose of levothyroxine. TSH low and fT4 high, repeat this am showed low TSH 0.045 and free T4 1.52 (4) Opiate dependence: 10/22 - H/o Suboxone, getting oxycodone from Dr. Espinosa, dose confirmed via PDMP. (5) Psychogenic nonepileptic seizure: Risk Factors Assessment Male: No : Yes Do You Have Access To A Gun?: No Health Problems: Yes Mental Health Diagnoses: Yes Previous Attempt: No Family History of Suicide: No Previous Psychiatric Hospitalization: Yes Hopelessness: No Smoker: No Protective Factors Assessment : No Responsible for Young Children: No Employed: No Supportive Family: Yes Good Rapport with Provider: Yes Interval History Chief Complaint "I am in trouble! I just heard announced over the [employer] system that I am being sent to nursing home!". Review of Systems Sleep Information Total Hours of Sleep: 7.5 Meal Information Percent Meal Consumed - Breakfast: 90 Percent Meal Consumed - Lunch: 100 Percent Meal Consumed - Dinner: 90 Subjective Subjective Patient was seen & assessed and interval progress reviewed with treatment team. I met individually with the patient in order to assess her current mental status, evaluate her response to treatment, make any necessary changes in the patient's treatment regimen together with the patient, and address issues, questions and concerns that may arise. The patient began by telling me that she was admitted because of reports from her daughter and her mother that she is "paranoid." When asked to provide additional details in this regard the patient reports that she began hearing "voices" that other people "said they could not hear." The voices often had depreciating content. For example, these voices reportedly say things such as, "Bindu is a whore. She is a slut. Sindy sucks." This reportedly started approximately 2 weeks prior to her admission and she identifies no particular precipitating event, other than her 2 adult children had recently moved out of the house and she found herself living alone. Also, the patient said that around the same time she began to notice the fact that when she would run errands she would notice that the same cars were parked in the same locations along her root, and she began to associate this phenomenon with the idea that she was being followed and monitored. These feelings eventually morphed into a fixed belief that she must of committed some sort of a crime, one that she could no longer remember or was not aware of, but that she was about to be punished for by being sent to nursing home. Further, she said that she has developed a fixed belief that a "sex [video] tape" of her has been released and is circulating through the Internet where "everybody is watching it." She confirms that she never made a sex video, but thinks that one of her former boyfriends may have surreptitiously made one and then published it. We discussed several contributing factors. She reports that she has a history of several head injuries, as well as a history of at least one grand mall seizure. A neurology note entered into the record has reference to a "nonepileptic seizure." In addition to hearing things that other people do not hear, she reports that she experiences "visions" of certain things that she would rather not discuss at the present time. She reports that she does not report a recent history of the abuse of illicit chemical substances, but acknowledges that she h as been prescribed Suboxone because of an opioid dependence. In addition, she has in the past used medical marijuana. The patient notes that she stopped using medical marijuana in July after she was told that it could lower the seizure threshold and might complicate her treatment. The patient's mother reports that the patient has put dark curtains over all of her windows and keeps them shut so that the interior of her home now resembles "a morgue." The patient said that she did this because she believed that people monitoring her through the windows of her home. The patient notes that at this point she has been afraid to leave her home, does not feel safe in the home, and finds herself "hiding" throughout the day because she feels that she may be in imminent danger. During the interview today she asked me if I heard an overhead announcement on the public address system at the hospital announcing that she was about to be arrested and sent to nursing home. Also, in passing, the patient reference the old Laura Page song, "How Much is That Doggie in the Window" as part of her discussion about covering the windows at her home. She then said, "do you hear it? They are playing that song over the public address system right now!" Physical Exam Psychiatric Orientation: alert, oriented x 3 and cooperative Apperance: appropriately dressed, appropriately groomed and appeared stated age Eye Contact: good eye contact Motor Behavior: steady gait and station Fine tremor when discussing the content of the perceptual disturbances that she is experiencing. Speech: normal rate/rhythm/volume of speech Affect: + anxious affect and + blunted affect Mood: + depressed mood and + anxious mood Thought Process: goal directed thought process Thought Content: + delusions Suicidal Thoughts: + reports suicidal thoughts Homicidal Thoughts: + reports homicidal thoughts Hallucinations: + auditory hallucinations and + visual hallucinations; no tactile hallucinations and no gustatory hallucinations Cognition: recent memory grossly intact, remote memory grossly intact, attention grossly intact and language grossly intact Estimated Intelligence: + above average estimated intelligence Insight: + limited insight Judgement: + limited judgement Vital Signs (Past 24 Hours) Last Vital Signs Temp 36.3 C L 10/23/20 14:00 Pulse 80 10/23/20 14:00 Resp 18 10/23/20 14:00 BP 99/67 L 10/23/20 14:00 Pulse Ox 96 10/23/20 14:00 Results & Data ([facility]) Current Inpatient Medications Current Inpatient Medications: Current Inpatient Medications Acetaminophen (Acetaminophen 325 Mg Tab) 650 mg PO Q4H PRN PRN Reason: Headache or Minor Fever Stop: 11/20/20 20:43 Al Hydrox/Mg Hydrox/Simethicone (Aluminum/Magnesium Susp 30 Ml Udc) 30 ml PO Q4H PRN PRN Reason: GI Upset Stop: 11/20/20 20:43 Amitriptyline HCl (Amitriptyline Hcl 100 Mg Tab) 100 mg PO [facility] Stop: 11/21/20 21:59 Last Admin: 10/22/20 21:19 Dose: 100 mg Documented by: Bismuth Subsalicylate (Bismuth Subsalicylate Liqd 236 Ml) 15 ml PO PRN PRN PRN Reason: Loose Stool Stop: 11/20/20 20:43 Divalproex Sodium (Divalproex Extended Release 500 Mg Tab) [facility] [place] Stop: 11/23/20 08:59 Divalproex Sodium (Divalproex Extended Release 500 Mg Tab) 1,000 mg PO [facility] Stop: 11/22/20 21:59 Duloxetine HCl (Duloxetine Hcl 60 Mg Cap) 60 mg PO DAILY [facility] Stop: 11/21/20 10:44 Last Admin: 10/23/20 09:40 Dose: 60 mg Documented by: Estradiol (Estradiol 1 Mg Tab) 1 mg PO DAILY [facility] Stop: 11/21/20 08:59 Last Admin: 10/23/20 09:40 Dose: 1 mg Documented by: Hydroxychloroquine Sulfate (Hydroxychloroquine Sulfate 200 Mg Tab) 200 mg PO BID [facility] Stop: 11/20/20 20:59 Last Admin: 10/23/20 09:40 Dose: 200 mg Documented by: Levothyroxine Sodium (Levothyroxine Sodium 137 Mcg Tablet) 137 mcg PO DAILY [facility] Stop: 11/21/20 08:59 Last Admin: 10/23/20 09:40 Dose: 137 mcg Documented by: Lorazepam (Lorazepam 1 Mg Tab) 1 mg PO TID PRN PRN Reason: Anxiety Stop: 11/20/20 20:59 Last Admin: 10/23/20 09:41 Dose: 1 mg Documented by: Magnesium Hydroxide (Magnesium Hydroxide Susp 30 Ml Udc) 30 ml PO DAILY PRN PRN Reason: Constipation Stop: 11/20/20 20:43 Metoprolol Tartrate (Metoprolol Tartrate 25 Mg Tab) 25 mg PO DAILY [facility] Stop: 11/21/20 08:59 Last Admin: 10/23/20 09:40 Dose: 25 mg Documented by: Oxycodone HCl (Oxycodone Hcl Ir 5 Mg Tab (Immediate Release)) 5 mg PO BID PRN PRN Reason: Pain Stop: 11/04/20 20:44 Pramipexole Dihydrochloride (Pramipexole Dihydrochlo 0.5 Mg Tab) 1 mg PO HS [facility] Stop: 11/20/20 20:59 Last Admin: 10/22/20 21:19 Dose: 1 mg Documented by: Risperidone (Risperidone 2 Mg Tablet) 2 mg PO BID [facility] Stop: 11/21/20 08:59 Last Admin: 10/23/20 09:40 Dose: 2 mg Documented by: Sodium Chloride (Sodium Chloride 0.65% Na Soln 45 Ml ([place])) 1 - 2 sprays NA PRN PRN PRN Reason: Nasal Dryness/Congestion Stop: 11/20/20 20:43 Mental Health & Subst Abuse Tx Therapist Name of Therapist: LORENA Customer Success Specialist Name of Customer Success Specialist: willing to consider Post Discharge Appointments Primary Care Physician Name Of Family Doctor: Dr. Espinosa
[2020-10-23] MEDS: PRAMIPEXOLE DIHYDROCHLO 0.5 MG TAB PO SCH (21:16)
[2020-10-23] MEDS: DIVALPROEX EXTENDED RELEASE 500 MG TAB PO SCH (21:17)
[2020-10-23] MEDS: AMITRIPTYLINE HCL 100 MG TAB PO SCH (21:17)
--- NOTE | 2020-10-24 06:41 | Psychiatric Progress Note ---
Date of Service October 24, 2020 Impression / Recommendations Impression 50-year-old female with a history of depression with psychosis, anxiety, insomnia, PTSD, PNES, and multiple other neurological problems as well as chronic pain and opiate dependence who is on numerous medications and presents with worsening mood, anxiety, psychotic symptoms, and not feeling safe at home. We have been attempting to gather additional information given polypharmacy with multiple outpatient clinicians. Inpatient treatment is medically necessary given the severity of symptoms and inability to care for herself as an outpatient. The clinical picture is complicated by less than full adherence with her medications on an outpatient basis; chronic narcotic use and high dose benzodiazepines, history of head injury, migraines, and seizure activity (PNES vs complex partial seizures), with a fairly recent onset of paranoia and perceptual disturbances. On admission, aripiprazole was discontinued and risperidone continued/titrated, valproic acid level was in the subtherapeutic range (32) so was increased, and Ativan was reduced. Continue to titrate risperidone to target ongoing/worsening auditory hallucinations. (1) Psychosis: 10/22 - Based on patient's reports, initial diagnosis MDD with psychosis, although cannot rule out schizoaffective disorder or component of delirium. Auditory hallucinations, paranoia, and delusions of persecution, does not feel safe at home. Reality testing, limit excessive stimuli -D/c Abilify to limit polypharmacy and drug drug interactions, as it was just started and she does not feel it has been helpful, and continue risperidone 2mg bid, just increased yesterday. Would benefit from psychotherapy, explore options for outpatient treatment. It is unclear if her medication reconciliation was performed properly, multiple errors noted this morning, will need to get outpatient records to confirm at 7 doses. -Fasting labs from this morning were WNLs. -Family meeting with supports 10/23 -The patient reports that she is tolerating risperidone 2 mg twice a day without difficulty. She understands that the plan will most likely involve titrating the dose of this medication. -At times, the patient comes close to having what appears to be insight into her presenting psychotic symptoms. For example, she refers to herself as having "paranoia." However, when asked to explain her paranoia, she tells us that "paranoia" is the word that her family members are using and, in fact, she does truly believe that she is being monitored, followed, and persecuted as described above. -A neurologic work-up to date has been largely noncontributory. However, it is entirely possible that the patient is experiencing complex partial seizures with auditory and visual hallucinations. -Given that the patient's Depakote level is in the subtherapeutic range, and her dose of Depakote is limited to 500 mg at bedtime, we will increase the dose to the more standard 1500 mg a day beginning , and will follow up with a repeat serum valproic acid level on Monday. 10/24 - Increase risperidone to 2mg qam and 3mg hs to target ongoing hallucinations, paranoia and delusions of reference. Reviewed side effects, continue monitoring. -VPA increased yesterday, repeat trough scheduled for Mon. 10/26. (2) Depression: 10/22 - Continue duloxetine 90mg daily and amitriptyline 100mg HS. Continue Depakote, which she thinks is for seizures, and check level today. Get records from outpatient psychiatrist 10/23 -The patient does understand that duloxetine has been prescribed both for depression and for chronic pain. However, she feels that the "extra 30 mg" above her previous 60 mg dose has not had any favorable effect. Also, a possible side effect of duloxetine is seizures. We will does not then confirm that the patient actually has seizures, there are certain presentations that suggest a somewhat atypical seizure disorder, such as complex partial seizures. The patient agreed to a lower dose of duloxetine, and so the dose will be tapered from 90 mg a day to a dose of 60 mg a day. She was advised of the potential for cessation effects and agreed to report these if they occur. (3) Hypothyroidism: 10/22 - Continue home dose of levothyroxine. TSH low and fT4 high, repeat this am showed low TSH 0.045 and normal free T4 1.52. Follow up with PCP as may benefit from slight dose increase. (4) Opiate dependence: 10/22 - H/o Suboxone, getting oxycodone from Dr. Espinosa, dose confirmed via PDMP. (5) Psychogenic nonepileptic seizure: 10/24 -concern for complex partial seizures noted by Dr. Hernandez, and Depakote increased from 500 mg to 1500 mg daily. Trough level is scheduled for 10/26/2020. She will need follow-up with neurology through [facility] physician group. (6) Fibromyalgia: 10/24 - Continued on home medications, including oxycodone, duloxetine, and pramipexole on admission. -As indication is unclear (I see no diagnosis of Parkinson's disease or restless leg syndrome, the conditions for which pramipexole is indicated) and due to worsening hallucinations and psychosis, will try holding her pramipexole as it is a dopamine agonist and may be worsening psychosis. She will need to follow-up with her PCP after discharge given polypharmacy with multiple medications with opposing mechanisms of action. (7) Arthritis: Continued on home dose of hydroxychloroquine. Risk Factors Assessment Male: No : Yes Do You Have Access To A Gun?: No Health Problems: Yes Mental Health Diagnoses: Yes Previous Attempt: No Family History of Suicide: No Previous Psychiatric Hospitalization: Yes Hopelessness: No Smoker: No Protective Factors Assessment : No Responsible for Young Children: No Employed: No Supportive Family: Yes Good Rapport with Provider: Yes Interval History Chief Complaint "This morning, the music I hear was louder". Review of Systems Sleep Information Total Hours of Sleep: 7.75 Meal Information Percent Meal Consumed - Breakfast: 90 Percent Meal Consumed - Lunch: 100 Percent Meal Consumed - Dinner: 100 Subjective Subjective Patient was seen & assessed and interval progress reviewed with nursing and social work. Staff report she is going to groups, rated her mood a 7 out of 10 but described it as nervous and distressed. She continues to report paranoia and delusions of persecution. Her mother lives next door and was contacted, is supportive, provided collateral: Patient started having difficulties when the pandemic restrictions began, and became worse in the fall when her children moved out of her home. She became increasingly paranoid, hung curtains over her windows, and her home was very dark. She had problems with sleep and paranoia for several months, and the auditory hallucinations of voices and sounds started more recently. She had neuropsychological testing with Dr. Tavo Toscano in early October for concerns of early dementia, and per mother's report there were cognitive issues, but overall there were only slight changes from previous testing done in 2016, and the diagnosis of dementia was not made. Follow-up in 2-3 months was recommended. On my assessment today the patient states the music remains constant, and was louder this morning, making it hard for her to focus. Distraction can help, but "sometimes the music's so loud, I can't." She continues to hear voices "making taunts" and saying mean things, which is distressing. She is worried that "there are cameras in the showers, in the bedrooms," even though staff have assured her there are not. She denies seeing any cameras, but "it just feels like they are." She was also having these concerns/feelings at home. Currently she is hearing a song, "there's no business like show business, so people think I'm faking." Mood is "flat, with anxiety," worrying about "what's next, my kids, my mother." She h as been talking to her family daily on the phone. Sleep and appetite have been good, thinks higher dose of Depakote helped her sleep last night. Reviewed PCP records from Dr. Espinosa: Most recent progress note 06/30/2020: She was receiving IV iron monthly, reported improved sleep (from 4-6 hours a night to 6-8 hours a night), and reported "flat" mood. She reported improvement in headaches despite having discontinued Ajovy 2-3 months prior for reasons that sounded paranoid in nature, but had not gotten the requested lab work due to fears of people getting close to her, touching her, and needles. She was noted to be tangential and more fearful than was typical for her. She was diagnosed with postconcussive cognitive dysfunction, micronutrient deficiencies for which ongoing lab work was recommended, inflammatory arthropathy for which she was continued on hydroxychloroquine, hypothyroidism for which she was continued on levothyroxine, fibromyalgia for which she was continued on duloxetine and pramipexole, chronic pain for which she was continued on oxycodone. Physical Exam Psychiatric Orientation: alert and cooperative Apperance: appropriately dressed, appropriately groomed and appeared stated age Eye Contact: good eye contact Motor Behavior: steady gait and station and no abnormal motor movements Soft spoken, normal rate and tone Affect: + blunted affect and mood congruent with affect "flat, with anxiety, not knowing what's next." Thought Process: goal directed thought process Thought Content: + paranoid, + delusions, + ideas of reference and + persecution Suicidal Thoughts: denies suicidal thoughts Homicidal Thoughts: denies homicidal thoughts Hallucinations: + auditory hallucinations Cognition: recent memory grossly intact, attention grossly intact and language grossly intact Insight: + fair insight Judgement: + fair judgement Vital Signs (Past 24 Hours) Last Vital Signs Temp 36.6 C 10/24/20 06:36 Pulse 90 10/24/20 06:37 Resp 16 10/24/20 06:36 BP 109/77 10/24/20 06:37 Pulse Ox 100 10/23/20 22:01 Results & Data ([facility]) Current Inpatient Medications Current Inpatient Medications: Current Inpatient Medications Acetaminophen (Acetaminophen 325 Mg Tab) 650 mg PO Q4H PRN PRN Reason: Headache or Minor Fever Stop: 11/20/20 20:43 Al Hydrox/Mg Hydrox/Simethicone (Aluminum/Magnesium Susp 30 Ml Udc) 30 ml PO Q4H PRN PRN Reason: GI Upset Stop: 11/20/20 20:43 Amitriptyline HCl (Amitriptyline Hcl 100 Mg Tab) 100 mg PO [facility] Stop: 11/21/20 21:59 Last Admin: 10/23/20 21:17 Dose: 100 mg Documented by: Bismuth Subsalicylate (Bismuth Subsalicylate Liqd 236 Ml) 15 ml PO PRN PRN PRN Reason: Loose Stool Stop: 11/20/20 20:43 Divalproex Sodium (Divalproex Extended Release 500 Mg Tab) 500 mg PO [facility] Stop: 11/23/20 08:59 Divalproex Sodium (Divalproex Extended Release 500 Mg Tab) 1,000 mg PO [facility] Stop: 11/22/20 21:59 Last Admin: 10/23/20 21:17 Dose: 1,000 mg Documented by: Duloxetine HCl (Duloxetine Hcl 60 Mg Cap) 60 mg PO DAILY [facility] Stop: 11/21/20 10:44 Last Admin: 10/23/20 09:40 Dose: 60 mg Documented by: Estradiol (Estradiol 1 Mg Tab) 1 mg PO DAILY [facility] Stop: 11/21/20 08:59 Last Admin: 10/23/20 09:40 Dose: 1 mg Documented by: Hydroxychloroquine Sulfate (Hydroxychloroquine Sulfate 200 Mg Tab) 200 mg PO BID [facility] Stop: 11/20/20 20:59 Last Admin: 10/23/20 21:17 Dose: 200 mg Documented by: Levothyroxine Sodium (Levothyroxine Sodium 137 Mcg Tablet) 137 mcg PO DAILY [facility] Stop: 11/21/20 08:59 Last Admin: 10/23/20 09:40 Dose: 137 mcg Documented by: Lorazepam (Lorazepam 1 Mg Tab) 1 mg PO TID PRN PRN Reason: Anxiety Stop: 11/20/20 20:59 Last Admin: 10/23/20 21:19 Dose: 1 mg Documented by: Magnesium Hydroxide (Magnesium Hydroxide Susp 30 Ml Udc) 30 ml PO DAILY PRN PRN Reason: Constipation Stop: 11/20/20 20:43 Metoprolol Tartrate (Metoprolol Tartrate 25 Mg Tab) 25 mg PO DAILY [facility] Stop: 11/21/20 08:59 Last Admin: 10/23/20 09:40 Dose: 25 mg Documented by: Oxycodone HCl (Oxycodone Hcl Ir 5 Mg Tab (Immediate Release)) 5 mg PO BID PRN PRN Reason: Pain Stop: 11/04/20 20:44 Pramipexole Dihydrochloride (Pramipexole Dihydrochlo 0.5 Mg Tab) 1 mg PO HS [facility] Stop: 11/20/20 20:59 Last Admin: 10/23/20 21:16 Dose: 1 mg Documented by: Risperidone (Risperidone 2 Mg Tablet) 2 mg PO BID [facility] Stop: 11/21/20 08:59 Last Admin: 10/23/20 21:17 Dose: 2 mg Documented by: Sodium Chloride (Sodium Chloride 0.65% Na Soln 45 Ml (Ider)) 1 - 2 sprays NA PRN PRN PRN Reason: Nasal Dryness/Congestion Stop: 11/20/20 20:43 Mental Health & Subst Abuse Tx Therapist Name of Therapist: LORENA Cafe Aide Name of Cafe Aide: willing to consider Post Discharge Appointments Primary Care Physician Name Of Family Doctor: Dr. Espinosa
[2020-10-24] MEDS: DIVALPROEX EXTENDED RELEASE 500 MG TAB PO SCH ×2 (08:50→21:12)
[2020-10-24] MEDS: estradioL 1 MG TAB PO SCH (08:50)
[2020-10-24] MEDS: DULoxetine HCL 60 MG CAP PO SCH (08:50)
[2020-10-24] MEDS: LEVOTHYROXINE SODIUM 137 MCG TABLET PO SCH (08:51)
[2020-10-24] MEDS: risperiDONE 2 MG TABLET PO SCH (08:51)
[2020-10-24] MEDS: HYDROXYCHLOROQUINE SULFATE 200 MG TAB PO SCH ×2 (08:51→21:11)
[2020-10-24] MEDS: METOPROLOL TARTRATE 25 MG TAB PO SCH (08:52)
[2020-10-24] MEDS: LORazepam 1 MG TAB PO PRN ×3 (11:13→21:15)
[2020-10-24] MEDS: AMITRIPTYLINE HCL 100 MG TAB PO SCH (21:11)
[2020-10-24] MEDS ORDERED: risperiDONE 3 MG TABLET PO SCH (22:00)
--- NOTE | 2020-10-25 06:53 | Psychiatric Progress Note ---
Date of Service October 25, 2020 Impression / Recommendations Impression 50-year-old female with a history of depression with psychosis, anxiety, insomnia, PTSD, PNES, and multiple other neurological problems as well as chronic pain and opiate dependence who is on numerous medications and presents with worsening mood, anxiety, psychotic symptoms, and not feeling safe at home. We have been attempting to gather additional information given polypharmacy with multiple outpatient clinicians. Inpatient treatment is medically necessary given the severity of symptoms and inability to care for herself as an outpatient. The clinical picture is complicated by less than full adherence with her medications on an outpatient basis; chronic narcotic use and high dose benzodiazepines, history of head injury, migraines, and seizure activity (PNES vs complex partial seizures), with a fairly recent onset of paranoia and perceptual disturbances. On admission, aripiprazole was discontinued and risperidone continued/titrated, valproic acid level was in the subtherapeutic range (32) so was increased, and Ativan was reduced. Continue to titrate risperidone to target ongoing/worsening auditory hallucinations. (1) Psychosis: 10/22 - Based on patient's reports, initial diagnosis MDD with psychosis, although cannot rule out schizoaffective disorder or component of delirium. Auditory hallucinations, paranoia, and delusions of persecution, does not feel safe at home. Reality testing, limit excessive stimuli -D/c Abilify to limit polypharmacy and drug drug interactions, as it was just started and she does not feel it has been helpful, and continue risperidone 2mg bid, just increased yesterday. Would benefit from psychotherapy, explore options for outpatient treatment. It is unclear if her medication reconciliation was performed properly, multiple errors noted this morning, will need to get outpatient records to confirm at 7 doses. -Fasting labs from this morning were WNLs. -Family meeting with supports 10/23 -The patient reports that she is tolerating risperidone 2 mg twice a day without difficulty. She understands that the plan will most likely involve titrating the dose of this medication. -At times, the patient comes close to having what appears to be insight into her presenting psychotic symptoms. For example, she refers to herself as having "paranoia." However, when asked to explain her paranoia, she tells us that "paranoia" is the word that her family members are using and, in fact, she does truly believe that she is being monitored, followed, and persecuted as described above. -A neurologic work-up to date has been largely noncontributory. However, it is entirely possible that the patient is experiencing complex partial seizures with auditory and visual hallucinations. -Given that the patient's Depakote level is in the subtherapeutic range, and her dose of Depakote is limited to 500 mg at bedtime, we will increase the dose to the more standard 1500 mg a day beginning , and will follow up with a repeat serum valproic acid level on Monday. 10/24 - Increase risperidone to 2mg qam and 3mg hs to target ongoing hallucinations, paranoia and delusions of reference. Reviewed side effects, continue monitoring. -VPA increased yesterday, repeat trough scheduled for 10/26. 10/25 - Increase risperidone to 2mg qam and 4mg qhs to target psychosis. She is tolerating well so far. Will contact Dr. Fischer tomorrow to discuss case given polypharmacy, treatment resistance. - Reports h/o abnormal involuntary movements in the past when on higher dose risperidone, but AIMS 0 today. - Held pramipexole yesterday, as can cause/worsen hallucinations and patient doesn't think it is helping. - Family meeting with mother and daughter scheduled for this afternoon. (2) Depression: 10/22 - Continue duloxetine 90mg daily and amitriptyline 100mg HS. Continue Depakote, which she thinks is for seizures, and check level today. Get records from outpatient psychiatrist 10/23 - The patient does understand that duloxetine has been prescribed both for depression and for chronic pain. However, she feels that the "extra 30 mg" above her previous 60 mg dose has not had any favorable effect. Also, a possible side effect of duloxetine is seizures. We will does not then confirm that the patient actually has seizures, there are certain presentations that suggest a somewhat atypical seizure disorder, such as complex partial seizures. The patient agreed to a lower dose of duloxetine, and so the dose will be tapered from 90 mg a day to a dose of 60 mg a day. She was advised of the potential for cessation effects and agreed to report these if they occur. (3) Hypothyroidism: 10/22 - Continue home dose of levothyroxine. TSH low and fT4 high, repeat this am showed low TSH 0.045 and normal free T4 1.52. Follow up with PCP as may benefit from slight dose increase. (4) Opiate dependence: 10/22 - H/o Suboxone, getting oxycodone from Dr. Espinosa, dose confirmed via PDMP. (5) Psychogenic nonepileptic seizure: 10/24 -concern for complex partial seizures noted by Dr. Hernandez, and Depakote increased from 500 mg to 1500 mg daily. Trough level is scheduled for 10/26/2020. She will need follow-up with neurology through [facility] physician group. (6) Fibromyalgia: 10/24 - Continued on home medications, including oxycodone, duloxetine, and pramipexole on admission. -As indication is unclear (I see no diagnosis of Parkinson's disease or restless leg syndrome, the conditions for which pramipexole is indicated) and due to worsening hallucinations and psychosis, will try holding her pramipexole as it is a dopamine agonist and may be worsening psychosis. She will need to follow- up with her PCP after discharge given polypharmacy with multiple medications with opposing mechanisms of action. (7) Arthritis: Continued on home dose of hydroxychloroquine. Risk Factors Assessment Male: No : Yes Do You Have Access To A Gun?: No Health Problems: Yes Mental Health Diagnoses: Yes Previous Attempt: No Family History of Suicide: No Previous Psychiatric Hospitalization: Yes Hopelessness: No Smoker: No Protective Factors Assessment : No Responsible for Young Children: No Employed: No Supportive Family: Yes Good Rapport with Provider: Yes Interval History Chief Complaint "Fine, I'm hearing the music again". Review of Systems Sleep Information Total Hours of Sleep: 8.25 Meal Information Percent Meal Consumed - Breakfast: 100 Percent Meal Consumed - Lunch: 75 Percent Meal Consumed - Dinner: 100 Subjective Subjective Patient was seen & assessed and interval progress reviewed with nursing and social work. Staff report she continues to report hallucinations, and has been focused on getting Ativan as often as she can. On my assessment she reports ongoing AH of music and voices, which is loud and impairs focus at times. She has been hearing the song "How Much Is That Doggy In the Window," which she "takes as a personal comment about me, because my dog is a service animal...it feels to me like a threat, like somebody wants to take the dog, or they're making fun of me, because she sits in the window." She thinks that someone who doesn't like her could be causing the hallucinations, but doesn't know who, and can also consider "it's all in my head." She is fearful of them and the thoughts they trigger. She also fears losing her dog, "I don't know if someone will try to take her from me." She is perseverating on these thoughts "thinking about it constantly," and they are negatively affecting mood. Describes anxiety as "really high, don't know what each day will hold." Wants to go home as "I like it, I'm comfortable there," but also fears that she will feel worse there, as she thinks there is an amplifier attached to her hearing aids that amplifies the auditory hallucinations. She has been losing her hearing for >10 years and notes the AH are quieter when her hearing aides are turned off, and are muffled. She slept well, and reports good appetite, and is socializing with peers. She has a family meeting with her mother and daughter today and says she "has no clue what to discuss." She would like to get a therapist as well. Physical Exam Psychiatric Orientation: alert and cooperative Apperance: appropriately dressed, appropriately groomed and appeared stated age Eye Contact: + fair eye contact Motor Behavior: steady gait and station and no abnormal motor movements Speech: normal rate/rhythm/volume of speech soft spoken Affect: + blunted affect; + mood not congruent with affect "Fine" Thought Process: + perseveration Thought Content: + preoccupation, + paranoid, + delusions, + ideas of reference, + thought insertion and + persecution Suicidal Thoughts: denies suicidal thoughts Homicidal Thoughts: denies homicidal thoughts Hallucinations: + auditory hallucinations; no visual hallucinations Cognition: recent memory grossly intact, attention grossly intact and language grossly intact Estimated Intelligence: average estimated intelligence Insight: + fair insight Judgement: + fair judgement Vital Signs (Past 24 Hours) Last Vital Signs Temp 36.4 C L 10/25/20 06:31 Pulse 91 H 10/25/20 06:31 Resp 16 10/25/20 06:31 BP 130/83 10/25/20 06:31 Pulse Ox 100 10/23/20 22:01 Results & Data ([facility]) Current Inpatient Medications Current Inpatient Medications: Current Inpatient Medications Acetaminophen (Acetaminophen 325 Mg Tab) 650 mg PO Q4H PRN PRN Reason: Headache or Minor Fever Stop: 11/20/20 20:43 Al Hydrox/Mg Hydrox/Simethicone (Aluminum/Magnesium Susp 30 Ml Udc) 30 ml PO Q4H PRN PRN Reason: GI Upset Stop: 11/20/20 20:43 Amitriptyline HCl (Amitriptyline Hcl 100 Mg Tab) 100 mg PO HS KACY Stop: 11/21/20 21:59 Last Admin: 10/24/20 21:11 Dose: 100 mg Documented by: Bismuth Subsalicylate (Bismuth Subsalicylate Liqd 236 Ml) 15 ml PO PRN PRN PRN Reason: Loose Stool Stop: 11/20/20 20:43 Divalproex Sodium (Divalproex Extended Release 500 Mg Tab) 500 mg PO QAM KACY Stop: 11/23/20 08:59 Last Admin: 10/24/20 08:50 Dose: 500 mg Documented by: Divalproex Sodium (Divalproex Extended Release 500 Mg Tab) 1,000 mg PO HS [facility] Stop: 11/22/20 21:59 Last Admin: 10/24/20 21:12 Dose: 1,000 mg Documented by: Duloxetine HCl (Duloxetine Hcl 60 Mg Cap) 60 mg PO DAILY KACY Stop: 11/21/20 10:44 Last Admin: 10/24/20 08:50 Dose: 60 mg Documented by: Estradiol (Estradiol 1 Mg Tab) 1 mg PO DAILY KACY Stop: 11/21/20 08:59 Last Admin: 10/24/20 08:50 Dose: 1 mg Documented by: Hydroxychloroquine Sulfate (Hydroxychloroquine Sulfate 200 Mg Tab) 200 mg PO BID KACY Stop: 11/20/20 20:59 Last Admin: 10/24/20 21:11 Dose: 200 mg Documented by: Levothyroxine Sodium (Levothyroxine Sodium 137 Mcg Tablet) 137 mcg PO DAILY KACY Stop: 11/21/20 08:59 Last Admin: 10/24/20 08:51 Dose: 137 mcg Documented by: Lorazepam (Lorazepam 1 Mg Tab) 1 mg PO TID PRN PRN Reason: Anxiety Stop: 11/20/20 20:59 Last Admin: 10/24/20 21:15 Dose: 1 mg Documented by: Magnesium Hydroxide (Magnesium Hydroxide Susp 30 Ml Udc) 30 ml PO DAILY PRN PRN Reason: Constipation Stop: 11/20/20 20:43 Metoprolol Tartrate (Metoprolol Tartrate 25 Mg Tab) 25 mg PO DAILY KACY Stop: 11/21/20 08:59 Last Admin: 10/24/20 08:52 Dose: Not Given Documented by: Oxycodone HCl (Oxycodone Hcl Ir 5 Mg Tab (Immediate Release)) 5 mg PO BID PRN PRN Reason: Pain Stop: 11/04/20 20:44 Risperidone (Risperidone 2 Mg Tablet) 2 mg PO QAM KACY Stop: 11/24/20 08:59 Risperidone (Risperidone 3 Mg Tablet) 3 mg PO HS KACY Stop: 11/23/20 21:59 Last Admin: 10/24/20 21:12 Dose: 3 mg Documented by: Sodium Chloride (Sodium Chloride 0.65% Na Soln 45 Ml ([place])) 1 - 2 sprays NA PRN PRN PRN Reason: Nasal Dryness/Congestion Stop: 11/20/20 20:43 Mental Health & Subst Abuse Tx Psychiatrist Name of Psychiatrist: Dr. Fischer Therapist Name of Therapist: [employer] Name of [employer] A[employer]: willing to consider Post Discharge Appointments Primary Care Physician Name Of Family Doctor: Dr. Espinosa Neurologist Name of Neurologist: Dr. Tyler Contact Information Discharge Discharge Address: [address] [place] [address]
[2020-10-25] MEDS: DULoxetine HCL 60 MG CAP PO SCH (08:36)
[2020-10-25] MEDS: HYDROXYCHLOROQUINE SULFATE 200 MG TAB PO SCH ×2 (08:36→21:06)
[2020-10-25] MEDS: DIVALPROEX EXTENDED RELEASE 500 MG TAB PO SCH ×2 (08:36→21:06)
[2020-10-25] MEDS: LEVOTHYROXINE SODIUM 137 MCG TABLET PO SCH (08:36)
[2020-10-25] MEDS: estradioL 1 MG TAB PO SCH (08:36)
[2020-10-25] MEDS: METOPROLOL TARTRATE 25 MG TAB PO SCH (08:36)
[2020-10-25] MEDS: risperiDONE 2 MG TABLET PO SCH ×2 (08:37→21:07)
[2020-10-25] MEDS: LORazepam 1 MG TAB PO PRN ×3 (11:15→21:10)
[2020-10-25] MEDS: AMITRIPTYLINE HCL 100 MG TAB PO SCH (21:06)
[2020-10-26] MEDS: DULoxetine HCL 60 MG CAP PO SCH (08:11)
[2020-10-26] MEDS: estradioL 1 MG TAB PO SCH (08:11)
[2020-10-26] MEDS: LEVOTHYROXINE SODIUM 137 MCG TABLET PO SCH (08:11)
[2020-10-26] MEDS: HYDROXYCHLOROQUINE SULFATE 200 MG TAB PO SCH ×2 (08:11→22:04)
[2020-10-26] MEDS: METOPROLOL TARTRATE 25 MG TAB PO SCH (08:11)
[2020-10-26] MEDS: DIVALPROEX EXTENDED RELEASE 500 MG TAB PO SCH ×2 (08:11→22:03)
[2020-10-26] MEDS: risperiDONE 2 MG TABLET PO SCH ×2 (08:12→22:03)
--- NOTE | 2020-10-26 09:14 | Psychiatric Progress Note ---
Date of Service October 26, 2020 Impression / Recommendations Impression 50-year-old female with a history of depression with psychosis, anxiety, insomnia, PTSD, PNES, and multiple other neurological problems as well as chronic pain and opiate dependence who is on numerous medications and presents with worsening mood, anxiety, psychotic symptoms, and not feeling safe at home. We have been attempting to gather additional information given polypharmacy with multiple outpatient clinicians. Inpatient treatment is medically necessary given the severity of symptoms and inability to care for herself as an outpatient. The clinical picture is complicated by less than full adherence with her medications on an outpatient basis; chronic narcotic use and high dose benzodiazepines, history of head injury, migraines, and seizure activity (PNES vs complex partial seizures), with a fairly recent onset of paranoia and perceptual disturbances. On admission, aripiprazole was discontinued and risperidone continued/titrated, valproic acid level was in the subtherapeutic range (32) so was increased, and Ativan was reduced. Continuing to titrate risperidone to target ongoing/worsening auditory hallucinations. He had a discharge planning meeting yesterday with her mother, and we are recommending increased outpatient treatment to include psychotherapy and case management. (1) Psychosis: 10/22 - Based on patient's reports, initial diagnosis MDD with psychosis, although cannot rule out schizoaffective disorder or component of delirium. Auditory hallucinations, paranoia, and delusions of persecution, does not feel safe at home. Reality testing, limit excessive stimuli -D/c Abilify to limit polypharmacy and drug drug interactions, as it was just started and she does not feel it has been helpful, and continue risperidone 2mg bid, just increased yesterday. Would benefit from psychotherapy, explore options for outpatient treatment. It is unclear if her medication reconciliation was performed properly, multiple errors noted this morning, will need to get outpatient records to confirm at 7 doses. -Fasting labs from this morning were WNLs. -Family meeting with supports 10/23 -The patient reports that she is tolerating risperidone 2 mg twice a day without difficulty. She understands that the plan will most likely involve titrating the dose of this medication. -At times, the patient comes close to having what appears to be insight into her presenting psychotic symptoms. For example, she refers to herself as having "paranoia." However, when asked to explain her paranoia, she tells us that "paranoia" is the word that her family members are using and, in fact, she does truly believe that she is being monitored, followed, and persecuted as described above. -A neurologic work-up to date has been largely noncontributory. However, it is entirely possible that the patient is experiencing complex partial seizures with auditory and visual hallucinations. -Given that the patient's Depakote level is in the subtherapeutic range, and her dose of Depakote is limited to 500 mg at bedtime, we will increase the dose to the more standard 1500 mg a day beginning , and will follow up with a repeat serum valproic acid level on Monday. 10/24 - Increase risperidone to 2mg qam and 3mg hs to target ongoing hallucinations, paranoia and delusions of reference. Reviewed side effects, continue monitoring. -VPA increased yesterday, repeat trough scheduled for Mon. 10/26. 10/25 - Increase risperidone to 2mg qam and 4mg qhs to target psychosis. She is tolerating well so far. Will contact Dr. Fischer tomorrow to discuss case given polypharmacy, treatment resistance. - Reports h/o abnormal involuntary movements in the past when on higher dose risperidone, but AIMS 0 today. - Held pramipexole yesterday, as can cause/worsen hallucinations and patient doesn't think it is helping. - Family meeting with mother and daughter scheduled for this afternoon. 10/26 - Continue current medications. VPA level 72. Tolerating well. -Called Dr. Fischer to review case/coordinate care. (2) Depression: 10/22 - Continue duloxetine 90mg daily and amitriptyline 100mg HS. Continue Depakote, which she thinks is for seizures, and check level today. Get records from outpatient psychiatrist 10/23 - The patient does understand that duloxetine has been prescribed both for depression and for chronic pain. However, she feels that the "extra 30 mg" above her previous 60 mg dose has not had any favorable effect. Also, a possible side effect of duloxetine is seizures. We will does not then confirm that the patient actually has seizures, there are certain presentations that suggest a somewhat atypical seizure disorder, such as complex partial seizures. The patient agreed to a lower dose of duloxetine, and so the dose will be tapered from 90 mg a day to a dose of 60 mg a day. She was advised of the potential for cessation effects and agreed to report these if they occur. 10/26 - Patient reporting improved mood. (3) Hypothyroidism: 10/22 - Continue home dose of levothyroxine. TSH low and fT4 high, repeat this am showed low TSH 0.045 and normal free T4 1.52. Follow up with PCP as may benefit from slight dose increase. (4) Opiate dependence: 10/22 - H/o Suboxone, getting oxycodone from Dr. Espinosa, dose confirmed via PDMP. (5) Psychogenic nonepileptic seizure: 10/24 -concern for complex partial seizures noted by Dr. Hernandez, and Depakote increased from 500 mg to 1500 mg daily. Trough level is scheduled for 10/26/2020. She will need follow-up with neurology through [facility] physician group. (6) Fibromyalgia: 10/24 - Continued on home medications, including oxycodone, duloxetine, and pramipexole on admission. -As indication is unclear (I see no diagnosis of Parkinson's disease or restless leg syndrome, the conditions for which pramipexole is indicated) and due to worsening hallucinations and psychosis, will try holding her pramipexole as it is a dopamine agonist and may be worsening psychosis. She will need to follow- up with her PCP after discharge given polypharmacy with multiple medications with opposing mechanisms of action. (7) Arthritis: Continued on home dose of hydroxychloroquine. Risk Factors Assessment Male: No : Yes Do You Have Access To A Gun?: No Health Problems: Yes Mental Health Diagnoses: Yes Previous Attempt: No Family History of Suicide: No Previous Psychiatric Hospitalization: Yes Hopelessness: No Smoker: No Protective Factors Assessment : No Responsible for Young Children: No Employed: No Supportive Family: Yes Good Rapport with Provider: Yes Interval History Chief Complaint "Fine". Review of Systems Sleep Information Total Hours of Sleep: 8.25 Meal Information Percent Meal Consumed - Breakfast: 75 Percent Meal Consumed - Lunch: 75 Percent Meal Consumed - Dinner: 100 Subjective Subjective Patient was seen & assessed and interval progress reviewed with treatment team. Staff report she had a family meeting with social work and her mother, discussed ways her mother can help support her after discharge. She reports ongoing auditory hallucinations, hearing "How Much is That Doggie in the Window" which is constant when she is awake, and continues to feel she is being watched, including in the shower, stating she rushed her shower this morning as she feared someone was watching her. She feels people are "taunting" her, "saying bad pig, or something like that." She describes these not as voices, but thoughts that are being inserted into her mind. Despite this, she reports mood is improved, and denies SI. Sleep is "great" and appetite is good. Denies side effects to medications. She says her family meeting went well, and they are supportive. Talked about her son moving out and now living with his grandparents about 6 months ago, as "it was too explosive, we couldn't live together." Physical Exam Psychiatric Orientation: alert and cooperative Apperance: appropriately dressed, appropriately groomed and appeared stated age Eye Contact: + fair eye contact Motor Behavior: steady gait and station and no abnormal motor movements Speech: normal rate/rhythm/volume of speech Affect: + blunted affect; + mood not congruent with affect Mood still appears quite flat, little reactivity. "Good, fine." Thought Process: goal directed thought process Thought Content: + ideas of reference, + thought insertion and + self deprecation Suicidal Thoughts: denies suicidal thoughts Homicidal Thoughts: denies homicidal thoughts Hallucinations: + auditory hallucinations; no visual hallucinations Cognition: recent memory grossly intact, attention grossly intact and language grossly intact Insight: + fair insight Judgement: + fair judgement Vital Signs (Past 24 Hours) Last Vital Signs Temp 36.6 C 10/26/20 06:44 Pulse 90 10/26/20 06:45 Resp 16 10/26/20 06:44 BP 113/74 10/26/20 06:45 Pulse Ox 100 10/23/20 22:01 Results & Data ([facility]) Laboratory Results Laboratory Results - last 24 hr 10/26/20 08:08 Valproic Acid Pending Current Inpatient Medications Current Inpatient Medications: Current Inpatient Medications Acetaminophen (Acetaminophen 325 Mg Tab) 650 mg PO Q4H PRN PRN Reason: Headache or Minor Fever Stop: 11/20/20 20:43 Al Hydrox/Mg Hydrox/Simethicone (Aluminum/Magnesium Susp 30 Ml Udc) 30 ml PO Q4H PRN PRN Reason: GI Upset Stop: 11/20/20 20:43 Amitriptyline HCl (Amitriptyline Hcl 100 Mg Tab) 100 mg PO HS [facility] Stop: 11/21/20 21:59 Last Admin: 10/25/20 21:06 Dose: 100 mg Documented by: Bismuth Subsalicylate (Bismuth Subsalicylate Liqd 236 Ml) 15 ml PO PRN PRN PRN Reason: Loose Stool Stop: 11/20/20 20:43 Divalproex Sodium (Divalproex Extended Release 500 Mg Tab) 500 mg PO QAM [facility] Stop: 11/23/20 08:59 Last Admin: 10/26/20 08:11 Dose: 500 mg Documented by: Divalproex Sodium (Divalproex Extended Release 500 Mg Tab) 1,000 mg PO [facility] Stop: 11/22/20 21:59 Last Admin: 10/25/20 21:06 Dose: 1,000 mg Documented by: Duloxetine HCl (Duloxetine Hcl 60 Mg Cap) 60 mg PO DAILY [facility] Stop: 11/21/20 10:44 Last Admin: 10/26/20 08:11 Dose: 60 mg Documented by: Estradiol (Estradiol 1 Mg Tab) 1 mg PO DAILY [facility] Stop: 11/21/20 08:59 Last Admin: 10/26/20 08:11 Dose: 1 mg Documented by: Hydroxychloroquine Sulfate (Hydroxychloroquine Sulfate 200 Mg Tab) 200 mg PO BID [facility] Stop: 11/20/20 20:59 Last Admin: 10/26/20 08:11 Dose: 200 mg Documented by: Levothyroxine Sodium (Levothyroxine Sodium 137 Mcg Tablet) 137 mcg PO DAILY [facility] Stop: 11/21/20 08:59 Last Admin: 10/26/20 08:11 Dose: 137 mcg Documented by: Lorazepam (Lorazepam 1 Mg Tab) 1 mg PO TID PRN PRN Reason: Anxiety Stop: 11/20/20 20:59 Last Admin: 10/25/20 21:10 Dose: 1 mg Documented by: Magnesium Hydroxide (Magnesium Hydroxide Susp 30 Ml Udc) 30 ml PO DAILY PRN PRN Reason: Constipation Stop: 11/20/20 20:43 Metoprolol Tartrate (Metoprolol Tartrate 25 Mg Tab) 25 mg PO DAILY [facility] Stop: 11/21/20 08:59 Last Admin: 10/26/20 08:11 Dose: 25 mg Documented by: Oxycodone HCl (Oxycodone Hcl Ir 5 Mg Tab (Immediate Release)) 5 mg PO BID PRN PRN Reason: Pain Stop: 11/04/20 20:44 Risperidone (Risperidone 2 Mg Tablet) 2 mg PO QAM [facility] Stop: 11/24/20 08:59 Last Admin: 10/26/20 08:12 Dose: 2 mg Documented by: Risperidone (Risperidone 2 Mg Tablet) 4 mg PO HS [facility] Stop: 11/24/20 21:59 Last Admin: 10/25/20 21:07 Dose: 4 mg Documented by: Sodium Chloride (Sodium Chloride 0.65% Na Soln 45 Ml ([place])) 1 - 2 sprays NA PRN PRN PRN Reason: Nasal Dryness/Congestion Stop: 11/20/20 20:43 Mental Health & Subst Abuse Tx Psychiatrist Name of Psychiatrist: Dr. Fischer Psychiatrist's Psychiatric Appointment Comment: [facility] [facility], [address], [place], [place] Therapist Name of Therapist: . [facility] Name of [facility]: . Post Discharge Appointments Primary Care Physician Name Of Family Doctor: [facility] - Dr. Espinosa Primary Care Provider Appointment Comment: [address] [place] [address] Dr Alvarez, [place] [address] Neurologist Name of Neurologist: Dr. Tyler Contact Information Discharge Discharge Address: [address] [place] [address], [place] [address]
[2020-10-26] MEDS: LORazepam 1 MG TAB PO PRN ×3 (11:27→22:04)
[2020-10-26] MEDS: AMITRIPTYLINE HCL 100 MG TAB PO SCH (22:04)
[2020-10-27] MEDS: DULoxetine HCL 60 MG CAP PO SCH (08:44)
[2020-10-27] MEDS: DIVALPROEX EXTENDED RELEASE 500 MG TAB PO SCH ×2 (08:44→20:56)
[2020-10-27] MEDS: METOPROLOL TARTRATE 25 MG TAB PO SCH (08:45)
[2020-10-27] MEDS: HYDROXYCHLOROQUINE SULFATE 200 MG TAB PO SCH ×2 (08:45→20:55)
[2020-10-27] MEDS: estradioL 1 MG TAB PO SCH (08:45)
[2020-10-27] MEDS: LEVOTHYROXINE SODIUM 137 MCG TABLET PO SCH (08:45)
[2020-10-27] MEDS: risperiDONE 2 MG TABLET PO SCH ×2 (08:46→20:56)
--- NOTE | 2020-10-27 09:16 | Psychiatric Progress Note ---
Date of Service October 27, 2020 Impression / Recommendations Impression 50-year-old female with a history of depression with psychosis, anxiety, insomnia, PTSD, PNES, and multiple other neurological problems as well as chronic pain and opiate dependence who is on numerous medications and presents with worsening mood, anxiety, psychotic symptoms, and not feeling safe at home. We have been attempting to gather additional information given polypharmacy with multiple outpatient clinicians. Inpatient treatment is medically necessary given the severity of symptoms and inability to care for herself as an outpatient. The clinical picture is complicated by less than full adherence with her medications on an outpatient basis; chronic narcotic use and high dose benzodiazepines, history of head injury, migraines, and seizure activity (PNES vs complex partial seizures), with a fairly recent onset of paranoia and perceptual disturbances. On admission, aripiprazole was discontinued and risperidone continued/titrated, valproic acid level was in the subtherapeutic range (32) so was increased, and Ativan was reduced. Continuing to titrate risperidone to target ongoing/worsening auditory hallucinations, which are slowly improving. (1) Psychosis: 10/22 - Based on patient's reports, initial diagnosis MDD with psychosis, although cannot rule out schizoaffective disorder or component of delirium. Auditory hallucinations, paranoia, and delusions of persecution, does not feel safe at home. Reality testing, limit excessive stimuli -D/c Abilify to limit polypharmacy and drug drug interactions, as it was just started and she does not feel it has been helpful, and continue risperidone 2mg bid, just increased yesterday. Would benefit from psychotherapy, explore options for outpatient treatment. It is unclear if her medication reconciliation was performed properly, multiple errors noted this morning, will need to get outpatient records to confirm at 7 doses. -Fasting labs from this morning were WNLs. -Family meeting with supports 10/23 -The patient reports that she is tolerating risperidone 2 mg twice a day without difficulty. She understands that the plan will most likely involve titrating the dose of this medication. -At times, the patient comes close to having what appears to be insight into her presenting psychotic symptoms. For example, she refers to herself as having "paranoia." However, when asked to explain her paranoia, she tells us that "paranoia" is the word that her family members are using and, in fact, she does truly believe that she is being monitored, followed, and persecuted as described above. -A neurologic work-up to date has been largely noncontributory. However, it is entirely possible that the patient is experiencing complex partial seizures with auditory and visual hallucinations. -Given that the patient's Depakote level is in the subtherapeutic range, and her dose of Depakote is limited to 500 mg at bedtime, we will increase the dose to the more standard 1500 mg a day beginning , and will follow up with a repeat serum valproic acid level on Monday. 10/24 - Increase risperidone to 2mg qam and 3mg hs to target ongoing hallucinations, paranoia and delusions of reference. Reviewed side effects, continue monitoring. -VPA increased yesterday, repeat trough scheduled for Mon. 10/26. 10/25 - Increase risperidone to 2mg qam and 4mg qhs to target psychosis. She is tolerating well so far. Will contact Dr. Fischer tomorrow to discuss case given polypharmacy, treatment resistance. - Reports h/o abnormal involuntary movements in the past when on higher dose risperidone, but AIMS 0 today. - Held pramipexole yesterday, as can cause/worsen hallucinations and patient doesn't think it is helping. - Family meeting with mother and daughter scheduled for this afternoon. 10/26 - Continue current medications. VPA level 72. Tolerating well. -Called Dr. Fischer to review case/coordinate care - discussed case, med changes, attempts to increase her outpatient supports (therapy, case manag ement). 10/27 - Continue current meds, refer for BCM, recommend mobile psych rehab and/or therapy. (2) Depression: 10/22 - Continue duloxetine 90mg daily and amitriptyline 100mg HS. Continue Depakote, which she thinks is for seizures, and check level today. Get records from outpatient psychiatrist 10/23 - The patient does understand that duloxetine has been prescribed both for depression and for chronic pain. However, she feels that the "extra 30 mg" above her previous 60 mg dose has not had any favorable effect. Also, a possible side effect of duloxetine is seizures. We will does not then confirm that the patient actually has seizures, there are certain presentations that suggest a somewhat atypical seizure disorder, such as complex partial seizures. The patient agreed to a lower dose of duloxetine, and so the dose will be tapered from 90 mg a day to a dose of 60 mg a day. She was advised of the potential for cessation effects and agreed to report these if they occur. 10/26 - Patient reporting improved mood. (3) Hypothyroidism: 10/22 - Continue home dose of levothyroxine. TSH low and fT4 high, repeat this am showed low TSH 0.045 and normal free T4 1.52. Follow up with PCP as may benefit from slight dose increase. (4) Opiate dependence: 10/22 - H/o Suboxone, getting oxycodone from Dr. Espinosa, dose confirmed via PDMP. (5) Psychogenic nonepileptic seizure: 10/24 -concern for complex partial seizures noted by Dr. Hernandez, and Depakote increased from 500 mg to 1500 mg daily. Trough level is scheduled for 10/26/2020. She will need follow-up with neurology through [facility] group. (6) Fibromyalgia: 10/24 - Continued on home medications, including oxycodone, duloxetine, and pramipexole on admission. -As indication is unclear (I see no diagnosis of Parkinson's disease or restless leg syndrome, the conditions for which pramipexole is indicated) and due to worsening hallucinations and psychosis, will try holding her pramipexole as it is a dopamine agonist and may be worsening psychosis. She will need to follow- up with her PCP after discharge given polypharmacy with multiple medications with opposing mechanisms of action. (7) Arthritis: Continued on home dose of hydroxychloroquine. Risk Factors Assessment Male: No : Yes Do You Have Access To A Gun?: No Health Problems: Yes Mental Health Diagnoses: Yes Previous Attempt: No Family History of Suicide: No Previous Psychiatric Hospitalization: Yes Hopelessness: No Smoker: No Protective Factors Assessment : No Responsible for Young Children: No Employed: No Supportive Family: Yes Good Rapport with Provider: Yes Interval History Chief Complaint "I'm fine". Review of Systems Sleep Information Total Hours of Sleep: 6.5 Meal Information Percent Meal Consumed - Breakfast: 75 Percent Meal Consumed - Lunch: 100 Percent Meal Consumed - Dinner: 100 Subjective Subjective Patient was seen & assessed and interval progress reviewed with nursing and social work. Patient reports ongoing hallucinations, often of music, and wrote down a list of 18-20 songs "that thao of rotate." Distraction helps, for example watching a movie. Reports less "taunting" voices, and feels less distressed, but still "feel like I'm being watched, makes me uncomfortable." Was previously hearing voices stating she was going to long-term and calling her "a whore, a fucking slut," and they "wanted the penalty for me." These have decreased and when they do occur she feels better able to ignore them. States she is "trying to get used to it, do what I have to do regardless of the music." The intensity of the music is lessened, at times feels like it is "background music." She is willing for a BCM, discussed mobile psych rehab as have not been able to find a therapist who takes her insurance. Mood has improved and she denies SI. States her daughter has been staying at her house to help care for her dog, and has been staying with her for the past few week, and thinks she is staying there for another week or two until "the situation with her apartment is straightened out." Physical Exam Psychiatric Orientation: alert and cooperative Apperance: appropriately dressed, appropriately groomed and appeared stated age Eye Contact: good eye contact Motor Behavior: steady gait and station and no abnormal motor movements Speech: normal rate/rhythm/volume of speech Blunted, but slightly more reactive "Fine." Thought Process: goal directed thought process Thought Content: + paranoid, + ideas of reference and + persecution Suicidal Thoughts: denies suicidal thoughts Homicidal Thoughts: denies homicidal thoughts Hallucinations: + auditory hallucinations; no visual hallucinations Cognition: recent memory grossly intact, attention grossly intact and language grossly intact Insight: + fair insight Judgement: + fair judgement Vital Signs (Past 24 Hours) Last Vital Signs Temp 36.7 C 10/27/20 06:39 Pulse 72 10/27/20 06:40 Resp 16 10/27/20 06:39 BP 105/65 10/27/20 06:40 Pulse Ox 100 10/26/20 23:03 Results & Data ([facility]) Laboratory Results Laboratory Results - last 24 hr 10/26/20 08:08 Valproic Acid 72 Current Inpatient Medications Current Inpatient Medications: Current Inpatient Medications Acetaminophen (Acetaminophen 325 Mg Tab) 650 mg PO Q4H PRN PRN Reason: Headache or Minor Fever Stop: 11/20/20 20:43 Al Hydrox/Mg Hydrox/Simethicone (Aluminum/Magnesium Susp 30 Ml Udc) 30 ml PO Q4H PRN PRN Reason: GI Upset Stop: 11/20/20 20:43 Amitriptyline HCl (Amitriptyline Hcl 100 Mg Tab) [address] [facility] Stop: 11/21/20 21:59 Last Admin: 10/26/20 22:04 Dose: 100 mg Documented by: Bismuth Subsalicylate (Bismuth Subsalicylate Liqd 236 Ml) 15 ml PO PRN PRN PRN Reason: Loose Stool Stop: 11/20/20 20:43 Divalproex Sodium (Divalproex Extended Release 500 Mg Tab) [facility] Stop: 11/23/20 08:59 Last Admin: 10/27/20 08:44 Dose: 500 mg Documented by: Divalproex Sodium (Divalproex Extended Release 500 Mg Tab) 1,[address] [facility] Stop: 11/22/20 21:59 Last Admin: 10/26/20 22:03 Dose: 1,000 mg Documented by: Duloxetine HCl (Duloxetine Hcl 60 Mg Cap) 60 mg PO DAILY [facility] Stop: 11/21/20 10:44 Last Admin: 10/27/20 08:44 Dose: 60 mg Documented by: Estradiol (Estradiol 1 Mg Tab) 1 mg PO DAILY [facility] Stop: 11/21/20 08:59 Last Admin: 10/27/20 08:45 Dose: 1 mg Documented by: Hydroxychloroquine Sulfate (Hydroxychloroquine Sulfate 200 Mg Tab) 200 mg PO BID [facility] Stop: 11/20/20 20:59 Last Admin: 10/27/20 08:45 Dose: 200 mg Documented by: Levothyroxine Sodium (Levothyroxine Sodium 137 Mcg Tablet) 137 mcg PO DAILY [facility] Stop: 11/21/20 08:59 Last Admin: 10/27/20 08:45 Dose: 137 mcg Documented by: Lorazepam (Lorazepam 1 Mg Tab) 1 mg PO TID PRN PRN Reason: Anxiety Stop: 11/20/20 20:59 Last Admin: 10/26/20 22:04 Dose: 1 mg Documented by: Magnesium Hydroxide (Magnesium Hydroxide Susp 30 Ml Udc) 30 ml PO DAILY PRN PRN Reason: Constipation Stop: 11/20/20 20:43 Metoprolol Tartrate (Metoprolol Tartrate 25 Mg Tab) 25 mg PO DAILY [facility] Stop: 11/21/20 08:59 Last Admin: 10/27/20 08:45 Dose: 25 mg Documented by: Oxycodone HCl (Oxycodone Hcl Ir 5 Mg Tab (Immediate Release)) 5 mg PO BID PRN PRN Reason: Pain Stop: 11/04/20 20:44 Risperidone (Risperidone 2 Mg Tablet) 2 mg PO QAM [facility] Stop: 11/24/20 08:59 Last Admin: 10/27/20 08:46 Dose: 2 mg Documented by: Risperidone (Risperidone 2 Mg Tablet) 4 mg PO HS [facility] Stop: 11/24/20 21:59 Last Admin: 10/26/20 22:03 Dose: 4 mg Documented by: Sodium Chloride (Sodium Chloride 0.65% Na Soln 45 Ml ([place])) 1 - 2 sprays NA PRN PRN PRN Reason: Nasal Dryness/Congestion Stop: 11/20/20 20:43 Mental Health & Subst Abuse Tx Psychiatrist Name of Psychiatrist: Dr. Fischer Psychiatrist's Date of Appointment with Psychiatrist: 11/05/20 Time of Appointment with Psychiatrist: 12:50am Psychiatric Appointment Comment: [facility], [address], [place], [place] Therapist Name of Therapist: . Station Tender Name of Station Tender: . Post Discharge Appointments Primary Care Physician Name Of Family Doctor: [facility] - Dr. Espinosa Primary Care Date of Appointment with PCP: 10/30/20 Time of Appointment with PCP: 10:30am Provider Appointment Comment: [address] [place] [address] Dr Alvarez, [place] [address] Neurologist Name of Neurologist: Dr. Tyler Contact Information Discharge Discharge Address: [address] [place] [address], [place] [id number]
[2020-10-27] MEDS: LORazepam 1 MG TAB PO PRN ×3 (10:52→21:00)
[2020-10-27] MEDS: AMITRIPTYLINE HCL 100 MG TAB PO SCH (20:55)
[2020-10-28] MEDS: DULoxetine HCL 60 MG CAP PO SCH (09:11)
[2020-10-28] MEDS: DIVALPROEX EXTENDED RELEASE 500 MG TAB PO SCH ×2 (09:11→21:16)
[2020-10-28] MEDS: estradioL 1 MG TAB PO SCH (09:11)
[2020-10-28] MEDS: risperiDONE 2 MG TABLET PO SCH ×2 (09:12→21:16)
[2020-10-28] MEDS: METOPROLOL TARTRATE 25 MG TAB PO SCH (09:12)
[2020-10-28] MEDS: HYDROXYCHLOROQUINE SULFATE 200 MG TAB PO SCH ×2 (09:12→21:15)
[2020-10-28] MEDS: LEVOTHYROXINE SODIUM 137 MCG TABLET PO SCH (09:12)
[2020-10-28] MEDS: LORazepam 1 MG TAB PO PRN ×3 (10:55→21:18)
--- NOTE | 2020-10-28 10:58 | Psychiatric Progress Note ---
Date of Service October 28, 2020 Impression / Recommendations Impression 50-year-old female with a history of depression with psychosis, anxiety, insomnia, PTSD, PNES, and multiple other neurological problems as well as chronic pain and opiate dependence who is on numerous medications and presents with worsening mood, anxiety, psychotic symptoms, and not feeling safe at home. We have been attempting to gather additional information given polypharmacy with multiple outpatient clinicians. Inpatient treatment is medically necessary given the severity of symptoms and inability to care for herself as an outpatient. The clinical picture is complicated by less than full adherence with her medications on an outpatient basis; chronic narcotic use and high dose benzodiazepines, history of head injury, migraines, and seizure activity (PNES vs complex partial seizures), with a fairly recent onset of paranoia and perceptual disturbances. On admission, aripiprazole was discontinued and risperidone continued/titrated, valproic acid level was in the subtherapeutic range (32) so was increased, and Ativan was reduced. Continuing to titrate risperidone to target ongoing/worsening auditory hallucinations, which are slowly improving. (1) Psychosis: 10/22 - Based on patient's reports, initial diagnosis MDD with psychosis, although cannot rule out schizoaffective disorder or component of delirium. Auditory hallucinations, paranoia, and delusions of persecution, does not feel safe at home. Reality testing, limit excessive stimuli -D/c Abilify to limit polypharmacy and drug drug interactions, as it was just started and she does not feel it has been helpful, and continue risperidone 2mg bid, just increased yesterday. Would benefit from psychotherapy, explore options for outpatient treatment. It is unclear if her medication reconciliation was performed properly, multiple errors noted this morning, will need to get outpatient records to confirm at 7 doses. -Fasting labs from this morning were WNLs. -Family meeting with supports 10/23 -The patient reports that she is tolerating risperidone 2 mg twice a day without difficulty. She understands that the plan will most likely involve titrating the dose of this medication. -At times, the patient comes close to having what appears to be insight into her presenting psychotic symptoms. For example, she refers to herself as having "paranoia." However, when asked to explain her paranoia, she tells us that "paranoia" is the word that her family members are using and, in fact, she does truly believe that she is being monitored, followed, and persecuted as described above. -A neurologic work-up to date has been largely noncontributory. However, it is entirely possible that the patient is experiencing complex partial seizures with auditory and visual hallucinations. -Given that the patient's Depakote level is in the subtherapeutic range, and her dose of Depakote is limited to 500 mg at bedtime, we will increase the dose to the more standard 1500 mg a day beginning , and will follow up with a repeat serum valproic acid level on Monday. 10/24 - Increase risperidone to 2mg qam and 3mg hs to target ongoing hallucinations, paranoia and delusions of reference. Reviewed side effects, continue monitoring. -VPA increased yesterday, repeat trough scheduled for Mon. 10/26. 10/25 - Increase risperidone to 2mg qam and 4mg qhs to target psychosis. She is tolerating well so far. Will contact Dr. Fischer tomorrow to discuss case given polypharmacy, treatment resistance. - Reports h/o abnormal involuntary movements in the past when on higher dose risperidone, but AIMS 0 today. - Held pramipexole yesterday, as can cause/worsen hallucinations and patient doesn't think it is helping. - Family meeting with mother and daughter scheduled for this afternoon. 10/26 - Continue current medications. VPA level 72. Tolerating well. -Called Dr. Fischer to review case/coordinate care - discussed case, med changes, attempts to increase her outpatient supports (therapy, case manag ement). 10/27 - Continue current meds, refer for BCM, recommend mobile psych rehab and/or therapy. 10/28 - Continue current medication regimen. Discussed recommendation for continued taper of lorazepam, updated patient that this has been discussed with her outpatient psychiatrist who is in agreement. - Pt reporting improvement in level of paranoia and states that the music and auditory hallucinations, though not resolved, are much quieter. - Continue to work with case supervisor to explore options for day programming and/or therapy (2) Depression: 10/22 - Continue duloxetine 90mg daily and amitriptyline 100mg HS. Continue Depakote, which she thinks is for seizures, and check level today. Get records from outpatient psychiatrist 4/23 - The patient does understand that duloxetine has been prescribed both for depression and for chronic pain. However, she feels that the "extra 30 mg" above her previous 60 mg dose has not had any favorable effect. Also, a possible side effect of duloxetine is seizures. We will does not then confirm that the patient actually has seizures, there are certain presentations that suggest a somewhat atypical seizure disorder, such as complex partial seizures. The patient agreed to a lower dose of duloxetine, and so the dose will be tapered from 90 mg a day to a dose of 60 mg a day. She was advised of the potential for cessation effects and agreed to report these if they occur. 10/26 - Patient reporting improved mood. 10/28 - Pt continues to endorse improvement in mood (3) Hypothyroidism: 10/22 - Continue home dose of levothyroxine. TSH low and fT4 high, repeat this am showed low TSH 0.045 and normal free T4 1.52. Follow up with PCP as may benefit from slight dose increase. (4) Opiate dependence: 10/22 - H/o Suboxone, getting oxycodone from Dr. Espinosa, dose confirmed via PDMP. (5) Psychogenic nonepileptic seizure: 10/24 -concern for complex partial seizures noted by Dr. Hernandez, and Depakote increased from 500 mg to 1500 mg daily. Trough level is scheduled for 10/26/2020. She will need follow-up with neurology through [facility] physician group. (6) Fibromyalgia: 10/24 - Continued on home medications, including oxycodone, duloxetine, and pramipexole on admission. -As indication is unclear (I see no diagnosis of Parkinson's disease or restless leg syndrome, the conditions for which pramipexole is indicated) and due to worsening hallucinations and psychosis, will try holding her pramipexole as it is a dopamine agonist and may be worsening psychosis. She will need to follow- up with her PCP after discharge given polypharmacy with multiple medications with opposing mechanisms of action. (7) Arthritis: Continued on home dose of hydroxychloroquine. Risk Factors Assessment Male: No : Yes Do You Have Access To A Gun?: No Health Problems: Yes Mental Health Diagnoses: Yes Previous Attempt: No Family History of Suicide: No Previous Psychiatric Hospitalization: Yes Hopelessness: No Smoker: No Protective Factors Assessment : No Responsible for Young Children: No Employed: No Supportive Family: Yes Good Rapport with Provider: Yes Interval History Identifying Information CHRISTOPHER ORTIZ is a 50-year-old F who currently lives in [place] alone, has a history of depression with psychosis, PTSD, insomnia, anxiety, opiate dependence, 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 Chief Complaint "I'm actually feeling ready to move on, I just have to learn to mentally ignore these chants." Review of Systems Notes Constitutional: admits to feeling "a bit spacey" today Cardiovascular: denied Respiratory: denied Gastrointestinal: denied Neurological: denied Psychiatric: denies symptoms other than stated above Total of at least 10 systems reviewed, pertinent positives as above and in HPI. Sleep Information Total Hours of Sleep: 8.75 Sleep Comments: pt on q-15 minute checks Meal Information Percent Meal Consumed - Breakfast: 75 Percent Meal Consumed - Lunch: 100 Percent Meal Consumed - Dinner: 100 Subjective Subjective Patient was seen & assessed and interval progress reviewed with treatment team. Staff report the patient has been interactive with peers and attending group programming. She had indicated that her goals were to ensure outpatient services were in place and be discharged soon. Pt was seen today to assess progress since admission. When discussing her desire for discharge tomorrow, the patient states "I'm actually feeling ready to move on, I just have to learn to mentally ignore these chants." Pt admits to ongoing auditory hallucinations, both voices and music playing. She states that these are not as distressing as they have become quieter. Pt states they are reduced to "20% of what they used to be." Pt does admit to "feeling really spacey" today, but states this is not necessarily unusual for her. She reports feeling comfortable with her current medication regimen. Pt believes her paranoia is also improving. We did discuss the concept of reality testing, and patient was encouraged to spend additional time processing this topic today with staff to ensure she is feeling comfortable to continue this technique at home. Pt denied SI and well as other acute concerns today. Physical Exam Psychiatric Orientation: alert, oriented x 3 and cooperative Apperance: appropriately dressed, appropriately groomed and appeared stated age Eye Contact: good eye contact Motor Behavior: steady gait and station and no abnormal motor movements Speech: normal rate/rhythm/volume of speech Affect: euthymic affect (brighter, smiling appropriately ) Mood: + anxious mood (admits to some anxiety surrounding discharge transitions) Thought Process: goal directed thought process Thought Content: + paranoid (ongoing, but much improved per patient) Suicidal Thoughts: denies suicidal thoughts and denies suicidal intent Homicidal Thoughts: denies homicidal thoughts Hallucinations: + auditory hallucinations (quieter, "at 20% of what they used to be"); no visual hallucinations Cognition: attention grossly intact and language grossly intact Estimated Intelligence: consistent with education level Insight: + fair insight Judgement: + fair judgement Vital Signs (Past 24 Hours) Last Vital Signs Temp 36.5 C 10/28/20 06:58 Pulse 85 10/28/20 06:58 Resp 16 10/28/20 06:58 BP 117/75 10/28/20 06:58 Pulse Ox 100 10/26/20 23:03 Results & Data ([facility]) Current Inpatient Medications Current Inpatient Medications: Current Inpatient Medications Acetaminophen (Acetaminophen 325 Mg Tab) 650 mg PO Q4H PRN PRN Reason: Headache or Minor Fever Stop: 11/20/20 20:43 Al Hydrox/Mg Hydrox/Simethicone (Aluminum/Magnesium Susp 30 Ml Udc) 30 ml PO Q4H PRN PRN Reason: GI Upset Stop: 11/20/20 20:43 Amitriptyline HCl (Amitriptyline Hcl 100 Mg Tab) 100 mg PO [facility] Stop: 11/21/20 21:59 Last Admin: 10/27/20 20:55 Dose: 100 mg Documented by: Bismuth Subsalicylate (Bismuth Subsalicylate Liqd 236 Ml) 15 ml PO PRN PRN PRN Reason: Loose Stool Stop: 11/20/20 20:43 Divalproex Sodium (Divalproex Extended Release 500 Mg Tab) 500 mg PO [facility] Stop: 11/23/20 08:59 Last Admin: 10/28/20 09:11 Dose: 500 mg Documented by: Divalproex Sodium (Divalproex Extended Release 500 Mg Tab) 1,000 mg PO [facility] Stop: 11/22/20 21:59 Last Admin: 10/27/20 20:56 Dose: 1,000 mg Documented by: Duloxetine HCl (Duloxetine Hcl 60 Mg Cap) 60 mg PO DAILY [facility] Stop: 11/21/20 10:44 Last Admin: 10/28/20 09:11 Dose: 60 mg Documented by: Estradiol (Estradiol 1 Mg Tab) 1 mg PO DAILY [facility] Stop: 11/21/20 08:59 Last Admin: 10/28/20 09:11 Dose: 1 mg Documented by: Hydroxychloroquine Sulfate (Hydroxychloroquine Sulfate 200 Mg Tab) 200 mg PO BID [facility] Stop: 11/20/20 20:59 Last Admin: 10/28/20 09:12 Dose: 200 mg Documented by: Levothyroxine Sodium (Levothyroxine Sodium 137 Mcg Tablet) 137 mcg PO DAILY [facility] Stop: 11/21/20 08:59 Last Admin: 10/28/20 09:12 Dose: 137 mcg Documented by: Lorazepam (Lorazepam 1 Mg Tab) 1 mg PO TID PRN PRN Reason: Anxiety Stop: 11/20/20 20:59 Last Admin: 10/28/20 10:55 Dose: 1 mg Documented by: Magnesium Hydroxide (Magnesium Hydroxide Susp 30 Ml Udc) 30 ml PO DAILY PRN PRN Reason: Constipation Stop: 11/20/20 20:43 Metoprolol Tartrate (Metoprolol Tartrate 25 Mg Tab) 25 mg PO DAILY [facility]AC[facility] Stop: 11/21/20 08:59 Last Admin: 10/28/20 09:12 Dose: 25 mg Documented by: Oxycodone HCl (Oxycodone Hcl Ir 5 Mg Tab (Immediate Release)) 5 mg PO BID PRN PRN Reason: Pain Stop: 11/04/20 20:44 Risperidone (Risperidone 2 Mg Tablet) 2 mg PO QAM [facility] Stop: 11/24/20 08:59 Last Admin: 10/28/20 09:12 Dose: 2 mg Documented by: Risperidone (Risperidone 2 Mg Tablet) 4 mg PO HS [facility] Stop: 11/24/20 21:59 Last Admin: 10/27/20 20:56 Dose: 4 mg Documented by: Sodium Chloride (Sodium Chloride 0.65% Na Soln 45 Ml ([place])) 1 - 2 sprays NA PRN PRN PRN Reason: Nasal Dryness/Congestion Stop: 11/20/20 20:43 Mental Health & Subst Abuse Tx Psychiatrist Name of Psychiatrist: Dr. Fischer Psychiatrist's Date of Appointment with Psychiatrist: 11/05/20 Time of Appointment with Psychiatrist: 12:50am Psychiatric Appointment Comment: [address] , [address], [place], [place] Therapist Name of Therapist: . Shrimp Peeling Machine Tender Name of Shrimp Peeling Machine Tender: . Post Discharge Appointments Primary Care Physician Name Of Family Doctor: [facility] - Dr. Espinosa Primary Care Date of Appointment with PCP: 10/30/20 Time of Appointment with PCP: 10:30am Provider Appointment Comment: [address] [place] [address] [address], [place] [address] Neurologist Name of Neurologist: Dr. Tyler Contact Information Discharge Discharge Address: [address] [place] [address], [place] [address]
[2020-10-28] MEDS: ACETAMINOPHEN 325 MG TAB PO PRN (19:47)
[2020-10-28] MEDS: AMITRIPTYLINE HCL 100 MG TAB PO SCH (21:15)
[2020-10-29] MEDS: DIVALPROEX EXTENDED RELEASE 500 MG TAB PO SCH (08:26)
[2020-10-29] MEDS: DULoxetine HCL 60 MG CAP PO SCH (08:26)
[2020-10-29] MEDS: estradioL 1 MG TAB PO SCH (08:27)
[2020-10-29] MEDS: HYDROXYCHLOROQUINE SULFATE 200 MG TAB PO SCH (08:27)
[2020-10-29] MEDS: LEVOTHYROXINE SODIUM 137 MCG TABLET PO SCH (08:27)
[2020-10-29] MEDS: ACETAMINOPHEN 325 MG TAB PO PRN (08:28)
[2020-10-29] MEDS: risperiDONE 2 MG TABLET PO SCH (08:28)
[2020-10-29] MEDS: METOPROLOL TARTRATE 25 MG TAB PO SCH (08:31)
--- NOTE | 2020-10-29 09:00 | Discharge Summary ---
Date of Service October 29, 2020 History of Present Illness Patient presented to the ER with paranoia, auditory hallucinations, fears that she is being monitored and watched, and that her house has been bugged because she has a medical marijuana card. She reported hearing voices, mooing, oinking, and [place]. He said the voices were calling her a whore, felt confused, and was unable to tell what was real and what was not. She reported difficulty falling asleep, having to force herself to eat, and did not feel safe going home. Admission labs notable for sodium 134, alkaline phosphatase 139, TSH 0.040 and free T4 1.62, UA with 2+ ketones. She signed in voluntarily, and on arrival to the unit, told staff she was hearing music, when there was none. On my assessment she reports depression and increased anxiety for weeks, poor sleep for 1-2 weeks, and increase in voices, "they followed me here, I can hear them through the speakers, it doesn't make sense." She is hearing music and voices telling her "there's something wrong" with her, saying they want her to get the penalty, and make derogatory statements about her, which is distressing to her. At times she thinks "everything is staged." She saw Dr. Fischer yesterday and he increased risperidone to 2mg bid and Abilify was added 1-2 weeks ago. She reports poor medication adherence at times, especially when sleep deprived as she forgets them. Mood has been lower due to the pandemic, she isolates at home, doesn't want to go out in public or be around others, which is chronic. She states sleep was "really good" last night, but voices are worse today, "it's hellish." She reports taking opiates and benzodiazepines daily, and was using marijuana but stopped a couple months ago as psychosis and psychogenic seizures were worse when on it. Physical Exam Psychiatric Orientation: alert, oriented x 3 and cooperative Apperance: appropriately dressed, appropriately groomed and appeared stated age Eye Contact: good eye contact Motor Behavior: steady gait and station and no abnormal motor movements Speech: normal rate/rhythm/volume of speech Still mildly blunted, but more reactive, smiling appropriately. "Fine, good." Thought Process: goal directed thought process Thought Content: reality based without delusions Patient is able to reality test her perceptual disturbances. Suicidal Thoughts: denies suicidal thoughts Homicidal Thoughts: denies homicidal thoughts Hallucinations: + auditory hallucinations Ongoing auditory hallucinations of music and voices, which are reduced in intensity and frequency from admission, and she feels are manageable. Cognition: recent memory grossly intact, attention grossly intact and language grossly intact Estimated Intelligence: average estimated intelligence Insight: + fair insight Judgement: + fair judgement Vital Signs (Past 24 Hours) Last Vital Signs Temp 36.6 C 10/29/20 07:00 Pulse 92 H 10/29/20 08:30 Resp 16 10/29/20 07:00 BP 108/77 10/29/20 08:30 Pulse Ox 100 10/26/20 23:03 Principal Diagnosis Major depressive disorder, recurrent, severe with psychosis Psychiatric Data Patient was hospitalized for 8 days. Her case was reviewed with her outpatient psychiatrist, Dr. Fischer, and PCP records were requested and reviewed. She reported fairly new onset of psychotic symptoms, with a working diagnosis of psychotic depression, but other etiologies were considered as well, including effects of medications/polypharmacy (on pramipexole, dopamine agonist, as well as opiates and benzodiazepines), seizure disorder (on Depakote, but level low), insomnia (has intermittent insomnia and has become paranoid/psychotic in the past when sleep deprived), and thyroid disease (initial TSH was low and free T4 elevated). Pramipexole was held and lorazepam dose reduced. Repeat TSH and free T4 were within the normal limits. Aripiprazole was discontinued as she did not feel it had been helpful, and risperidone was increased. Later in her stay, duloxetine was reduced and Depakote increased. She tolerated these medication changes well. She was observed to be sleeping and eating well on the unit, and performing ADLs independently. Her auditory hallucinations and associated paranoia and ideas of reference decreased throughout her stay, and she was better able to reality test them. She consistently denied thoughts of harming herself or anyone else. She was able to attend and participate in groups and therapy, and interact appropriately with staff and peers. She agreed to referrals for outpatient therapy and case management; unfortunately due to her insurance, no local therapists were able to accept the referral, so recommendation was made for mobile psych rehab instead. She had a family meeting with the social work assistant and her mother on 10/25/2020; her mother was very supportive, but patient reported concerns about burdening her mother with her mental health issues. There was a discussion about cognitive distortions and how the patient could use her supports to reality test her thoughts. Her mother invited the patient to come to her home several days a week, so that she is less isolated. There is also discussion of reaching out to friends whom she had lost contact with, and her mother encouraged her to do this. Her mother was also supportive of getting back into therapy. Day of Discharge Assessment Patient reports her mood is "fine, good," significantly improved from admission, and she feels ready to go home. She states auditory hallucinations continue but are reduced, are not as distressing, and she feels able to reality test, for example by asking others if they are hearing music, and if they are not, she can conclude that it is in her mind. She is still hearing music, but it is reduced in volume and frequency. Auditory hallucinations of voices are also decreased, occurring a few times a day, but more muffled and quieter. She feels able to manage her hallucinations at their current level. She denies any thoughts of harming herself or others, states sleep has been "really good," denies any safety concerns with returning home. She denies side effects with medications, and states willingness to follow-up with her outpatient treatment. Transition of Care Transition Of Care Record: was reviewed with the patient Advance Directives Advance Directives Information Provided: No Advance Directives: No Mental Health Advance Directive: No Advance Directives on File: No Living Will: No Power of Campus Recruiting Coordinator: No Advance Directives Reason:: Declines as Mental Health Visit. Risk Factors Assessment Risk factors were mitigated by admission to the inpatient unit, adjusting medications to target mood and psychotic symptoms, coordination of care with outpatient clinicians, referring her for a higher level of outpatient care to include mobile psych rehab and case management, family meeting with the social work assistant and her mother, involving her in groups and therapy, working on healthy coping skills and her discharge safety plan. She is reporting improved mood and psychotic symptoms, has consistently denied thoughts of harming herself or others, is demonstrating good appetite and sleep, medication adherence, and stating willingness to follow-up with outpatient treatment. She is requesting discharge, and as she is no longer at acute risk of harm to herself, can be managed as an outpatient at this time. She does not have risk factors indicating imminent risk of harm to others. Male: No : Yes Do You Have Access To A Gun?: No Health Problems: Yes Mental Health Diagnoses: Yes Previous Attempt: No Family History of Suicide: No Previous Psychiatric Hospitalization: Yes Hopelessness: No Smoker: No Protective Factors Assessment : No Responsible for Young Children: No Employed: No Supportive Family: Yes Good Rapport with Provider: Yes Tobacco Cessation at Discharge Tobacco Cessation Medication Prescribed at Discharge: Not Applicable/Non-Smoker Total Time Total Time Spent: Greater Than 30 Minutes Total Time Includes: Examination of the patient, Discharge Planning and Medication Reconciliation Discharge Data Lab Results 10/21/20 10/21/20 10/21/20 14:27 14:27 14:27 WBC 4.87 RBC 4.43 Hgb 14.3 Hct 41.1 MCV 92.8 MCH 32.3 MCHC 34.8 RDW Std Deviation 43.9 RDW Coeff of Ruth 12.9 Plt Count 260 MPV 11.5 H Immature Gran % (Auto) 0.0 Neut % (Auto) 77.9 Lymph % (Auto) 16.4 [place] % (Auto) 5.5 Eos % (Auto) 0.0 Baso % (Auto) 0.2 Neut # (Auto) 3.79 Lymph # (Auto) 0.80 L [place] # (Auto) 0.27 Eos # (Auto) 0.00 Baso # (Auto) 0.01 Immature Gran # (Auto) 0.00 Sodium 134 L Potassium 3.8 Chloride 102 Carbon Dioxide 25 Anion Gap 7.0 BUN 7 Creatinine 0.68 Est Cr Clr Drug Dosing 107.8 Est GFR ( Amer) 116.6 Est GFR (Non-Af Amer) 100.6 BUN/Creatinine Ratio 10.2 Glucose 110 H Fasting Glucose Calcium 9.1 Total Bilirubin 0.4 AST 22 ALT 32 Alkaline Phosphatase 139 H Total Protein 7.1 Albumin 3.9 Globulin 3.2 Albumin/Globulin Ratio 1.2 Triglycerides Cholesterol LDL Cholesterol, Calc VLDL Cholesterol, Calc HDL Cholesterol Cholesterol/HDL Ratio TSH 0.040 L Free T4 1.62 H Urine Color Urine Appearance Urine pH Ur Specific [place] Urine Protein Urine Glucose (UA) Urine Ketones Urine Blood Urine Nitrite Urine Bilirubin Urine Urobilinogen Ur Leukocyte Esterase Salicylates 6.0 Urine Opiates Screen Ur Methadone, Qual Acetaminophen 4 L Urine Barbiturates Valproic Acid Ur Phencyclidine (PCP) U Amphetamin/Meth Scrn MDMA (Ecstasy) Screen U Benzodiazepines Scrn Ur Cocaine Metabolite U Marijuana (THC) Screen Ethyl Alcohol mg/dL COVID-19 Eval Order SARS-CoV-2 (PCR) Influenza Type A (PCR) Influenza Type B (PCR) RSV (RT-PCR) 10/21/20 10/21/20 10/21/20 14:27 18:14 18:14 WBC RBC Hgb Hct MCV MCH MCHC RDW Std Deviation RDW Coeff of Ruth Plt Count MPV Immature Gran % (Auto) Neut % (Auto) Lymph % (Auto) [place] % (Auto) Eos % (Auto) Baso % (Auto) Neut # (Auto) Lymph # (Auto) [place] # (Auto) Eos # (Auto) Baso # (Auto) Immature Gran # (Auto) Sodium Potassium Chloride Carbon Dioxide Anion Gap BUN Creatinine Est Cr Clr Drug Dosing Est GFR ( Amer) Est GFR (Non-Af Amer) BUN/Creatinine Ratio Glucose Fasting Glucose Calcium Total Bilirubin AST ALT Alkaline Phosphatase Total Protein Albumin Globulin Albumin/Globulin Ratio Triglycerides Cholesterol LDL Cholesterol, Calc VLDL Cholesterol, Calc HDL Cholesterol Cholesterol/HDL Ratio TSH Free T4 Urine Color Urine Appearance Urine pH Ur Specific [place] Urine Protein Urine Glucose (UA) Urine Ketones Urine Blood Urine Nitrite Urine Bilirubin Urine Urobilinogen Ur Leukocyte Esterase Salicylates Urine Opiates Screen Ur Methadone, Qual Acetaminophen Urine Barbiturates Valproic Acid Ur Phencyclidine (PCP) U Amphetamin/Meth Scrn MDMA (Ecstasy) Screen U Benzodiazepines Scrn Ur Cocaine Metabolite U Marijuana (THC) Screen Ethyl Alcohol mg/dL < 3.0 COVID-19 Eval Order CovFluRsv at [facility] SARS-CoV-2 (PCR) NEGATIVE Influenza Type A (PCR) Negative Influenza Type B (PCR) Negative RSV (RT-PCR) Negative 10/21/20 10/21/20 10/22/20 Unknown Unknown 07:57 WBC RBC Hgb Hct MCV MCH MCHC RDW Std Deviation RDW Coeff of Ruth Plt Count MPV Immature Gran % (Auto) Neut % (Auto) Lymph % (Auto) [place] % (Auto) Eos % (Auto) Baso % (Auto) Neut # (Auto) Lymph # (Auto) [place] # (Auto) Eos # (Auto) Baso # (Auto) Immature Gran # (Auto) Sodium Potassium Chloride Carbon Dioxide Anion Gap BUN Creatinine Est Cr Clr Drug Dosing Est GFR ( Amer) Est GFR (Non-Af Amer) BUN/Creatinine Ratio Glucose Fasting Glucose 90 Calcium Total Bilirubin AST ALT Alkaline Phosphatase Total Protein Albumin Globulin Albumin/Globulin Ratio Triglycerides 70 Cholesterol 152 LDL Cholesterol, Calc 30 VLDL Cholesterol, Calc 14 HDL Cholesterol 108 Cholesterol/HDL Ratio 1 TSH 0.045 L Free T4 1.52 Urine Color Yellow Urine Appearance Clear Urine pH 6.5 Ur Specific [place] 1.012 Urine Protein Negative Urine Glucose (UA) Negative Urine Ketones 2+ H Urine Blood Negative Urine Nitrite Negative Urine Bilirubin Negative Urine Urobilinogen Negative Ur Leukocyte Esterase Negative Salicylates Urine Opiates Screen Neg Ur Methadone, Qual Neg Acetaminophen Urine Barbiturates Neg Valproic Acid Ur Phencyclidine (PCP) Neg U Amphetamin/Meth Scrn Neg MDMA (Ecstasy) Screen Neg U Benzodiazepines Scrn Neg Ur Cocaine Metabolite Neg U Marijuana (THC) Screen Neg Ethyl Alcohol mg/dL COVID-19 Eval Order SARS-CoV-2 (PCR) Influenza Type A (PCR) Influenza Type B (PCR) RSV (RT-PCR) 10/22/20 10/26/20 11:12 08:08 WBC RBC Hgb Hct MCV MCH MCHC RDW Std Deviation RDW Coeff of Ruth Plt Count MPV Immature Gran % (Auto) Neut % (Auto) Lymph % (Auto) [place] % (Auto) Eos % (Auto) Baso % (Auto) Neut # (Auto) Lymph # (Auto) [place] # (Auto) Eos # (Auto) Baso # (Auto) Immature Gran # (Auto) Sodium Potassium Chloride Carbon Dioxide Anion Gap BUN Creatinine Est Cr Clr Drug Dosing Est GFR ( Amer) Est GFR (Non-Af Amer) BUN/Creatinine Ratio Glucose Fasting Glucose Calcium Total Bilirubin AST ALT Alkaline Phosphatase Total Protein Albumin Globulin Albumin/Globulin Ratio Triglycerides Cholesterol LDL Cholesterol, Calc VLDL Cholesterol, Calc HDL Cholesterol Cholesterol/HDL Ratio TSH Free T4 Urine Color Urine Appearance Urine pH Ur Specific [place] Urine Protein Urine Glucose (UA) Urine Ketones Urine Blood Urine Nitrite Urine Bilirubin Urine Urobilinogen Ur Leukocyte Esterase Salicylates Urine Opiates Screen Ur Methadone, Qual Acetaminophen Urine Barbiturates Valproic Acid 32 L 72 Ur Phencyclidine (PCP) U Amphetamin/Meth Scrn MDMA (Ecstasy) Screen U Benzodiazepines Scrn Ur Cocaine Metabolite U Marijuana (THC) Screen Ethyl Alcohol mg/dL COVID-19 Eval Order SARS-CoV-2 (PCR) Influenza Type A (PCR) Influenza Type B (PCR) RSV (RT-PCR) Hospital Course (1) Psychosis: 10/22 - Based on patient's reports, initial diagnosis MDD with psychosis, although cannot rule out schizoaffective disorder or component of delirium. Auditory hallucinations, paranoia, and delusions of persecution, does not feel safe at home. Reality testing, limit excessive stimuli -D/c Abilify to limit polypharmacy and drug drug interactions, as it was just started and she does not feel it has been helpful, and continue risperidone 2mg bid, just increased yesterday. Would benefit from psychotherapy, explore options for outpatient treatment. It is unclear if her medication reconciliation was performed properly, multiple errors noted this morning, will need to get outpatient records to confirm at 7 doses. -Fasting labs from this morning were WNLs. -Family meeting with supports 10/23 -The patient reports that she is tolerating risperidone 2 mg twice a day without difficulty. She understands that the plan will most likely involve titrating the dose of this medication. -At times, the patient comes close to having what appears to be insight into her presenting psychotic symptoms. For example, she refers to herself as having "paranoia." However, when asked to explain her paranoia, she tells us that "paranoia" is the word that her family members are using and, in fact, she does truly believe that she is being monitored, followed, and persecuted as described above. -A neurologic work-up to date has been largely noncontributory. However, it is entirely possible that the patient is experiencing complex partial seizures with auditory and visual hallucinations. -Given that the patient's Depakote level is in the subtherapeutic range, and her dose of Depakote is limited to 500 mg at bedtime, we will increase the dose to the more standard 1500 mg a day beginning , and will follow up with a repeat serum valproic acid level on Monday. 10/24 - Increase risperidone to 2mg qam and 3mg hs to target ongoing hallucinations, paranoia and delusions of reference. Reviewed side effects, continue monitoring. -VPA increased yesterday, repeat trough scheduled for Mon. 10/26. 10/25 - Increase risperidone to 2mg qam and 4mg qhs to target psychosis. She is tolerating well so far. Will contact Dr. Fischer tomorrow to discuss case given polypharmacy, treatment resistance. - Reports h/o abnormal involuntary movements in the past when on higher dose risperidone, but AIMS 0 today. - Held pramipexole yesterday, as can cause/worsen hallucinations and patient doesn't think it is helping. - Family meeting with mother and daughter scheduled for this afternoon. 10/26 - Continue current medications. VPA level 72. Tolerating well. -Called Dr. Fischer to review case/coordinate care - discussed case, med changes, attempts to increase her outpatient supports (therapy, case management). 10/27 - Continue current meds, refer for BCM, recommend mobile psych rehab and/or therapy. 10/28 - Continue current medication regimen. Discussed recommendation for continued taper of lorazepam, updated patient that this has been discussed with her outpatient psychiatrist who is in agreement. - Pt reporting improvement in level of paranoia and states that the music and auditory hallucinations, though not resolved, are much quieter. - Continue to work with special education case manager to explore options for day programming and/or therapy 10/29 -discharged home. #30-day prescriptions issued for risperidone and Depakote. Reviewed all of the medication changes with the patient, and will provide her with a printed medication list at discharge. Encouraged her to continue to taper off the Ativan with her outpatient psychiatrist. (2) Depression: 10/22 - Continue duloxetine 90mg daily and amitriptyline 100mg HS. Continue Depakote, which she thinks is for seizures, and check level today. Get records from outpatient psychiatrist 10/23 - The patient does understand that duloxetine has been prescribed both for depression and for chronic pain. However, she feels that the "extra 30 mg" above her previous 60 mg dose has not had any favorable effect. Also, a possible side effect of duloxetine is seizures. We will does not then confirm that the patient actually has seizures, there are certain presentations that suggest a somewhat atypical seizure disorder, such as complex partial seizures. The patient agreed to a lower dose of duloxetine, and so the dose will be tapered from 90 mg a day to a dose of 60 mg a day. She was advised of the potential for cessation effects and agreed to report these if they occur. 10/26 - Patient reporting improved mood. 10/28 - Pt continues to endorse improvement in mood (3) Hypothyroidism: 10/22 - Continue home dose of levothyroxine. TSH low and fT4 high, repeat this am showed low TSH 0.045 and normal free T4 1.52. Follow up with PCP as may benefit from slight dose increase. (4) Opiate dependence: 10/22 - H/o Suboxone, getting oxycodone from Dr. Espinosa, dose confirmed via PDMP. (5) Psychogenic nonepileptic seizure: 10/24 -concern for complex partial seizures noted by Dr. Hernandez, and Depakote increased from 500 mg to 1500 mg daily. Trough level is scheduled for 10/26/2020. She will need follow-up with neurology through [facility] physician group. 10/29 -Depakote trough level was 72 after her dose increase. Follow-up with outpatient neurologist. (6) Fibromyalgia: 10/24 - Continued on home medications, including oxycodone, duloxetine, and pramipexole on admission. -As indication is unclear (I see no diagnosis of Parkinson's disease or restless leg syndrome, the conditions for which pramipexole is indicated) and due to worsening hallucinations and psychosis, will try holding her pramipexole as it is a dopamine agonist and may be worsening psychosis. She will need to follow- up with her PCP after discharge given polypharmacy with multiple medications with opposing mechanisms of action. (7) Arthritis: Continued on home dose of hydroxychloroquine. Mental Health & Subst Abuse Tx Psychiatrist Name of Psychiatrist: Dr. Fischer Psychiatrist's Date of Appointment with Psychiatrist: 11/05/20 Time of Appointment with Psychiatrist: 12:50am Psychiatric Appointment Comment: [address] , [address], [place], [place] Therapist Name of Therapist: . Curator Of Collections Name of Curator Of Collections: [employer] Phone Number for Curator Of Collections: [phone] Case Management Appointment Comment: Will follow up with you to schedule an appointment Post Discharge Appointments Primary Care Physician Name Of Family Doctor: [facility] - Dr. Espinosa Primary Care Date of Appointment with PCP: 10/30/20 Time of Appointment with PCP: 10:30am Provider Appointment Comment: [address] [place] [address] Dr [address], [place] [address] Neurologist Name of Neurologist: NOEMI Tyler Neurologist's Date of Appointment with Neurologist: 01/27/21 Time of Appointment with Neurologist: 9:30 a.m. Neurology Appointment Comment: Neurology office Smoking Cessation Counseling Tobacco Cessation Medication Prescribed at Discharge: Not Applicable/Non-Smoker Contact Information Discharge Discharge [address]: [address] [place] [id number] Discharge Plan Discharge Items Patient Disposition: Home - Self-Care Reason For Visit: MDD WITH PSYCHOTIC FEATURES Discharge Diagnosis: Depression with psychosis Activity: Per Instructions section Non-emergency contact: Primary Care Provider, Neurologist, Psychiatrist, Therapist and Opthalmic Tech Call non-emergency contact if: you have any medication questions and your sym ptoms worsen Follow-up/Referrals: Don Espinosa Jr, [Primary Care Provider] - Diet: Regular Addtl Attending Provider Instructions: SPECIAL CARE INSTRUCTIONS: 1. Follow through with your scheduled aftercare appointments. If unable to keep an appointment, please call to reschedule. 2. Take your medication only as prescribed. Medication should not be changed or stopped without the approval of your doctor. In the event of worsening symptoms or concerns about side effects, contact your doctor immediately. 3. Utilize new healthy coping skills, anger management skills, and stress management skills learned during your hospitalization. Journal feelings and process them with a support person. Identify stressors or situations that may result in relapse, deterioration or inappropriate behaviors and develop a plan to deal with those issues. 4. If your coping skills are ineffective and you are in crisis, contact your outpatient providers for direction. If unable to reach your providers, please call the [facility] CRISIS LINE AT , go to the [facility] walk-in center at [address], [address], [place], or go to the closest Emergency Room. 5. Avoid alcohol and un-prescribed drugs. 6. You have been provided with the Mental Health Advance Directives Pamphlet for your review. AFTERCARE APPOINTMENTS: * Please call your insurance company prior to your scheduled appointment to confirm your aftercare providers are covered. Take your insurance information to your appointments. WHO TO CALL AND WHEN: Medical Emergencies: For questions or emergencies related to your hospital stay, please contact the Inpatient Behavioral Health Unit at [phone]. A film waxer is on-call 23/01 for the Behavioral Health Unit for emergencies At any time you feel your situation is an emergency, you may also call 911 immediately. Pending Studies at Discharge: No Stand-Alone Forms: My [facility], Smoking Cessation Medications and DC Order Prescriptions: New risperidone [Risperdal] 2 mg Tablet 2 mg PO UD Qty: 90 RF: 0 divalproex 500 mg tablet extended release 24 hr 1,500 mg PO HS Qty: 45 RF: 0 Continued estradiol 1 mg tablet 1 mg PO DAILY Qty: 90 RF: 3 metoprolol tartrate 25 mg tablet 25 mg PO DAILY RF: 0 hydroxychloroquine 200 mg tablet 200 mg PO BID RF: 0 oxycodone 5 mg tablet 5 mg PO BID MDD 2 tabs PRN (Reason: Pain) RF: 0 amitriptyline 50 mg tablet 100 mg PO HS RF: 0 levothyroxine 137 mcg tablet 137 mcg PO DAILY RF: 0 duloxetine 60 mg capsule,delayed release(DR/EC) 60 mg PO DAILY RF: 0 Changed lorazepam [Ativan] 2 mg tablet 1 mg PO TID Qty: 0 RF: 0 Discontinued pramipexole 0.5 mg tablet 1 mg PO HS RF: 0 duloxetine [Cymbalta] 30 mg Capsule,Delayed Release(Dr/Ec) 30 mg PO HS RF: 0 aripiprazole [Abilify] 5 mg Tablet 5 mg PO DAILY RF: 0 pramipexole 0.5 mg tablet 1.5 mg PO HS RF: 0 Discharge Orders: Discharge Order (Routine); Ordered 10/29/20 Ordered By: Ally Livingston Admission Data Admit Date/Time: 10/21/20 20:44 Attending Provider: Ally Livingston Admit Provider: Rebecca Cheng Primary Care Provider: Don Espinosa Jr Other Interventions: PSY Interdisciplinary Discharge Planning Last Done: 10/28/20 12:40 Coding Level of Care Code 19749 D/C day mgmt > 30 min Diagnoses Psychosis F29 Depression F32.9 Hypothyroidism E03.9 Opiate dependence F11.20 Psychogenic nonepileptic seizure F44.5 Fibromyalgia M79.7 Arthritis M19.90
== END 2020-10-29 10:53 | disposition home or self-care (01) | DRG 885 ==
LOC: ED 13:41 → 3S 20:44

== ENCOUNTER 2022-09-27 20:47 | Inpatient (IN) ==
[2022-09-27] MEDS ORDERED: OPTIRAY 320 500ml IV ONE (21:24)
[2022-09-27 21:29] LABS: iSTAT Creatinine 0.7 mg/dl (0.6-1.3); iSTAT Hemoglobin 13.6 g/dl (12.0-16.0); iSTAT Ionized Calcium 1.14 mmol/l (1.12-1.32); iSTAT Potassium 3.6 mmol/L (3.3-5.0)
[2022-09-27 21:40] LABS: Partial Thromboplastin Ratio 0.9; Partial Thromboplastin Time 23.4 Seconds (21.0-31.0); Prothrombin Time 10.6 Seconds (9.0-12.0)
--- NOTE | 2022-09-27 21:42 | CT Scan Report ---
Exam(s): CT HEAD Without Contrast EXAM: CT Head Without Intravenous Contrast CLINICAL HISTORY: Reason for exam: neuro deficit, acute stroke suspected. TECHNIQUE: Axial computed tomography images of the head/brain without intravenous contrast. Automated exposure control was utilized for the study. A dose lowering technique was utilized adhering to the principles of ALARA. COMPARISON: No relevant prior studies available. FINDINGS: No acute intracranial hemorrhage. No midline shift or mass effect. The territorial keys-white matter differentiation is maintained throughout. Age-related cerebral volume loss. Periventricular and subcortical white matter hypoattenuation, consistent with chronic microangiopathy. The visualized orbits appear grossly unremarkable. The calvarium is intact. The visualized paranasal sinuses and mastoid air cells are grossly clear. IMPRESSION: No acute intracranial hemorrhage, midline shift, or mass effect. Electronically signed by: Andrea Perkins MD 09/27/22 21:41 PM
[2022-09-27 21:45] LABS: Acetaminophen < 3 ug/ml (10-30); Salicylate < 3.0 mg/dl (3.0-30)
[2022-09-27 21:46] LABS: Basophils # (auto) 0.02 K/uL (0-0.2); Basophils % (auto) 0.2 %; Hematocrit (blood only) 38.8 % (37.0-47.0); Hemoglobin 12.9 g/dl (12.0-16.0); Immature Granulocytes # (auto) 0.02 K/uL (0.01-0.20); Immature Granulocytes % (auto) 0.2 %; Lymphocytes # (auto) 0.67 K/uL (1.2-3.4); Lymphocytes % (auto) 7.8 %; Mean Corpuscular Hemoglobin 30.8 pg (25.0-34.0); Mean Corpuscular Hgb Conc 33.2 g/dL (32.0-36.0); Mean Corpuscular Volume 92.6 fL (80.0-100.0); Mean Platelet Volume 10.6 fL (9.4-12.4); Monocytes # (auto) 0.19 K/uL (0.11-0.59); Monocytes % (auto) 2.2 %; Neutrophils # (auto) 7.72 K/uL (1.40-6.50); Neutrophils % (auto) 89.6 %; Platelet Count 313 K/uL (130-400); RDW Coefficient of Variation 13.8 % (11.5-14.5); RDW Standard Deviation 47.1 fL (36.4-46.3); Red Blood Count 4.19 M/uL (4.20-5.40); White Blood Count 8.62 K/ul (4.8-10.8)
[2022-09-27 21:48] LABS: Appearance Urine Clear (Clear); Bacteria Urine Automated Negative (Negative); Bilirubin Urine Negative (Negative); Blood Urine 2+ (Negative); Color Urine Dark Yellow; Epithelial Cell Urine Auto 20-30 /lpf (0-5); Glucose Urine UA Negative (Negative); Ketones Urine 2+ (Negative); Leukocyte Esterase Urine Negative (Negative); Nitrite Urine Negative (Negative); Protein Urine 1+ (Negative); RBC Urine Automated 0-4 /hpf (0-4); Specific Gravity Urine > 1.045 (1.000-1.030); Urobilinogen Urine Negative (Negative)
[2022-09-27 21:52] LABS: Alanine Aminotransferase 17 U/L (7-52); Albumin Globulin Ratio 1.6 (0.9-2); Alkaline Phosphatase 131 U/L (34-104); Anion Gap 9 (3-11); Aspartate Aminotransferase 22 U/L (13-39); BUN Creatinine Ratio 22.9 (10-20); Bilirubin,Total 0.4 mg/dl (0.2-1.0); Blood Urea Nitrogen 16 mg/dl (6-23); Calcium 8.7 mg/dl (8.6-10.3); Carbon Dioxide 26 mmol/L (21-32); Chloride 105 mmol/L (98-107); Est GFR (African American) 113.8 ml/min; Est GFR (Non-African American) 98.2 ml/min; Globulin 2.5 gm/dl (2.5-4.0); Glucose 110 mg/dl (70-99(Fasting)); Magnesium 1.8 mg/dl (1.7-2.4); Potassium 3.8 mmol/L (3.5-5.1); Sodium 140 mmol/L (136-145); Total Protein 6.5 gm/dl (6.0-8.3)
--- NOTE | 2022-09-27 21:53 | Emergency Department Note ---
Impression & Plan Altered mental status, Dehydration, Elevated CK ED Provider Note ED Provider Note NAME: CHRISTOPHER ORTIZ AGE:52 SEX: Female : 1970 ARRIVES VIA: EMS INFORMANT: EMS ED PROVIDER(s): Ibis Vick DO CHIEF COMPLAINT: Altered mental status, found down HPI: This is a 52-year-old female who presents emergency department due to family concern for altered mental status and finding her on the floor of their home. Family reported to EMS that the last time they spoke with her was at 230 this afternoon when she seemed in her usual state of health. Patient does have mental health history. Family also reported to EMS she has been noncompliant with her medications recently. EMS reported stable vital signs in route, no other additional information was available. PAST MEDICAL HISTORY:See Below PAST SURGICAL HISTORY:See Below FAMILY HISTORY:See Below SOCIAL HISTORY:See Below HOME MEDICATIONS:See Below ALLERGIES:See Below VITALS:See Below PHYSICAL EXAMINATION: GENERAL: well nourished, no distress, non-toxic HEAD: nc/at, no evidence of facial trauma, no olson signs, no raccoon eyes EYE EXAM: normal conjunctiva, PERRL and EOM's grossly intact OROPHARYNX: no exudate, no erythema, lips, buccal mucosa, and tongue normal and mucous membranes are dry NECK: supple, no nuchal rigidity, no adenopathy, non-tender LUNGS: Clear to auscultation. Normal chest wall mechanics, no w/r/r HEART: no murmurs, S1 normal and S2 normal ABDOMEN: abdomen soft, non-tender, normo-active bowel sounds, no masses, no rebound or guarding. No evidence of trauma. BACK: Back is symmetrical on inspection and there is no deformity, no midline tenderness, no CVA tenderness. SKIN: no rashes, petechiae, orbruising UPPER EXTREMITIES: upper extremities are grossly normal. FROM, nml pulses b/l. No evidence of trauma or deformity. LOWER EXTREMITIES: No pitting edema. FROM, nml pulses b/l. No evidence of trauma or deformity. NEURO EXAM: Eyes open, withdraws to pain, will not otherwise follow commands, no other purposeful movement Vital Signs: reviewed and remarkable Differential Diagnosis: Differential diagnoses includes but is not limited to toxic, metabolic, infectious, traumatic, cardiac, neurologic, hematologic, psychiatric and inflammatory etiologies. MEDICAL DECISION MAKING: This is a 52 yo female who presents to the ER via EMS due to AMS. Unknown down time, last known well 1430. VS stable on arrival. Labs drawn and sent, IV established, EKG performed and interpreted by me at bedside, CXR performed and interpreted by me at bedside. Patient sent urgently for CT imaging due to unknown events and concern for possible ICH or CVA. VS remained stable and labs reassuring, with only mild elevation to her CK. Daughter was able to provide additional recent history upon her arrival. She was updated several times. Patient given IVF to begin rehydration and case discussed with the hospitalist for additional evaluation and treatment. Consultation(s): 2244: Discussed with Dr. Almeida. ER Treatment Provided: See below 2155: Daughter updated at bedside. 2231: Daughter updated at bedside. Diagnostics Interpreted By Me: -ECG: Normal sinus at 89, normal axis, prolonged QTc, interventricular conduction delay, nonspecific ST/T wave changes -Cardiac Monitoring: An order was placed for continuous cardiac monitoring. The monitor shows a rate of 80 with normal sinus rhythm. -Laboratory studies: As stated above and show below. -Imaging studies: X-ray Chest: A single view study of the chest was reviewed and was negative for cardiomegaly, focal infiltrate, effusion, pulmonary edema, or wide mediastinum. Triage Nursing Note Reviewed Prior/Outside Records Reviewed - prior DC summary reviewed Critical Care: Critical care of 46 min performed to assess and manage high likelihood of life- threatening AMS, involving labs and imaging performed with assessment to evaluate AMS diagnosis with frequent reassessment. This time includes bedside time, treatment discussions with patient/family/consultants, documentation time and excludes procedure time. 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, POSSIBLE DRUG REACTION FROM [facility]- NO ISSUES SINCE Degenerative disc disease Fibromyalgia H/O aneurysm STABLE, WATCHING; FOLLOWS W/ PCP History of ovarian cyst Hx of uterine prolapse vaginal owens Hypotension Hypothyroidism Insomnia Iron deficiency anemia Kidney stones HX Major depression with psychotic features Migraine without aura Narcotic drug use Opiate dependence Orthostatic hypotension Psychosis PTSD (post-traumatic stress disorder) Sensorineural hearing loss (SNHL) of both ears Surgical History H/O gastric bypass H/O laparoscopy diagnostic x2 History of colonoscopy History of cryosurgery cervix History of ERCP History of salpingo-oophorectomy left History of tonsillectomy History of tooth extraction Hx of bilateral breast reduction surgery Hx of lithotripsy S/P cholecystectomy Surgical history of tubal ligation Family History Mother Rheumatoid arthritis Heart disease Father Brain tumor Depression Uncle Thyroid disorder Myocardial infarction Prostate cancer Grandmother No problems noted. Unknown No problems noted. Grandmother (Paternal) Colon cancer Scoliosis Aunt Colon cancer Lung cancer Grandmother (Maternal) Heart disease Family/Other Lung disease Hypertension Diabetes Grandfather (Paternal) Myocardial infarction Grandmother (Paternal) Myocardial infarction Denies family history of Ovarian cancer Breast cancer Social History Smoking Status: Unknown if ever smoked Second Hand Exposure: No; Preferred Language: Moroccan Communication Ability: Effective Visual Impairment: Limited Hearing Ability: Normal Sales Commissions Analyst Required: No Beliefs That Will Affect Care: None marital status: Current Living Situation: Alone Current Living Situation Comment: states daughter lives next to her current occupational status: disabled How many Children do You have: 2 Feels Safe at Home: Yes Childhood Exposure to Second-Hand Smoke: Yes caffeine: Yes Dental Care, Regularly: Yes Physical Activity Frequency: Does not Exercise Seatbelt Use: always Sunscreen Use: No Assistive Devices: None Assistive Devices Comment: unknown, unable to answer appropriately Allergies Allergies Allergy/AdvReac Type Severity Reaction Status Date / Time ergotamine Allergy Unknown Unknown Verified 07/20/22 11:47 sumatriptan Allergy Unknown Unknown Verified 07/20/22 11:47 almotriptan AdvReac Severe coronary Verified 07/20/22 11:47 vaso spasms benztropine AdvReac Severe nausea and Verified 07/20/22 11:47 vomiting, grand narendra convulsion dihydroergotamine AdvReac Severe PALPATATION Verified 07/20/22 11:47 S-SWEATS frovatriptan AdvReac Severe coronary Verified 07/20/22 11:47 vaso spasms levetiracetam [From [facility]] AdvReac Severe grand mal Verified 07/20/22 11:47 convulsion and lack of speech & confusion. pregabalin AdvReac Intermediate flu like Verified 07/20/22 11:47 feelings topiramate AdvReac Intermediate flu like Verified 07/20/22 11:47 symptom Home Meds Home Medications Medication Instructions Recorded Confirmed levothyroxine 137 mcg tablet 137 mcg PO QAM 10/22/20 09/27/22 vilazodone 20 mg tablet 20 mg PO QAM 02/28/22 09/27/22 amitriptyline 50 mg tablet 150 mg PO HS 03/08/22 09/27/22 duloxetine 60 mg capsule,delayed 60 mg PO BID 04/20/22 09/27/22 release lorazepam 1 mg tablet 1 mg PO QID 04/25/22 09/27/22 acetaminophen 300 mg-codeine 30 mg 1 tab PO BID 09/27/22 09/27/22 tablet brexpiprazole 2 mg tablet (Rexulti) 2 mg PO QPM 09/27/22 09/27/22 buspirone 5 mg tablet 5 mg PO TID 09/27/22 09/27/22 Previous Rx's Medication Instructions Recorded mecobalamin (vitamin B12) 1,000 1,000 mcg PO DAILY #90 tabs 03/11/22 mcg chewable tablet metoprolol tartrate 25 mg tablet 25 mg PO QAM #90 tabs 05/30/22 methocarbamol 750 mg tablet 750 mg PO Q8H #60 tabs 06/13/22 celecoxib 200 mg capsule (Celebrex) 200 mg PO DAILY #30 caps 07/05/22 pantoprazole 40 mg tablet,delayed 40 mg PO DAILY #90 tabs 07/05/22 release ubrogepant 100 mg tablet (Ubrelvy) 100 mg PO .COMPLEX PRN migraine 07/12/22 headache #10 tabs promethazine 25 mg tablet 25 mg PO BID PRN NAUSEA/VOMITING 09/27/22 #60 tabs Results & Data (ED) Vital Signs Vital Signs - 24 hr 09/28/22 12:35 09/28/22 13:03 09/28/22 13:38 Temperature 36.7 C Temperature Source Oral Pulse Rate 87 Pulse Rate [Right Finger] 88 Respiratory Rate 18 Blood Pressure [Left Arm] 124/83 Blood Pressure [Right Arm] Blood Pressure Mean [Left Arm] 96 Blood Pressure Mean [Right Arm] Blood Pressure Position [Left Arm] Semi-fowlers Blood Pressure Position [Right Arm] Pulse Oximetry 96 Oxygen Delivery Method Room Air EWS Level of Consciousness - Last Result Spontaneously Alert EWS Temperature - Last Result 36.7 EWS Respiratory Rate - Last Result 18 EWS Oxygen Saturation - Last Result 96 EWS Oxygen in Use - Last Result No EWS Lactate - Last Result 1.3 EWS Score 0 EWS Clinical Risk Low Risk 09/28/22 16:37 09/28/22 19:43 09/28/22 19:43 Temperature 36.6 C 36.7 C Temperature Source Oral Oral Pulse Rate Pulse Rate [Right Finger] 93 H 87 Respiratory Rate 17 17 Blood Pressure [Left Arm] Blood Pressure [Right Arm] 112/64 100/65 Blood Pressure Mean [Left Arm] Blood Pressure Mean [Right Arm] 80 76 Blood Pressure Position [Left Arm] Blood Pressure Position [Right Arm] Lying Lying Pulse Oximetry 96 98 Oxygen Delivery Method Room Air Room Air EWS Level of Consciousness - Last Result Spontaneously Alert EWS Temperature - Last Result 36.6 EWS Respiratory Rate - Last Result 17 EWS Oxygen Saturation - Last Result 96 EWS Oxygen in Use - Last Result No EWS Lactate - Last Result 1.3 EWS Score 1 EWS Clinical Risk Low Risk 09/28/22 22:37 09/28/22 22:37 09/29/22 04:04 Temperature 36.5 C 37.0 C Temperature Source Oral Oral Pulse Rate Pulse Rate [Right Finger] 78 85 Respiratory Rate 17 18 Blood Pressure [Left Arm] Blood Pressure [Right Arm] 114/75 126/77 Blood Pressure Mean [Left Arm] Blood Pressure Mean [Right Arm] 88 93 Blood Pressure Position [Left Arm] Blood Pressure Position [Right Arm] Lying Lying Pulse Oximetry 98 93 Oxygen Delivery Method Room Air Room Air EWS Level of Consciousness - Last Result Spontaneously Alert EWS Temperature - Last Result 36.7 EWS Respiratory Rate - Last Result 17 EWS Oxygen Saturation - Last Result 98 EWS Oxygen in Use - Last Result No EWS Lactate - Last Result 1.3 EWS Score 2 EWS Clinical Risk Low Risk 09/29/22 04:05 09/29/22 07:57 Temperature 36.9 C Temperature Source Oral Pulse Rate Pulse Rate [Right Finger] 85 Respiratory Rate 18 Blood Pressure [Left Arm] Blood Pressure [Right Arm] 114/67 Blood Pressure Mean [Left Arm] Blood Pressure Mean [Right Arm] 82 Blood Pressure Position [Left Arm] Blood Pressure Position [Right Arm] Lying Pulse Oximetry 93 Oxygen Delivery Method Room Air EWS Level of Consciousness - Last Result Spontaneously Alert EWS Temperature - Last Result 37.0 EWS Respiratory Rate - Last Result 18 EWS Oxygen Saturation - Last Result 93 EWS Oxygen in Use - Last Result No EWS Lactate - Last Result 1.3 EWS Score 2 EWS Clinical Risk Low Risk Laboratory Data 09/27/22 21:10 09/27/22 21:10 Lab Results 09/27/22 09/27/22 09/27/22 Range/Units 21:06 21:10 21:10 WBC 8.62 (4.8-10.8) K/ul RBC 4.19 L (4.20-5.40) M/uL Hgb 12.9 (12.0-16.0) g/dl POC Hgb (12.0-16.0) g/dl Hct 38.8 (37.0-47.0) % POC Hct (37-47) % MCV 92.6 (80.0-100.0) fL MCH 30.8 (25.0-34.0) pg MCHC 33.2 (32.0-36.0) g/dL RDW Std Deviation 47.1 H (36.4-46.3) fL RDW Coeff of Ruth 13.8 (11.5-14.5) % Plt Count 313 (130-400) K/uL MPV 10.6 (9.4-12.4) fL Immature Gran % (Auto) 0.2 % Neut % (Auto) 89.6 % Lymph % (Auto) 7.8 % Lyon % (Auto) 2.2 % Eos % (Auto) 0.0 % Baso % (Auto) 0.2 % Neut # (Auto) 7.72 H (1.40-6.50) K/uL Lymph # (Auto) 0.67 L (1.2-3.4) K/uL Lyon # (Auto) 0.19 (0.11-0.59) K/uL Eos # (Auto) 0.00 (0-0.50) K/uL Baso # (Auto) 0.02 (0-0.2) K/uL Immature Gran # (Auto) 0.02 (0.01-0.20) K/uL PT 10.6 (9.0-12.0) Seconds INR 1.0 (0.9-1.1) APTT 23.4 (21.0-31.0) Seconds PTT Ratio 0.9 POC pH (7.35-7.45) POC pCO2 (35-46) mmHg POC pO2 (80-95) mmHg POC HCO3 (19-24) jennifer/L POC Base Excess (-9-1.8) jennifer/L POC ABG O2 Sat (90-95) % POC Sodium (135-144) mmol/L Sodium (136-145) mmol/L POC Potassium (3.3-5.0) mmol/L Potassium (3.5-5.1) mmol/L POC Chloride (101-112) mmol/L Chloride (98-107) mmol/L Carbon Dioxide (21-32) mmol/L POC Total CO2 (24-31) mmol/L Anion Gap (3-11) POC Anion Gap (16-25) mmol/L POC BUN (7-18) mg/dl BUN (6-23) mg/dl Creatinine (0.6-1.2) mg/dl POC Creatinine (0.6-1.3) mg/dl Est Cr Clr Drug Dosing Est GFR ( Amer) ml/min Est GFR (Non-Af Amer) ml/min BUN/Creatinine Ratio (10-20) Glucose (70-99(Fasting)) mg/dl POC Glucose 109 H (70-99) mg/dl POC Glucose (other) (70-99) mg/dl Lactate (0.4-2.0) mmol/L Calcium (8.6-10.3) mg/dl POC Ioniz Calcium Nuvia (1.12-1.32) mmol/l Magnesium (1.7-2.4) mg/dl Total Bilirubin (0.2-1.0) mg/dl AST (13-39) U/L ALT (7-52) U/L Alkaline Phosphatase (34-104) U/L Total Creatine Kinase (26-192) U/L Troponin I High Sens (0-14) pg/ml Total Protein (6.0-8.3) gm/dl Albumin (3.4-5.0) gm/dl Globulin (2.5-4.0) gm/dl Albumin/Globulin Ratio (0.9-2) Urine Color Urine Appearance (Clear) Urine pH (4.5-7.5) Ur Specific [place] (1.000-1.030) Urine Protein (Negative) Urine Glucose (UA) (Negative) Urine Ketones (Negative) Urine Blood (Negative) Urine Nitrite (Negative) Urine Bilirubin (Negative) Urine Urobilinogen (Negative) Ur Leukocyte Esterase (Negative) Urine WBC (Auto) (0-5) /hpf Urine RBC (Auto) (0-4) /hpf U Hyaline Cast (Auto) (0-5) /lpf U Epithel Cells (Auto) (0-5) /lpf Urine Bacteria (Auto) (Negative) Salicylates (3.0-30) mg/dl Urine Opiates Screen (Neg) Ur Methadone, Qual (Neg) Acetaminophen (10-30) ug/ml Urine Barbiturates (Neg) Ur Phencyclidine (PCP) (Neg) U Amphetamin/Meth Scrn (Neg) MDMA (Ecstasy) Screen (Neg) U Benzodiazepines Scrn (Neg) Ur Cocaine Metabolite (Neg) U Marijuana (THC) Screen (Neg) SARS-CoV-2 (PCR) (Negative) Influenza Type A (PCR) (Neg) Influenza Type B (PCR) (Neg) RSV (RT-PCR) (Neg) 09/27/22 09/27/22 09/27/22 Range/Units 21:10 21:10 21:10 WBC (4.8-10.8) K/ul RBC (4.20-5.40) M/uL Hgb (12.0-16.0) g/dl POC Hgb (12.0-16.0) g/dl Hct (37.0-47.0) % POC Hct (37-47) % MCV (80.0-100.0) fL MCH (25.0-34.0) pg MCHC (32.0-36.0) g/dL RDW Std Deviation (36.4-46.3) fL RDW Coeff of Ruth (11.5-14.5) % Plt Count (130-400) K/uL MPV (9.4-12.4) fL Immature Gran % (Auto) % Neut % (Auto) % Lymph % (Auto) % Lyon % (Auto) % Eos % (Auto) % Baso % (Auto) % Neut # (Auto) (1.40-6.50) K/uL Lymph # (Auto) (1.2-3.4) K/uL Lyon # (Auto) (0.11-0.59) K/uL Eos # (Auto) (0-0.50) K/uL Baso # (Auto) (0-0.2) K/uL Immature Gran # (Auto) (0.01-0.20) K/uL PT (9.0-12.0) Seconds INR (0.9-1.1) APTT (21.0-31.0) Seconds PTT Ratio POC pH (7.35-7.45) POC pCO2 (35-46) mmHg POC pO2 (80-95) mmHg POC HCO3 (19-24) jennifer/L POC Base Excess (-9-1.8) jennifer/L POC ABG O2 Sat (90-95) % POC Sodium (135-144) mmol/L Sodium 140 (136-145) mmol/L POC Potassium (3.3-5.0) mmol/L Potassium 3.8 (3.5-5.1) mmol/L POC Chloride (101-112) mmol/L Chloride 105 (98-107) mmol/L Carbon Dioxide 26 (21-32) mmol/L POC Total CO2 (24-31) mmol/L Anion Gap 9 (3-11) POC Anion Gap (16-25) mmol/L POC BUN (7-18) mg/dl BUN 16 (6-23) mg/dl Creatinine 0.70 (0.6-1.2) mg/dl POC Creatinine (0.6-1.3) mg/dl Est Cr Clr Drug Dosing Not Reportable Est GFR ( Amer) 113.8 ml/min Est GFR (Non-Af Amer) 98.2 ml/min BUN/Creatinine Ratio 22.9 H (10-20) Glucose 110 H (70-99(Fasting)) mg/dl POC Glucose (70-99) mg/dl POC Glucose (other) (70-99) mg/dl Lactate 1.3 (0.4-2.0) mmol/L Calcium 8.7 (8.6-10.3) mg/dl POC Ioniz Calcium Nuvia (1.12-1.32) mmol/l Magnesium 1.8 (1.7-2.4) mg/dl Total Bilirubin 0.4 (0.2-1.0) mg/dl AST 22 (13-39) U/L ALT 17 (7-52) U/L Alkaline Phosphatase 131 H (34-104) U/L Total Creatine Kinase 794 H (26-192) U/L Troponin I High Sens 3.2 (0-14) pg/ml Total Protein 6.5 (6.0-8.3) gm/dl Albumin 4.0 (3.4-5.0) gm/dl Globulin 2.5 (2.5-4.0) gm/dl Albumin/Globulin Ratio 1.6 (0.9-2) Urine Color Urine Appearance (Clear) Urine pH (4.5-7.5) Ur Specific [place] (1.000-1.030) Urine Protein (Negative) Urine Glucose (UA) (Negative) Urine Ketones (Negative) Urine Blood (Negative) Urine Nitrite (Negative) Urine Bilirubin (Negative) Urine Urobilinogen (Negative) Ur Leukocyte Esterase (Negative) Urine WBC (Auto) (0-5) /hpf Urine RBC (Auto) (0-4) /hpf U Hyaline Cast (Auto) (0-5) /lpf U Epithel Cells (Auto) (0-5) /lpf Urine Bacteria (Auto) (Negative) Salicylates (3.0-30) mg/dl Urine Opiates Screen (Neg) Ur Methadone, Qual (Neg) Acetaminophen (10-30) ug/ml Urine Barbiturates (Neg) Ur Phencyclidine (PCP) (Neg) U Amphetamin/Meth Scrn (Neg) MDMA (Ecstasy) Screen (Neg) U Benzodiazepines Scrn (Neg) Ur Cocaine Metabolite (Neg) U Marijuana (THC) Screen (Neg) SARS-CoV-2 (PCR) (Negative) Influenza Type A (PCR) (Neg) Influenza Type B (PCR) (Neg) RSV (RT-PCR) (Neg) 09/27/22 09/27/22 09/27/22 Range/Units 21:10 21:15 21:36 WBC (4.8-10.8) K/ul RBC (4.20-5.40) M/uL Hgb (12.0-16.0) g/dl POC Hgb 13.6 (12.0-16.0) g/dl Hct (37.0-47.0) % POC Hct 40 (37-47) % MCV (80.0-100.0) fL MCH (25.0-34.0) pg MCHC (32.0-36.0) g/dL RDW Std Deviation (36.4-46.3) fL RDW Coeff of Ruth (11.5-14.5) % Plt Count (130-400) K/uL MPV (9.4-12.4) fL Immature Gran % (Auto) % Neut % (Auto) % Lymph % (Auto) % Lyon % (Auto) % Eos % (Auto) % Baso % (Auto) % Neut # (Auto) (1.40-6.50) K/uL Lymph # (Auto) (1.2-3.4) K/uL Lyon # (Auto) (0.11-0.59) K/uL Eos # (Auto) (0-0.50) K/uL Baso # (Auto) (0-0.2) K/uL Immature Gran # (Auto) (0.01-0.20) K/uL PT (9.0-12.0) Seconds INR (0.9-1.1) APTT (21.0-31.0) Seconds PTT Ratio POC pH (7.35-7.45) POC pCO2 (35-46) mmHg POC pO2 (80-95) mmHg POC HCO3 (19-24) jennifer/L POC Base Excess (-9-1.8) jennifer/L POC ABG O2 Sat (90-95) % POC Sodium 140 (135-144) mmol/L Sodium (136-145) mmol/L POC Potassium 3.6 (3.3-5.0) mmol/L Potassium (3.5-5.1) mmol/L POC Chloride 104 (101-112) mmol/L Chloride (98-107) mmol/L Carbon Dioxide (21-32) mmol/L POC Total CO2 24 (24-31) mmol/L Anion Gap (3-11) POC Anion Gap 17.0 (16-25) mmol/L POC BUN 16 (7-18) mg/dl BUN (6-23) mg/dl Creatinine (0.6-1.2) mg/dl POC Creatinine 0.7 (0.6-1.3) mg/dl Est Cr Clr Drug Dosing Est GFR ( Amer) ml/min Est GFR (Non-Af Amer) ml/min BUN/Creatinine Ratio (10-20) Glucose (70-99(Fasting)) mg/dl POC Glucose (70-99) mg/dl POC Glucose (other) 111 H (70-99) mg/dl Lactate (0.4-2.0) mmol/L Calcium (8.6-10.3) mg/dl POC Ioniz Calcium Nuvia 1.14 (1.12-1.32) mmol/l Magnesium (1.7-2.4) mg/dl Total Bilirubin (0.2-1.0) mg/dl AST (13-39) U/L ALT (7-52) U/L Alkaline Phosphatase (34-104) U/L Total Creatine Kinase (26-192) U/L Troponin I High Sens (0-14) pg/ml Total Protein (6.0-8.3) gm/dl Albumin (3.4-5.0) gm/dl Globulin (2.5-4.0) gm/dl Albumin/Globulin Ratio (0.9-2) Urine Color Dark Yellow Urine Appearance Clear (Clear) Urine pH 6.0 (4.5-7.5) Ur Specific [place] > 1.045 H (1.000-1.030) Urine Protein 1+ H (Negative) Urine Glucose (UA) Negative (Negative) Urine Ketones 2+ H (Negative) Urine Blood 2+ H (Negative) Urine Nitrite Negative (Negative) Urine Bilirubin Negative (Negative) Urine Urobilinogen Negative (Negative) Ur Leukocyte Esterase Negative (Negative) Urine WBC (Auto) 1-5 (0-5) /hpf Urine RBC (Auto) 0-4 (0-4) /hpf U Hyaline Cast (Auto) 5-10 H (0-5) /lpf U Epithel Cells (Auto) 20-30 H (0-5) /lpf Urine Bacteria (Auto) Negative (Negative) Salicylates < 3.0 L (3.0-30) mg/dl Urine Opiates Screen (Neg) Ur Methadone, Qual (Neg) Acetaminophen < 3 L (10-30) ug/ml Urine Barbiturates (Neg) Ur Phencyclidine (PCP) (Neg) U Amphetamin/Meth Scrn (Neg) MDMA (Ecstasy) Screen (Neg) U Benzodiazepines Scrn (Neg) Ur Cocaine Metabolite (Neg) U Marijuana (THC) Screen (Neg) SARS-CoV-2 (PCR) (Negative) Influenza Type A (PCR) (Neg) Influenza Type B (PCR) (Neg) RSV (RT-PCR) (Neg) 09/27/22 09/27/22 09/27/22 Range/Units 21:36 21:55 21:58 WBC (4.8-10.8) K/ul RBC (4.20-5.40) M/uL Hgb (12.0-16.0) g/dl POC Hgb (12.0-16.0) g/dl Hct (37.0-47.0) % POC Hct (37-47) % MCV (80.0-100.0) fL MCH (25.0-34.0) pg MCHC (32.0-36.0) g/dL RDW Std Deviation (36.4-46.3) fL RDW Coeff of Ruth (11.5-14.5) % Plt Count (130-400) K/uL MPV (9.4-12.4) fL Immature Gran % (Auto) % Neut % (Auto) % Lymph % (Auto) % Lyon % (Auto) % Eos % (Auto) % Baso % (Auto) % Neut # (Auto) (1.40-6.50) K/uL Lymph # (Auto) (1.2-3.4) K/uL Lyon # (Auto) (0.11-0.59) K/uL Eos # (Auto) (0-0.50) K/uL Baso # (Auto) (0-0.2) K/uL Immature Gran # (Auto) (0.01-0.20) K/uL PT (9.0-12.0) Seconds INR (0.9-1.1) APTT (21.0-31.0) Seconds PTT Ratio POC pH 7.39 (7.35-7.45) POC pCO2 43 (35-46) mmHg POC pO2 74 L (80-95) mmHg POC HCO3 26 H (19-24) jennifer/L POC Base Excess 1.0 (-9-1.8) jennifer/L POC ABG O2 Sat 94.0 (90-95) % POC Sodium (135-144) mmol/L Sodium (136-145) mmol/L POC Potassium (3.3-5.0) mmol/L Potassium (3.5-5.1) mmol/L POC Chloride (101-112) mmol/L Chloride (98-107) mmol/L Carbon Dioxide (21-32) mmol/L POC Total CO2 27 (24-31) mmol/L Anion Gap (3-11) POC Anion Gap (16-25) mmol/L POC BUN (7-18) mg/dl BUN (6-23) mg/dl Creatinine (0.6-1.2) mg/dl POC Creatinine (0.6-1.3) mg/dl Est Cr Clr Drug Dosing Est GFR ( Amer) ml/min Est GFR (Non-Af Amer) ml/min BUN/Creatinine Ratio (10-20) Glucose (70-99(Fasting)) mg/dl POC Glucose (70-99) mg/dl POC Glucose (other) (70-99) mg/dl Lactate (0.4-2.0) mmol/L Calcium (8.6-10.3) mg/dl POC Ioniz Calcium Nuvia (1.12-1.32) mmol/l Magnesium (1.7-2.4) mg/dl Total Bilirubin (0.2-1.0) mg/dl AST (13-39) U/L ALT (7-52) U/L Alkaline Phosphatase (34-104) U/L Total Creatine Kinase (26-192) U/L Troponin I High Sens (0-14) pg/ml Total Protein (6.0-8.3) gm/dl Albumin (3.4-5.0) gm/dl Globulin (2.5-4.0) gm/dl Albumin/Globulin Ratio (0.9-2) Urine Color Urine Appearance (Clear) Urine pH (4.5-7.5) Ur Specific [place] (1.000-1.030) Urine Protein (Negative) Urine Glucose (UA) (Negative) Urine Ketones (Negative) Urine Blood (Negative) Urine Nitrite (Negative) Urine Bilirubin (Negative) Urine Urobilinogen (Negative) Ur Leukocyte Esterase (Negative) Urine WBC (Auto) (0-5) /hpf Urine RBC (Auto) (0-4) /hpf U Hyaline Cast (Auto) (0-5) /lpf U Epithel Cells (Auto) (0-5) /lpf Urine Bacteria (Auto) (Negative) Salicylates (3.0-30) mg/dl Urine Opiates Screen Neg (Neg) Ur Methadone, Qual Neg (Neg) Acetaminophen (10-30) ug/ml Urine Barbiturates Neg (Neg) Ur Phencyclidine (PCP) Neg (Neg) U Amphetamin/Meth Scrn Neg (Neg) MDMA (Ecstasy) Screen Neg (Neg) U Benzodiazepines Scrn Neg (Neg) Ur Cocaine Metabolite Neg (Neg) U Marijuana (THC) Screen Neg (Neg) SARS-CoV-2 (PCR) NEGATIVE (Negative) Influenza Type A (PCR) Negative (Neg) Influenza Type B (PCR) Negative (Neg) RSV (RT-PCR) Negative (Neg) 09/28/22 09/28/22 09/28/22 Range/Units 07:25 11:04 11:04 WBC 6.59 (4.8-10.8) K/ul RBC 4.10 L (4.20-5.40) M/uL Hgb 12.5 (12.0-16.0) g/dl POC Hgb (12.0-16.0) g/dl Hct 37.9 (37.0-47.0) % POC Hct (37-47) % MCV 92.4 (80.0-100.0) fL MCH 30.5 (25.0-34.0) pg MCHC 33.0 (32.0-36.0) g/dL RDW Std Deviation 47.8 H (36.4-46.3) fL RDW Coeff of Ruth 14.1 (11.5-14.5) % Plt Count 291 (130-400) K/uL MPV 10.4 (9.4-12.4) fL Immature Gran % (Auto) 0.3 % Neut % (Auto) 72.1 % Lymph % (Auto) 20.9 % Lyon % (Auto) 6.4 % Eos % (Auto) 0.0 % Baso % (Auto) 0.3 % Neut # (Auto) 4.75 (1.40-6.50) K/uL Lymph # (Auto) 1.38 (1.2-3.4) K/uL Lyon # (Auto) 0.42 (0.11-0.59) K/uL Eos # (Auto) 0.00 (0-0.50) K/uL Baso # (Auto) 0.02 (0-0.2) K/uL Immature Gran # (Auto) 0.02 (0.01-0.20) K/uL PT (9.0-12.0) Seconds INR (0.9-1.1) APTT (21.0-31.0) Seconds PTT Ratio POC pH (7.35-7.45) POC pCO2 (35-46) mmHg POC pO2 (80-95) mmHg POC HCO3 (19-24) jennifer/L POC Base Excess (-9-1.8) jennifer/L POC ABG O2 Sat (90-95) % POC Sodium (135-144) mmol/L Sodium 142 (136-145) mmol/L POC Potassium (3.3-5.0) mmol/L Potassium 3.5 (3.5-5.1) mmol/L POC Chloride (101-112) mmol/L Chloride 110 H (98-107) mmol/L Carbon Dioxide 22 (21-32) mmol/L POC Total CO2 (24-31) mmol/L Anion Gap 10 (3-11) POC Anion Gap (16-25) mmol/L POC BUN (7-18) mg/dl BUN 14 (6-23) mg/dl Creatinine 0.62 (0.6-1.2) mg/dl POC Creatinine (0.6-1.3) mg/dl Est Cr Clr Drug Dosing Not Reportable Est GFR ( Amer) 118.5 ml/min Est GFR (Non-Af Amer) 102.2 ml/min BUN/Creatinine Ratio 22.6 H (10-20) Glucose 97 (70-99(Fasting)) mg/dl POC Glucose (70-99) mg/dl POC Glucose (other) (70-99) mg/dl Lactate (0.4-2.0) mmol/L Calcium 8.3 L (8.6-10.3) mg/dl POC Ioniz Calcium Nuvia (1.12-1.32) mmol/l Magnesium (1.7-2.4) mg/dl Total Bilirubin 0.5 (0.2-1.0) mg/dl AST 114 H (13-39) U/L ALT 39 (7-52) U/L Alkaline Phosphatase 122 H (34-104) U/L Total Creatine Kinase 7850 H (26-192) U/L Troponin I High Sens (0-14) pg/ml Total Protein 5.9 L (6.0-8.3) gm/dl Albumin 3.6 (3.4-5.0) gm/dl Globulin 2.3 L (2.5-4.0) gm/dl Albumin/Globulin Ratio 1.6 (0.9-2) Urine Color Urine Appearance (Clear) Urine pH (4.5-7.5) Ur Specific [place] (1.000-1.030) Urine Protein (Negative) Urine Glucose (UA) (Negative) Urine Ketones (Negative) Urine Blood (Negative) Urine Nitrite (Negative) Urine Bilirubin (Negative) Urine Urobilinogen (Negative) Ur Leukocyte Esterase (Negative) Urine WBC (Auto) (0-5) /hpf Urine RBC (Auto) (0-4) /hpf U Hyaline Cast (Auto) (0-5) /lpf U Epithel Cells (Auto) (0-5) /lpf Urine Bacteria (Auto) (Negative) Salicylates (3.0-30) mg/dl Urine Opiates Screen (Neg) Ur Methadone, Qual (Neg) Acetaminophen (10-30) ug/ml Urine Barbiturates (Neg) Ur Phencyclidine (PCP) (Neg) U Amphetamin/Meth Scrn (Neg) MDMA (Ecstasy) Screen (Neg) U Benzodiazepines Scrn (Neg) Ur Cocaine Metabolite (Neg) U Marijuana (THC) Screen (Neg) SARS-CoV-2 (PCR) (Negative) Influenza Type A (PCR) (Neg) Influenza Type B (PCR) (Neg) RSV (RT-PCR) (Neg) 09/28/22 09/28/22 09/29/22 Range/Units 11:04 11:04 05:46 WBC (4.8-10.8) K/ul RBC (4.20-5.40) M/uL Hgb (12.0-16.0) g/dl POC Hgb (12.0-16.0) g/dl Hct (37.0-47.0) % POC Hct (37-47) % MCV (80.0-100.0) fL MCH (25.0-34.0) pg MCHC (32.0-36.0) g/dL RDW Std Deviation (36.4-46.3) fL RDW Coeff of Ruth (11.5-14.5) % Plt Count (130-400) K/uL MPV (9.4-12.4) fL Immature Gran % (Auto) % Neut % (Auto) % Lymph % (Auto) % Lyon % (Auto) % Eos % (Auto) % Baso % (Auto) % Neut # (Auto) (1.40-6.50) K/uL Lymph # (Auto) (1.2-3.4) K/uL Lyon # (Auto) (0.11-0.59) K/uL Eos # (Auto) (0-0.50) K/uL Baso # (Auto) (0-0.2) K/uL Immature Gran # (Auto) (0.01-0.20) K/uL PT (9.0-12.0) Seconds INR (0.9-1.1) APTT (21.0-31.0) Seconds PTT Ratio POC pH (7.35-7.45) POC pCO2 (35-46) mmHg POC pO2 (80-95) mmHg POC HCO3 (19-24) jennifer/L POC Base Excess (-9-1.8) jennifer/L POC ABG O2 Sat (90-95) % POC Sodium (135-144) mmol/L Sodium 142 (136-145) mmol/L POC Potassium (3.3-5.0) mmol/L Potassium 3.4 L (3.5-5.1) mmol/L POC Chloride (101-112) mmol/L Chloride 112 H (98-107) mmol/L Carbon Dioxide 25 (21-32) mmol/L POC Total CO2 (24-31) mmol/L Anion Gap 5 (3-11) POC Anion Gap (16-25) mmol/L POC BUN (7-18) mg/dl BUN 10 (6-23) mg/dl Creatinine 0.52 L (0.6-1.2) mg/dl POC Creatinine (0.6-1.3) mg/dl Est Cr Clr Drug Dosing 140.9 Est GFR ( Amer) 125.5 ml/min Est GFR (Non-Af Amer) 108.3 ml/min BUN/Creatinine Ratio 19.2 (10-20) Glucose 93 (70-99(Fasting)) mg/dl POC Glucose (70-99) mg/dl POC Glucose (other) (70-99) mg/dl Lactate (0.4-2.0) mmol/L Calcium 7.7 L (8.6-10.3) mg/dl POC Ioniz Calcium Nuvia (1.12-1.32) mmol/l Magnesium 1.8 1.9 (1.7-2.4) mg/dl Total Bilirubin 0.4 (0.2-1.0) mg/dl AST 81 H (13-39) U/L ALT 33 (7-52) U/L Alkaline Phosphatase 102 (34-104) U/L Total Creatine Kinase 4895 H (26-192) U/L Troponin I High Sens 6.2 (0-14) pg/ml Total Protein 5.0 L (6.0-8.3) gm/dl Albumin 3.0 L (3.4-5.0) gm/dl Globulin 2.0 L (2.5-4.0) gm/dl Albumin/Globulin Ratio 1.5 (0.9-2) Urine Color Urine Appearance (Clear) Urine pH (4.5-7.5) Ur Specific [place] (1.000-1.030) Urine Protein (Negative) Urine Glucose (UA) (Negative) Urine Ketones (Negative) Urine Blood (Negative) Urine Nitrite (Negative) Urine Bilirubin (Negative) Urine Urobilinogen (Negative) Ur Leukocyte Esterase (Negative) Urine WBC (Auto) (0-5) /hpf Urine RBC (Auto) (0-4) /hpf U Hyaline Cast (Auto) (0-5) /lpf U Epithel Cells (Auto) (0-5) /lpf Urine Bacteria (Auto) (Negative) Salicylates (3.0-30) mg/dl Urine Opiates Screen (Neg) Ur Methadone, Qual (Neg) Acetaminophen < 3 L (10-30) ug/ml Urine Barbiturates (Neg) Ur Phencyclidine (PCP) (Neg) U Amphetamin/Meth Scrn (Neg) MDMA (Ecstasy) Screen (Neg) U Benzodiazepines Scrn (Neg) Ur Cocaine Metabolite (Neg) U Marijuana (THC) Screen (Neg) SARS-CoV-2 (PCR) (Negative) Influenza Type A (PCR) (Neg) Influenza Type B (PCR) (Neg) RSV (RT-PCR) (Neg) 09/29/22 Range/Units 05:46 WBC 5.39 (4.8-10.8) K/ul RBC 3.46 L (4.20-5.40) M/uL Hgb 10.8 L (12.0-16.0) g/dl POC Hgb (12.0-16.0) g/dl Hct 32.5 L (37.0-47.0) % POC Hct (37-47) % MCV 93.9 (80.0-100.0) fL MCH 31.2 (25.0-34.0) pg MCHC 33.2 (32.0-36.0) g/dL RDW Std Deviation 48.8 H (36.4-46.3) fL RDW Coeff of Ruth 14.3 (11.5-14.5) % Plt Count 255 (130-400) K/uL MPV 10.4 (9.4-12.4) fL Immature Gran % (Auto) 0.2 % Neut % (Auto) 53.2 % Lymph % (Auto) 39.3 % Lyon % (Auto) 6.9 % Eos % (Auto) 0.0 % Baso % (Auto) 0.4 % Neut # (Auto) 2.87 (1.40-6.50) K/uL Lymph # (Auto) 2.12 (1.2-3.4) K/uL Lyon # (Auto) 0.37 (0.11-0.59) K/uL Eos # (Auto) 0.00 (0-0.50) K/uL Baso # (Auto) 0.02 (0-0.2) K/uL Immature Gran # (Auto) 0.01 (0.01-0.20) K/uL PT (9.0-12.0) Seconds INR (0.9-1.1) APTT (21.0-31.0) Seconds PTT Ratio POC pH (7.35-7.45) POC pCO2 (35-46) mmHg POC pO2 (80-95) mmHg POC HCO3 (19-24) jennifer/L POC Base Excess (-9-1.8) jennifer/L POC ABG O2 Sat (90-95) % POC Sodium (135-144) mmol/L Sodium (136-145) mmol/L POC Potassium (3.3-5.0) mmol/L Potassium (3.5-5.1) mmol/L POC Chloride (101-112) mmol/L Chloride (98-107) mmol/L Carbon Dioxide (21-32) mmol/L POC Total CO2 (24-31) mmol/L Anion Gap (3-11) POC Anion Gap (16-25) mmol/L POC BUN (7-18) mg/dl BUN (6-23) mg/dl Creatinine (0.6-1.2) mg/dl POC Creatinine (0.6-1.3) mg/dl Est Cr Clr Drug Dosing Est GFR ( Amer) ml/min Est GFR (Non-Af Amer) ml/min BUN/Creatinine Ratio (10-20) Glucose (70-99(Fasting)) mg/dl POC Glucose (70-99) mg/dl POC Glucose (other) (70-99) mg/dl Lactate (0.4-2.0) mmol/L Calcium (8.6-10.3) mg/dl POC Ioniz Calcium Nuvia (1.12-1.32) mmol/l Magnesium (1.7-2.4) mg/dl Total Bilirubin (0.2-1.0) mg/dl AST (13-39) U/L ALT (7-52) U/L Alkaline Phosphatase (34-104) U/L Total Creatine Kinase (26-192) U/L Troponin I High Sens (0-14) pg/ml Total Protein (6.0-8.3) gm/dl Albumin (3.4-5.0) gm/dl Globulin (2.5-4.0) gm/dl Albumin/Globulin Ratio (0.9-2) Urine Color Urine Appearance (Clear) Urine pH (4.5-7.5) Ur Specific [place] (1.000-1.030) Urine Protein (Negative) Urine Glucose (UA) (Negative) Urine Ketones (Negative) Urine Blood (Negative) Urine Nitrite (Negative) Urine Bilirubin (Negative) Urine Urobilinogen (Negative) Ur Leukocyte Esterase (Negative) Urine WBC (Auto) (0-5) /hpf Urine RBC (Auto) (0-4) /hpf U Hyaline Cast (Auto) (0-5) /lpf U Epithel Cells (Auto) (0-5) /lpf Urine Bacteria (Auto) (Negative) Salicylates (3.0-30) mg/dl Urine Opiates Screen (Neg) Ur Methadone, Qual (Neg) Acetaminophen (10-30) ug/ml Urine Barbiturates (Neg) Ur Phencyclidine (PCP) (Neg) U Amphetamin/Meth Scrn (Neg) MDMA (Ecstasy) Screen (Neg) U Benzodiazepines Scrn (Neg) Ur Cocaine Metabolite (Neg) U Marijuana (THC) Screen (Neg) SARS-CoV-2 (PCR) (Negative) Influenza Type A (PCR) (Neg) Influenza Type B (PCR) (Neg) RSV (RT-PCR) (Neg) Administered Medications Acetaminophen (Acetaminophen 500 Mg Tab) 1,000 mg PO Q8H PRN PRN Reason: pain Stop: 10/28/22 21:04 Last Admin: 09/29/22 08:26 Dose: 1,000 mg Documented By: CARRIE Sodium Chloride (Nss 1000ml) 1,000 mls @ 200 mls/hr IV .Q5H KACY Stop: 10/27/22 20:59 Last Admin: 09/29/22 08:21 Dose: 200 mls/hr Documented By: Infusion: 09/29/22 08:21 Dose: 200 mls/hr Documented By: Admin: 09/29/22 03:28 Dose: 200 mls/hr Documented By: Infusion: 09/29/22 03:16 Dose: 200 mls/hr Documented By: Admin: 09/28/22 22:16 Dose: 200 mls/hr Documented By: Infusion: 09/28/22 21:45 Dose: 125 mls/hr Documented By: GIFT SHOP ASSISTANT Admin: 09/28/22 13:45 Dose: 125 mls/hr Documented By: Infusion: 09/28/22 11:47 Dose: 0 mls/hr Documented By: RLClaudia Admin: 09/28/22 02:13 Dose: 125 mls/hr Documented By: Infusion: 09/28/22 02:13 Dose: 125 mls/hr Documented By: Admin: 09/27/22 22:02 Dose: 125 mls/hr Documented By: JASON Levothyroxine Sodium (Levothyroxine Sodium 137 Mcg Tablet) 137 mcg PO QAM KACY Stop: 10/29/22 08:59 Last Admin: 09/29/22 08:18 Dose: 137 mcg Documented By: CARRIE Lorazepam (Lorazepam 1 Mg Tab) 1 mg PO QAM KACY Stop: 10/29/22 08:59 Last Admin: 09/29/22 08:17 Dose: 1 mg Documented By: CARRIE Lorazepam (Lorazepam 1 Mg Tab) 2 mg PO HS KACY Stop: 10/28/22 21:19 Last Admin: 09/28/22 22:17 Dose: 2 mg Documented By: DUTCH Pantoprazole Sodium (Pantoprazole 40 Mg Tab) 40 mg PO DAILY KACY Stop: 10/28/22 12:34 Last Admin: 09/29/22 08:18 Dose: 40 mg Documented By: Admin: 09/28/22 13:58 Dose: 40 mg Documented By: SCHUYLER Discontinued Medications Acetaminophen (Ofirmev) 1,000 mg in 100 mls @ 400 mls/hr IV Q8H PRN PRN Reason: Pain Stop: 10/01/22 01:03 Last Infusion: 09/28/22 02:52 Dose: 0 mls/hr Documented By: Admin: 09/28/22 01:20 Dose: 400 mls/hr Documented By: Magnesium Sulfate/Dextrose (Magnesium Sulfate / D5w) 1 gm in 100 mls @ 50 mls/hr IV ONE ONE Stop: 09/28/22 17:44 Last Infusion: 09/28/22 17:48 Dose: 0 mls/hr Documented By: Admin: 09/28/22 15:45 Dose: 50 mls/hr Documented By: SCHUYLER Magnesium Sulfate/Dextrose (Magnesium Sulfate / D5w) 1 gm in 100 mls @ 50 mls/hr IV ONE ONE Stop: 09/29/22 10:06 Last Infusion: 09/29/22 12:07 Dose: 50 mls/hr Documented By: Admin: 09/29/22 08:17 Dose: 50 mls/hr Documented By: CARRIE Ioversol (Optiray 320 500ml) 114 ml IV ONCE ONE Stop: 09/27/22 21:25 Last Admin: 09/27/22 21:30 Dose: 114 ml Documented By: ELLIOTT Lorazepam (Lorazepam 1 Mg Tab) 1 mg PO Q8H PRN PRN Reason: anxiety Stop: 10/28/22 17:29 Last Admin: 09/28/22 17:43 Dose: 1 mg Documented By: SCHUYLER Potassium Chloride (Potassium Chloride Crtab 20 Meq Tabcr) 40 meq PO NOW STA Stop: 09/29/22 08:02 Last Admin: 09/29/22 08:17 Dose: 40 meq Documented By: CARRIE Imaging Data Radiologist's Impression: Femur X-Ray 09/28/22 21:05 XR femur LT 2V routine CLINICAL HISTORY: left hip pain s/p fall TECHNIQUE: 2 radiographic views of the right femur were obtained. Comparison: None available at the time of this dictation. FINDINGS: There is no evidence of an acute fracture. The visualized portion of the hip and knee joints are unremarkable. The soft tissues are unremarkable. IMPRESSION: No evidence of acute bony injury. ACT 112: Negative or not required by law. Electronically signed by: Jose Cerna M.D. 09/29/2022 7:21 AM Discharge Plan Visit Data Chief Complaint: Altered Mental Status Stated Complaint: Semi Resposnive ED Provider: Ibis Vick Discharge Problem: Altered mental status, Dehydration, Elevated CK Patient Disposition: Admitted As Inpatient Discharge Instructions Interventions: ED Discharge Assessment Last Done: 09/28/22 01:29
[2022-09-27 22:00] LABS: Troponin I High Sensitivity 3.2 pg/ml (0-14)
[2022-09-27] MEDS: SODIUM CHLORIDE 0.9% 1000ML 1,000 ML IV SCH (22:02)
--- NOTE | 2022-09-27 22:06 | CT Scan Report ---
Exam(s): CTA HEAD With Contrast IV Amt: ams stroke like symptoms 114ml optiray 320 EXAM: CT Angiography Head With Intravenous Contrast CLINICAL HISTORY: Reason for exam: neuro deficit, acute stroke suspected. TECHNIQUE: Axial computed tomographic angiography images of the head with intravenous contrast. Automated exposure control was utilized for the study. A dose lowering technique was utilized adhering to the principles of ALARA. MIP reconstructed images were created and reviewed. CONTRAST: Patient received ams stroke like symptoms 114ml optiray 320 of IV contrast COMPARISON: None. 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 Intracranial segment is patent with no significant stenosis. Right anterior cerebral artery: Unremarkable. No occlusion or significant stenosis. No aneurysm. Right middle cerebral artery: Unremarkable. No occlusion or significant stenosis. No aneurysm. Right posterior cerebral artery: Unremarkable. No occlusion or significant stenosis. No aneurysm. Right vertebral artery: Unremarkable as visualized. Left internal carotid artery: No acute findings. Intracranial segment is patent with no significant stenosis. No aneurysm. Left anterior cerebral artery: Unremarkable. No occlusion or significant stenosis. No aneurysm. Left middle cerebral artery: Unremarkable. No occlusion or significant stenosis. No aneurysm. Left posterior cerebral artery: Unremarkable. No occlusion or significant stenosis. No aneurysm. Left vertebral artery: Unremarkable as visualized. Basilar artery: Unremarkable. No occlusion or significant stenosis. No aneurysm. IMPRESSION: 1. No large vessel occlusion. 2. 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 Electronically signed by: Carmelo Meadows MD 09/27/22 22:05 PM
--- NOTE | 2022-09-27 22:09 | CT Scan Report ---
Exam(s): CTA NECK With Contrast IV Amt: ams stroke like symptoms 114ml optiray 320 EXAM: CT Angiography Neck With Intravenous Contrast CLINICAL HISTORY: Reason for exam: neuro deficit, acute stroke suspected. TECHNIQUE: Routine carotid CT angiography protocol was performed with intravenous contrast. NASCET criteria using the distal ICAs for comparison were used for evaluation of stenoses. Automated exposure control was utilized for the study. A dose lowering technique was utilized adhering to the principles of ALARA. MIP reconstructed images were created and reviewed. CONTRAST: Patient received ams stroke like symptoms 114ml optiray 320 of IV contrast COMPARISON: None. FINDINGS: VASCULATURE: Right common carotid artery: Unremarkable. No occlusion or significant stenosis. No dissection. Right internal carotid artery: Unremarkable. Extracranial segment is patent with no occlusion or significant stenosis. No dissection. Right external carotid artery: Unremarkable. No occlusion. Right vertebral artery: Unremarkable. No occlusion or significant stenosis. No dissection. Left common carotid artery: See below. Left internal carotid artery: Unremarkable. Extracranial segment is patent with no occlusion or significant stenosis. No dissection. Left external carotid artery: Unremarkable. No occlusion. Left vertebral artery: Unremarkable. No occlusion or significant stenosis. No dissection. 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 NECK: Bones/joints: Degenerative change throughout the cervical spine yields varying degrees of foraminal narrowing. No high-grade spinal canal stenosis. Soft tissues: Unremarkable. Lung apices: Clear. CAROTID STENOSIS REFERENCE USING NASCET CRITERIA: % ICA stenosis = (1 - narrowest ICA diameter/diameter of distal cervical ICA) x 100. Mild - <50% stenosis. Moderate - 50-69% stenosis. Severe - 70-94% stenosis. Near occlusion - 95-99% stenosis. Occluded - 100% stenosis. IMPRESSION: No dissection, pseudoaneurysm or hemodynamically significant stenosis of the carotid or vertebral arteries. Electronically signed by: Carmelo Meadows MD 09/27/22 22:08 PM
[2022-09-27 22:12] LABS: iSTAT Arterial Blood Gas HCO3 26 meg/L (19-24); iSTAT Arterial Blood Gas pCO2 43 mmHg (35-46); iSTAT Arterial Blood Gas pH 7.39 (7.35-7.45); iSTAT Arterial Blood Gas pO2 74 mmHg (80-95); iSTAT Carbon Dioxide 27 mmol/L (24-31)
[2022-09-27 22:17] LABS: Amphetamines+Metham, Urine Neg (Neg); Barbiturates, Urine Neg (Neg); Benzodiazepine, Urine Neg (Neg); Cocaine, Urine Neg (Neg); MDMA (Ecstacy), Urine Neg (Neg); Methadone, Urine Neg (Neg); Opiate, Urine Neg (Neg); Phencyclidine, Urine Neg (Neg)
[2022-09-27 22:57] LABS: Influenza A virus by PCR Negative (Neg); Influenza B virus by PCR Negative (Neg); RSV by PCR Negative (Neg); SARS CoV2 RNA(COVID-19) Ceph NEGATIVE (Negative)
--- NOTE | 2022-09-27 23:05 | History & Physical Report ---
Date of Service September 27, 2022 Assessment & Plan (1) Altered mental status: Plan: 52 yo female with extensive psych medical history presents with AMS. #Altered Mental Status, mildly improving since arrival #h/o psychiatric illness #Dehydration -found on ground at home by family, appeared to have been down for ~5 hours. Pt has been "off" from her baseline over the last week. Etiology unknown at this time but most likely due to medication noncompliance and dehydration. However, daughter did mention h/o of witnessed seizure 5 years ago. -CK elevated due to being down on ground -WBC wnl. EKG NSR. Electrolytes wnl. UDS normal. Vitals normal, afebrile. -imaging with no signs of acute stroke -aspiration precautions, fall precautions, and NPO until patient more alert -maintenance fluids NSS @ 125ml/hr -psych consulted -will hold all home meds for now until seen by our psych team as most of them are psychiatric medications and there is uncertainty of compliance DVT ppx: SCDs FEN/GI: NPO, NSS @ 125ml/hr Code Status: full Dispo: med surg, obs (2) Dehydration: (3) H/O psychosis: History of Present Illness Chief Complaint: AMS Primary Care Provider: Scottie Hicks MD 52 yo female with extensive psych medical history presents with AMS. Daughter at bedside. History obtained from daughter and ER provider. She lives with family including daughter at home. Family reported to EMS that the last time they spoke with her was at 230 this afternoon when she seemed in her usual state of health. She had a scheduled telehealth appt with psych at 3pm but never got online. When family arrived home at 7pm they found patient down on the ground minimally responsive. Family also reported to EMS she has been noncompliant with her medications recently and has been "off" over the last week. EMS reported stable vital signs in route, no other additional information was available. Of note, daughter states that patient had a witnessed seizure back in 2018 and used to be Depakote, however, subsequent EEG was negative. Allergies Allergy/AdvReac Type Severity Reaction Status Date / Time ergotamine Allergy Unknown Unknown Verified 07/20/22 11:47 sumatriptan Allergy Unknown Unknown Verified 07/20/22 11:47 almotriptan AdvReac Severe coronary Verified 07/20/22 11:47 vaso spasms benztropine AdvReac Severe nausea and Verified 07/20/22 11:47 vomiting, grand narendra convulsion dihydroergotamine AdvReac Severe PALPATATION Verified 07/20/22 11:47 S-SWEATS frovatriptan AdvReac Severe coronary Verified 07/20/22 11:47 vaso spasms levetiracetam [From [facility]] AdvReac Severe grand mal Verified 07/20/22 11:47 convulsion and lack of speech & confusion. pregabalin AdvReac Intermediate flu like Verified 07/20/22 11:47 feelings topiramate AdvReac Intermediate flu like Verified 07/20/22 11:47 symptom Home Medications Medication Instructions Recorded Confirmed Type levothyroxine 137 mcg tablet 137 mcg PO QAM 10/22/20 09/27/22 History vilazodone 20 mg tablet 20 mg PO QAM 02/28/22 09/27/22 History amitriptyline 50 mg tablet 150 mg PO HS 03/08/22 09/27/22 History mecobalamin (vitamin B12) 1,000 1,000 mcg PO DAILY #90 tabs 03/11/22 09/27/22 Rx mcg chewable tablet duloxetine 60 mg capsule,delayed 60 mg PO BID 04/20/22 09/27/22 History release lorazepam 1 mg tablet 1 mg PO QID 04/25/22 09/27/22 History metoprolol tartrate 25 mg tablet 25 mg PO QAM #90 tabs 05/30/22 09/27/22 Rx methocarbamol 750 mg tablet 750 mg PO Q8H #60 tabs 06/13/22 09/27/22 Rx celecoxib 200 mg capsule (Celebrex) 200 mg PO DAILY #30 caps 07/05/22 09/27/22 Rx pantoprazole 40 mg tablet,delayed 40 mg PO DAILY #90 tabs 07/05/22 09/27/22 Rx release ubrogepant 100 mg tablet (Ubrelvy) 100 mg PO .COMPLEX PRN migraine 07/12/22 09/27/22 Rx headache #10 tabs acetaminophen 300 mg-codeine 30 mg 1 tab PO BID 09/27/22 09/27/22 History tablet brexpiprazole 2 mg tablet (Rexulti) 2 mg PO QPM 09/27/22 09/27/22 History buspirone 5 mg tablet 5 mg PO TID 09/27/22 09/27/22 History promethazine 25 mg tablet 25 mg PO BID PRN NAUSEA/VOMITING 09/27/22 09/27/22 Rx #60 tabs Past Med/Surg History Medical History (Updated 09/28/22 @ 00:02 by Markus Atkinson DO) Arthritis Bilateral tinnitus Convulsion, 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, POSSIBLE DRUG REACTION FROM [facility]- NO ISSUES SINCE Degenerative disc disease Fibromyalgia H/O aneurysm STABLE, WATCHING; FOLLOWS W/ PCP History of ovarian cyst Hx of uterine prolapse vaginal owens Hypotension Hypothyroidism Insomnia Iron deficiency anemia Kidney stones HX Major depression with psychotic features Migraine without aura Narcotic drug use Opiate dependence Orthostatic hypotension Psychosis PTSD (post-traumatic stress disorder) Sensorineural hearing loss (SNHL) of both ears Surgical History H/O gastric bypass H/O laparoscopy diagnostic x2 History of colonoscopy History of cryosurgery cervix History of ERCP History of salpingo-oophorectomy left History of tonsillectomy History of tooth extraction Hx of bilateral breast reduction surgery Hx of lithotripsy S/P cholecystectomy Surgical history of tubal ligation Family History Mother Rheumatoid arthritis Heart disease Father Brain tumor Depression Uncle Thyroid disorder Myocardial infarction Prostate cancer Grandmother No problems noted. Unknown No problems noted. Grandmother (Paternal) Colon cancer Scoliosis Aunt Colon cancer Lung cancer Grandmother (Maternal) Heart disease Family/Other Lung disease Hypertension Diabetes Grandfather (Paternal) Myocardial infarction Grandmother (Paternal) Myocardial infarction Denies family history of Ovarian cancer Breast cancer Social History Smoking Status: Unknown if ever smoked Second Hand Exposure: No; Preferred Language: [place] Communication Ability: Effective Visual Impairment: Limited Hearing Ability: Normal Clinic Mgr Required: No Beliefs That Will Affect Care: None marital status: Current Living Situation: Alone Current Living Situation Comment: states daughter lives next to her current occupational status: disabled How many Children do You have: 2 Feels Safe at Home: Yes Childhood Exposure to Second-Hand Smoke: Yes caffeine: Yes Dental Care, Regularly: Yes Physical Activity Frequency: Does not Exercise Seatbelt Use: always Sunscreen Use: No Assistive Devices: None Assistive Devices Comment: unknown, unable to answer appropriately Review of Systems Review of Systems: Unobtainable due to cognitive status Physical Exam Physical Exam: Constitutional: in no acute distress, speaking in broken sentences and nonsensical however AOx3. Vitals as above. HEENT: No scleral injection or discharge.Dry mucous membranes. Pupils unable to be tested due to pt noncompliance. Neck: Supple without lymphadenopathy or thyromegaly. Trachea midline. Lungs: Clear to auscultation bilaterally with good effort. Cardiac: Regular rate and rhythm.No murmurs. No extremity edema. 2+ distal peripheral pulses. Abdomen: Bowel sounds present. Soft, nontender, and nondistended.No guarding. No hepatosplenomegaly. MSK: No cyanosis or clubbing. Skin: No rashes, warm, dry. Neurologic:no focal deficits Results & Data Results & Data Vital Signs (Past 12 Hours) Vital Signs Temp Pulse Resp BP Pulse Ox O2 Del Method 09/27/22 22:20 84 18 96 09/27/22 22:20 130/88 09/27/22 22:10 85 17 97 09/27/22 22:10 129/84 09/27/22 22:00 85 20 97 09/27/22 22:00 138/97 09/27/22 21:50 84 21 96 09/27/22 21:50 144/91 H 09/27/22 21:46 149/104 H 09/27/22 21:46 84 22 97 09/27/22 21:40 85 27 H 99 09/27/22 21:33 93 H 16 96 09/27/22 21:10 91 H 23 93 09/27/22 21:04 119/81 09/27/22 21:04 88 18 94 09/27/22 21:00 94 H 24 09/27/22 20:54 90 19 09/27/22 20:55 91 H 09/27/22 20:41 35.6 C L 93 H 20 108/76 98 Room Air Laboratory Results Laboratory Results WBC 8.62 K/ul (4.8-10.8) 09/27/22 21:10 RBC 4.19 M/uL (4.20-5.40) L 09/27/22 21:10 Hgb 12.9 g/dl (12.0-16.0) 09/27/22 21:10 POC Hgb 13.6 g/dl (12.0-16.0) 09/27/22 21:15 Hct 38.8 % (37.0-47.0) 09/27/22 21:10 POC Hct 40 % (37-47) 09/27/22 21:15 MCV 92.6 fL (80.0-100.0) 09/27/22 21:10 MCH 30.8 pg (25.0-34.0) 09/27/22 21:10 MCHC 33.2 g/dL (32.0-36.0) 09/27/22 21:10 RDW Std Deviation 47.1 fL (36.4-46.3) H 09/27/22 21:10 RDW Coeff of Ruth 13.8 % (11.5-14.5) 09/27/22 21:10 Plt Count 313 K/uL (130-400) 09/27/22 21:10 MPV 10.6 fL (9.4-12.4) 09/27/22 21:10 Immature Gran % (Auto) 0.2 % 09/27/22 21:10 Neut % (Auto) 89.6 % 09/27/22 21:10 Lymph % (Auto) 7.8 % 09/27/22 21:10 Rankin % (Auto) 2.2 % 09/27/22 21:10 Eos % (Auto) 0.0 % 09/27/22 21:10 Baso % (Auto) 0.2 % 09/27/22 21:10 Neut # (Auto) 7.72 K/uL (1.40-6.50) H 09/27/22 21:10 Lymph # (Auto) 0.67 K/uL (1.2-3.4) L 09/27/22 21:10 Rankin # (Auto) 0.19 K/uL (0.11-0.59) 09/27/22 21:10 Eos # (Auto) 0.00 K/uL (0-0.50) 09/27/22 21:10 Baso # (Auto) 0.02 K/uL (0-0.2) 09/27/22 21:10 Immature Gran # (Auto) 0.02 K/uL (0.01-0.20) 09/27/22 21:10 PT 10.6 Seconds (9.0-12.0) 09/27/22 21:10 INR 1.0 (0.9-1.1) 09/27/22 21:10 APTT 23.4 Seconds (21.0-31.0) 09/27/22 21:10 PTT Ratio 0.9 09/27/22 21:10 POC pH 7.39 (7.35-7.45) 09/27/22 21:58 POC pCO2 43 mmHg (35-46) 09/27/22 21:58 POC pO2 74 mmHg (80-95) L 09/27/22 21:58 POC HCO3 26 jennifer/L (19-24) H 09/27/22 21:58 POC Total CO2 27 mmol/L (24-31) 09/27/22 21:58 POC Base Excess 1.0 ejnnifer/L (-9-1.8) 09/27/22 21:58 POC ABG O2 Sat 94.0 % (90-95) 09/27/22 21:58 POC Sodium 140 mmol/L (135-144) 09/27/22 21:15 Sodium 140 mmol/L (136-145) 09/27/22 21:10 POC Potassium 3.6 mmol/L (3.3-5.0) 09/27/22 21:15 Potassium 3.8 mmol/L (3.5-5.1) 09/27/22 21:10 POC Chloride 104 mmol/L (101-112) 09/27/22 21:15 Chloride 105 mmol/L (98-107) 09/27/22 21:10 Carbon Dioxide 26 mmol/L (21-32) 09/27/22 21:10 POC Total CO2 24 mmol/L (24-31) 09/27/22 21:15 Anion Gap 9 (3-11) 09/27/22 21:10 POC Anion Gap 17.0 mmol/L (16-25) 09/27/22 21:15 POC BUN 16 mg/dl (7-18) 09/27/22 21:15 BUN 16 mg/dl (6-23) 09/27/22 21:10 Creatinine 0.70 mg/dl (0.6-1.2) 09/27/22 21:10 POC Creatinine 0.7 mg/dl (0.6-1.3) 09/27/22 21:15 Est Cr Clr Drug Dosing Not Reportable 09/27/22 21:10 Est GFR ( Amer) 113.8 ml/min 09/27/22 21:10 Est GFR (Non-Af Amer) 98.2 ml/min 09/27/22 21:10 BUN/Creatinine Ratio 22.9 (10-20) H 09/27/22 21:10 Glucose 110 mg/dl (70-99(Fasting)) H 09/27/22 21:10 POC Glucose 109 mg/dl (70-99) H 09/27/22 21:06 POC Glucose (other) 111 mg/dl (70-99) H 09/27/22 21:15 Lactate 1.3 mmol/L (0.4-2.0) 09/27/22 21:10 Calcium 8.7 mg/dl (8.6-10.3) 09/27/22 21:10 POC Ioniz Calcium Nuvia 1.14 mmol/l (1.12-1.32) 09/27/22 21:15 Magnesium 1.8 mg/dl (1.7-2.4) 09/27/22 21:10 Total Bilirubin 0.4 mg/dl (0.2-1.0) 09/27/22 21:10 AST 22 U/L (13-39) 09/27/22 21:10 ALT 17 U/L (7-52) 09/27/22 21:10 Alkaline Phosphatase 131 U/L (34-104) H 09/27/22 21:10 Total Creatine Kinase 794 U/L (26-192) H 09/27/22 21:10 Troponin I High Sens 3.2 pg/ml (0-14) 09/27/22 21:10 Total Protein 6.5 gm/dl (6.0-8.3) 09/27/22 21:10 Albumin 4.0 gm/dl (3.4-5.0) 09/27/22 21:10 Globulin 2.5 gm/dl (2.5-4.0) 09/27/22 21:10 Albumin/Globulin Ratio 1.6 (0.9-2) 09/27/22 21:10 Urine Color Dark Yellow 09/27/22 21:36 Urine Appearance Clear (Clear) 09/27/22 21:36 Urine pH 6.0 (4.5-7.5) 09/27/22 21:36 Ur Specific Morse > 1.045 (1.000-1.030) H 09/27/22 21:36 Urine Protein 1+ (Negative) H 09/27/22 21:36 Urine Glucose (UA) Negative (Negative) 09/27/22 21:36 Urine Ketones 2+ (Negative) H 09/27/22 21:36 Urine Blood 2+ (Negative) H 09/27/22 21:36 Urine Nitrite Negative (Negative) 09/27/22 21:36 Urine Bilirubin Negative (Negative) 09/27/22 21:36 Urine Urobilinogen Negative (Negative) 09/27/22 21:36 Ur Leukocyte Esterase Negative (Negative) 09/27/22 21:36 Urine WBC (Auto) 1-5 /hpf (0-5) 09/27/22 21:36 Urine RBC (Auto) 0-4 /hpf (0-4) 09/27/22 21:36 U Hyaline Cast (Auto) 5-10 /lpf (0-5) H 09/27/22 21:36 U Epithel Cells (Auto) 20-30 /lpf (0-5) H 09/27/22 21:36 Urine Bacteria (Auto) Negative (Negative) 09/27/22 21:36 Salicylates < 3.0 mg/dl (3.0-30) L 09/27/22 21:10 Urine Opiates Screen Neg (Neg) 09/27/22 21:36 Ur Methadone, Qual Neg (Neg) 09/27/22 21:36 Acetaminophen < 3 ug/ml (10-30) L 09/27/22 21:10 Urine Barbiturates Neg (Neg) 09/27/22 21:36 Ur Phencyclidine (PCP) Neg (Neg) 09/27/22 21:36 U Amphetamin/Meth Scrn Neg (Neg) 09/27/22 21:36 MDMA (Ecstasy) Screen Neg (Neg) 09/27/22 21:36 U Benzodiazepines Scrn Neg (Neg) 09/27/22 21:36 Ur Cocaine Metabolite Neg (Neg) 09/27/22 21:36 U Marijuana (THC) Screen Neg (Neg) 09/27/22 21:36 SARS-CoV-2 (PCR) NEGATIVE (Negative) 09/27/22 21:55 Influenza Type A (PCR) Negative (Neg) 09/27/22 21:55 Influenza Type B (PCR) Negative (Neg) 09/27/22 21:55 RSV (RT-PCR) Negative (Neg) 09/27/22 21:[address] 09/27/22 20:56 Exam(s): CT HEAD Without Contrast EXAM: CT Head Without Intravenous Contrast CLINICAL HISTORY: Reason for exam: neuro deficit, acute stroke suspected. TECHNIQUE: Axial computed tomography images of the head/brain without intravenous contrast. Automated exposure control was utilized for the study. A dose lowering technique was utilized adhering to the principles of ALARA. COMPARISON: No relevant prior studies available. FINDINGS: No acute intracranial hemorrhage. No midline shift or mass effect. The territorial keys-white matter differentiation is maintained throughout. Age-related cerebral volume loss. Periventricular and subcortical white matter hypoattenuation, consistent with chronic microangiopathy. The visualized orbits appear grossly unremarkable. The calvarium is intact. The visualized paranasal sinuses and mastoid air cells are grossly clear. IMPRESSION: No acute intracranial hemorrhage, midline shift, or mass effect. Electronically signed by: Andrea Perkins MD 09/27/22 21:41 PM Head CTA 09/27/22 20:56 Exam(s): CTA HEAD With Contrast IV Amt: ams stroke like symptoms 114ml optiray 320 EXAM: CT Angiography Head With Intravenous Contrast CLINICAL HISTORY: Reason for exam: neuro deficit, acute stroke suspected. TECHNIQUE: Axial computed tomographic angiography images of the head with intravenous contrast. Automated exposure control was utilized for the study. A dose lowering technique was utilized adhering to the principles of ALARA. MIP reconstructed images were created and reviewed. CONTRAST: Patient received ams stroke like symptoms 114ml optiray 320 of IV contrast COMPARISON: None. 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 Intracranial segment is patent with no significant stenosis. Right anterior cerebral artery: Unremarkable. No occlusion or significant stenosis. No aneurysm. Right middle cerebral artery: Unremarkable. No occlusion or significant stenosis. No aneurysm. Right posterior cerebral artery: Unremarkable. No occlusion or significant stenosis. No aneurysm. Right vertebral artery: Unremarkable as visualized. Left internal carotid artery: No acute findings. Intracranial segment is patent with no significant stenosis. No aneurysm. Left anterior cerebral artery: Unremarkable. No occlusion or significant stenosis. No aneurysm. Left middle cerebral artery: Unremarkable. No occlusion or significant stenosis. No aneurysm. Left posterior cerebral artery: Unremarkable. No occlusion or significant stenosis. No aneurysm. Left vertebral artery: Unremarkable as visualized. Basilar artery: Unremarkable. No occlusion or significant stenosis. No aneurysm. IMPRESSION: 1. No large vessel occlusion. 2. 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 Electronically signed by: Carmelo Meadows MD 09/27/22 22:05 PM Neck CTA 09/27/22 20:56 Exam(s): CTA NECK With Contrast IV Amt: ams stroke like symptoms 114ml optiray 320 EXAM: CT Angiography Neck With Intravenous Contrast CLINICAL HISTORY: Reason for exam: neuro deficit, acute stroke suspected. TECHNIQUE: Routine carotid CT angiography protocol was performed with intravenous contrast. NASCET criteria using the distal ICAs for comparison were used for evaluation of stenoses. Automated exposure control was utilized for the study. A dose lowering technique was utilized adhering to the principles of ALARA. MIP reconstructed images were created and reviewed. CONTRAST: Patient received ams stroke like symptoms 114ml optiray 320 of IV contrast COMPARISON: None. FINDINGS: VASCULATURE: Right common carotid artery: Unremarkable. No occlusion or significant stenosis. No dissection. Right internal carotid artery: Unremarkable. Extracranial segment is patent with no occlusion or significant stenosis. No dissection. Right external carotid artery: Unremarkable. No occlusion. Right vertebral artery: Unremarkable. No occlusion or significant stenosis. No dissection. Left common carotid artery: See below. Left internal carotid artery: Unremarkable. Extracranial segment is patent with no occlusion or significant stenosis. No dissection. Left external carotid artery: Unremarkable. No occlusion. Left vertebral artery: Unremarkable. No occlusion or significant stenosis. No dissection. 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 NECK: Bones/joints: Degenerative change throughout the cervical spine yields varying degrees of foraminal narrowing. No high-grade spinal canal stenosis. Soft tissues: Unremarkable. Lung apices: Clear. CAROTID STENOSIS REFERENCE USING NASCET CRITERIA: % ICA stenosis = (1 - narrowest ICA diameter/diameter of distal cervical ICA) x 100. Mild - <50% stenosis. Moderate - 50-69% stenosis. Severe - 70-94% stenosis. Near occlusion - 95-99% stenosis. Occluded - 100% stenosis. IMPRESSION: No dissection, pseudoaneurysm or hemodynamically significant stenosis of the carotid or vertebral arteries. Electronically signed by: Carmelo Meadows MD 09/27/22 22:08 PM Supervising Physician Co-Signing Physician Notes Attending addendum: I have physically seen this patient, have supervised the medical residents activities, and agree with the H&P unless as otherwise noted. Assessment and Plan: Altered mental status- Patient has improved somewhat since she initially arrived in the ED Likely underlying psychiatric issues exacerbated by dehydration and mild rhabdo Consult psychiatry to determine if inpatient treatment is necessary Dehydration/rhabdomyolysis- Question as to whether this caused her change in mentation or was caused by decreased oral intake and being on the ground for 5 minutes and resolved time associated with psychiatric medication administration IV fluids as noted, NSS 125 MLS per hour Repeat laboratories in a.m. Remaining orders and notations as noted Resident Activity Tracking Resident Involvement: Resident Care Provided Care Provided: Adult Hospital Medicine
[2022-09-28] MEDS ORDERED: ACETAMINOPHEN 1,000 MG/100 ML VIAL IV PRN (01:04)
[2022-09-28] MEDS: SODIUM CHLORIDE 0.9% 1000ML 1,000 ML IV SCH ×3 (02:13→22:16)
--- NOTE | 2022-09-28 07:06 | XRay Report ---
XR chest 1V portable HISTORY: neuro deficit, acute stroke suspected COMPARISON: 07/27/2020. FINDINGS: The lungs are clear. Cardiac silhouette is borderline enlarged. No pleural effusions. No pn eumothorax. Prior cholecystectomy. IMPRESSION: Borderline cardiomegaly. Otherwise, no acute process within the chest. ACT 112: Negative or not required by law. Electronically signed by: Marky Patel M.D. 09/28/2022 7:04 AM
[2022-09-28 11:33] LABS: Basophils # (auto) 0.02 K/uL (0-0.2); Basophils % (auto) 0.3 %; Hematocrit (blood only) 37.9 % (37.0-47.0); Hemoglobin 12.5 g/dl (12.0-16.0); Immature Granulocytes # (auto) 0.02 K/uL (0.01-0.20); Immature Granulocytes % (auto) 0.3 %; Lymphocytes # (auto) 1.38 K/uL (1.2-3.4); Lymphocytes % (auto) 20.9 %; Mean Corpuscular Hemoglobin 30.5 pg (25.0-34.0); Mean Corpuscular Volume 92.4 fL (80.0-100.0); Mean Platelet Volume 10.4 fL (9.4-12.4); Monocytes # (auto) 0.42 K/uL (0.11-0.59); Monocytes % (auto) 6.4 %; Neutrophils # (auto) 4.75 K/uL (1.40-6.50); Neutrophils % (auto) 72.1 %; Platelet Count 291 K/uL (130-400); RDW Coefficient of Variation 14.1 % (11.5-14.5); RDW Standard Deviation 47.8 fL (36.4-46.3); White Blood Count 6.59 K/ul (4.8-10.8)
[2022-09-28 11:50] LABS: Magnesium 1.8 mg/dl (1.7-2.4)
[2022-09-28 11:58] LABS: Troponin I High Sensitivity 6.2 pg/ml (0-14)
--- NOTE | 2022-09-28 13:27 | Electrocardiogram Report ---
Test Reason : Blood Pressure : / mmHG Vent. Rate : 089 BPM Atrial Rate : 089 BPM P-R Int : 184 ms QRS Dur : 130 ms QT Int : 416 ms P-R-T Axes : 039 045 053 degrees QTc Int : 506 ms Normal sinus rhythm RSR' or QR pattern in V1 suggests right ventricular conduction delay Abnormal ECG When compared with ECG of 27-JUL-2020 19:34, QRS duration has increased Confirmed by Onesimo Hu ([id number]) on 09/28/2022 1:27:38 PM Referred By: REFERRED SELF Confirmed By:Onesimo Hu
--- NOTE | 2022-09-28 13:52 | Electrocardiogram Report ---
Test Reason : Blood Pressure : / mmHG Vent. Rate : 086 BPM Atrial Rate : 086 BPM P-R Int : 180 ms QRS Dur : 116 ms QT Int : 406 ms P-R-T Axes : 042 038 063 degrees QTc Int : 485 ms Normal sinus rhythm RSR' or QR pattern in V1 suggests right ventricular conduction delay Prolonged QT Abnormal ECG When compared with ECG of 27-SEP-2022 21:06, (unconfirmed) No significant change was found Confirmed by Onesimo Hu ([id number]) on 09/28/2022 1:51:31 PM Referred By: REFERRED SELF Confirmed By:Onesimo Hu
[2022-09-28] MEDS: PANTOprazole 40 MG TAB PO SCH (13:58)
[2022-09-28 14:15] LABS: Albumin Level 3.6 gm/dl (3.4-5.0); Anion Gap 10 (3-11); Bilirubin,Total 0.5 mg/dl (0.2-1.0); Calcium 8.3 mg/dl (8.6-10.3); Carbon Dioxide 22 mmol/L (21-32); Chloride 110 mmol/L (98-107); Potassium 3.5 mmol/L (3.5-5.1); Sodium 142 mmol/L (136-145)
[2022-09-28 14:21] LABS: Alanine Aminotransferase 39 U/L (7-52); Albumin Globulin Ratio 1.6 (0.9-2); Alkaline Phosphatase 122 U/L (34-104); Aspartate Aminotransferase 114 U/L (13-39); BUN Creatinine Ratio 22.6 (10-20); Blood Urea Nitrogen 14 mg/dl (6-23); Est GFR (African American) 118.5 ml/min; Est GFR (Non-African American) 102.2 ml/min; Globulin 2.3 gm/dl (2.5-4.0); Glucose 97 mg/dl (70-99(Fasting)); Total Protein 5.9 gm/dl (6.0-8.3)
[2022-09-28] MEDS ORDERED: MAGNESIUM SULFATE / D5W 1 GM/100 ML BAG IV ONE (15:45)
--- NOTE | 2022-09-28 17:17 | Billing Data ---
Date of Service September 28, 2022 Coding Level of Care Code 88504 INT INP/OBS CARE
[2022-09-28] MEDS ORDERED: LORazepam 1 MG TAB PO PRN (17:25)
--- NOTE | 2022-09-28 19:39 | Psychiatric Consultation ---
Date of Consultation September 28, 2022 Impression / Recommendations Impression 52 y/o F with complicated psychopharmacology regimen and recent overdose of amitriptyline at a reported dose easily within the fatal range who presented with altered mental status (very likely anticholinergic delirium). I don't know the rationale for using duloxetine with vilazodone or for using amitriptyline with duloxetine, especially at the high dose of the latter. Amitriptyline and duloxetine share the mechanism of action of presynaptic reuptake inhibition of serotonin and norepinephrine and differ in that amitriptyline also strongly blocks acetylcholine receptors and H1 histamine receptors. The cholinergic blockade is largely responsible for the most common presenting signs of amitriptyline overdose: altered mental status and tachycardia. Toxic amitriptyline doses are in the range of 10 mg/Kg and fatal doses are around 15 mg/Kg. Mortality is usually due to heart block. An amitriptyline level is pending. However, based on the clinical presentation and the lack of marked ECG changes (maximal QTc last night was 506 msec, 485 msec today), there is a good chance that pt may not have ingested as many pills as reported, given that the reported number would have been 10.9 mg/Kg to 16.4 mg/Kg. In my experience, there are many examples of appropriate reasons to use duloxetine in the 120 mg/day range. However, stopping this abruptly can be very problematic due to discontinuation syndrome. It should probably be resumed as soon as practical. Brexpiprazole and vilazodone are both non-formulary here. Of the two, the brexpiprazole (an antipsychotic closely related to aripiprazole) is the more important. If family can't bring it in, substituting aripiprazole 10 mg QHS would be appropriate. She will most likely require psychiatric hospitalization once medically stable. (1) Major depressive disorder, recurrent, severe with psychotic features: Plan * resume duloxetine 60 mg PO BID * resume brexpiprazole 2 mg PO QHS (if home supply can be brought) or substitute aripiprazole 10 mg PO QHS * continue lorazepam 1 mg PO QID * There is a 302 petitioning statement on the chart. The patient should remain on safety precautions with 1-on-1 pending medical clearance. The patient is not psychiatrically cleared to leave the hospital without additional safety or aftercare planning; this patient should not be allowed to leave AMA without notification to our service as a 302 warrant may be appropriate. Psych History Identifying Data CHRISTOPHER ORTIZ is a 52-year-old F with a history of psychotic depression, PTSD, anxiety, opioid dependence, admitted on 09/27/2022 for altered mental status. Consult is by the hospitalist service for "AMS, extensive psych history". Chief Complaint "The voices won't go". History of Present Illness 52 y/o woman who was found unresponsive on the floor of her home by her daughter and brought to the ED where no clear etiology was found. Later, pt told the psychiatric liaison nurse that she had "taken extra pills". He was eventually able to elucidate that this was amitriptyline 50 mg tablets, apparently 20-30 tablets, or 1 to 1.5 grams. Pt tells me she constantly hears voices telling her to kill herself and insulting her ("you're a fat-assed whore"). She says she's been hearing these voices for a year and a half and never had this problem before. She tells me her "daughter thinks a fall and a seizure back then might have caused schizophrenia". She says "it got to be too much" so she decided to kill herself with amitriptyline "because it's a sleeping pill, so it would be peaceful". She first "took 15 pills and nothing happened" so later took another 15. She doesn't remember much after that. Pt's history of psychosis certainly dates farther back than 1 1/2 years. In October 2020 she was admitted to the psychiatric unit here with a long history of symptoms including psychosis. She appears to have carried diagnoses of major depression with psychotic features, PTSD, anxiety as well as opioid dependence for which she at one time took buprenorphine-naloxone (but is now prescribed an opioid analgesic). In terms of psychiatric medication, she is, purportedly, prescribed: amitriptyline 100 mg QHS brexpiprazole 2 mg QPM buspirone 5 mg TID duloxetine 60 mg BID lorazepam 1 mg QID vilazodone 20 mg QAM Pt presents as somewhat confused but able to respond to questions. She is distracted, apparently by auditory stimuli. She tells me she "should have used a hose with the exhaust, or taken a lot more pills" in order to have ensured her . Past Psychiatric History Previous Psych History: "long history" of psychotic depression, PTSD Allergies Allergy/AdvReac Type Severity Reaction Status Date / Time ergotamine Allergy Unknown Unknown Verified 07/20/22 11:47 sumatriptan Allergy Unknown Unknown Verified 07/20/22 11:47 almotriptan AdvReac Severe coronary Verified 07/20/22 11:47 vaso spasms benztropine AdvReac Severe nausea and Verified 07/20/22 11:47 vomiting, grand narendra convulsion dihydroergotamine AdvReac Severe PALPATATION Verified 07/20/22 11:47 S-SWEATS frovatriptan AdvReac Severe coronary Verified 07/20/22 11:47 vaso spasms levetiracetam [From [facility]] AdvReac Severe grand mal Verified 07/20/22 11:47 convulsion and lack of speech & confusion. pregabalin AdvReac Intermediate flu like Verified 07/20/22 11:47 feelings topiramate AdvReac Intermediate flu like Verified 07/20/22 11:47 symptom Home Medications Medication Instructions Recorded Confirmed Type levothyroxine 137 mcg tablet 137 mcg PO QAM 10/22/20 09/27/22 History vilazodone 20 mg tablet 20 mg PO QAM 02/28/22 09/27/22 History amitriptyline 50 mg tablet 150 mg PO HS 03/08/22 09/27/22 History mecobalamin (vitamin B12) 1,000 1,000 mcg PO DAILY #90 tabs 03/11/22 09/27/22 Rx mcg chewable tablet duloxetine 60 mg capsule,delayed 60 mg PO BID 04/20/22 09/27/22 History release lorazepam 1 mg tablet 1 mg PO QID 04/25/22 09/27/22 History metoprolol tartrate 25 mg tablet 25 mg PO QAM #90 tabs 05/30/22 09/27/22 Rx methocarbamol 750 mg tablet 750 mg PO Q8H #60 tabs 06/13/22 09/27/22 Rx celecoxib 200 mg capsule (Celebrex) 200 mg PO DAILY #30 caps 07/05/22 09/27/22 Rx pantoprazole 40 mg tablet,delayed 40 mg PO DAILY #90 tabs 07/05/22 09/27/22 Rx release ubrogepant 100 mg tablet (Ubrelvy) 100 mg PO .COMPLEX PRN migraine 07/12/22 09/27/22 Rx headache #10 tabs acetaminophen 300 mg-codeine 30 mg 1 tab PO BID 09/27/22 09/27/22 History tablet brexpiprazole 2 mg tablet (Rexulti) 2 mg PO QPM 09/27/22 09/27/22 History buspirone 5 mg tablet 5 mg PO TID 09/27/22 09/27/22 History promethazine 25 mg tablet 25 mg PO BID PRN NAUSEA/VOMITING 09/27/22 09/27/22 Rx #60 tabs Patient History Medical History (Updated 09/28/22 @ 20:17 by Logan Garland MD) Arthritis Bilateral tinnitus Convulsion, 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, POSSIBLE DRUG REACTION FROM [facility]EP[facility]- NO ISSUES SINCE Degenerative disc disease Fibromyalgia H/O aneurysm STABLE, WATCHING; FOLLOWS W/ PCP History of ovarian cyst Hx of uterine prolapse vaginal owens Hypotension Hypothyroidism Insomnia Iron deficiency anemia Kidney stones HX Major depression with psychotic features Migraine without aura Narcotic drug use Opiate dependence Orthostatic hypotension Psychosis PTSD (post-traumatic stress disorder) Sensorineural hearing loss (SNHL) of both ears Surgical History H/O gastric bypass H/O laparoscopy diagnostic x2 History of colonoscopy History of cryosurgery cervix History of ERCP History of salpingo-oophorectomy left History of tonsillectomy History of tooth extraction Hx of bilateral breast reduction surgery Hx of lithotripsy S/P cholecystectomy Surgical history of tubal ligation Family History Mother Rheumatoid arthritis Heart disease Father Brain tumor Depression Uncle Thyroid disorder Myocardial infarction Prostate cancer Grandmother No problems noted. Unknown No problems noted. Grandmother (Paternal) Colon cancer Scoliosis Aunt Colon cancer Lung cancer Grandmother (Maternal) Heart disease Family/Other Lung disease Hypertension Diabetes Grandfather (Paternal) Myocardial infarction Grandmother (Paternal) Myocardial infarction Denies family history of Ovarian cancer Breast cancer Social History Smoking Status: Unknown if ever smoked Second Hand Exposure: No; Preferred Language: Romansh Communication Ability: Effective Visual Impairment: Limited Hearing Ability: Normal Change Management Manager Required: No Beliefs That Will Affect Care: None marital status: Current Living Situation: Alone Current Living Situation Comment: states daughter lives next to her current occupational status: disabled How many Children do You have: 2 Feels Safe at Home: Yes Childhood Exposure to Second-Hand Smoke: Yes caffeine: Yes Dental Care, Regularly: Yes Physical Activity Frequency: Does not Exercise Seatbelt Use: always Sunscreen Use: No Assistive Devices: None Assistive Devices Comment: unknown, unable to answer appropriately Physical Exam Psychiatric: Orientation: alert, oriented to person and oriented to place; + not oriented to time Apperance: appropriately dressed and appropriately groomed Eye Contact: + fair eye contact Motor Behavior: + tremor Speech: normal rate/rhythm/volume of speech Affect: + anxious affect Mood: + anxious mood Thought Process: + circumstantial thought process and + tangential thought process Thought Content: + cognitive distortions Suicidal Thoughts: + reports suicidal thoughts and + reports suicidal plan Homicidal Thoughts: denies homicidal thoughts Hallucinations: + auditory hallucinations (commanding her to kill herself) Cognition: + recent memory not intact, + remote memory not intact and + attention not intact Estimated Intelligence: average estimated intelligence Insight: + impaired insight Judgment: + impaired judgement Vital Signs (Past 24 Hours): Last Vital Signs Temp 36.6 C 09/28/22 16:37 Pulse 93 H 09/28/22 16:37 Resp 17 09/28/22 16:37 BP 112/64 09/28/22 16:37 Pulse Ox 96 09/28/22 16:37 O2 Del Method Room Air 09/28/22 16:37 Results & Data (PSY) Medications Administered Sodium Chloride (Nss 1000ml) 1,000 mls @ 125 mls/hr IV .Q8H KACY Stop: 10/27/22 20:59 Last Admin: 09/28/22 13:45 Dose: 125 mls/hr Documented By: Infusion: 09/28/22 11:47 Dose: 0 mls/hr Documented By: Admin: 09/28/22 02:13 Dose: 125 mls/hr Documented By: Infusion: 09/28/22 02:13 Dose: 125 mls/hr Documented By: Admin: 09/27/22 22:02 Dose: 125 mls/hr Documented By: JASON Lorazepam (Lorazepam 1 Mg Tab) 1 mg PO Q8H PRN PRN Reason: anxiety Stop: 10/28/22 17:29 Last Admin: 09/28/22 17:43 Dose: 1 mg Documented By: SCHUYLER Pantoprazole Sodium (Pantoprazole 40 Mg Tab) 40 mg PO DAILY KACY Stop: 10/28/22 12:34 Last Admin: 09/28/22 13:58 Dose: 40 mg Documented By: SCHUYLER Coding Level of Care Code 07993 IN/OBS CONSULT LVL 5,80M Diagnoses Major depressive disorder, recurrent, severe with psychotic features F33.3 Time Spent (min) 90
--- NOTE | 2022-09-28 20:49 | Hospitalist Progress Note ---
Date of Service September 28, 2022 Assessment & Plan (1) Toxic encephalopathy: Plan: 52 yo female with extensive psych medical history presents with AMS. -found on ground at home by family, appeared to have been down for ~5 hours. Pt has been "off" from her baseline over the last week. Etiology unknown at this time but most likely due to medication noncompliance and dehydration. Has a h/o seizures -UDS negative, APAP and ASA negative, CT head and CTA head and neck neg for acute issues, no renal failure or lytes distubrnaces. With rhabdomyolysis from lying on ground -no evidence of infection -after she was more alert this AM, Psych nurse liaison astutely discovered she had intentionally overdosed on amitriptyline-took approximately 30-40 of the 50mg tablets -decreased mentation likely secondary to amitriptyline overdose -improving now -continue IVFs and advance diet today -treating rhabdo as below -hold all home psych meds -psych consult appreciated-make 1:1 with suicide precautions, needs inpatient Psych stay after medically clear (2) Amitriptyline overdose: Plan: as above follow on tele for arrhythmia, follow ECG give 1 gram IV mag now and follow mag level in AM amitriptyline level ordered and pending (3) Rhabdomyolysis: Plan: CK now in 7000s from lying on floor with pain in left thigh area-check xrays but likely source of rhabdo from compression while unconscious increase NS to 200 mL/hr follow CMP, CK (4) Left hip pain: Plan: as above, from rhabdo, check xray frmeur tylenol only for pain, no opioids (5) Prolonged QT interval: Plan: from Elavil overdose follow ECG, tele and give IV mag to keep above 2 (6) Major depressive disorder, recurrent, severe with psychotic features: Plan: holding all home meds due to overdose Psych consulted ok to resume tid ativan as she takes at home (7) H/O gastric bypass: Plan: noted (8) Elevated LFTs: Plan: from rhabdo most likely follow (9) Hypothyroidism: Plan: TSH in 03/2022 normal restart home LT4 Plan Dispo-continued stay, transferred to PCU Admission and Anticipated Discharge Date Admission Date: September 27, 2022 Subjective Pt more awake and alert today. Reports pain in left thigh and feels numb in upper outer left thigh. Having trouble lifting left LE off the bed, but RN reports she is walking to the toilet in the room. Denies CP, SOB,nausea. Moved to [facility] this AM for prolonged QT Physical Exam Constitutional: WD/WN, vitals as above Eyes: PERRL, conjunctivae normal, anicteric sclerae ENMT: external ear and nose normal, oropharynx normal Neck: trachea midline, no thyromegaly Respiratory: normal respiratory effort, lungs clear to auscultation Cardiovascular: RRR, no murmur, no edema Chest (Breasts): Chest: normal inspection of chest Gastrointestinal (Abdomen): normal bowel sounds, soft, nontender, no hepatosplenomegaly Musculoskeletal: Extremities: extremities normal to inspection; no cyanosis and no clubbing +loss of sensation to light touch on left anterior and lateral thigh compared to right +TTP left thigh anterior, no mass or hematoma, no erythema Strength in LLE 4/5 with left hip flexion, secondary to pain RLE 5/5 Skin: no rashes, warm and dry Neurologic: moves all extremities and awake; no focal motor deficits Psychiatric: A+Ox3, euthymic affect Lymphatic: no lymphedema Results & Data Results & Data Vital Signs (Past 12 Hours) Vital Signs Temp Pulse Pulse Resp BP BP Pulse Ox 09/28/22 19:43 36.7 C 87 17 100/65 98 09/28/22 16:37 36.6 C 93 H 17 112/64 96 09/28/22 13:38 87 09/28/22 12:35 36.7 C 88 18 124/83 96 O2 Del Method 09/28/22 19:43 Room Air 09/28/22 16:37 Room Air 09/28/22 13:38 09/28/22 12:35 Room Air Laboratory Results CBC, CMP, CK, APAP levels reviewed PG Care Time/CCT Total # of Minutes Spent Total Time Spent with Patient: Total time spent is greater than 50% in coordination of care (as documented) at patient's floor/unit and/or counseling patient: Coding Level of Care Code 01314 SUB INP/OBS CARE 3/50MIN Diagnoses Toxic encephalopathy G92.9 Amitriptyline overdose T43.011A Rhabdomyolysis M62.82 Left hip pain M25.552 Prolonged QT interval R94.31 Major depressive disorder, recurrent, severe with psychotic features F33.3 H/O gastric bypass Z98.84 Elevated LFTs R79.89 Hypothyroidism E03.9
[2022-09-28] MEDS: LORazepam 1 MG TAB PO SCH (22:17)
[2022-09-29] MEDS: SODIUM CHLORIDE 0.9% 1000ML 1,000 ML IV SCH ×4 (03:28→19:17)
[2022-09-29 06:24] LABS: Basophils # (auto) 0.02 K/uL (0-0.2); Basophils % (auto) 0.4 %; Hematocrit (blood only) 32.5 % (37.0-47.0); Hemoglobin 10.8 g/dl (12.0-16.0); Immature Granulocytes # (auto) 0.01 K/uL (0.01-0.20); Immature Granulocytes % (auto) 0.2 %; Lymphocytes # (auto) 2.12 K/uL (1.2-3.4); Lymphocytes % (auto) 39.3 %; Mean Corpuscular Hemoglobin 31.2 pg (25.0-34.0); Mean Corpuscular Hgb Conc 33.2 g/dL (32.0-36.0); Mean Corpuscular Volume 93.9 fL (80.0-100.0); Mean Platelet Volume 10.4 fL (9.4-12.4); Monocytes # (auto) 0.37 K/uL (0.11-0.59); Monocytes % (auto) 6.9 %; Neutrophils # (auto) 2.87 K/uL (1.40-6.50); Neutrophils % (auto) 53.2 %; Platelet Count 255 K/uL (130-400); RDW Coefficient of Variation 14.3 % (11.5-14.5); RDW Standard Deviation 48.8 fL (36.4-46.3); Red Blood Count 3.46 M/uL (4.20-5.40); White Blood Count 5.39 K/ul (4.8-10.8)
[2022-09-29 06:40] LABS: BUN Creatinine Ratio 19.2 (10-20); Calcium 7.7 mg/dl (8.6-10.3); Creatinine Clr Calc Pharmacy 140.9 ml/min; Est GFR (African American) 125.5 ml/min; Est GFR (Non-African American) 108.3 ml/min; Potassium 3.4 mmol/L (3.5-5.1)
[2022-09-29 06:43] LABS: Albumin Globulin Ratio 1.5 (0.9-2); Bilirubin,Total 0.4 mg/dl (0.2-1.0); Magnesium 1.9 mg/dl (1.7-2.4)
--- NOTE | 2022-09-29 07:23 | XRay Report ---
XR femur LT 2V routine CLINICAL HISTORY: left hip pain s/p fall TECHNIQUE: 2 radiographic views of the right femur were obtained. Comparison: None available at the time of this dictation. FINDINGS: There is no evidence of an acute fracture. The visualized portion of the hip and knee joints are unr emarkable. The soft tissues are unremarkable. IMPRESSION: No evidence of acute bony injury. ACT 112: Negative or not required by law. Electronically signed by: Jose Cerna M.D. 09/29/2022 7:21 AM
[2022-09-29] MEDS ORDERED: POTASSIUM CHLORIDE CRTAB 20 MEQ TABCR PO STA (08:01)
[2022-09-29] MEDS ORDERED: MAGNESIUM SULFATE / D5W 1 GM/100 ML BAG IV ONE (08:07)
[2022-09-29] MEDS: LORazepam 1 MG TAB PO SCH ×3 (08:17→21:29)
[2022-09-29] MEDS: LEVOTHYROXINE SODIUM 137 MCG TABLET PO SCH (08:18)
[2022-09-29] MEDS: PANTOprazole 40 MG TAB PO SCH (08:18)
[2022-09-29] MEDS: ACETAMINOPHEN 500 MG TAB PO PRN (08:26)
--- NOTE | 2022-09-29 18:36 | Hospitalist Progress Note ---
Date of Service September 29, 2022 Assessment & Plan (1) Toxic encephalopathy: Plan: 52 yo female with extensive psych medical history presents with AMS after being found downon the ground in her living room, unresponsive. Unknown length of time down but estimated at 5 hours. -Pt has been "off" from her baseline over the last week. Has a h/o seizures/pseudoseizures -UDS negative, APAP and ASA negative, CT head and CTA head and neck neg for acute issues, no renal failure or lyte disturbances. With rhabdomyolysis from lying on ground -no evidence of infection -after she was more alert the AM after admission, the Psych nurse liaison astutely discovered she had intentionally overdosed on amitriptyline-took approximately 30-40 of the 50mg tablets -decreased mentation likely secondary to amitriptyline overdose-much improved now-conversational, back to baseline -continue IVFs for rhabdo -psych consult appreciated-make 1:1 with suicide precautions, needs inpatient Psych stay after medically clear -held all psych meds initially but restarted lorazepam on 09/28 to prevent withdrawal -Psych now recommends restarting duloxetine to prevent withdrawal and Rexulti for psychosis (2) Amitriptyline overdose: Plan: as above Potentially took fatal doses of amitriptyline if amount she admits to is correct, but unclear. She is doing well now. No arrhythmias on tele, prolonged QT is now resolved, no tachycardia. No signs of anticholinergic toxicity at this time follow on tele for arrhythmia, follow ECG again in the AM gave another 1 gram IV magnesium to keep at 2.0 or above- follow mag level in AM amitriptyline level ordered and pending Appreciate Psych consult-continue 1:1, suicide precautions (3) Rhabdomyolysis: Plan: CK initially in 700s and then up to 7000s from lying on floor with pain in left thigh area likely from muscle compression and edema while unconscious no signs of renal failure continue NS at 200 mL/hr follow CMP, CK again in the AM monitor left thigh area for edema (4) Anemia: Plan: hgb 10.8, normocytic slight drop from admission likely somewhat hemodilutional has a h/o gastric bypass surgery so at risk for nutritional deficiencies -check B12, folate, Fe studies in AM TSH normal in 03/2022 (5) Left hip pain: Plan: as above, from rhabdo xray femur negative for fracture pain is improving in hip and anterior left thigh, strength improving, able to ambulate in room tylenol for pain, no opioids restart home Celebrex PT/OT consults placed (6) Prolonged QT interval: Plan: from Elavil overdose -now resolved follow ECG, tele and give IV mag to keep above 2 (7) Major depressive disorder, recurrent, severe with psychotic features: Plan: holding all home meds due to overdose initially Psych consulted meds as above-restarted ativan, duloxetine, and Rexulti HOLD Viibrid, amitriptyline, buspar (8) H/O gastric bypass: Plan: noted (9) Elevated LFTs: Plan: from rhabdo most likely-improving follow CMP (10) Hypothyroidism: Plan: TSH in 03/2022 normal continue home LT4 (11) Hypokalemia: Plan: K+ 3.4 today-give KCl 40 meq po x 1 follow BMP Plan Dispo-continued stay on PCU. Discussed with Psychiatrist--> most likely will be medically stable for discharge to inpatient Psych in 1-2 days Admission and Anticipated Discharge Date Admission Date: September 29, 2022 Subjective Pt reports her left thigh and hip feels less painful today. Mild headache. No CP or OSB, no lightheadedness. No nausea or abd pains. Moving bowels. Making a lot of urine and it is much sales marketing coordinator in color than yesterday or even this AM. Tele with NSR, rates in 80s I discussed her care with Psychiatry Physical Exam Constitutional: WD/WN, vitals as above Eyes: PERRL, conjunctivae normal, anicteric sclerae Neck: trachea midline, no thyromegaly Respiratory: normal respiratory effort, lungs clear to auscultation Cardiovascular: RRR, no murmur, no edema Chest (Breasts): Chest: normal inspection of chest Gastrointestinal (Abdomen): normal bowel sounds, soft, nontender, no hepatosplenomegaly Musculoskeletal: Extremities: extremities normal to inspection; no cyanosis and no clubbing Skin: no rashes, warm and dry Neurologic: moves all extremities and awake; no focal motor deficits Psychiatric: A+Ox3, euthymic affect Lymphatic: no lymphedema Results & Data Results & Data Vital Signs (Past 12 Hours) Vital Signs Temp Pulse Pulse Resp BP BP Pulse Ox 09/29/22 17:00 84 09/29/22 15:37 37.0 C 90 16 104/62 95 09/29/22 11:00 87 09/29/22 11:30 37.0 C 17 114/76 94 09/29/22 07:57 36.9 C 85 18 114/67 93 O2 Del Method 09/29/22 17:00 09/29/22 15:37 Room Air 09/29/22 11:00 09/29/22 11:30 Room Air 09/29/22 07:57 Room Air Laboratory Results 09/29/22 09/29/22 Range/Units 05:46 05:46 WBC 5.39 (4.8-10.8) K/ul RBC 3.46 L (4.20-5.40) M/uL Hgb 10.8 L (12.0-16.0) g/dl Hct 32.5 L (37.0-47.0) % MCV 93.9 (80.0-100.0) fL MCH 31.2 (25.0-34.0) pg MCHC 33.2 (32.0-36.0) g/dL RDW Std Deviation 48.8 H (36.4-46.3) fL RDW Coeff of Ruth 14.3 (11.5-14.5) % Plt Count 255 (130-400) K/uL MPV 10.4 (9.4-12.4) fL Immature Gran % (Auto) 0.2 % Neut % (Auto) 53.2 % Lymph % (Auto) 39.3 % Dixie % (Auto) 6.9 % Eos % (Auto) 0.0 % Baso % (Auto) 0.4 % Neut # (Auto) 2.87 (1.40-6.50) K/uL Lymph # (Auto) 2.12 (1.2-3.4) K/uL Dixie # (Auto) 0.37 (0.11-0.59) K/uL Eos # (Auto) 0.00 (0-0.50) K/uL Baso # (Auto) 0.02 (0-0.2) K/uL Immature Gran # (Auto) 0.01 (0.01-0.20) K/uL Sodium 142 (136-145) mmol/L Potassium 3.4 L (3.5-5.1) mmol/L Chloride 112 H (98-107) mmol/L Carbon Dioxide 25 (21-32) mmol/L Anion Gap 5 (3-11) BUN 10 (6-23) mg/dl Creatinine 0.52 L (0.6-1.2) mg/dl Est Cr Clr Drug Dosing 140.9 ml/min Est GFR ( Amer) 125.5 ml/min Est GFR (Non-Af Amer) 108.3 ml/min BUN/Creatinine Ratio 19.2 (10-20) Glucose 93 (70-99(Fasting)) mg/dl Calcium 7.7 L (8.6-10.3) mg/dl Magnesium 1.9 (1.7-2.4) mg/dl Total Bilirubin 0.4 (0.2-1.0) mg/dl AST 81 H (13-39) U/L ALT 33 (7-52) U/L Alkaline Phosphatase 102 (34-104) U/L Total Creatine Kinase 4895 H (26-192) U/L Total Protein 5.0 L (6.0-8.3) gm/dl Albumin 3.0 L (3.4-5.0) gm/dl Globulin 2.0 L (2.5-4.0) gm/dl Albumin/Globulin Ratio 1.5 (0.9-2) PG Care Time/CCT Total # of Minutes Spent Total Time Spent with Patient: Total time spent is greater than 50% in coordination of care (as documented) at patient's floor/unit and/or counseling patient: Coding Level of Care Code 54952 SUB INP/OBS CARE 3/50MIN Diagnoses Toxic encephalopathy G92.9 Amitriptyline overdose T43.011A Rhabdomyolysis M62.82 Anemia D64.9 Left hip pain M25.552 Prolonged QT interval R94.31 Major depressive disorder, recurrent, severe with psychotic features F33.3 H/O gastric bypass Z98.84 Elevated LFTs R79.89 Hypothyroidism E03.9 Hypokalemia E87.6
[2022-09-29] MEDS ORDERED: DULoxetine HCL 60 MG CAP PO SCH (21:00)
[2022-09-29] MEDS ORDERED: LORazepam 1 MG TAB PO SCH (21:00)
[2022-09-29] MEDS: BREXPIPRAZOLE PO SCH (21:30)
[2022-09-30] MEDS ORDERED: hydrOXYzine HCl 25 MG TAB PO STA (00:01)
[2022-09-30] MEDS ORDERED: MELATONIN 3 MG TAB PO PRN (00:01)
[2022-09-30] MEDS: SODIUM CHLORIDE 0.9% 1000ML 1,000 ML IV SCH ×5 (00:21→22:13)
--- NOTE | 2022-09-30 05:51 | Electrocardiogram Report ---
Test Reason : Blood Pressure : / mmHG Vent. Rate : 090 BPM Atrial Rate : 090 BPM P-R Int : 184 ms QRS Dur : 112 ms QT Int : 380 ms P-R-T Axes : 042 026 058 degrees QTc Int : 464 ms Normal sinus rhythm Normal ECG When compared with ECG of 28-SEP-2022 11:26, No significant change was found Confirmed by Jose Eduardo Whitley ([id number]) on 09/30/2022 5:51:25 AM Referred By: REFERRED SELF Confirmed By:Jose Eduardo Whitley
[2022-09-30 08:32] LABS: Basophils # (auto) 0.03 K/uL (0-0.2); Basophils % (auto) 0.6 %; Hematocrit (blood only) 31.1 % (37.0-47.0); Hemoglobin 10.1 g/dl (12.0-16.0); Immature Granulocytes # (auto) 0.01 K/uL (0.01-0.20); Immature Granulocytes % (auto) 0.2 %; Lymphocytes # (auto) 1.45 K/uL (1.2-3.4); Lymphocytes % (auto) 30.7 %; Mean Corpuscular Hemoglobin 30.8 pg (25.0-34.0); Mean Corpuscular Hgb Conc 32.5 g/dL (32.0-36.0); Mean Corpuscular Volume 94.8 fL (80.0-100.0); Mean Platelet Volume 10.6 fL (9.4-12.4); Monocytes # (auto) 0.31 K/uL (0.11-0.59); Monocytes % (auto) 6.6 %; Neutrophils # (auto) 2.93 K/uL (1.40-6.50); Neutrophils % (auto) 61.9 %; Platelet Count 206 K/uL (130-400); Red Blood Count 3.28 M/uL (4.20-5.40); White Blood Count 4.73 K/ul (4.8-10.8)
[2022-09-30] MEDS: LORazepam 1 MG TAB PO SCH ×3 (08:44→20:15)
[2022-09-30] MEDS: CeleBREX 200 MG CAP PO SCH (08:45)
[2022-09-30] MEDS: DULoxetine HCL 60 MG CAP PO SCH (08:46)
[2022-09-30] MEDS: LEVOTHYROXINE SODIUM 137 MCG TABLET PO SCH (08:46)
[2022-09-30] MEDS: METOPROLOL TARTRATE 25 MG TAB PO SCH (08:47)
[2022-09-30 08:48] LABS: BUN Creatinine Ratio 13.5 (10-20); Calcium 7.9 mg/dl (8.6-10.3); Creatinine Clr Calc Pharmacy 140.9 ml/min; Est GFR (African American) 125.5 ml/min; Est GFR (Non-African American) 108.3 ml/min; Potassium 3.7 mmol/L (3.5-5.1)
[2022-09-30 08:50] LABS: Albumin Globulin Ratio 1.5 (0.9-2); Albumin Level 2.9 gm/dl (3.4-5.0); Bilirubin,Total 0.3 mg/dl (0.2-1.0); Magnesium 1.6 mg/dl (1.7-2.4); Total Protein 4.9 gm/dl (6.0-8.3)
[2022-09-30 09:05] LABS: Ferritin 14.3 ng/ml (8-388)
[2022-09-30 09:12] LABS: Vitamin B12 72 pg/ml (180-914)
[2022-09-30] MEDS: PANTOprazole 40 MG TAB PO SCH (09:52)
--- NOTE | 2022-09-30 11:46 | Hospitalist Progress Note ---
Date of Service September 30, 2022 Assessment & Plan (1) Toxic encephalopathy: Plan: 52 yo female with Hx severe MDD with psychotic features (auditory hallucinations), PNES, migraine, fibromyalgia, admitted for toxic encephalopathy and rhabdomyolysis after prolonged unknown duration downtime at home. -UDS negative, APAP and ASA negative, CT head and CTA head and neck neg for acute issues, no renal failure or lyte disturbances. -Rhabdomyolysis as described below -No evidence of infection -Suspected to be overdose of amitriptyline tablets (30-40 of the 50mg tablets), see below -Patient now alert and oriented, with some auditory hallucinations and still with suicidal ideation, stable -Psych consult appreciated, cont 1:1 with suicide precautions, needs inpatient Psych stay after medically clear, anticipate tomorrow -Psych recommends continue duloxetine and Rexulti, benzo prn (2) Amitriptyline overdose: Plan: -Potentially took fatal doses of amitriptyline if amount she admits to is correct, but unclear -No arrhythmias on tele, prolonged QT is now resolved, no tachycardia -No signs of anticholinergic toxicity at this time -Mg 1.6, given Mg Sulfate IV x2g today -Amitriptyline level ordered and pending -Appreciate Psych consult-continue 1:1, suicide precautions, case discussed with Psych team 09/30 (3) Rhabdomyolysis: Plan: CK 700 -> 7000 -> 5200, continue NSS at 200cc/hr With pain in left thigh area likely from muscle compression and edema while unconscious Renal function normal, no evidence of compartment syndrome (4) Anemia: Plan: -Has a h/o gastric bypass surgery so at risk for nutritional deficiencies -Hgb 10.1, normocytic -Slight drop in admission with aggressive IV fluids, suspect hemodilutional -Cyanocobalamin 1000mcg x1 while admitted, will likely need continued B12 injections outpatient -Folate normal -Iron studies with relatively low ferritin and iron level, will give Venofer 300mg IV x1, will likely need infusions outpatient as well (5) Left hip pain: Plan: As above, from rhabdo, improving pain and strength Xray femur negative for fracture Tylenol and Celebrex for pain, no opioids PT/OT consulted, no rehab needs expected (6) Prolonged QT interval: Plan: From Elavil overdose, now resolved Keep Mg > 2 as above (7) Major depressive disorder, recurrent, severe with psychotic features: Plan: Psych consulted, meds as above Hold Viibryd, amitriptyline, BuSpar (8) Elevated LFTs: Plan: Suspected due to rhabdo, improving (9) Hypokalemia: Plan: Resolved, K 3.7 Plan Dispo: anticipate discharge from medical perspective tomorrow to Psych floor if continuing to improve clinically. Currently the patient is having auditory hallucinations and is a voluntary psych admit, however, if trying to leave against medical advice, will need to alert Behavioral Health Liaison as patient endorsed suicidal ideation within the last 24 hours. Admission and Anticipated Discharge Date Admission Date: September 29, 2022 Subjective Overnight with some agitation, initially wanted to leave against medical advice but after discussing with behavioral health liaison did not stay overnight. Reports overall feeling much better today than yesterday, in particular her thigh pain is better. She is still having hallucinations. She expressed to behavioral health liaison that she still has suicidal ideation. Other than thigh pain and hallucinations, she has no other complaints. Review of Systems Review of Systems: All systems reviewed & are unremarkable except as noted in Subjective Physical Exam Constitutional: WD/WN, vitals as above Respiratory: normal respiratory effort, lungs clear to auscultation Cardiovascular: RRR, no murmur, no edema Skin: no rashes, warm and dry Psychiatric: A+Ox3, euthymic affect Results & Data Results & Data Vital Signs (Past 12 Hours) Vital Signs Temp Pulse Pulse Resp BP Pulse Ox O2 Del Method 09/30/22 10:00 62 09/30/22 07:26 36.5 C 85 18 106/66 95 Room Air PG Care Time/CCT Total # of Minutes Spent Total Time Spent with Patient: Total time spent is greater than 50% in coordination of care (as documented) at patient's floor/unit and/or counseling patient: Coding Level of Care Code 88782 SUB INP/OBS CARE 3/50MIN Diagnoses Toxic encephalopathy G92.9 Amitriptyline overdose T43.011A Rhabdomyolysis M62.82 Anemia D64.9 Left hip pain M25.552 Prolonged QT interval R94.31 Major depressive disorder, recurrent, severe with psychotic features F33.3 Elevated LFTs R79.89 Hypokalemia E87.6
--- NOTE | 2022-09-30 14:51 | Electrocardiogram Report ---
Test Reason : Blood Pressure : / mmHG Vent. Rate : 089 BPM Atrial Rate : 089 BPM P-R Int : 202 ms QRS Dur : 128 ms QT Int : 394 ms P-R-T Axes : 047 046 088 degrees QTc Int : 479 ms Normal sinus rhythm Normal ECG When compared with ECG of 29-SEP-2022 08:31, No significant change was found Confirmed by Onesimo Hu ([id number]) on 09/30/2022 2:51:27 PM Referred By: REFERRED SELF Confirmed By:Onesimo Hu
[2022-09-30] MEDS ORDERED: IRON SUCROSE 300 MG in SODIUM CHLORIDE 0.9% 250 ML IV ONE (16:00)
[2022-09-30] MEDS: MAGNESIUM SULFATE / D5W 1 GM/100 ML BAG IV SCH ×2 (16:07→17:12)
[2022-09-30] MEDS: CYANOCOBALAMIN 1000 MCG/ML VIAL IM SCH (16:18)
[2022-09-30] MEDS: BREXPIPRAZOLE PO SCH (20:18)
[2022-09-30] MEDS: ACETAMINOPHEN 500 MG TAB PO PRN (20:59)
[2022-09-30] MEDS ORDERED: KETOROLAC TROMETHAMINE 15 MG/ML VIAL IV ONE (22:49)
[2022-10-01] MEDS: SODIUM CHLORIDE 0.9% 1000ML 1,000 ML IV SCH ×3 (03:10→12:21)
[2022-10-01] MEDS: ACETAMINOPHEN 500 MG TAB PO PRN ×2 (06:29→17:30)
[2022-10-01] MEDS ORDERED: CYANOCOBALAMIN (B-12) 100 MCG TABLET PO SCH (09:00)
[2022-10-01] MEDS: CeleBREX 200 MG CAP PO SCH (09:27)
[2022-10-01] MEDS: LORazepam 1 MG TAB PO SCH ×3 (09:28→20:00)
[2022-10-01] MEDS: CYANOCOBALAMIN 1000 MCG/ML VIAL IM SCH (09:28)
[2022-10-01] MEDS: LEVOTHYROXINE SODIUM 137 MCG TABLET PO SCH (09:28)
[2022-10-01] MEDS: DULoxetine HCL 60 MG CAP PO SCH (09:28)
[2022-10-01] MEDS: METOPROLOL TARTRATE 25 MG TAB PO SCH (09:29)
[2022-10-01] MEDS: PANTOprazole 40 MG TAB PO SCH (09:29)
--- NOTE | 2022-10-01 09:35 | Hospitalist Progress Note ---
Date of Service October 01, 2022 Assessment & Plan (1) Toxic encephalopathy: Plan: 52 yo female with Hx severe MDD with psychotic features (auditory hallucinations), PNES, migraine, fibromyalgia, admitted for toxic encephalopathy and rhabdomyolysis after prolonged unknown duration downtime at home. -UDS negative, APAP and ASA negative, CT head and CTA head and neck neg for acute issues, no renal failure or lyte disturbances. -Rhabdomyolysis as described below -No evidence of infection -Suspected to be overdose of amitriptyline tablets (30-40 of the 50mg tablets), see below -Patient now alert and oriented, with some auditory hallucinations and still with suicidal ideation, stable -Psych consult appreciated, cont 1:1 with suicide precautions, medically cleared for discharge to Psychiatric facility (2) Amitriptyline overdose: Plan: -Potentially took fatal doses of amitriptyline if amount she admits to is correct, but unclear -No arrhythmias on telemetry reviewed 10/01, prolonged QT has resolved, no tachycardia -No signs of anticholinergic toxicity at this time -Appreciate Psych consult - continue 1:1, suicide precautions, case discussed with Psych team 10/01 (3) Rhabdomyolysis: Plan: -CK 700 -> 7000 -> 5200, continue NSS at 200cc/hr until this afternoon then stop -With pain in left thigh area likely from muscle compression and edema while unconscious -Renal function normal, no evidence of compartment syndrome (4) Anemia: Plan: -Has a h/o gastric bypass surgery so at risk for nutritional deficiencies -Hgb 10.1, normocytic -Slight drop in admission with aggressive IV fluids, suspect hemodilutional -Cyanocobalamin 1000mcg x1 while admitted, will likely need continued B12 injections outpatient -Folate normal -Iron studies with relatively low ferritin and iron level, received Venofer 300mg IV x1, will likely need IV replacement outpatient as well (5) Left hip pain: Plan: -As above, from rhabdo, improving pain and strength -Xray femur negative for fracture -Tylenol and Celebrex for pain, no opioids -PT/OT consulted, no rehab needs expected (6) Prolonged QT interval: Plan: -From Elavil overdose, now resolved -Keep Mg > 2 as above (7) Major depressive disorder, recurrent, severe with psychotic features: Plan: -Psych consulted, meds as above -Hold Viibryd, amitriptyline, BuSpar (8) Elevated LFTs: Plan: -Suspected due to rhabdo, improving (9) Hypokalemia: Plan: -Resolved, K 3.7 on 09/30 Plan Dispo: Patient is medically cleared for discharge to Psychiatric facility. Currently the patient is having auditory hallucinations and is a voluntary psych admit, however, if trying to leave against medical advice, will need to alert Behavioral Health Liaison as patient endorsed suicidal ideation within the last 24 hours. Admission and Anticipated Discharge Date Admission Date: September 29, 2022 Subjective Overnight without worsening symptoms, still with some auditory hallucinations, no chest pain, palpitations, SOB, lightheadedness. Review of Systems Review of Systems: All systems reviewed & are unremarkable except as noted in Subjective Physical Exam Constitutional: WD/WN, vitals as above Respiratory: normal respiratory effort, lungs clear to auscultation Cardiovascular: RRR, no murmur, no edema Skin: no rashes, warm and dry Psychiatric: A+Ox3, euthymic affect Results & Data Results & Data Vital Signs (Past 12 Hours) Vital Signs Temp Pulse Pulse Resp BP Pulse Ox O2 Del Method 10/01/22 07:17 36.6 C 72 19 130/83 95 Room Air 10/01/22 03:00 36.8 C 90 19 140/80 97 Room Air 09/30/22 23:38 80 09/30/22 22:41 36.6 C 79 18 127/78 98 Room Air PG Care Time/CCT Total # of Minutes Spent Total Time Spent with Patient: Total time spent is greater than 50% in coordination of care (as documented) at patient's floor/unit and/or counseling patient: Coding Level of Care Code 33965 SUB INP/OBS CARE 2/35MIN Diagnoses Toxic encephalopathy G92.9 Amitriptyline overdose T43.011A Rhabdomyolysis M62.82 Anemia D64.9 Left hip pain M25.552 Prolonged QT interval R94.31 Major depressive disorder, recurrent, severe with psychotic features F33.3 Elevated LFTs R79.89 Hypokalemia E87.6
[2022-10-01 12:37] LABS: Ami + Nortriptyline 620 mcg/L (100-250); Nortriptyline 347 mcg/L
[2022-10-01] MEDS: BREXPIPRAZOLE PO SCH (20:00)
[2022-10-01] MEDS ORDERED: hydrOXYzine HCl 25 MG TAB PO STA (21:20)
[2022-10-02] MEDS: ACETAMINOPHEN 500 MG TAB PO PRN (04:18)
[2022-10-02] MEDS: LORazepam 1 MG TAB PO SCH (08:33)
--- NOTE | 2022-10-02 09:22 | Discharge Summary ---
Discharge Summary Date of Service October 02, 2022 Admission HPI Per Admitting Provider 52 yo female with extensive psych medical history presents with AMS. Daughter at bedside. History obtained from daughter and ER provider. She lives with family including daughter at home. Family reported to EMS that the last time they spoke with her was at 230 this afternoon when she seemed in her usual state of health. She had a scheduled telehealth appt with psych at 3pm but never got online. When family arrived home at 7pm they found patient down on the ground minimally responsive. Family also reported to EMS she has been noncompliant with her medications recently and has been "off" over the last week. EMS reported stable vital signs in route, no other additional information was available. Of note, daughter states that patient had a witnessed seizure back in 2018 and used to be Depakote, however, subsequent EEG was negative. Admission Exam Per Admitting Provider Constitutional: in no acute distress, speaking in broken sentences and nonsensical however AOx3. Vitals as above. HEENT: No scleral injection or discharge. Dry mucous membranes. Pupils unable to be tested due to pt noncompliance. Neck: Supple without lymphadenopathy or thyromegaly. Trachea midline. Lungs: Clear to auscultation bilaterally with good effort. Cardiac: Regular rate and rhythm. No murmurs. No extremity edema. 2+ distal peripheral pulses. Abdomen: Bowel sounds present. Soft, nontender, and nondistended. No guarding. No hepatosplenomegaly. MSK: No cyanosis or clubbing. Skin: No rashes, warm, dry. Neurologic: no focal deficits Principal Dx & Hospital Course #1 = Principal Diagnosis (1) Toxic encephalopathy: 52 yo female with Hx severe MDD with psychotic features (auditory hallucinations), PNES, migraine, fibromyalgia, admitted for toxic encephalopathy and rhabdomyolysis after prolonged unknown duration downtime at home. -UDS negative, APAP and ASA negative, CT head and CTA head and neck neg for acute issues, no renal failure or lyte disturbances. -Rhabdomyolysis as described below -No evidence of infection -Suspected to be overdose of amitriptyline tablets (30-40 of the 50mg tablets), see below -Patient now alert and oriented, with some auditory hallucinations and still with suicidal ideation, stable -Psych consult appreciated, cont 1:1 with suicide precautions, medically cleared for discharge to Psychiatric floor today 10/02 (2) Amitriptyline overdose: -Potentially took fatal doses of amitriptyline if amount she admits to is correct, but unclear -No arrhythmias on telemetry reviewed 10/01, prolonged QT has resolved, no tachycardia -No signs of anticholinergic toxicity at this time -Appreciate Psych consult - continue 1:1, suicide precautions, case discussed with Psych team 10/02 (3) Rhabdomyolysis: -CK downtrending with IV fluids, discontinued and encourage PO -With pain in left thigh area, improving, likely from muscle compression and edema while unconscious -Renal function normal, no evidence of compartment syndrome (4) Anemia: -Has a h/o gastric bypass surgery so at risk for nutritional deficiencies -Hgb stable in 10's, normocytic -Slight drop in admission with aggressive IV fluids, suspect hemodilutional -Cyanocobalamin 1000mcg x1 while admitted, will likely need continued B12 injections outpatient -Folate normal -Iron studies with relatively low ferritin and iron level, received Venofer 300mg IV x1, will likely need IV replacement outpatient as well (5) Left hip pain: -As above, from rhabdo, improving pain and strength -Xray femur negative for fracture -Tylenol and Celebrex for pain, no opioids -PT/OT consulted, no rehab needs expected (6) Prolonged QT interval: -From Elavil overdose, now resolved (7) Major depressive disorder, recurrent, severe with psychotic features: -Psych consulted, meds as above -Hold Viibryd, amitriptyline, BuSpar on discharge with inpatient Psych to adjust medications (8) Elevated LFTs: -Suspected due to rhabdo, improving (9) Hypokalemia: -Resolved, K 3.7 on 09/30 (10) Dysuria: - Reported by patient, started on Macrobid x5 days, follow up with PCP Plan Dispo: Patient for discharge to [facility] Inpt Psych on 10/02 Discharge Exam Constitutional WD/WN, vitals as above Cardiovascular RRR, no murmur, no edema Psychiatric A+Ox3, euthymic affect Updated Medication List Medication Instructions Recorded Confirmed Type levothyroxine 137 mcg tablet 137 mcg PO QAM 10/22/20 09/27/22 History vilazodone 20 mg tablet 20 mg PO QAM 02/28/22 09/27/22 History amitriptyline 50 mg tablet 150 mg PO HS 03/08/22 09/27/22 History mecobalamin (vitamin B12) 1,000 1,000 mcg PO DAILY #90 tabs 03/11/22 09/27/22 Rx mcg chewable tablet duloxetine 60 mg capsule,delayed 60 mg PO QAM 04/20/22 09/29/22 History release lorazepam 1 mg tablet 1 mg PO QID 04/25/22 09/27/22 History metoprolol tartrate 25 mg tablet 25 mg PO QAM #90 tabs 05/30/22 09/27/22 Rx methocarbamol 750 mg tablet 750 mg PO Q8H #60 tabs 06/13/22 09/27/22 Rx celecoxib 200 mg capsule (Celebrex) 200 mg PO DAILY #30 caps 07/05/22 09/27/22 Rx pantoprazole 40 mg tablet,delayed 40 mg PO DAILY #90 tabs 07/05/22 09/27/22 Rx release ubrogepant 100 mg tablet (Ubrelvy) 100 mg PO .COMPLEX PRN migraine 07/12/22 09/27/22 Rx headache #10 tabs acetaminophen 300 mg-codeine 30 mg 1 tab PO BID 09/27/22 09/27/22 History tablet brexpiprazole 2 mg tablet (Rexulti) 2 mg PO QPM 09/27/22 09/27/22 History buspirone 5 mg tablet 5 mg PO TID 09/27/22 09/27/22 History promethazine 25 mg tablet 25 mg PO BID PRN NAUSEA/VOMITING 09/27/22 09/27/22 Rx #60 tabs Hospital Stay Data Consultations 09/27/22 22:46 ED Decision to Admit Stat 09/28/22 01:51 Consult Psychiatry Routine Diagnostic Imagining Performed 09/27/22 20:56 CT angio head w con Stat CT angio neck with con Stat CT head/brain wo con Stat Discharge Instructions Given to Patient (Per Discharging Provider) Toxic encephalopathy: 52 yo female with Hx severe MDD with psychotic features (auditory hallucinations), PNES, migraine, fibromyalgia, admitted for toxic encephalopathy and rhabdomyolysis after prolonged unknown duration downtime at home. -UDS negative, APAP and ASA negative, CT head and CTA head and neck neg for acute issues, no renal failure or lyte disturbances. -Rhabdomyolysis as described below -No evidence of infection -Suspected to be overdose of amitriptyline tablets (30-40 of the 50mg tablets), see below -Patient now alert and oriented, with some auditory hallucinations and still with suicidal ideation, stable -Psych consult appreciated, cont 1:1 with suicide precautions, medically cleared for discharge to Psychiatric facility today Amitriptyline overdose: -Potentially took fatal doses of amitriptyline if amount she admits to is correct, but unclear -No arrhythmias on telemetry reviewed 10/01, prolonged QT has resolved, no tachycardia -No signs of anticholinergic toxicity at this time -Appreciate Psych consult - continue 1:1, suicide precautions, case discussed with Psych team 10/01 Rhabdomyolysis: -CK 700 -> 7000 -> 5200, continue NSS at 200cc/hr until this afternoon then stop -With pain in left thigh area likely from muscle compression and edema while unconscious -Renal function normal, no evidence of compartment syndrome Anemia: -Has a h/o gastric bypass surgery so at risk for nutritional deficiencies -Hgb 10.1, normocytic -Slight drop in admission with aggressive IV fluids, suspect hemodilutional -Cyanocobalamin 1000mcg x1 while admitted, will likely need continued B12 injections outpatient -Folate normal -Iron studies with relatively low ferritin and iron level, received Venofer 300mg IV x1, will likely need IV replacement outpatient as well Left hip pain: -As above, from rhabdo, improving pain and strength -Xray femur negative for fracture -Tylenol and Celebrex for pain, no opiates given -PT/OT consulted, no rehab needs expected Prolonged QT interval: -From Elavil overdose, now resolved -Keep Mg > 2 as above Major depressive disorder, recurrent, severe with psychotic features: -Psych consulted, meds as above -Hold Viibryd, amitriptyline, BuSpar for now Elevated LFTs: -Suspected due to rhabdo, improving Hypokalemia: -Resolved, K 3.7 on 09/30 ? UTI: -With dysuria, recent cath when encephalopathic, will give Macrobid x5 days for suspected UTI and can follow up outpatient if symptoms not improving (to complete 10/07/22) Total Time Total Time Spent Total Time Spent (In Minutes): 35 min Coding Level of Care Code 55584 INP/OBS DISCH >30 MIN Diagnoses Toxic encephalopathy G92.9 Amitriptyline overdose T43.011A Rhabdomyolysis M62.82 Anemia D64.9 Left hip pain M25.552 Prolonged QT interval R94.31 Major depressive disorder, recurrent, severe with psychotic features F33.3 Elevated LFTs R79.89 Hypokalemia E87.6 Dysuria R30.0
[2022-10-02] MEDS: PANTOprazole 40 MG TAB PO SCH (09:58)
[2022-10-02] MEDS: METOPROLOL TARTRATE 25 MG TAB PO SCH (09:58)
[2022-10-02] MEDS: LEVOTHYROXINE SODIUM 137 MCG TABLET PO SCH (09:58)
[2022-10-02] MEDS: CeleBREX 200 MG CAP PO SCH (09:58)
[2022-10-02] MEDS: DULoxetine HCL 60 MG CAP PO SCH (09:58)
[2022-10-02] MEDS ORDERED: NITROFURANTOIN MONOHYDRATE 100 MG CAP PO SCH (11:30)
[2022-10-02 12:14] LABS: Appearance Urine Clear (Clear); Bacteria Urine Automated Negative (Negative); Bilirubin Urine Negative (Negative); Blood Urine Negative (Negative); Cast Urine Automated 0 /lpf (0-5); Color Urine Yellow; Glucose Urine UA Negative (Negative); Ketones Urine Negative (Negative); Leukocyte Esterase Urine Trace (Negative); Nitrite Urine Negative (Negative); Protein Urine Negative (Negative); RBC Urine Automated 0-4 /hpf (0-4); Specific Gravity Urine 1.004 (1.000-1.030); Urobilinogen Urine Negative (Negative)
== END 2022-10-02 11:57 | disposition home or self-care (01) | DRG 92 ==
LOC: ED 20:47 → 3W 20:47 → SUATTDRO 23:45 → 3W 09-28 01:29 → 2E 09-28 12:30 → SUATTDRO 09-29 09:15 → 3W 10-01 11:28

== ENCOUNTER 2022-10-02 11:26 | Inpatient (IN) ==
[2022-10-02] MEDS ORDERED: MAGNESIUM HYDROXIDE SUSP 30 ML UDC PO PRN (11:42)
[2022-10-02] MEDS ORDERED: hydrOXYzine HCl 25 MG TAB PO PRN (11:42)
[2022-10-02] MEDS ORDERED: SODIUM CHLORIDE 0.65% NA SOLN 45 ML (OCEAN) PRN (11:42)
[2022-10-02] MEDS ORDERED: ACETAMINOPHEN 325 MG TAB PO PRN (11:42)
[2022-10-02] MEDS ORDERED: BISMUTH SUBSALICYLATE LIQD 236 ML PO PRN (11:42)
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
[2022-10-02] MEDS ORDERED: haloperidoL 0.5 MG TAB PO ONE (14:58)
[2022-10-02] MEDS ORDERED: LORazepam 1 MG TAB PO STA (15:19)
[2022-10-02] MEDS: METHOCARBAMOL 750 MG TABLET PO SCH ×2 (15:33→20:46)
[2022-10-02] MEDS: DULoxetine HCL 60 MG CAP PO SCH (20:46)
[2022-10-02] MEDS: haloperidoL 0.5 MG TAB PO SCH (20:46)
[2022-10-02] MEDS: NITROFURANTOIN MONOHYDRATE 100 MG CAP PO SCH (20:46)
[2022-10-02] MEDS: LORazepam 1 MG TAB PO SCH (20:46)
[2022-10-03] MEDS: METHOCARBAMOL 750 MG TABLET PO SCH ×5 (06:35→22:27)
[2022-10-03] MEDS ORDERED: DULoxetine HCL 60 MG CAP PO SCH (09:00)
[2022-10-03 09:04] LABS: Chol HDL Ratio 2.6 (0-5)
[2022-10-03] MEDS: CeleBREX 200 MG CAP PO SCH (09:05)
[2022-10-03] MEDS: LEVOTHYROXINE SODIUM 137 MCG TABLET PO SCH (09:05)
[2022-10-03] MEDS: NITROFURANTOIN MONOHYDRATE 100 MG CAP PO SCH (09:06)
[2022-10-03] MEDS: PANTOprazole 40 MG TAB PO SCH (09:06)
[2022-10-03] MEDS: DULoxetine HCL 60 MG CAP PO SCH ×2 (09:06→21:03)
[2022-10-03] MEDS: METOPROLOL TARTRATE 25 MG TAB PO SCH (09:06)
[2022-10-03] MEDS: LORazepam 1 MG TAB PO SCH ×3 (09:09→21:04)
[2022-10-03] MEDS: haloperidoL 0.5 MG TAB PO SCH (09:10)
[2022-10-03] MEDS: ALUMINUM/MAGNESIUM SUSP 30 ML UDC PO PRN (12:10)
--- NOTE | 2022-10-03 14:04 | Psychiatric Progress Note ---
Date of Service October 03, 2022 Impression / Recommendations Impression Christopher is a 52 yo woman with a history of MDD with psychotic features, panic disorder, PTSD, insomnia as well as chronic pain for spinal stenosis/degenerative disc disorder, interstitial cystitis, possible seizures (no longer on antiepileptic treatment) admitted following suicide attempt requiring medical admission and remains ambivalent about surviving. Diagnostically seems most consistent with bipolar affective disorder, current depressive episode with psychotic features but differential including MDD with concurrent complex PTSD vs cluster B traits vs post-TBI psychosis. She is deemed unstable and requires psychiatric hospitalization for diagnostic clarification, safety and stabilization, medication management and development of further coping skills. MNPR due to level of distress from the voices with self-guilt and paranoia and unable to tolerate a roommate 10/03/2022: Ongoing auditory hallucinations, ambivalence about surviving suicide attempt with depression and anxiety. Tolerating haldol and higher dose of duloxetine but still with intense auditory hallucinations. Doesn't present with any other symptoms of psychosis so unclear if voices may be more trauma or personality driven but will continue with haldol titration in effort to lessen intensity and frequency of these. Fasting glucose and lipid panel were normal. Repeat UA negative for bacteria and with history of dysuria due to interstitial cystitis so will discontinue Macrobid. (1) Bipolar disorder, curr episode depressed, severe, w/psychotic features: (2) Generalized anxiety disorder with panic attacks: (3) Suicide attempt by drug overdose: (4) Suicidal ideation: (5) Chronic pain: (6) TBI (traumatic brain injury): Plan 10/03/2022: Increase haldol to 2.5mg qAM and 5 mg HS. Continue duloxetine 60mg BID. Continue ativan 1mg TID. Discontinue Macorbid. 10/02/2022: The patient was admitted to the [facility] ([facility] mental health unit) on q15 min checks (behavioral with suicide precautions) for safety. The patient will participate in group, recreational, and milieu therapies and will be offered additional individual and family sessions as clinically appropriate. -Start haldol 2.5mg BID -Discontinue Rexulti -Discontinue amitriptyline and Viibryd -Increase Cymbalta to 60mg BID -Decrease ativan to 1mg TID (suspect this could be contributing to her memory issues, ideally could be tapered to discontinuation over the next 6 months) -Macrobid 100mg BID po with UA cultures pending Inventory Assets Strengths: supportive relationships, willing to get treatment Needs: safety and stabilization, medication adjustment, additional coping skills, increased outpatient services Suicide Risk Level Suicide Risk Level: High-Moderate (q15 min suicide checks) (severe depression s/p suicide attempt with ongoing psychotic symptoms but denies any suicidal plan here nor intent, feels safe in the hospital, able to safety contract and agrees to let nursing/staff know should they develop plan, intent or feel unable to remain safe. ) Risk Factors Assessment : Yes Do You Have Access To A Gun?: No Health Problems: Yes Mental Health Diagnoses: Yes Substance Use Disorders: No Previous Attempt: Yes Family History of Suicide: No Previous Psychiatric Hospitalization: Yes Hopelessness: Yes Protective Factors Assessment Stable Relationships: Yes Supportive Family: Yes Good Rapport with Provider: Yes Interval History Identifying Information CHRISTOPHER ORTIZ is a 52-year-old F who currently lives in [place] with her adult daughter, has a history of MDD with psychotic features, insomnia, PTSD, panic disorder, other specified attention-deficit/hyperactivity and was admitted on 10/02/22 11:42 on a 201 voluntary commitment for suicide attempt via ingestion of amitriptyline requiring medical admission. Chief Complaint "I need to get more passionate about life". Review of Systems Sleep Information Total Hours of Sleep: 7 Meal Information Percent Meal Consumed - Breakfast: 75 Percent Meal Consumed - Lunch: 75 Percent Meal Consumed - Dinner: 75 Subjective Subjective Patient was seen & assessed and interval progress reviewed with treatment team nursing and social work. States she feels "ok but tired" today. She's not sure why she is tired as she slept well and deeply last night. Hasn't noticed any medication side effects except the fatigue. Still having intrusive auditory hallucinations telling her that her psychiatrist is going to stop seeing her and other degrading things. She isn't sure if the frequency or intensity has changed with switching to haldol. Agrees to increasing the haldol dose tonight to see if that helps. Denies SI today but feels a lot of guilt for how her daughter found her noting "she showed me a picture of what I looked like, I looked ". Remains ambivalent about surviving the attempt noting she needs to develop a desire to live again. Discussed PERMA positive psychology/psychiatry framework as a way to think about how to add to her life to increase opportunities for experiencing happiness and positive emotions. She likes this framework and notes she wants to start painting with her mom, who frequently invites her to do this, as she thinks this would bring a sense of meaning to her life. Physical Exam Psychiatric Orientation: alert and oriented x 3 Apperance: appropriately dressed and appropriately groomed Eye Contact: good eye contact Motor Behavior: no abnormal motor movements Speech: normal rate/rhythm/volume of speech Affect: + depressed affect and + flat affect Mood: + depressed mood and + anxious mood Thought Process: goal directed thought process Thought Content: reality based without delusions Suicidal Thoughts: denies suicidal thoughts (but still ambivalent about surviving attempt ), denies suicidal plan (none for in the hospital, possible options in the future "that would work") and denies suicidal intent Homicidal Thoughts: denies homicidal thoughts Hallucinations: + auditory hallucinations (male voice that is very derogatory); no visual hallucinations Cognition: recent memory grossly intact, remote memory grossly intact, attention grossly intact and language grossly intact Estimated Intelligence: consistent with education level Insight: + fair insight Judgment: + fair judgement Vital Signs (Past 24 Hours) Last Vital Signs Temp 36.9 C 10/03/22 06:36 Pulse 91 H 10/03/22 06:36 Resp 16 10/03/22 06:36 BP 135/86 10/03/22 06:36 Results & Data ([facility]) Laboratory Results Laboratory Results - last 24 hr 10/03/22 07:02 Fasting Glucose 96 Triglycerides 61 Cholesterol 126 LDL Cholesterol, Calc 66 VLDL Cholesterol, Calc 12 HDL Cholesterol 48 Cholesterol/HDL Ratio 2.6 Current Inpatient Medications Current Inpatient Medications: Current Inpatient Medications Acetaminophen (Acetaminophen 325 Mg Tab) 650 mg PO Q4H PRN PRN Reason: Headache or Minor Fever Stop: 11/01/22 11:41 Al Hydrox/Mg Hydrox/Simethicone (Aluminum/Magnesium Susp 30 Ml Udc) 30 ml PO Q4H PRN PRN Reason: GI Upset Stop: 11/01/22 11:41 Last Admin: 10/03/22 12:10 Dose: 30 ml Bismuth Subsalicylate (Bismuth Subsalicylate Liqd 236 Ml) 15 ml PO PRN PRN PRN Reason: Loose Stool Stop: 11/01/22 11:41 Celecoxib (Celebrex 200 Mg Cap) 200 mg PO DAILY KACY Stop: 11/02/22 08:59 Last Admin: 10/03/22 09:05 Dose: 200 mg Duloxetine HCl (Duloxetine Hcl 60 Mg Cap) 60 mg PO BID KACY Stop: 11/01/22 20:59 Last Admin: 10/03/22 09:06 Dose: 60 mg Haloperidol (Haloperidol 0.5 Mg Tab) 2.5 mg PO BID KACY Stop: 11/01/22 20:59 Last Admin: 10/03/22 09:10 Dose: 2.5 mg Hydroxyzine HCl (Hydroxyzine Hcl 25 Mg Tab) 50 mg PO HSZ PRN PRN Reason: Insomnia Stop: 11/01/22 11:41 Hydroxyzine HCl (Hydroxyzine Hcl 25 Mg Tab) 25 mg PO Q4H PRN PRN Reason: Anxiety Stop: 11/01/22 11:41 Levothyroxine Sodium (Levothyroxine Sodium 137 Mcg Tablet) 137 mcg PO DAILYBB KACY Stop: 11/02/22 07:59 Last Admin: 10/03/22 09:05 Dose: 137 mcg Lorazepam (Lorazepam 1 Mg Tab) 1 mg PO TID KACY Stop: 11/01/22 20:59 Last Admin: 10/03/22 09:09 Dose: 1 mg Magnesium Hydroxide (Magnesium Hydroxide Susp 30 Ml Udc) 30 ml PO DAILY PRN PRN Reason: Constipation Stop: 11/01/22 11:41 Methocarbamol (Methocarbamol 750 Mg Tablet) 750 mg PO Q8H KACY Stop: 11/01/22 14:59 Last Admin: 10/03/22 06:35 Dose: 750 mg Metoprolol Tartrate (Metoprolol Tartrate 25 Mg Tab) 25 mg PO QAM KACY Stop: 11/02/22 08:59 Last Admin: 10/03/22 09:06 Dose: 25 mg Nitrofurantoin Macrocrystals (Nitrofurantoin Monohydrate 100 Mg Cap) 100 mg PO BID KACY Stop: 10/07/22 20:59 Last Admin: 10/03/22 09:06 Dose: 100 mg Pantoprazole Sodium (Pantoprazole 40 Mg Tab) 40 mg PO DAILY KACY Stop: 11/02/22 08:59 Last Admin: 10/03/22 09:06 Dose: 40 mg Sodium Chloride (Sodium Chloride 0.65% Na Soln 45 Ml ([place])) 1 - 2 sprays NA PRN PRN PRN Reason: Nasal Dryness/Congestion Stop: 11/01/22 11:41 Post Discharge Appointments Primary Care Physician Name Of Family Doctor/PCP: Basil
[2022-10-03] MEDS: hydrOXYzine HCl 25 MG TAB PO PRN (16:32)
[2022-10-03] MEDS: haloperidoL 5 MG TAB PO SCH (21:03)
[2022-10-04] MEDS: METHOCARBAMOL 750 MG TABLET PO SCH ×3 (06:33→21:44)
[2022-10-04] MEDS: LORazepam 1 MG TAB PO SCH ×3 (07:57→21:44)
[2022-10-04] MEDS: METOPROLOL TARTRATE 25 MG TAB PO SCH (07:58)
[2022-10-04] MEDS: LEVOTHYROXINE SODIUM 137 MCG TABLET PO SCH (07:58)
[2022-10-04] MEDS: haloperidoL 5 MG TAB PO SCH ×2 (07:58→21:44)
[2022-10-04] MEDS: DULoxetine HCL 60 MG CAP PO SCH ×2 (07:59→21:44)
[2022-10-04] MEDS: CeleBREX 200 MG CAP PO SCH (07:59)
[2022-10-04] MEDS: PANTOprazole 40 MG TAB PO SCH (07:59)
--- NOTE | 2022-10-04 08:56 | Psychiatric Progress Note ---
Date of Service October 04, 2022 Impression / Recommendations Impression Sindy is a 52 yo woman with a history of MDD with psychotic features, panic disorder, PTSD, insomnia as well as chronic pain for spinal stenosis/degenerative disc disorder, interstitial cystitis, possible seizures (no longer on antiepileptic treatment) admitted following suicide attempt requiring medical admission and remains ambivalent about surviving. Diagnostically seems most consistent with bipolar affective disorder, current depressive episode with psychotic features but differential including MDD with concurrent complex PTSD vs cluster B traits vs post-TBI psychosis. She is deemed unstable and requires psychiatric hospitalization for diagnostic clarification, safety and stabilization, medication management and development of further coping skills. MNPR due to level of distress from the voices with self-guilt and paranoia and unable to tolerate a roommate 10/04/2022: Stil with severe depression and ongoing auditory hallucinations, persecutory delusions, paranoia. Wants to continue with haldol, agrees to try additional prn doses and if voices persist despite this she is willing to consider risperidal trial starting tomorrow. Tolerating higher dose of duloxetine. Sleep remains interrupted by awakenings. (1) Bipolar disorder, curr episode depressed, severe, w/psychotic features: (2) Generalized anxiety disorder with panic attacks: (3) Suicide attempt by drug overdose: (4) Suicidal ideation: (5) Chronic pain: (6) TBI (traumatic brain injury): Plan 10/04/2022" Continue haldol 2.5mg qAM & 5mg HS with additional 2.5mg BID prn for psychosis. Continue duloxetine and ativan. 10/03/2022: Increase haldol to 2.5mg qAM and 5 mg HS. Continue duloxetine 60mg BID. Continue ativan 1mg TID. Discontinue Macorbid. 10/02/2022: The patient was admitted to the [facility] ([facility] inpatient mental health unit) on q15 min checks (behavioral with suicide precautions) for safety. The patient will participate in group, recreational, and milieu therapies and will be offered additional individual and family sessions as clinically appropriate. -Start haldol 2.5mg BID -Discontinue Rexulti -Discontinue amitriptyline and Viibryd -Increase Cymbalta to 60mg BID -Decrease ativan to 1mg TID (suspect this could be contributing to her memory issues, ideally could be tapered to discontinuation over the next 6 months) -Macrobid 100mg BID po with UA cultures pending Inventory Assets Strengths: supportive relationships, willing to get treatment Needs: safety and stabilization, medication adjustment, additional coping skills, increased outpatient services Suicide Risk Level Suicide Risk Level: High-Moderate (q15 min suicide checks) (severe depression s/p suicide attempt with ongoing psychotic symptoms but denies any suicidal plan here nor intent, feels safe in the hospital, able to safety contract and agrees to let nursing/staff know should they develop plan, intent or feel unable to remain safe. ) Risk Factors Assessment : Yes Do You Have Access To A Gun?: No Health Problems: Yes Mental Health Diagnoses: Yes Substance Use Disorders: No Previous Attempt: Yes Family History of Suicide: No Previous Psychiatric Hospitalization: Yes Hopelessness: Yes Protective Factors Assessment Stable Relationships: Yes Supportive Family: Yes Good Rapport with Provider: Yes Interval History Identifying Information SINDY ORTIZ is a 52-year-old F who currently lives in [place] with her adult daughter, has a history of MDD with psychotic features, insomnia, PTSD, panic disorder, other specified attention-deficit/hyperactivity and was admitted on 10/02/22 11:42 on a 201 voluntary commitment for suicide attempt via ingestion of amitriptyline requiring medical admission. Chief Complaint "The voices are really bothering me today". Review of Systems Sleep Information Total Hours of Sleep: 6.75 Meal Information Percent Meal Consumed - Breakfast: 75 Percent Meal Consumed - Lunch: 75 Percent Meal Consumed - Dinner: 100 Subjective Subjective Patient was seen & assessed and interval progress reviewed with treatment team nursing and social work. More paranoid last night about her [facility] and financial accounts being hacked, this morning has been hearing a voice telling her she was going to intermediate. Required staff redirection to fill out her menu as she was convinced she would be gone by the afternoon meals due to being brought to intermediate. Also continues to hear voices telling her that her outpatient providers no longer want to see her. This afternoon heard the voice of an ex-boyfriend accusing her of cyberbullying him. Took prn Vistaril last night with some improvement in intensity of the voices. Today thinks the voices may be even w orse, not seeing a benefit from the higher dose of haldol. Was able to complete phone call to establish with outpatient case management. SI is "still there but not as bad" today. Physical Exam Psychiatric Orientation: alert and oriented x 3 Apperance: appropriately dressed and appropriately groomed Eye Contact: good eye contact Motor Behavior: no abnormal motor movements Speech: normal rate/rhythm/volume of speech Affect: + depressed affect and + flat affect Mood: + depressed mood and + anxious mood Thought Process: goal directed thought process Thought Content: reality based without delusions Suicidal Thoughts: denies suicidal plan (none for in the hospital, possible options in the future "that would work") and denies suicidal intent; + reports suicidal thoughts (intermittent and still ambivalent about surviving attempt ) Homicidal Thoughts: denies homicidal thoughts Hallucinations: + auditory hallucinations (male voice that is very derogatory); no visual hallucinations Cognition: recent memory grossly intact, remote memory grossly intact, attention grossly intact and language grossly intact Estimated Intelligence: consistent with education level Insight: + fair insight Judgment: + fair judgement Vital Signs (Past 24 Hours) Last Vital Signs Temp 36.9 C 10/04/22 06:35 Pulse 103 H 10/04/22 06:35 Resp 16 10/04/22 06:35 BP 139/76 10/04/22 06:35 Results & Data ([facility]) Laboratory Results Laboratory Results - last 24 hr 10/03/22 07:02 Fasting Glucose 96 Triglycerides 61 Cholesterol 126 LDL Cholesterol, Calc 66 VLDL Cholesterol, Calc 12 HDL Cholesterol 48 Cholesterol/HDL Ratio 2.6 Current Inpatient Medications Current Inpatient Medications: Current Inpatient Medications Acetaminophen (Acetaminophen 325 Mg Tab) 650 mg PO Q4H PRN PRN Reason: Headache or Minor Fever Stop: 11/01/22 11:41 Al Hydrox/Mg Hydrox/Simethicone (Aluminum/Magnesium Susp 30 Ml Udc) 30 ml PO Q4H PRN PRN Reason: GI Upset Stop: 11/01/22 11:41 Last Admin: 10/03/22 12:10 Dose: 30 ml Bismuth Subsalicylate (Bismuth Subsalicylate Liqd 236 Ml) 15 ml PO PRN PRN PRN Reason: Loose Stool Stop: 11/01/22 11:41 Celecoxib (Celebrex 200 Mg Cap) 200 mg PO DAILY KACY Stop: 11/02/22 08:59 Last Admin: 10/04/22 07:59 Dose: 200 mg Duloxetine HCl (Duloxetine Hcl 60 Mg Cap) 60 mg PO BID KACY Stop: 11/01/22 20:59 Last Admin: 10/04/22 07:59 Dose: 60 mg Haloperidol (Haloperidol 5 Mg Tab) 2.5 mg PO QAM KACY Stop: 11/03/22 08:59 Last Admin: 10/04/22 07:58 Dose: 2.5 mg Haloperidol (Haloperidol 5 Mg Tab) 5 mg PO HS KACY Stop: 11/02/22 21:59 Last Admin: 10/03/22 21:03 Dose: 5 mg Hydroxyzine HCl (Hydroxyzine Hcl 25 Mg Tab) 50 mg PO HSZ PRN PRN Reason: Insomnia Stop: 11/01/22 11:41 Hydroxyzine HCl (Hydroxyzine Hcl 25 Mg Tab) 25 mg PO Q4H PRN PRN Reason: Anxiety Stop: 11/01/22 11:41 Last Admin: 10/03/22 16:32 Dose: 25 mg Levothyroxine Sodium (Levothyroxine Sodium 137 Mcg Tablet) 137 mcg PO DAILYBB KACY Stop: 11/02/22 07:59 Last Admin: 10/04/22 07:58 Dose: 137 mcg Lorazepam (Lorazepam 1 Mg Tab) 1 mg PO TID KACY Stop: 11/01/22 20:59 Last Admin: 10/04/22 07:57 Dose: 1 mg Magnesium Hydroxide (Magnesium Hydroxide Susp 30 Ml Udc) 30 ml PO DAILY PRN PRN Reason: Constipation Stop: 11/01/22 11:41 Methocarbamol (Methocarbamol 750 Mg Tablet) 750 mg PO Q8H KACY Stop: 11/01/22 14:59 Last Admin: 10/04/22 06:33 Dose: 750 mg Metoprolol Tartrate (Metoprolol Tartrate 25 Mg Tab) 25 mg PO QAM KACY Stop: 11/02/22 08:59 Last Admin: 10/04/22 07:58 Dose: 25 mg Pantoprazole Sodium (Pantoprazole 40 Mg Tab) 40 mg PO DAILY KACY Stop: 11/02/22 08:59 Last Admin: 10/04/22 07:59 Dose: 40 mg Sodium Chloride (Sodium Chloride 0.65% Na Soln 45 Ml ([place])) 1 - 2 sprays NA PRN PRN PRN Reason: Nasal Dryness/Congestion Stop: 11/01/22 11:41 Mental Health & Subst Abuse Tx Psychiatrist Name of Psychiatrist: Leana Fischer Psychiatrist's Date Of Appointment With Psychiatric Provider: 10/11/22 Time of Appointment with Psychiatrist: 12:50 PM Psychiatric Appointment Comment: This appointment is via telehealth. Title Curative Specialist Name of Title Curative Specialist: [facility] Phone Number for Title Curative Specialist: [phone] Case Management Appointment Comment: A behavioral health case manager will follow up with you directly after discharge. Post Discharge Appointments Primary Care Physician Name Of Family Doctor/PCP: [facility] - Dr. Gracia [facility] Time of Appointment with PCP: Please follow-up with PCP as needed. Provider Appointment Comment: [address] [place] [place] [address] Contact Information Discharge Discharge Address: [address] [place] [id number]
[2022-10-04] MEDS ORDERED: haloperidoL 0.5 MG TAB PO PRN (15:44)
[2022-10-05] MEDS: METHOCARBAMOL 750 MG TABLET PO SCH (06:20)
[2022-10-05] MEDS: LORazepam 1 MG TAB PO SCH ×3 (08:05→21:21)
[2022-10-05] MEDS: ALUMINUM/MAGNESIUM SUSP 30 ML UDC PO PRN (08:05)
[2022-10-05] MEDS: haloperidoL 5 MG TAB PO SCH (08:05)
[2022-10-05] MEDS: DULoxetine HCL 60 MG CAP PO SCH ×2 (08:06→21:21)
[2022-10-05] MEDS: METOPROLOL TARTRATE 25 MG TAB PO SCH (08:06)
[2022-10-05] MEDS: PANTOprazole 40 MG TAB PO SCH (08:06)
[2022-10-05] MEDS: LEVOTHYROXINE SODIUM 137 MCG TABLET PO SCH (08:06)
[2022-10-05] MEDS: CeleBREX 200 MG CAP PO SCH (08:06)
--- NOTE | 2022-10-05 08:56 | Psychiatric Progress Note ---
Date of Service October 05, 2022 Impression / Recommendations Impression Sinyd is a 52 yo woman with a history of MDD with psychotic features, panic disorder, PTSD, insomnia as well as chronic pain for spinal stenosis/degenerative disc disorder, interstitial cystitis, possible seizures (no longer on antiepileptic treatment) admitted following suicide attempt requiring medical admission and remains ambivalent about surviving. Diagnostically seems most consistent with bipolar affective disorder, current depressive episode with psychotic features but differential including MDD with concurrent complex PTSD vs cluster B traits vs post-TBI psychosis. She is deemed unstable and requires psychiatric hospitalization for diagnostic clarification, safety and stabilization, medication management and development of further coping skills. MNPR due to level of distress from the voices with self-guilt and paranoia and unable to tolerate a roommate 10/05/2022: Ongoing auditory hallucinations, persecutory delusions and depression with SI. She consents to switch to risperidal to see if this will better target the voices. (1) Bipolar disorder, curr episode depressed, severe, w/psychotic features: (2) Generalized anxiety disorder with panic attacks: (3) Suicide attempt by drug overdose: (4) Suicidal ideation: (5) Chronic pain: (6) TBI (traumatic brain injury): Plan 10/05/2022: Discontinue haldol. Start risperidone 1mg HS and 0.25mg TID prn. 10/04/2022" Continue haldol 2.5mg qAM & 5mg HS with additional 2.5mg BID prn for psychosis. Continue duloxetine and ativan. 10/03/2022: Increase haldol to 2.5mg qAM and 5 mg HS. Continue duloxetine 60mg BID. Continue ativan 1mg TID. Discontinue Macorbid. 10/02/2022: The patient was admitted to the [facility] ([facility] mental health unit) on q15 min checks (behavioral with suicide precautions) for safety. The patient will participate in group, recreational, and milieu therapies and will be offered additional individual and family sessions as clinically appropriate. -Start haldol 2.5mg BID -Discontinue Rexulti -Discontinue amitriptyline and Viibryd -Increase Cymbalta to 60mg BID -Decrease ativan to 1mg TID (suspect this could be contributing to her memory issues, ideally could be tapered to discontinuation over the next 6 months) -Macrobid 100mg BID po with UA cultures pending Inventory Assets Strengths: supportive relationships, willing to get treatment Needs: safety and stabilization, medication adjustment, additional coping skills, increased outpatient services Suicide Risk Level Suicide Risk Level: High-Moderate (q15 min suicide checks) (severe depression s/p suicide attempt with ongoing psychotic symptoms but denies any suicidal plan here nor intent, feels safe in the hospital, able to safety contract and agrees to let nursing/staff know should they develop plan, intent or feel unable to remain safe. ) Suicide Risk Level Comments: Risk Factors Assessment : Yes Do You Have Access To A Gun?: No Health Problems: Yes Mental Health Diagnoses: Yes Substance Use Disorders: No Previous Attempt: Yes Family History of Suicide: No Previous Psychiatric Hospitalization: Yes Hopelessness: Yes Protective Factors Assessment Stable Relationships: Yes Supportive Family: Yes Good Rapport with Provider: Yes Interval History Identifying Information SINDY ORTIZ is a 52-year-old F who currently lives in [place] with her adult daughter, has a history of MDD with psychotic features, insomnia, PTSD, panic disorder, other specified attention-deficit/hyperactivity and was admitted on 10/02/22 11:42 on a 201 voluntary commitment for suicide attempt via ingestion of amitriptyline requiring medical admission. Chief Complaint "I'm dragging". Review of Systems Sleep Information Total Hours of Sleep: 6.25 Meal Information Percent Meal Consumed - Breakfast: 25 Percent Meal Consumed - Lunch: 50 Percent Meal Consumed - Dinner: 85 Subjective Subjective Patient was seen & assessed and interval progress reviewed with treatment team nursing and social work. She asked for haldol prn yesterday afternoon for the voices. Attending groups. Last night voices telling her that her son had a car accident and killed someone and she felt unable to distinguish if this was real or not and tried to call her son and when he didn't answer she felt sure he had been in the accident. This morning continues to hear the voices saying that "I'm cyberstalking or going to shelter" and they tend to say things like "I'm an ugly, fat, drug addict whore". Discussed ways to try to challenge the voices and suggested trying to listen to music. Suididal thoughts remain present but are "not as bad" today. No side effects from the duloxetine, she thinks the haldol might be causing her to feel tired. She would like to try risperidone instead since this helped in the past but not at a high dose as it caused a lot of side effects when she was on it before. Physical Exam Psychiatric Orientation: alert and oriented x 3 Apperance: appropriately dressed and appropriately groomed Eye Contact: good eye contact Motor Behavior: no abnormal motor movements Speech: normal rate/rhythm/volume of speech Affect: + depressed affect and + flat affect Mood: + depressed mood and + anxious mood Thought Process: goal directed thought process Thought Content: reality based without delusions Suicidal Thoughts: denies suicidal plan (none for in the hospital, possible options in the future "that would work") and denies suicidal intent; + reports suicidal thoughts (intermittent and still ambivalent about surviving attempt ) Homicidal Thoughts: denies homicidal thoughts Hallucinations: + auditory hallucinations (male voice that is very derogatory); no visual hallucinations Cognition: recent memory grossly intact, remote memory grossly intact, attention grossly intact and language grossly intact Estimated Intelligence: consistent with education level Insight: + fair insight Judgment: + fair judgement Vital Signs (Past 24 Hours) Last Vital Signs Temp 37.1 C 10/05/22 06:20 Pulse 91 H 10/05/22 06:23 Resp 18 10/05/22 06:20 BP 126/82 10/05/22 06:23 Results & Data ([facility]) Current Inpatient Medications Current Inpatient Medications: Current Inpatient Medications Acetaminophen (Acetaminophen 325 Mg Tab) 650 mg PO Q4H PRN PRN Reason: Headache or Minor Fever Stop: 11/01/22 11:41 Al Hydrox/Mg Hydrox/Simethicone (Aluminum/Magnesium Susp 30 Ml Udc) 30 ml PO Q4H PRN PRN Reason: GI Upset Stop: 11/01/22 11:41 Last Admin: 10/05/22 08:05 Dose: 30 ml Bismuth Subsalicylate (Bismuth Subsalicylate Liqd 236 Ml) 15 ml PO PRN PRN PRN Reason: Loose Stool Stop: 11/01/22 11:41 Celecoxib (Celebrex 200 Mg Cap) 200 mg PO DAILY KACY Stop: 11/02/22 08:59 Last Admin: 10/05/22 08:06 Dose: 200 mg Duloxetine HCl (Duloxetine Hcl 60 Mg Cap) 60 mg PO BID KACY Stop: 11/01/22 20:59 Last Admin: 10/05/22 08:06 Dose: 60 mg Haloperidol (Haloperidol 5 Mg Tab) 2.5 mg PO QAM KACY Stop: 11/03/22 08:59 Last Admin: 10/05/22 08:05 Dose: 2.5 mg Haloperidol (Haloperidol 5 Mg Tab) 5 mg PO HS KACY Stop: 11/02/22 21:59 Last Admin: 10/04/22 21:44 Dose: 5 mg Haloperidol (Haloperidol 0.5 Mg Tab) 2.5 mg PO BID PRN PRN Reason: psychosis/agitation Stop: 11/03/22 15:43 Last Admin: 10/04/22 16:26 Dose: 2.5 mg Hydroxyzine HCl (Hydroxyzine Hcl 25 Mg Tab) 50 mg PO HSZ PRN PRN Reason: Insomnia Stop: 11/01/22 11:41 Hydroxyzine HCl (Hydroxyzine Hcl 25 Mg Tab) 25 mg PO Q4H PRN PRN Reason: Anxiety Stop: 11/01/22 11:41 Last Admin: 10/03/22 16:32 Dose: 25 mg Levothyroxine Sodium (Levothyroxine Sodium 137 Mcg Tablet) 137 mcg PO DAILYBB [facility] Stop: 11/02/22 07:59 Last Admin: 10/05/22 08:06 Dose: 137 mcg Lorazepam (Lorazepam 1 Mg Tab) 1 mg PO TID KACY Stop: 11/01/22 20:59 Last Admin: 10/05/22 08:05 Dose: 1 mg Magnesium Hydroxide (Magnesium Hydroxide Susp 30 Ml Udc) 30 ml PO DAILY PRN PRN Reason: Constipation Stop: 11/01/22 11:41 Metoprolol Tartrate (Metoprolol Tartrate 25 Mg Tab) 25 mg PO QAM KACY Stop: 11/02/22 08:59 Last Admin: 10/05/22 08:06 Dose: 25 mg Pantoprazole Sodium (Pantoprazole 40 Mg Tab) 40 mg PO DAILY KACY Stop: 11/02/22 08:59 Last Admin: 10/05/22 08:06 Dose: 40 mg Sodium Chloride (Sodium Chloride 0.65% Na Soln 45 Ml ([place])) 1 - 2 sprays NA PRN PRN PRN Reason: Nasal Dryness/Congestion Stop: 11/01/22 11:41 Mental Health & Subst Abuse Tx Psychiatrist Name of Psychiatrist: Leana Thornton - Dr. Fischer Psychiatrist's Date Of Appointment With Psychiatric Provider: 10/11/22 Time of Appointment with Psychiatrist: 12:50 PM Psychiatric Appointment Comment: This appointment is via telehealth. Therapist Name of Therapist: Chatous Therapist's Therapy Appointment Comment: [address] [facility] [address], [address], [place] [address] Safety Coordinator Name of Safety Coordinator: [facility] Phone Number for Safety Coordinator: [phone] Case Management Appointment Comment: A nurse case management will follow up with you directly after discharge. Post Discharge Appointments Primary Care Physician Name Of Family Doctor/PCP: [facility] - Dr. Gracia [facility] Date of Future Appointment with PCP: 10/17/22 Time of Appointment with PCP: 11:20 AM Provider Appointment Comment: [address] [place] [facility] [place] [address] Contact Information Discharge Discharge Address: [address] [place] [address], [place] [address]
[2022-10-05] MEDS: metroNIDAZOLE 0.75% TOPICAL GEL 45 GM TUBE TOP SCH ×3 (11:39→21:21)
[2022-10-05] MEDS: risperiDONE 0.5 MG TABLET PO PRN ×2 (13:13→18:34)
[2022-10-05] MEDS ORDERED: risperiDONE 1 MG TABLET PO SCH (22:00)
[2022-10-06] MEDS: ALUMINUM/MAGNESIUM SUSP 30 ML UDC PO PRN (06:10)
[2022-10-06] MEDS: CeleBREX 200 MG CAP PO SCH (07:57)
[2022-10-06] MEDS: METOPROLOL TARTRATE 25 MG TAB PO SCH (07:57)
[2022-10-06] MEDS: LEVOTHYROXINE SODIUM 137 MCG TABLET PO SCH (07:57)
[2022-10-06] MEDS: DULoxetine HCL 60 MG CAP PO SCH ×2 (07:57→20:57)
[2022-10-06] MEDS: PANTOprazole 40 MG TAB PO SCH (07:58)
[2022-10-06] MEDS: LORazepam 1 MG TAB PO SCH ×3 (08:00→20:57)
[2022-10-06] MEDS: risperiDONE 0.5 MG TABLET PO PRN ×2 (08:04→15:50)
[2022-10-06] MEDS: metroNIDAZOLE 0.75% TOPICAL GEL 45 GM TUBE TOP SCH ×2 (10:01→17:43)
[2022-10-06] MEDS: hydrOXYzine HCl 25 MG TAB PO PRN (11:28)
--- NOTE | 2022-10-06 13:08 | Psychiatric Progress Note ---
Date of Service October 06, 2022 Impression / Recommendations Impression Sindy is a 52 yo woman with a history of MDD with psychotic features, panic disorder, PTSD, insomnia as well as chronic pain for spinal stenosis/degenerative disc disorder, interstitial cystitis, possible seizures (no longer on antiepileptic treatment) admitted following suicide attempt requiring medical admission and remains ambivalent about surviving. Diagnostically seems most consistent with bipolar affective disorder, current depressive episode with psychotic features but differential including MDD with concurrent complex PTSD vs cluster B traits vs post-TBI psychosis. She is deemed unstable and requires psychiatric hospitalization for diagnostic clarification, safety and stabilization, medication management and development of further coping skills. MNPR due to level of distress from the voices with self-guilt and paranoia and unable to tolerate a roommate 10/06/2022: Ongoing auditory hallucinations, persecutory delusions and depression with SI though depression is starting to improve a bit. Tolerating risperidone so far but with some possible akathisia and still with auditory hallucinations. Discussed medication treatment options in detail. Discussed risks, benefits and alternatives. She consents to increasing the dose of risperidone and to starting propranolol for presumed akathisia. Reviewed side effects including but not limited to: low BP, fainting, syncope, SOB, mood changes with propranolol. (1) Bipolar disorder, curr episode depressed, severe, w/psychotic features: (2) Generalized anxiety disorder with panic attacks: (3) Suicide attempt by drug overdose: (4) Suicidal ideation: (5) Chronic pain: (6) TBI (traumatic brain injury): Plan 10/06/2022: Increase risperidone to 2mg HS and 0.5mg TID prn. Start propranolol 10mg BID prn for akathisia. 10/05/2022: Discontinue haldol. Start risperidone 1mg HS and 0.25mg TID prn. 10/04/2022" Continue haldol 2.5mg qAM & 5mg HS with additional 2.5mg BID prn for psychosis. Continue duloxetine and ativan. 10/03/2022: Increase haldol to 2.5mg qAM and 5 mg HS. Continue duloxetine 60mg BID. Continue ativan 1mg TID. Discontinue Macorbid. 10/02/2022: The patient was admitted to the [facility] ([facility] mental health unit) on q15 min checks (behavioral with suicide precautions) for safety. The patient will participate in group, recreational, and milieu therapies and will be offered additional individual and family sessions as clinically appropriate. -Start haldol 2.5mg BID -Discontinue Rexulti -Discontinue amitriptyline and Viibryd -Increase Cymbalta to 60mg BID -Decrease ativan to 1mg TID (suspect this could be contributing to her memory issues, ideally could be tapered to discontinuation over the next 6 months) -Macrobid 100mg BID po with UA cultures pending Inventory Assets Strengths: supportive relationships, willing to get treatment Needs: safety and stabilization, medication adjustment, additional coping skills, increased outpatient services Suicide Risk Level Suicide Risk Level: High-Moderate (q15 min suicide checks) (severe depression s/p suicide attempt with ongoing psychotic symptoms but denies any suicidal plan here nor intent, feels safe in the hospital, able to safety contract and agrees to let nursing/staff know should they develop plan, intent or feel unable to remain safe. ) Suicide Risk Level Comments: Risk Factors Assessment : Yes Do You Have Access To A Gun?: No Health Problems: Yes Mental Health Diagnoses: Yes Substance Use Disorders: No Previous Attempt: Yes Family History of Suicide: No Previous Psychiatric Hospitalization: Yes Hopelessness: Yes Protective Factors Assessment Stable Relationships: Yes Supportive Family: Yes Good Rapport with Provider: Yes Interval History Identifying Information SINDY ORTIZ is a 52-year-old F who currently lives in [place] with her adult daughter, has a history of MDD with psychotic features, insomnia, PTSD, panic disorder, other specified attention-deficit/hyperactivity and was admitted on 10/02/22 11:42 on a 201 voluntary commitment for suicide attempt via ingestion of amitriptyline requiring medical admission. Chief Complaint "I'm hearing a lot of things". Review of Systems Sleep Information Total Hours of Sleep: 6.25 Meal Information Percent Meal Consumed - Breakfast: 70 Percent Meal Consumed - Lunch: 50 Percent Meal Consumed - Dinner: 75 Subjective Subjective Patient was seen & assessed and interval progress reviewed with treatment team nursing and social work. Took prn risperidal last evening with some benefit. Still with some difficulty sleeping. Feels her mood is improving but continues to have the degrading voices telling her mean things about her appearance. Not noticing much benefit from prn risperidal dose this morning after increased anxiety from an agitated peer. So far is liking the risperidone though she's unclear if the intensity of voices has changed at all. She's feeling a sense of "muscle movements" internally which with detailed questioning seems most consistent with restlessness and likely akathisia. Reviewed option to try propranolol for this which she would like to do. Reviewed other antipsychotic options, especially sedating options she could use at bedtime but she wants to continue with risperidone for now. SI is starting to improve she notes it is "Ok" today without any thoughts of plans and she notes "I'm not planning or thinking of any future plans anymore either". Is feeling glad again to be alive. Physical Exam Psychiatric Orientation: alert and oriented x 3 Apperance: appropriately dressed and appropriately groomed Eye Contact: good eye contact Motor Behavior: no abnormal motor movements Speech: normal rate/rhythm/volume of speech Affect: + depressed affect and + flat affect Mood: + depressed mood and + anxious mood Thought Process: goal directed thought process Thought Content: reality based without delusions Suicidal Thoughts: denies suicidal plan and denies suicidal intent; + reports suicidal thoughts (intermittent but lessening, glad to have survived) Homicidal Thoughts: denies homicidal thoughts Hallucinations: + auditory hallucinations (male voice that is very derogatory); no visual hallucinations Cognition: recent memory grossly intact, remote memory grossly intact, attention grossly intact and language grossly intact Estimated Intelligence: consistent with education level Insight: + fair insight Judgment: + fair judgement Vital Signs (Past 24 Hours) Last Vital Signs Temp 36.9 C 10/06/22 06:10 Pulse 81 10/06/22 06:12 Resp 18 10/06/22 06:10 BP 138/86 10/06/22 06:12 Results & Data ([facility]) Current Inpatient Medications Current Inpatient Medications: Current Inpatient Medications Acetaminophen (Acetaminophen 325 Mg Tab) 650 mg PO Q4H PRN PRN Reason: Headache or Minor Fever Stop: 11/01/22 11:41 Al Hydrox/Mg Hydrox/Simethicone (Aluminum/Magnesium Susp 30 Ml Udc) 30 ml PO Q4H PRN PRN Reason: GI Upset Stop: 11/01/22 11:41 Last Admin: 10/06/22 06:10 Dose: 30 ml Bismuth Subsalicylate (Bismuth Subsalicylate Liqd 236 Ml) 15 ml PO PRN PRN PRN Reason: Loose Stool Stop: 11/01/22 11:41 Celecoxib (Celebrex 200 Mg Cap) 200 mg PO DAILY KACY Stop: 11/02/22 08:59 Last Admin: 10/06/22 07:57 Dose: 200 mg Duloxetine HCl (Duloxetine Hcl 60 Mg Cap) 60 mg PO BID KACY Stop: 11/01/22 20:59 Last Admin: 10/06/22 07:57 Dose: 60 mg Hydroxyzine HCl (Hydroxyzine Hcl 25 Mg Tab) 50 mg PO HSZ PRN PRN Reason: Insomnia Stop: 11/01/22 11:41 Hydroxyzine HCl (Hydroxyzine Hcl 25 Mg Tab) 25 mg PO Q4H PRN PRN Reason: Anxiety Stop: 11/01/22 11:41 Last Admin: 10/06/22 11:28 Dose: 25 mg Levothyroxine Sodium (Levothyroxine Sodium 137 Mcg Tablet) 137 mcg PO DAILYBB KACY Stop: 11/02/22 07:59 Last Admin: 10/06/22 07:57 Dose: 137 mcg Lorazepam (Lorazepam 1 Mg Tab) 1 mg PO TID KACY Stop: 11/01/22 20:59 Last Admin: 10/06/22 08:00 Dose: 1 mg Magnesium Hydroxide (Magnesium Hydroxide Susp 30 Ml Udc) 30 ml PO DAILY PRN PRN Reason: Constipation Stop: 11/01/22 11:41 Metoprolol Tartrate (Metoprolol Tartrate 25 Mg Tab) 25 mg PO QAM KACY Stop: 11/02/22 08:59 Last Admin: 10/06/22 07:57 Dose: 25 mg Metronidazole (Metronidazole 0.75% Topical Gel 45 Gm Tube) 1 appln TOP Q8H KACY Stop: 10/10/22 09:59 Last Admin: 10/06/22 10:01 Dose: 1 appln Pantoprazole Sodium (Pantoprazole 40 Mg Tab) 40 mg PO DAILY KACY Stop: 11/02/22 08:59 Last Admin: 10/06/22 07:58 Dose: 40 mg Risperidone (Risperidone 0.5 Mg Tablet) 0.25 mg PO TID PRN PRN Reason: psychosis/agitation Stop: 11/04/22 11:57 Last Admin: 10/06/22 08:04 Dose: 0.25 mg Risperidone (Risperidone 1 Mg Tablet) 1 mg PO HS KACY Stop: 11/04/22 21:59 Last Admin: 10/05/22 21:21 Dose: 1 mg Sodium Chloride (Sodium Chloride 0.65% Na Soln 45 Ml ([place])) 1 - 2 sprays NA PRN PRN PRN Reason: Nasal Dryness/Congestion Stop: 11/01/22 11:41 Mental Health & Subst Abuse Tx Psychiatrist Name of Psychiatrist: Leana Thornton - Dr. Fischer Psychiatrist's Date Of Appointment With Psychiatric Provider: 10/11/22 Time of Appointment with Psychiatrist: 12:50 PM Psychiatric Appointment Comment: This appointment is via telehealth. Therapist Name of Therapist: [facility] [employer] [facility]- Michelle Doss (intake) Therapist's Date of Therapist Appointment: 10/10/2022 Time of Therapist Appointment: 3pm Therapy Appointment Comment: intake will be virtual and link sent to email [employer]oples[employer] Consultant Name of Peoplesoft Consultant: [facility] Phone Number for [employer]oples[employer] Consultant: [phone] Case Management Appointment Comment: A senior case manager will follow up with you directly after discharge. Post Discharge Appointments Primary Care Physician Name Of Family Doctor/PCP: [facility] - Dr. Gracia Primary [facility] Date of Future Appointment with PCP: 10/17/22 Time of Appointment with PCP: 11:20 AM Provider Appointment Comment: [address] [place] [address] Specialist Name of Specialist: Katlin- Jani Phone Number for Specialist: [phone] Date of Appointment with Specialist: 10/31/22 Time of Appointment with Specialist: 7:30am (please arrive by 7:15am) Specialty Appointment Comment: [address] Contact Information Discharge Discharge Address: [address] [place] [id number]
[2022-10-06] MEDS ORDERED: PROPRANOLOL HCL 10 MG TAB PO PRN (13:55)
[2022-10-06] MEDS ORDERED: risperiDONE 2 MG TABLET PO SCH (22:00)
[2022-10-07] MEDS: metroNIDAZOLE 0.75% TOPICAL GEL 45 GM TUBE TOP SCH ×3 (01:19→18:07)
[2022-10-07] MEDS: DULoxetine HCL 60 MG CAP PO SCH ×2 (08:29→20:33)
[2022-10-07] MEDS: METOPROLOL TARTRATE 25 MG TAB PO SCH (08:29)
[2022-10-07] MEDS: PANTOprazole 40 MG TAB PO SCH (08:29)
[2022-10-07] MEDS: LORazepam 1 MG TAB PO SCH ×3 (08:29→20:33)
[2022-10-07] MEDS: LEVOTHYROXINE SODIUM 137 MCG TABLET PO SCH (08:29)
[2022-10-07] MEDS: CeleBREX 200 MG CAP PO SCH (08:29)
[2022-10-07] MEDS: risperiDONE 0.5 MG TABLET PO PRN (08:31)
[2022-10-07] MEDS: risperiDONE 1 MG TABLET PO PRN (12:35)
--- NOTE | 2022-10-07 15:21 | Psychiatric Progress Note ---
Date of Service October 07, 2022 Impression / Recommendations Impression Sindy is a 52 yo woman with a history of MDD with psychotic features, panic disorder, PTSD, insomnia as well as chronic pain for spinal stenosis/degenerative disc disorder, interstitial cystitis, possible seizures (no longer on antiepileptic treatment) admitted following suicide attempt requiring medical admission and remains ambivalent about surviving. Diagnostically seems most consistent with MDD with psychotic features vs BPAD current depressive episode with psychotic features and post-TBI psychosis. She is deemed unstable and requires psychiatric hospitalization for diagnostic clarification, safety and stabilization, medication management and development of further coping skills. MNPR due to level of distress from the voices with self-guilt and paranoia and unable to tolerate a roommate 10/07/2022: Ongoing auditory hallucinations, persecutory delusions and depression with increased SI today due to more intense voices. She found more relief from higher dose of risperidone but prefers to try an alternative antipsychotic rather than increasing scheduled doses of risperidone. Discussed continuing with prn risperidone for now since it is seeming to provide some relief from her auditory hallucinations but with trial of olanzapine tonight. She consents to olanzapine and reviewed side effects including but not limited to: movement (TD, NMS), cardiac (QTc prolongation), and metabolic (stroke, insulin resistance) and necessity for fasting lipid and glucose labwork and AIMS done with score of 0. (1) Generalized anxiety disorder with panic attacks: (2) Suicide attempt by drug overdose: (3) Suicidal ideation: (4) Chronic pain: (5) TBI (traumatic brain injury): (6) Bipolar disorder, curr episode depressed, severe, w/psychotic features: Plan 10/07/2022: Discontinue scheduled risperidone per her preference and trial olanzapine 10mg HS po. Continue with risperidone 1mg TID prn po for now since this was effective today. 10/06/2022: Increase risperidone to 2mg HS and 0.5mg TID prn. Start propranolol 10mg BID prn for akathisia. 10/05/2022: Discontinue haldol. Start risperidone 1mg HS and 0.25mg TID prn. 10/04/2022" Continue haldol 2.5mg qAM & 5mg HS with additional 2.5mg BID prn for psychosis. Continue duloxetine and ativan. 10/03/2022: Increase haldol to 2.5mg qAM and 5 mg HS. Continue duloxetine 60mg BID. Continue ativan 1mg TID. Discontinue Macorbid. 10/02/2022: The patient was admitted to the [facility] ([facility]) on q15 min checks (behavioral with suicide precautions) for safety. The patient will participate in group, recreational, and milieu therapies and will be offered additional individual and family sessions as clinically appropriate. -Start haldol 2.5mg BID -Discontinue Rexulti -Discontinue amitriptyline and Viibryd -Increase Cymbalta to 60mg BID -Decrease ativan to 1mg TID (suspect this could be contributing to her memory issues, ideally could be tapered to discontinuation over the next 6 months) -Macrobid 100mg BID po with UA cultures pending Inventory Assets Strengths: supportive relationships, willing to get treatment Needs: safety and stabilization, medication adjustment, additional coping skills, increased outpatient services Suicide Risk Level Suicide Risk Level: High-Moderate (q15 min suicide checks) (severe depression s/p suicide attempt with ongoing psychotic symptoms but denies any suicidal plan here nor intent, feels safe in the hospital, able to safety contract and agrees to let nursing/staff know should they develop plan, intent or feel unable to remain safe. ) Suicide Risk Level Comments: Risk Factors Assessment : Yes Do You Have Access To A Gun?: No Health Problems: Yes Mental Health Diagnoses: Yes Substance Use Disorders: No Previous Attempt: Yes Family History of Suicide: No Previous Psychiatric Hospitalization: Yes Hopelessness: Yes Protective Factors Assessment Stable Relationships: Yes Supportive Family: Yes Good Rapport with Provider: Yes Interval History Identifying Information SINDY ORTIZ is a 52-year-old F who currently lives in [place] with her adult daughter, has a history of MDD with psychotic features, insomnia, PTSD, panic disorder, other specified attention-deficit/hyperactivity and was admitted on 10/02/22 11:42 on a 201 voluntary commitment for suicide attempt via ingestion of amitriptyline requiring medical admission. Chief Complaint "It's been a rough day". Review of Systems Sleep Information Total Hours of Sleep: 8.75 Meal Information Percent Meal Consumed - Breakfast: 75 Percent Meal Consumed - Lunch: 75 Percent Meal Consumed - Dinner: 100 Subjective Subjective Patient was seen & assessed and interval progress reviewed with treatment team nursing and social work. Taking risperidone prn with limited benefit. Increased dose mid-day to 1mg TID prn and she found this very helpful with reduction of voices. Earlier in the day voices were saying things such as "I'll stalk you till you " and "I'll kill you" which led her to have increased thoughts of SI that were "bad for a little while" due to the intensity of the voices. During this time thought about her attempt and that "next time I need more pills" in order to . However, by the afternoon the SI had lessened and she denied any plans. Discussed that her voices are what cause her to feel suicidal and that was the case on the day of her attempt as well. Physical Exam Psychiatric Orientation: alert and oriented x 3 Apperance: appropriately dressed and appropriately groomed Eye Contact: good eye contact Motor Behavior: no abnormal motor movements Speech: normal rate/rhythm/volume of speech Affect: + depressed affect and + flat affect Mood: + depressed mood and + anxious mood Thought Process: goal directed thought process Thought Content: reality based without delusions Suicidal Thoughts: denies suicidal intent; + reports suicidal thoughts (intermittent, intense this morning ) and + reports suicidal plan (none for hospital, this morning of overdosing on pills in the future) Homicidal Thoughts: denies homicidal thoughts Hallucinations: + auditory hallucinations (male voice that is very derogatory); no visual hallucinations Cognition: recent memory grossly intact, remote memory grossly intact, attention grossly intact and language grossly intact Estimated Intelligence: consistent with education level Insight: + fair insight Judgment: + fair judgement Vital Signs (Past 24 Hours) Last Vital Signs Temp 37.1 C 10/07/22 06:32 Pulse 83 10/07/22 06:33 Resp 16 10/07/22 06:32 BP 101/70 10/07/22 06:33 Results & Data ([facility]) Current Inpatient Medications Current Inpatient Medications: Current Inpatient Medications Acetaminophen (Acetaminophen 325 Mg Tab) 650 mg PO Q4H PRN PRN Reason: Headache or Minor Fever Stop: 11/01/22 11:41 Al Hydrox/Mg Hydrox/Simethicone (Aluminum/Magnesium Susp 30 Ml Udc) 30 ml PO Q4H PRN PRN Reason: GI Upset Stop: 11/01/22 11:41 Last Admin: 10/06/22 06:10 Dose: 30 ml Bismuth Subsalicylate (Bismuth Subsalicylate Liqd 236 Ml) 15 ml PO PRN PRN PRN Reason: Loose Stool Stop: 11/01/22 11:41 Celecoxib (Celebrex 200 Mg Cap) 200 mg PO DAILY KACY Stop: 11/02/22 08:59 Last Admin: 10/07/22 08:29 Dose: 200 mg Duloxetine HCl (Duloxetine Hcl 60 Mg Cap) 60 mg PO BID KACY Stop: 11/01/22 20:59 Last Admin: 10/07/22 08:29 Dose: 60 mg Hydroxyzine HCl (Hydroxyzine Hcl 25 Mg Tab) 50 mg PO HSZ PRN PRN Reason: Insomnia Stop: 11/01/22 11:41 Hydroxyzine HCl (Hydroxyzine Hcl 25 Mg Tab) 25 mg PO Q4H PRN PRN Reason: Anxiety Stop: 11/01/22 11:41 Last Admin: 10/06/22 11:28 Dose: 25 mg Levothyroxine Sodium (Levothyroxine Sodium 137 Mcg Tablet) 137 mcg PO DAILYBB KACY Stop: 11/02/22 07:59 Last Admin: 10/07/22 08:29 Dose: 137 mcg Lorazepam (Lorazepam 1 Mg Tab) 1 mg PO TID KACY Stop: 11/01/22 20:59 Last Admin: 10/07/22 14:16 Dose: 1 mg Magnesium Hydroxide (Magnesium Hydroxide Susp 30 Ml Udc) 30 ml PO DAILY PRN PRN Reason: Constipation Stop: 11/01/22 11:41 Metoprolol Tartrate (Metoprolol Tartrate 25 Mg Tab) 25 mg PO QAM KACY Stop: 11/02/22 08:59 Last Admin: 10/07/22 08:29 Dose: 25 mg Metronidazole (Metronidazole 0.75% Topical Gel 45 Gm Tube) 1 appln TOP Q8H KACY Stop: 10/10/22 09:59 Last Admin: 10/07/22 08:30 Dose: 1 appln Pantoprazole Sodium (Pantoprazole 40 Mg Tab) 40 mg PO DAILY KACY Stop: 11/02/22 08:59 Last Admin: 10/07/22 08:29 Dose: 40 mg Propranolol HCl (Propranolol Hcl 10 Mg Tab) 10 mg PO BID PRN PRN Reason: akathisia/internalrestlessness Stop: 11/05/22 20:59 Last Admin: 10/06/22 18:07 Dose: 10 mg Risperidone (Risperidone 2 Mg Tablet) 2 mg PO HS KACY Stop: 11/05/22 21:59 Last Admin: 10/06/22 20:57 Dose: 2 mg Risperidone (Risperidone 1 Mg Tablet) 1 mg PO TID PRN PRN Reason: psychosis/agitation Stop: 11/04/22 11:57 Last Admin: 10/07/22 12:35 Dose: 1 mg Sodium Chloride (Sodium Chloride 0.65% Na Soln 45 Ml ([place])) 1 - 2 sprays NA PRN PRN PRN Reason: Nasal Dryness/Congestion Stop: 11/01/22 11:41 Mental Health & Subst Abuse Tx Psychiatrist Name of Psychiatrist: Leana Fischer Psychiatrist's Date Of Appointment With Psychiatric Provider: 10/11/22 Time of Appointment with Psychiatrist: 12:50 PM Psychiatric Appointment Comment: This appointment is via telehealth. Therapist Name of Therapist: [facility]- Michelle Doss (intake) Therapist's Date of Therapist Appointment: 10/10/2022 Time of Therapist Appointment: 3pm Therapy Appointment Comment: intake will be virtual and link sent to email Fence Installer Helper Name of Fence Installer Helper: [facility] Phone Number for Fence Installer Helper: [phone] Case Management Appointment Comment: A upper caser will follow up with you directly after discharge. Post Discharge Appointments Primary Care Physician Name Of Family Doctor/PCP: [facility] - Dr. Gracia [facility] Date of Future Appointment with PCP: 10/17/22 Time of Appointment with PCP: 11:20 AM Provider Appointment Comment: [id number] [place] [address] Specialist Name of Specialist: [facility]- Radiology Phone Number for Specialist: [phone] Date of Appointment with Specialist: 11/07/22 Time of Appointment with Specialist: 11:45 am (please arrive by 11:30 am) Specialty Appointment Comment: Stuart Shane PA Contact Information Discharge Discharge Address: [address] [place] [address], [place] [address]
[2022-10-07] MEDS ORDERED: OLANZapine 10 MG TAB PO SCH (22:00)
[2022-10-08] MEDS: metroNIDAZOLE 0.75% TOPICAL GEL 45 GM TUBE TOP SCH ×2 (02:01→09:05)
[2022-10-08] MEDS: CeleBREX 200 MG CAP PO SCH (09:03)
[2022-10-08] MEDS: DULoxetine HCL 60 MG CAP PO SCH (09:03)
[2022-10-08] MEDS: METOPROLOL TARTRATE 25 MG TAB PO SCH (09:03)
[2022-10-08] MEDS: LORazepam 1 MG TAB PO SCH (09:03)
[2022-10-08] MEDS: PANTOprazole 40 MG TAB PO SCH (09:03)
[2022-10-08] MEDS: LEVOTHYROXINE SODIUM 137 MCG TABLET PO SCH (09:04)
[2022-10-08] MEDS: risperiDONE 1 MG TABLET PO PRN (09:57)
[2022-10-08] MEDS ORDERED: DESTROY THIS MEDICATION ONE (11:24)
[2022-10-08] MEDS ORDERED: CYANOCOBALAMIN 1000 MCG/ML VIAL IM SCH (12:00)
--- NOTE | 2022-10-08 12:14 | Discharge Summary ---
Date of Service October 08, 2022 History of Present Illness Sindy presents for psychiatric admission after stabilization on the medical floor following a suicide attempt via overdose of amitriptyline with elevated amitriptyline/nortriptyline level of 620 mcg/L. She states she didn't think through people finding her after taking the amitriptyline but "decided I didn't want to be around and wanted to go to sleep and never wake up". She's glad for her kids to be alive but still remains ambivalent about surviving the attempt. She has heard the voices say "do yourself a favor and " but denies ever hearing voices that have commanded her to do anything or to take the medications. Recent stressors have been financial strain, physical pain, difficulty functioning due to her depression. Depression has been worsening over the last few weeks including memory difficulties and hearing voices (i.e. "you should have just ") that are threatening in nature. She notes the voices are also telling her that her psychiatrist and primary care provider don't want to see her anymore or that she is using heroin or that she may be going to assisted. The voices started a few months ago and have been getting worse. The voices have been constant and a variety of voices but typically one voice is loudest that is a distinct male voice but not someone who she recognizes. Further recent history reviewed and confirmed as documented by Dr. Garland from initial psychiatry consult on 09/28/2022: "52 y/o woman who was found unresponsive on the floor of her home by her daughter and brought to the ED where no clear etiology was found. Later, pt told the psychiatric liaison nurse that she had "taken extra pills". He was eventually able to elucidate that this was amitriptyline 50 mg tablets, apparently 20-30 tablets, or 1 to 1.5 grams. Pt tells me she constantly hears voices telling her to kill herself and insulting her ("you're a fat-assed whore"). She says she's been hearing these voices for a year and a half and never had this problem before. She tells me her "daughter thinks a fall and a seizure back then might have caused schizophrenia". She says "it got to be too much" so she decided to kill herself with amitriptyline "because it's a sleeping pill, so it would be peaceful". She first "took 15 pills and nothing happened" so later took another 15. She doesn't remember much after that. Pt's history of psychosis certainly dates farther back than 1 1/2 years. In October 2020 she was admitted to the psychiatric unit here with a long history of symptoms including psychosis. She appears to have carried diagnoses of major depression with psychotic features, PTSD, anxiety as well as opioid dependence for which she at one time took buprenorphine-naloxone (but is now prescribed an opioid analgesic). In terms of psychiatric medication, she is, purportedly, prescribed: amitriptyline 100 mg QHS clarified 150mg HS brexpiprazole 2 mg QPM (was on 1mg until last week when this was increased) buspirone 5 mg TID duloxetine 60 mg BID (states she has only been taking 60mg once daily in the morning) lorazepam 1 mg QID vilazodone 20 mg QAM (this was started about 6 months ago) Pt presents as somewhat confused but able to respond to questions. She is distracted, apparently by auditory stimuli. She tells me she "should have used a hose with the exhaust, or taken a lot more pills" in order to have ensured her ." Psychiatric ROS notable for history of psychosis during episodes of depression with periods of intermittent auditory hallucinations. She recalls in the past periods of time of decreased sleep, increased energy and "cleaning sprees" and in past saying "mean nasty things I would never say". Last time this occurred was in August and she recalls "I spent money on stupid things and didn't recall spending as much as I did" and poor sleep about 3-4 hours that lasted one or two weeks. During this time her daughter has commented on things like "you're acting weird mom, didn't you sleep?". She recalls the episode self-resolving, doesn't recall talking to her psychiatrist about it or adding any new sleeping medications. History of eating disorder via purging but no purging or restriction in the last 5 years, denies any other symptoms of self-harm. Physical Exam Psychiatric Orientation: alert and oriented x 3 Apperance: appropriately dressed and appropriately groomed Eye Contact: good eye contact Motor Behavior: no abnormal motor movements Speech: normal rate/rhythm/volume of speech Affect: + depressed affect, + anxious affect and + flat affect Mood: + depressed mood and + anxious mood Thought Process: goal directed thought process Thought Content: reality based without delusions Suicidal Thoughts: denies suicidal thoughts, denies suicidal plan and denies suicidal intent Homicidal Thoughts: denies homicidal thoughts Hallucinations: + auditory hallucinations (male voice that is very derogatory); no visual hallucinations Cognition: recent memory grossly intact, remote memory grossly intact, attention grossly intact and language grossly intact Estimated Intelligence: consistent with education level Insight: + fair insight Judgment: + fair judgement Vital Signs (Past 24 Hours) Last Vital Signs Temp 36.9 C 10/08/22 11:57 Pulse 90 10/08/22 11:57 Resp 16 10/08/22 11:57 BP 132/71 10/08/22 11:57 Principal Diagnosis Bipolar I Disorder, Depressed, Severe, with Psychotic Features Psychiatric Data See daily stay summary. In short, safety was maintained and the patient was cooperative with care. Medication changes included discontinuation of brexpiprazole, amitriptyline, and vilazodone and intiation of olanzapine and they tolerated this well. A family session was held and safety plan was completed prior to discharge. Day of Discharge Assessment Today the patient voices readiness for discharge. They note improvement in mood and deny thoughts to harm self or others. Thoughts remain organized and they are improved from admission. There is no evidence of psychosis. They agree to take mediations as prescribed and keep follow-up appointments. They are stable for discharge to outpatient level of care. Advance Directives Advance Directives Information Provided: Yes Advance Directives: No Mental Health Advance Directive: No Advance Directives on File: No Living Will: No Power of Edger Saw Operator: No Advance Directives Reason:: Declines as Mental Health Visit. Suicide Risk Level Suicide Risk Level Comments: Risk Factors Assessment : Yes Do You Have Access To A Gun?: No Health Problems: Yes Mental Health Diagnoses: Yes Substance Use Disorders: No Previous Attempt: Yes Family History of Suicide: No Previous Psychiatric Hospitalization: Yes Hopelessness: Yes Protective Factors Assessment Stable Relationships: Yes Supportive Family: Yes Good Rapport with Provider: Yes Tobacco Cessation at Discharge Tobacco Cessation Medication Prescribed at Discharge: Not Applicable/Non-Smoker Total Time Total Time Spent: Greater Than 30 Minutes Total Time Includes: Examination of the patient, Discharge Planning, Medication Reconciliation, Communication with other providers and As well as (documentation ) Discharge Data Lab Results 10/03/22 07:02 Fasting Glucose 96 Triglycerides 61 Cholesterol 126 LDL Cholesterol, Calc 66 VLDL Cholesterol, Calc 12 HDL Cholesterol 48 Cholesterol/HDL Ratio 2.6 Hospital Course (1) Bipolar disorder, curr episode depressed, severe, w/psychotic features: (2) Generalized anxiety disorder with panic attacks: (3) Suicide attempt by drug overdose: (4) Suicidal ideation: (5) Chronic pain: (6) TBI (traumatic brain injury): Plan 10/07/2022: Discontinue scheduled risperidone per her preference and trial olanzapine 10mg HS po. Continue with risperidone 1mg TID prn po for now since this was effective today. 10/06/2022: Increase risperidone to 2mg HS and 0.5mg TID prn. Start propranolol 10mg BID prn for akathisia. 10/05/2022: Discontinue haldol. Start risperidone 1mg HS and 0.25mg TID prn. 10/04/2022" Continue haldol 2.5mg qAM & 5mg HS with additional 2.5mg BID prn for psychosis. Continue duloxetine and ativan. 10/03/2022: Increase haldol to 2.5mg qAM and 5 mg HS. Continue duloxetine 60mg BID. Continue ativan 1mg TID. Discontinue Macorbid. 10/02/2022: The patient [facility]) on q15 min checks (behavioral with suicide precautions) for safety. The patient will participate in group, recreational, and milieu therapies and will be offered additional individual and family sessions as clinically appropriate. -Start haldol 2.5mg BID -Discontinue Rexulti -Discontinue amitriptyline and Viibryd -Increase Cymbalta to 60mg BID -Decrease ativan to 1mg TID (suspect this could be contributing to her memory issues, ideally could be tapered to discontinuation over the next 6 months) -Macrobid 100mg BID po with UA cultures pending Mental Health & Subst Abuse Tx Psychiatrist Name of Psychiatrist: Leana Thornton - Dr. Fischer Psychiatrist's Date Of Appointment With Psychiatric Provider: 10/11/22 Time of Appointment with Psychiatrist: 12:50 PM Psychiatric Appointment Comment: This appointment is via telehealth. Psychiatrist Release of Information: Obtained, Reviewed and Signed Therapist Name of Therapist: Katlin Levine [facility]- Michelle Doss (intake) Therapist's Date of Therapist Appointment: 10/10/2022 Time of Therapist Appointment: 3pm Therapy Appointment Comment: intake will be virtual and link sent to email Therapist Release of Information: Obtained, Reviewed and Signed Process Plant Operator Name of Process Plant Operator: [facility] Phone Number for Process Plant Operator: [phone] Case Management Appointment Comment: A bottle caser will follow up with you directly after discharge. Process Plant Operator Release of Information: Obtained, Reviewed and Signed Post Discharge Appointments Primary Care Physician Name Of Family Doctor/PCP: [facility] - Dr. Gracia Primary Care Date of Future Appointment with PCP: 10/17/22 Time of Appointment with PCP: 11:20 AM Provider Appointment Comment: [address] [place] [id number] Primary Care Release of Information: Obtained, Reviewed and Signed Specialist Name of Specialist: Katlin- Radiology Phone Number for Specialist: [phone] Date of Appointment with Specialist: 11/07/22 Time of Appointment with Specialist: 11:45 am (please arrive by 11:30 am) Specialty Appointment Comment: Marica Mims, JACQUELINE Perez Smoking Cessation Counseling Tobacco Cessation Medication Prescribed at Discharge: Not Applicable/Non-Smoker Contact Information Discharge Discharge Address: [address] [place] [address] Discharge Plan Discharge Items Patient Disposition: Home - Self-Care Reason For Visit: MAJOR DEPRESSIVE DISORDER Discharge Diagnosis: Bipolar I Disorder, Depressed, Severe, with Psychotic Features Activity: Resume your previous activity Non-emergency contact: Primary Care Provider and Psychiatrist Call non-emergency contact if: you have any medication questions and your symptoms worsen Follow-up/Referrals: Scottie Hicks MD [Primary Care Provider] - Diet: Regular Addtl Attending Provider Instructions: SPECIAL CARE INSTRUCTIONS: 1. Follow through with your scheduled aftercare appointments. If unable to keep an appointment, please call to reschedule. 2. Take your medication only as prescribed. Medication should not be changed or stopped without the approval of your doctor. In the event of worsening symptoms or concerns about side effects, contact your doctor immediately. 3. Utilize new healthy coping skills, anger management skills, and stress management skills learned during your hospitalization. Journal feelings and process them with a support person. Identify stressors or situations that may result in relapse, deterioration or inappropriate behaviors and develop a plan to deal with those issues. 4. If your coping skills are ineffective and you are in crisis, contact your outpatient providers for direction. If unable to reach your providers, please call the [facility] CRISIS LINE AT , go to the [facility] walk-in center at [address], [address], [place], or go to the closest Emergency Room. 5. Avoid alcohol and un-prescribed drugs. 6. You have been provided with the Mental Health Advance Directives Pamphlet for your review. 7. Your condition is stable for discharge to outpatient level of care, but recovery is an ongoing process. Ifthoughts to harm yourself or others return, follow the safety plan developed during your stay. Planning for a safe return home includes securing weapons. Our treatment team recommends weaponsbe removed from the home until your outpatient provider reassesses your progress. In rare cases where the items themselvescannot be removed, guns and ammunitionshould be secured separatelyand keys stored by a reliable personoutside of the home. If you were admitted on an involuntary commitment, the police or other legal authorities may be involved in this process. AFTERCARE APPOINTMENTS: * Please call your insurance company prior to your scheduled appointment to confirm your aftercare providers are covered. Take your insurance information to your appointments. WHO TO CALL AND WHEN: Medical Emergencies: For questions or emergencies related to your hospital stay, please contact the Inpatient Behavioral Health Unit at [phone]. A colon therapist is on-call 23/01 for the Behavioral Health Unit for emergencies At any time you feel your situation is an emergency, you may also call 911 immediately. DESTROY ALL MEDICATIONS (PRESCRIPTION OR [id number]) THAT DO NOT APPEAR ON YOUR CURRENT DISCHARGE MEDICATION LIST Pending Studies at Discharge: No Stand-Alone Forms: My [facility] Medications and DC Order Prescriptions: New olanzapine 10 mg Tablet 10 mg PO HS 30 Days Qty: 30 0RF hydroxyzine HCl 25 mg Tablet 50 mg PO HSZ PRN (Reason: Insomnia) 30 Days Qty: 60 0RF hydroxyzine HCl 25 mg Tablet 25 mg PO Q4H PRN (Reason: Anxiety) 30 Days Qty: 60 0RF Continued mecobalamin (vitamin B12) 1,000 mcg tablet,chewable 1,000 mcg PO DAILY Qty: 90 3RF duloxetine 60 mg capsule,delayed release(DR/EC) 60 mg PO BID Patient Comments: pt reports taking once daily promethazine 25 mg tablet 25 mg PO BID PRN (Reason: NAUSEA/VOMITING) Qty: 60 3RF metoprolol tartrate 25 mg tablet 25 mg PO QAM Qty: 90 3RF Ubrelvy 100 mg tablet 100 mg PO .COMPLEX PRN (Reason: migraine headache) Qty: 10 5RF Rx Instructions: 100 mg PO PRN migraine, may repeat after 2 hours prn. No more than 2 tabs in 24 hrs. celecoxib [Celebrex] 200 mg capsule 200 mg PO DAILY Qty: 30 5RF Rx Instructions: Never on empty stomach with plenty of water pantoprazole 40 mg tablet,delayed release (DR/EC) 40 mg PO DAILY Qty: 90 3RF levothyroxine 137 mcg tablet 137 mcg PO QAM Changed lorazepam 1 mg tablet 1 mg PO TID Qty: 30 0RF Discontinued vilazodone 20 mg tablet 20 mg PO QAM Rx Instructions: must administer with a meal/food amitriptyline 50 mg tablet 150 mg PO HS Rexulti 2 mg tablet 2 mg PO QPM buspirone 5 mg tablet 5 mg PO TID acetaminophen-codeine 300-30 mg tablet 1 tab PO BID Discharge Orders: Discharge Order (Routine); Ordered 10/08/22 Ordered By: Logan Garland Admission Data Admit Date/Time: 10/02/22 11:42 Attending Provider: Chandrika Kinney Admit Provider: Chandrika Kinney Primary Care Provider: Scottie Hicks V. Other Interventions: Discharge Summary Assessment (RN) Last Done: 10/08/22 11:57 PSY Interdisciplinary Discharge Planning Last Done: 10/08/22 11:55 Coding Level of Care Code 64559 D/C day mgmt > 30 min Diagnoses Bipolar disorder, curr episode depressed, severe, w/psychotic features F31.5 Generalized anxiety disorder with panic attacks F41.1; F41.0 Suicide attempt by drug overdose T50.902A Suicidal ideation R45.851 Chronic pain G89.29 TBI (traumatic brain injury) S06.9XAA Time Spent (min) 34
== END 2022-10-08 13:05 | disposition home or self-care (01) | DRG 885 ==
LOC: 3S 11:42